=== PATIENT | female | born 1990 | race Caucasian/White ===

== ENCOUNTER 2018-04-11 12:50 | Emergency (ER) | payer MEDICAID, SELFPAY ==
--- NOTE | 2018-04-11 12:50 | DT_ITS ---
This patient was seen during an EMR downtime April 10, 2018 - April 17, 2018. This patient may have a combination of paper and electronic documentation or all paper documentation. All documentation is viewable within the e-chart portion of [employer] for each patient visit.
--- NOTE | 2018-04-11 14:35 | RAD_ITS ---
STUDY: X-RAY - SACRUM/COCCYX REASON FOR EXAM: Female, 28 years old. FALL, LOWER BACK, SAC/COCCYX PAIN. TECHNIQUE: 3 view(s) of the sacrum and coccyx were obtained. COMPARISON: None. FINDINGS: Normal bilateral sacroiliac joints. Normal visualized sacral ala and fused sacral bodies. Normal sacrococcygeal junction with a normal angulation. Normal coccygeal segments. The presacral soft tissue structures are unremarkable. RAD/Sacrum-Coccyx min 2 Views IMPRESSION: Normal x-rays of the sacrum and coccyx. Electronically Signed: Wilfredo Muñoz MD at 9:36 EDT Tel , Service support ,
--- NOTE | 2018-04-11 14:35 | RAD_ITS ---
STUDY: X-RAY - LUMBAR SPINE REASON FOR EXAM: Female, 28 years old. FALL, LOWER BACK AND SAC/COCCYX PAIN. TECHNIQUE: 3 view(s) of the lumbar spine were obtained. COMPARISON: None FINDINGS: Normal lumbar lordosis. There is no substantial scoliosis. There is a normal alignment of the vertebrae. Normal vertebral bodies and endplates. Normal disc space heights. The soft tissue structures are unremarkable. RAD/Lumbar Spine 2 or 3 Views IMPRESSION: Normal x-ray examination of the lumbar spine. Electronically Signed: Wilfredo Muñoz MD at 9:35 EDT Tel , Service support ,
== END 2018-04-11 15:54 | disposition home or self-care (01) ==
LOC: ED 04-13 13:07
PROVIDERS: Emergency Provider Emergency Medicine; Family Provider Nurse Practitioner Family; PCP Nurse Practitioner Family
DX: S30.0XXA Contusion of lower back and pelvis, initial encounter (principal); V86.99XA Unspecified occupant of other special all-terrain or other off-road motor vehicle injured in nontraffic accident, initial encounter; Y93.9 Activity, unspecified; Y92.9 Unspecified place or not applicable; F17.210 Nicotine dependence, cigarettes, uncomplicated
CPT/HCPCS: 72100; 72220; 99283

== ENCOUNTER 2018-08-10 16:18 | Emergency (ER) | payer MEDICAID, SELFPAY ==
[2018-08-10 16:20] VITALS: BP 138/96; PULSE 100; RESP 17; TEMP 36.5; O2SAT 99; BMI 25.6
--- NOTE | 2018-08-10 16:38 | ED.VISSUMM ---
- ER Visit Summary Date of Service: 08/10/18 Chief Complaint: [] Left upper dental pain for days History of Present Illness: The patient is a 28 F []hx of that problem repeatedly has had a recurrence of dental pain for the last few days no fever no cough no trauma she has been told understands that she needs to see dentist for further therapy and possible dental extraction. No fever no cough denies no other complaints Physical Examination: [] She is resting in the bed in no distress her vital signs are within normal range the face and HEENT exam are generally unremarkable the mouth there is diffuse dental decay involving the left upper teeth and right upper teeth some decay to the lower teeth as well there is no abscess no drainage no foul order floor the mouth and tongue are unremarkable the neck is very supple the lungs are clear the abdomen soft nontender her neurologic exam is unremarkable Test Results: [] Emergency Department Course and Treatment: [] has diffuse dental caries and decay I explained her she require management via dental services she may require extractions she indicates she has financial issues that make it hard for her to see dentistry she will be referred to a local clinic I also explained her she can be seen through the dental health services at [facility] [place] and [facility] if she can arrange access to those facilities but she would have to call for an appointment, given her allergy profile she will be started on clindamycin which has been on before her significant other indicated that nonsteroidals [id number] are not helping I explained that all we can provide our prescription nonsteroidals she will return for change in symptoms Treatment Plan: [] Disposition: [] Home stable Impression: [] Diffuse dental decay This note was generated with [employer] dictation software. It may contain incorrect words, spelling, and punctuation that were not noted in review of the chart prior to signing ED Disposition - Plan for ED Patient: Chief Complaint: Dental Referrals: Rosaura Rodriguez, MARIZA-C [Primary Care Provider] -
--- NOTE | 2018-08-10 16:40 | ED.DEP ---
ED Disposition - Plan for ED Patient: Chief Complaint: Dental Instructions: ED Cavity Dental Prescriptions: Naproxen [Naprosyn] 500 mg PO BID PRN #20 tab Clindamycin HCl [Cleocin] 300 mg PO Q6H #40 cap Referrals: Rosaura Rodriguez, MARIZA-C [Primary Care Provider] - Radha Cerna [NON-STAFF] -
== END 2018-08-10 17:03 | disposition home or self-care (01) ==
PROVIDERS: Emergency Provider Emergency Medicine; Family Provider Nurse Practitioner Family; PCP Nurse Practitioner Family
DX: K02.9 Dental caries, unspecified (principal)
CPT/HCPCS: 99281

== ENCOUNTER 2019-08-13 22:33 | Emergency (ER) | payer SELFPAY ==
[2019-08-13 22:34] VITALS: BP 152/99; PULSE 81; RESP 13; TEMP 36.6; O2SAT 99; BMI 23.8
--- NOTE | 2019-08-13 22:46 | CT_ITS ---
STUDY: CT ABDOMEN AND PELVIS WITHOUT CONTRAST REASON FOR EXAM: Female, 29 years old. Left flank pain. RADIATION DOSAGE (If Supplied By Facility): CTDIvol = ( 6.81 ) mGy, DLP = ( 338.37 ) mGycm TECHNIQUE: Transaxial images were obtained from the dome of the diaphragm to the symphysis pubis without oral contrast, and without intravenous contrast. Sagittal and coronal images were reconstructed. Individualized dose optimization techniques were used for this CT. COMPARISON: 03/31/2017. FINDINGS: Lung bases are clear. Heart size is normal. The liver is unremarkable. The gallbladder is surgically absent. The spleen and pancreas are unremarkable. The adrenal glands are normal. The kidneys are unremarkable. No stones or hydronephrosis. The aorta is normal in caliber. There is no free fluid, free air, or organized collection. No bowel obstruction or inflammatory change. Normal appendix. Urinary bladder is unremarkable. Normal abdominal wall. Normal osseous structures. CT/Abdomen/Pelvis without Cont IMPRESSION: Normal CT of the abdomen and pelvis. Electronically Signed: Kelsey Pascual MD at 23:53 EDT Tel , Service support ,
--- NOTE | 2019-08-13 22:47 | ED.VIS.GEN ---
History of Present Illness Chief Complaint: Flank Pain Informant: Patient Narrative: Stated she started having left-sided flank pain yesterday evening. It has persisted until today. She describes a sharp burning pain in the left flank radiating to the anterior abdomen. Denies any urinary symptoms. Positive history of pyelonephritis remotely. No fevers or chills. She is had some mild nausea. No history of kidney stones. Current severity is mild to moderate. Waxes and wanes. Denies any vaginal symptoms. Denies . Past Medical History - Allergies and Home Meds Allergies/Adverse Reactions: Allergies Penicillins Allergy (Verified 08/13/19 22:34) Hives sulfamethoxazole [From Bactrim] Adverse Reaction (Verified 08/13/19 22:34) Vomiting trimethoprim [From Bactrim] Adverse Reaction (Verified 08/13/19 22:34) Vomiting Primary Care Physician: Rosaura Rodriguez NP-C [Primary Care Provider] - Prior records reviewed: Yes Past Medical History: - - Pyelonephritis Surgical History: cholecystectomy Smoking Status: Current every day smoker Alcohol: None Drugs: None Review of Systems General: Denies: Chills, Fever, Sweats Eyes: Denies: Visual changes - bilaterally, Diplopia ENT: Denies: Rhinorrhea, Sore throat Cardiovascular: Denies: Chest pain, Palpitations Respiratory: Denies: Dyspnea, Cough, Dyspnea on exertion Gastrointestinal: Reports: Nausea. Denies: Abdominal pain, Vomiting, Diarrhea, Melena, Hematochezia Genitourinary: Denies: Dysuria, Hematuria, Frequency Musculoskeletal: Reports: Back pain. Denies: Extremity Pain Skin: Denies: Rash, Wounds Neurological: Denies: Headache, Weakness, Numbness Physical Exam Vital Signs/Narrative: Vital Signs Temp Pulse Resp BP Pulse Ox 08/13/19 22:34 97.8 F 81 13 152/99 H 99 General: Well nourished, Well developed, No Acute Distress Head: Normocephalic, Atraumatic Eyes: Perrl, EOMI ENT: Moist mucous membranes, No rhinorrhea Neck: Supple, Nontender Cardiovascular: Regular rate, Regular rhythm, No murmurs Respiratory: No distress, CTA bilaterally, Chest nontender Abdomen: Soft, Nontender, Nondistended, Normal bowel sounds Back: Nontender, Normal Inspection, CVA tenderness - Positive on the left Extremities: Nontender, No edema Skin: Normal color, No rash Neurological: Alert, Oriented x3, Cranial nerves II-XII grossly intact, Normal Strength, Normal Sensation Psychological: Normal affect, Normal Mood Diagnostic/Tx/Re-eval - Medical Decision Making Given IV fluids morphine Zofran and Toradol. Lab work CT abdomen pelvis obtained. Lab work shows a leukocytosis 11,000. Urinalysis shows white blood cell counts elevated in the urine as well as 4+ bacteria. Elect lites show no significant abnormalities. negative. CT abdomen pelvis is negative. At this time patient has a left-sided pyelonephritis. Given ciprofloxacin.. Feels better after treatment. Discharged with ciprofloxacin, friend, Percocet. We will follow-up as an outpatient. I do not feel she is septic or needs to be admitted. She will return if she worsens ED Disposition - Plan for ED Patient: Disposition: Home or Assisted Living Diagnosis: Pyelonephritis of left kidney Instructions: PYELONEPHRITIS, Female (Adult) Prescriptions: Ciprofloxacin [Cipro] 500 mg PO BID #14 tab Prescription Printed Oxycodone HCl/Acetaminophen [Percocet 5/325] 1 - 2 tab PO Q6H PRN PRN 3 Days #12 tab PRN Reason: Pain Prescription Printed Ondansetron [Zofran Odt] 4 mg PO Q8H PRN PRN #10 tab PRN Reason: Nausea Prescription Printed Referrals: Rosaura Rodriguez NP-C [Primary Care Provider] -
[2019-08-13] MEDS: Ondansetron 4 MG/2 ML Vial IV (22:53)
[2019-08-13] MEDS: Morphine 4 MG/ML Syringe IV (22:53)
[2019-08-13] MEDS: Ketorolac 30 MG/ML Syringe IV (22:54)
[2019-08-13 22:56] LABS: Mucous, Urine 0 SEEN /hpf (<or=2+); Red Blood Cells-Urine 0 SEEN /hpf (0-5); Squamous Epithelial Cells - UA 0 SEEN /hpf (5-10)
[2019-08-13 22:56] LABS: Absolute Lymphocyte Count 2.91 X10^3/uL (0.83-4.51); Absolute Neutrophil Count 6.7 X10^3/uL (2.0-7.7); Basophil# 0.08 X10^3/uL; Basophil% 0.7 % (0-1); Eosinophil# 0.86 X10^3/uL; Eosinophils% 7.6 % (0-5); Hematocrit 42.3 % (37-47); Hemoglobin 14.4 g/dL (12.0-15.0); Lymphocyte # 2.91 X10^3/ul (4.0); Lymphocyte % 25.8 % (19-41); Mean Corpuscular Hgb 33.6 pg (27.0-32.0); Mean Corpuscular Volume 98.6 fL (81-99); Mean Platelet Vol. 9.2 fl (6.2-12.0); Monocyte# 0.68 X10^3/uL; NRBC Flagged by Analyzer 0 % (0-5); Neutrophil # 6.73 X10^3/uL (2.7-7.7); Neutrophil % 59.6 % (47-70); Platelet Count 261 K/mm3 (150-450); RBC Distribution Width CV 13.2 % (11.6-14.6); RBC Distribution Width SD 47.6 fl (35.1-43.9); Red Blood Count 4.29 M/mm3 (4.2-5.4); White Blood Count 11.3 K/mm3 (4.4-11.0)
[2019-08-13 23:00] LABS: Color, Urine Yellow (Yellow); Glucose, Dipstick Normal (Normal); Ketone-Dipstick Negative (Negative); Leukocyte Esterase-Dipstick 100 /ul (Negative); Nitrite-Dipstick Positive (Negative); Occult Blood-Urine 50 /ul (Negative); Protein-Dipstick Negative (Negative); Urine Bilirubin Dipstick Negative (Negative); Urine Clarity Sl. Cloudy (Clear); Urine Urobilinogen Normal (Normal)
[2019-08-13 23:10] LABS: Bacteria 4+ /hpf (None Seen); White Blood Cells 5-10 SEEN /hpf (0-5)
[2019-08-13 23:17] LABS: Internal QC Validated? YES +Cl - CLEAR BKGD; Pregnancy, Serum, hCG Quali. NEGATIVE Negative
[2019-08-13] MEDS: 0.9% Normal Saline 1,000 ML 250 ML IV (23:26)
[2019-08-13 23:43] LABS: Anion Gap 7 (5-15); BUN 11 mg/dL (7-18); BUN/Creat Ratio 15.4 RATIO (10-20); Calcium,Total 8.2 mg/dL (8.5-10.1); Chloride 108 mmol/L (98-107); Creatinine, Serum 0.71 mg/dL (0.55-1.02); EST Glomerular Filtration Rate 101 mL/min (>60); Est Glom Filt Rate - Afr Amer 122 mL/min (>60); Estimated Creatinine Clearance 111.64 ml/min; Glucose 98 mg/dL (74-106); Potassium 3.7 mmol/L (3.5-5.1); Sodium Level 142 mmol/L (136-145)
[2019-08-14] MEDS: Ciprofloxacin 500 MG Tablet PO (00:19)
[2019-08-14 00:24] VITALS: BP 131/101; PULSE 74; RESP 14; O2SAT 100
== END 2019-08-14 00:25 | disposition home or self-care (01) ==
PROVIDERS: Emergency Provider Emergency Medicine; Family Provider Nurse Practitioner Family; PCP Nurse Practitioner Family
DX: N12 Tubulo-interstitial nephritis, not specified as acute or chronic (principal); Z87.448 Personal history of other diseases of urinary system; F17.200 Nicotine dependence, unspecified, uncomplicated
CPT/HCPCS: 74176; 80048; 81001; 84703; 85025; 87077; 87086; 87088; 87186; 96361; 96374; 96375; 99285; J7030; A4216; J2405

== ENCOUNTER 2021-11-04 17:28 | Emergency (ER) | payer MEDICAID, SELFPAY ==
[2021-11-04 17:29] VITALS: BP 160/111; PULSE 108; RESP 18; TEMP 36.3; O2SAT 97; BMI 26.6
--- NOTE | 2021-11-04 18:30 | CT_ITS ---
STUDY: CT ABDOMEN AND PELVIS WITHOUT CONTRAST REASON FOR EXAM: Female, 31 years old. Hematuria RADIATION DOSAGE (If Supplied By Facility): CTDIvol = ( 6.75 ) mGy, DLP = ( 337.25 ) mGycm TECHNIQUE: Transaxial images were obtained from the dome of the diaphragm to the symphysis pubis without oral contrast, and without intravenous contrast. Sagittal and coronal images were reconstructed. Individualized dose optimization techniques were used for this CT. COMPARISON: None. FINDINGS: The visualized lung bases are unremarkable. The visualized portions of the heart are within normal limits. Normal liver. Gallbladder is removed.. Normal spleen. Normal pancreas. Normal bilateral adrenal glands. Normal right kidney. Normal left kidney. Normal visualized stomach. Normal small intestine. Normal colon. The appendix is visualized and appears normal. Normal abdominal aorta. Normal inferior vena cava. Normal retroperitoneum. Normal urinary bladder. There are multiple tubal ligation clips in the pelvis with unclear relationship to the tubes/ovaries. One of the clips is anterior to the bladder, and other posterior in the perirectal space. Normal abdominal wall. Normal osseous structures. CT/Abdomen/Pelvis without Cont IMPRESSION: 1. No acute abnormality. 2. Normal urinary system, no stones. 3. Tubal ligation clips, see above for description and gynecology outpatient consultation advised. Electronically Signed: Manju Delgado MD at 20:48 EST Tel , Service support ,
[2021-11-04 18:45] LABS: Bacteria 0 SEEN /hpf (None Seen); Mucous, Urine 0 SEEN /hpf (<or=2+)
--- NOTE | 2021-11-04 18:50 | EDS_ITS ---
HPI History of Present Illness Chief Complaint: Complaint Informant: patient Onset/Context/Timing Onset: Yesterday Context: Gradual Onset Timing: Continuous Quality: Burning, stabbing Location: Lower abdomen and right low back and flank Worsened by: Movement Relieved by: Nothing Narrative Narrative: Patient presents with hematuria that began yesterday. Patient states it has been red blood in her urine. Patient states it is gradually gotten worse. Patient states she has pain over her lower abdomen and her right lower back. Patient states it is burning and stabbing. Patient states it has been constant. Patient states it is worse with certain movements. Patient denies any fevers or chills. Patient denies any nausea or vomiting. PFSH PFSH Medical History Smoker Home Medications hydrocodone-acetaminophen 1 tab PO Q6H PRN PRN 3 Days #10 tablet 11/04/21 [Rx Last Taken Unknown] losartan 100 mg PO DAILY 11/04/21 [History Last Taken Unknown] Allergy/AdvReac Type Severity Reaction Status Date / Time Penicillins Allergy Hives Verified 11/04/21 17:30 ketorolac [From Toradol] AdvReac Other Verified 11/04/21 17:31 sulfamethoxazole AdvReac Vomiting Verified 11/04/21 17:30 [From Bactrim] trimethoprim [From Bactrim] AdvReac Vomiting Verified 11/04/21 17:30 Surgical History (Updated 11/04/21 @ 17:48 by Felipe Kong) History of cholecystectomy Social History Smoking Status: Current every day smoker tobacco type: cigarettes ROS ROS ED Constitutional Constitutional ED: Denies chills or fever(s) Eyes Eyes: Denies blurry vision or change in vision ENT ENT ED: Denies rhinorrhea or sore throat Cardiovascular Cardiovascular: Denies chest pain or palpitations Respiratory/Chest Respiratory/Chest: Denies cough or dyspnea Gastrointestinal Gastrointestinal: Denies nausea or vomiting Genitourinary Genitourinary ED: Reports hematuria and urinary frequency; Denies dysuria Musculoskeletal Musculoskeletal: Reports back pain; Denies neck pain Integumentary Denies abscess or rash Neurologic Neurologic: Denies headache(s) or weakness Allergic/Immunologic Allergic/Immunologic ED: Denies mouth swelling or urticaria EXAM Physical Exam Const Vital Signs: 11/04/21 17:29 11/04/21 21:23 Temperature 97.4 F L Temperature Source Temporal Pulse Rate 108 H 89 Respiratory Rate 18 15 Blood Pressure 160/111 H 137/97 H Blood Pressure Mean 127 110 Pulse Ox 97 98 Oxygen Delivery Method Room Air Room Air Positive well nourished and well developed General Appearance ED: well developed HEENT Reports moist mucous membranes Neck supple and no JVD Resp normal respiratory effort and clear to auscultation bilaterally Cardio regular rate, regular rhythm and no murmurs GI normal to inspection, nondistended, normoactive bowel sounds Palpation: soft and tender LLQ, RLQ and suprapubic Back/Spine General Back: CVA tenderness right Extremity normal to inspection General Extremety ED: Negative for edema or tenderness General Extremity: Negative for edema Neuro oriented x3, CN's II-XII intact bilaterally and no sensory deficits noted Sensorium / Orientation: alert Motor Exam: strength 5/5 throughout Psych mental status grossly normal Skin no rashes or lesions noted MDM MDM MDM Narrative Medical decision making narrative: Patient was given IV fluids, morphine, and Zofran. CBC was within normal limits. Urinalysis shows leukocyte Estrace of 25. Occult blood was 250. There were greater than 100 red blood cells. There were 0-5 white blood cells. There were 10-25 epithelial cells. Urine hCG was negative. Comprehensive metabolic profile was within normal limits. CT scan of the abdomen pelvis was obtained. There is no acute process noted. This was interpreted by the radiologist and reviewed by myself. Patient was advised of her findings. Patient was given a repeat dose of morphine. Patient was given a prescription for [place]. Patient was instructed to follow-up with her primary care physician in 5 to 7 days. Patient was also instructed to follow-up with her [employer] in 5 to 7 days. Patient understood and was agreeable with the plan. All questions were answered. Lab Data Labs: Laboratory Results - last 24 hr 11/04/21 11/04/21 11/04/21 17:57 17:57 18:51 WBC 8.2 RBC 4.16 L Hgb 14.0 Hct 40.9 MCV 98.3 MCH 33.7 H MCHC 34.2 RDW Std Deviation 46.0 H RDW Coeff of Tere 12.7 Plt Count 212 MPV 8.9 Immature Gran % (Auto) 0.200 Neut % (Auto) 64.6 Lymph % (Auto) 25.1 [place] % (Auto) 4.2 Eos % (Auto) 5.3 H Baso % (Auto) 0.6 Absolute Neuts (auto) 5.3 Absolute Lymphs (auto) 2.05 Nucleated RBC % 0 Sodium Potassium Chloride Carbon Dioxide Anion Gap BUN Creatinine Estim Creat Clear Calc Est GFR (MDRD) Af Amer Est GFR (MDRD) Non-Af BUN/Creatinine Ratio Glucose Calcium Total Bilirubin AST ALT Alkaline Phosphatase Total Protein Albumin Globulin Albumin/Globulin Ratio Urine Color SEE COMMENT BELOW Urine Clarity Cloudy Urine pH 8.0 Ur Specific [place] 1.010 Urine Protein 30 H Urine Glucose (UA) Normal Urine Ketones Negative Urine Occult Blood 250 H Urine Nitrite Negative Urine Bilirubin Negative Urine Urobilinogen Normal Ur Leukocyte Esterase 25 H Urine RBC > 100 SEEN Urine WBC 0-5 SEEN Ur Squamous Epith Cells 10-25 SEEN Urine Bacteria 0 SEEN Urine Mucus 0 SEEN Urine Test Negative 11/04/21 18:51 WBC RBC Hgb Hct MCV MCH MCHC RDW Std Deviation RDW Coeff of Tere Plt Count MPV Immature Gran % (Auto) Neut % (Auto) Lymph % (Auto) [place] % (Auto) Eos % (Auto) Baso % (Auto) Absolute Neuts (auto) Absolute Lymphs (auto) Nucleated RBC % Sodium 137 Potassium 4.0 Chloride 110 H Carbon Dioxide 22.0 Anion Gap 5 BUN 6 L Creatinine 0.68 Estim Creat Clear Calc 114.43 Est GFR (MDRD) Af Amer 128 Est GFR (MDRD) Non-Af 105 BUN/Creatinine Ratio 8.8 L Glucose 89 Calcium 9.0 Total Bilirubin 0.50 AST 41 H ALT 42 Alkaline Phosphatase 81 Total Protein 7.5 Albumin 3.4 Globulin 4.1 Albumin/Globulin Ratio 0.8 L Urine Color Urine Clarity Urine pH Ur Specific [place] Urine Protein Urine Glucose (UA) Urine Ketones Urine Occult Blood Urine Nitrite Urine Bilirubin Urine Urobilinogen Ur Leukocyte Esterase Urine RBC Urine WBC Ur Squamous Epith Cells Urine Bacteria Urine Mucus Urine Test Radiography Diagnostic Testing: Clinical Impression(s) from Imaging Studies Abdomen/Pelvis CT 11/04/21 18:30 IMPRESSION: 1. No acute abnormality. 2. Normal urinary system, no stones. 3. Tubal ligation clips, see above for description and gynecology outpatient consultation advised. Electronically Signed: Manju Delgado MD at 20:48 EST Tel , Service support , Discharge Plan Triage Chief Complaint: Complaint ED Provider: Vijay Mcmullen Dx/Rx/DC Orders Clinical Impression: Pelvic pain, Hematuria Instructions: ED Hematuria, ED Pelvic Pain, Unknown Cause Prescriptions: New hydrocodone-acetaminophen [hydrocodone-acetaminophen] 1 TABLET tablet 1 tab PO Q6H PRN PRN (Reason: Pain) 3 Days Qty: 10 RF: 0 No Action losartan 100 mg tablet 100 mg PO DAILY RF: 0 Primary Care Provider: Rosaura Rodriguez NP Referrals: Jethro Norton MD [STAFF PHYSICIAN] - 3-5 Days Rosaura Rodriguez NP, [employer] [Primary Care Provider] - 5-7 Days Disposition Disposition: Home, Self Care
[2021-11-04 18:53] LABS: Glucose, Dipstick Normal (Normal); Ketone-Dipstick Negative (Negative); Leukocyte Esterase-Dipstick 25 /ul (Negative); Nitrite-Dipstick Negative (Negative); Occult Blood-Urine 250 /ul (Negative); Protein-Dipstick 30 mg/dl (Negative); Urine Bilirubin Dipstick Negative (Negative); Urine Clarity Cloudy (Clear); Urine Urobilinogen Normal (Normal)
[2021-11-04] MEDS: Ondansetron 4 MG/2 ML Vial IV (18:54)
[2021-11-04] MEDS: Morphine 4 MG/ML Syringe IV ×2 (18:54→22:42)
[2021-11-04] MEDS: 0.9% Normal Saline 1,000 ML 1000 ML IV (18:55)
[2021-11-04 18:59] LABS: Absolute Lymphocyte Count 2.05 X10^3/uL (0.83-4.51); Absolute Neutrophil Count 5.3 X10^3/uL (2.0-7.7); Basophil# 0.05 X10^3/uL; Basophil% 0.6 % (0-1); Eosinophil# 0.43 X10^3/uL; Eosinophils% 5.3 % (0-5); Hematocrit 40.9 % (37-47); Lymphocyte # 2.05 X10^3/ul (0.83-4.51); Lymphocyte % 25.1 % (19-41); Mean Corp Hgb Conc 34.2 g/dL (32-36); Mean Corpuscular Hgb 33.7 pg (27.0-32.0); Mean Corpuscular Volume 98.3 fL (81-99); Mean Platelet Vol. 8.9 fl (6.2-12.0); Monocyte# 0.34 X10^3/uL; Monocyte% 4.2 % (0-10); NRBC Flagged by Analyzer 0 % (0-5); Neutrophil # 5.28 X10^3/uL (2.7-7.7); Neutrophil % 64.6 % (47-70); Platelet Count 212 K/mm3 (150-450); RBC Distribution Width CV 12.7 % (11.6-14.6); Red Blood Count 4.16 M/mm3 (4.2-5.4); White Blood Count 8.2 K/mm3 (4.4-11.0)
[2021-11-04 19:01] LABS: Color, Urine SEE COMMENT BELOW (Yellow)
[2021-11-04 19:05] LABS: Red Blood Cells-Urine > 100 SEEN /hpf (0-5); Squamous Epithelial Cells - UA 10-25 SEEN /hpf (5-10); White Blood Cells 0-5 SEEN /hpf (0-5)
[2021-11-04 19:22] LABS: ALB/GLOB Ratio 0.8 RATIO (0.9-2.4); AST(SGOT) 41 U/L (15-37); Alanine Aminotransfer ALT/SGPT 42 U/L (13-56); Albumin, Serum 3.4 g/dL (3.2-5.0); Alkaline Phosphatase 81 U/L (45-117); Anion Gap 5 (5-15); BUN 6 mg/dL (7-18); BUN/Creat Ratio 8.8 RATIO (10-20); Chloride 110 mmol/L (98-107); Creatinine, Serum 0.68 mg/dL (0.55-1.02); EST Glomerular Filtration Rate 105 mL/min (>60); Est Glom Filt Rate - Afr Amer 128 mL/min (>60); Estimated Creatinine Clearance 114.43 ml/min; Globulin 4.1 g/dL (2.2-4.2); Glucose 89 mg/dL (74-106); Protein, Total 7.5 g/dL (6.4-8.2); Sodium Level 137 mmol/L (136-145)
[2021-11-04 19:28] LABS: Internal QC Validated? YES +Cl - CLEAR BKGD; Pregnancy, Urine Negative Negative
[2021-11-04 21:23] VITALS: BP 137/97; PULSE 89; RESP 15; O2SAT 98
[2021-11-04 22:51] VITALS: BP 120/71; PULSE 85; RESP 16; O2SAT 98
== END 2021-11-04 22:51 | disposition home or self-care (01) ==
PROVIDERS: Emergency Provider Emergency Medicine; PCP Nurse Practitioner Family
DX: R10.2 Pelvic and perineal pain (principal); R31.9 Hematuria, unspecified; F17.210 Nicotine dependence, cigarettes, uncomplicated
CPT/HCPCS: 74176; 80053; 81001; 81025; 85025; 96361; 96374; 96375; 96376; 99283; J7030; A4216; J2405

== ENCOUNTER 2021-11-08 20:47 | Emergency (ER) | payer MEDICAID, SELFPAY ==
[2021-11-08 20:48] VITALS: BP 139/93; PULSE 114; RESP 18; TEMP 36.2; O2SAT 99; BMI 26.6
[2021-11-08 22:17] LABS: Bacteria 0 SEEN /hpf (None Seen); Mucous, Urine 0 SEEN /hpf (<or=2+); White Blood Cells 0 SEEN /hpf (0-5)
[2021-11-08 22:40] LABS: Color, Urine Red (Yellow); Glucose, Dipstick Normal (Normal); Ketone-Dipstick 5 mg/dl (Negative); Leukocyte Esterase-Dipstick 25 /ul (Negative); Nitrite-Dipstick Negative (Negative); Occult Blood-Urine 250 /ul (Negative); Protein-Dipstick 500 mg/dl (Negative); Specific Gravity, Urine 1.015 (1.002-1.030); Urine Bilirubin Dipstick Negative (Negative); Urine Clarity Cloudy (Clear); Urine Urobilinogen Normal (Normal)
[2021-11-08 22:55] LABS: Red Blood Cells-Urine > 100 SEEN /hpf (0-5); Squamous Epithelial Cells - UA 10-25 SEEN /hpf (5-10)
[2021-11-08 22:56] LABS: Internal QC Validated? YES +Cl - CLEAR BKGD; Pregnancy, Urine Negative Negative
[2021-11-09] MEDS: 0.9% Normal Saline 1,000 ML 999 ML IV (00:40)
[2021-11-09] MEDS: HYDROmorphone 1 MG/ML Syringe IV (00:41)
[2021-11-09] MEDS: Ondansetron 4 MG/2 ML Vial IV (00:41)
[2021-11-09 00:47] VITALS: PULSE 89; RESP 16; O2SAT 98
[2021-11-09 00:54] LABS: Absolute Lymphocyte Count 1.68 X10^3/uL (0.83-4.51); Absolute Neutrophil Count 2.2 X10^3/uL (2.0-7.7); Basophil# 0.02 X10^3/uL; Basophil% 0.4 % (0-1); Eosinophil# 0.24 X10^3/uL; Eosinophils% 5.3 % (0-5); Hematocrit 37.3 % (37-47); Hemoglobin 12.5 g/dL (12.0-15.0); Lymphocyte # 1.68 X10^3/ul (0.83-4.51); Lymphocyte % 37.2 % (19-41); Mean Corp Hgb Conc 33.5 g/dL (32-36); Mean Corpuscular Hgb 32.6 pg (27.0-32.0); Mean Corpuscular Volume 97.1 fL (81-99); Mean Platelet Vol. 8.8 fl (6.2-12.0); Monocyte# 0.35 X10^3/uL; Monocyte% 7.7 % (0-10); NRBC Flagged by Analyzer 0 % (0-5); Neutrophil # 2.23 X10^3/uL (2.7-7.7); Neutrophil % 49.4 % (47-70); Platelet Count 230 K/mm3 (150-450); RBC Distribution Width CV 12.8 % (11.6-14.6); RBC Distribution Width SD 45.8 fl (35.1-43.9); Red Blood Count 3.84 M/mm3 (4.2-5.4); White Blood Count 4.5 K/mm3 (4.4-11.0)
[2021-11-09 01:07] LABS: Anion Gap 6 (5-15); BUN 8 mg/dL (7-18); Calcium,Total 8.6 mg/dL (8.5-10.1); Chloride 109 mmol/L (98-107); EST Glomerular Filtration Rate 88 mL/min (>60); Est Glom Filt Rate - Afr Amer 106 mL/min (>60); Estimated Creatinine Clearance 97.27 ml/min; Glucose 94 mg/dL (74-106); Potassium 3.5 mmol/L (3.5-5.1); Sodium Level 141 mmol/L (136-145)
--- NOTE | 2021-11-09 01:43 | EX.ED.DYSGE1 ---
HPI History of Present Illness Chief Complaint: Complaint Narrative Narrative: Patient is a 31-year-old female who was seen in the ER recently secondary to hematuria. She states that time she had blood work and a CT scan which revealed no obvious cause. She reports she was placed on pain medication but has noticed some increased pain and blood in secondary to this comes in for evaluation. The patient states the blood is occurring only with urination and denies any vaginal bleeding or rectal bleed. Patient denies any blood thinner use or history of bleeding disorder. PFSH PFSH Medical History Hypertension Smoker Home Medications losartan 100 mg PO DAILY 11/04/21 [History Last Taken Unknown] oxycodone-acetaminophen [Endocet] 1 tab PO Q6H PRN 3 Days #12 tab 11/09/21 [Rx Last Taken Unknown] Allergy/AdvReac Type Severity Reaction Status Date / Time Penicillins Allergy Hives Verified 11/08/21 20:50 ketorolac [From Toradol] AdvReac Other Verified 11/08/21 20:50 sulfamethoxazole AdvReac Vomiting Verified 11/08/21 20:50 [From Bactrim] trimethoprim [From Bactrim] AdvReac Vomiting Verified 11/08/21 20:50 Surgical History (Updated 11/04/21 @ 17:48 by Felipe Kong) History of cholecystectomy Social History Smoking Status: Current every day smoker tobacco type: cigarettes ROS ROS ED Constitutional Constitutional ED: Denies chills or fever(s) ENT ENT ED: Denies sore throat Cardiovascular Cardiovascular: Denies chest pain Respiratory/Chest Respiratory/Chest: Denies cough or dyspnea Gastrointestinal Gastrointestinal: Reports abdominal pain; Denies diarrhea, nausea or vomiting Genitourinary Genitourinary ED: Reports hematuria; Denies dysuria Musculoskeletal Musculoskeletal: Denies myalgias Integumentary Denies rash Neurologic Neurologic: Denies headache(s) Hematologic/Lymphatic Hematologic/Lymphatic: Denies easy bleeding or easy bruising EXAM Physical Exam Const Vital Signs: 11/08/21 20:48 11/09/21 00:47 11/09/21 01:54 Temperature 97.2 F L 98.1 F Temperature Source Temporal Pulse Rate 114 H 89 89 Respiratory Rate 18 16 16 Blood Pressure 139/93 H 136/82 H Blood Pressure Mean 108 Pulse Ox 99 98 98 Oxygen Delivery Method Room Air Room Air Positive well nourished and well developed General Appearance ED: well developed HEENT Reports moist mucous membranes Eyes PERRL and EOMs intact bilaterally General Eye ED: Negative for pale conjunctiva Neck supple Resp normal respiratory effort and clear to auscultation bilaterally Cardio regular rate and regular rhythm GI normal to inspection, nondistended, normoactive bowel sounds, non-tender, non-distended and no masses GI Narrative: No voluntary guarding or rigidity no pulsatile mass Auscultation: normoactive bowel sounds Palpation: soft Back/Spine Back/Spine Narrative: Positive right CVA pain Extremity normal to inspection Neuro oriented x3 and CN's II-XII intact bilaterally Sensorium / Orientation: alert Motor Exam: strength 5/5 throughout Psych mental status grossly normal Skin no rashes or lesions noted Skin Narrative: Capillary refill is less than 3 seconds MDM MDM MDM Narrative Medical decision making narrative: Patient presented to the ER afebrile and slightly hypertensive. She already had a CT scan which revealed no obvious stones I felt no need for repeat imaging at this time. Basic blood work was obtained which shows no need for transfusion and normal platelets as well as no signs of acute kidney injury. Urine did confirm hematuria but no signs of infection. With her flank pain and negative CT scan I feel she probably has a noncalcified stone as the cause of her symptoms. She will be given an order form to have an outpatient kidney ultrasound obtained to check for this. However at this time as she does not have signs of urosepsis or acute kidney injury or need for transfusion there is no need for admission and she can be discharged home Lab Data Attestation: I reviewed the patient's lab results. Labs: Laboratory Results - last 24 hr 11/08/21 11/09/21 11/09/21 22:05 00:40 00:40 WBC 4.5 RBC 3.84 L Hgb 12.5 Hct 37.3 MCV 97.1 MCH 32.6 H MCHC 33.5 RDW Std Deviation 45.8 H RDW Coeff of Tere 12.8 Plt Count 230 MPV 8.8 Immature Gran % (Auto) 0.000 Neut % (Auto) 49.4 Lymph % (Auto) 37.2 [place] % (Auto) 7.7 Eos % (Auto) 5.3 H Baso % (Auto) 0.4 Absolute Neuts (auto) 2.2 Absolute Lymphs (auto) 1.68 Nucleated RBC % 0 Sodium 141 Potassium 3.5 Chloride 109 H Carbon Dioxide 26.0 Anion Gap 6 BUN 8 Creatinine 0.80 Estim Creat Clear Calc 97.27 Est GFR (MDRD) Af Amer 106 Est GFR (MDRD) Non-Af 88 BUN/Creatinine Ratio 10.0 Glucose 94 Calcium 8.6 Urine Color Red Urine Clarity Cloudy Urine pH 8.0 Ur Specific [place] 1.015 Urine Protein 500 H Urine Glucose (UA) Normal Urine Ketones 5 H Urine Occult Blood 250 H Urine Nitrite Negative Urine Bilirubin Negative Urine Urobilinogen Normal Ur Leukocyte Esterase 25 H Urine RBC > 100 SEEN Urine WBC 0 SEEN Ur Squamous Epith Cells 10-25 SEEN Urine Bacteria 0 SEEN Urine Mucus 0 SEEN Urine Test Negative Discharge Plan Triage Chief Complaint: Complaint ED Provider: Bradley Yepez Dx/Rx/DC Orders Clinical Impression: Hematuria, Acute flank pain Instructions: ED Flank Pain, Uncertain Cause, ED Hematuria Prescriptions: New oxycodone-acetaminophen [Endocet] 5-325 mg tablet 1 tab PO Q6H PRN (Reason: pain) 3 Days Qty: 12 RF: 0 No Action losartan 100 mg tablet 100 mg PO DAILY RF: 0 Primary Care Provider: Rosaura Rodriguez NP Referrals: Rosaura Rodriguez NP, [employer] [Primary Care Provider] - Activity Restrictions/Additional Instructions: Please return to the hospital for your outpatient ultrasound to further assess the cause of your hematuria and flank pain and discuss with your family doctor possible referral to a urologist if symptoms persist Disposition Disposition: Home, Self Care Discharge Date/Time: 11/09/21 02:09
[2021-11-09 01:54] VITALS: BP 136/82; PULSE 89; RESP 16; TEMP 36.7; O2SAT 98
[2021-11-09] MEDS: oxyCODONE 5 MG Tablet 10 MG PO (01:58)
== END 2021-11-09 02:09 | disposition home or self-care (01) ==
PROVIDERS: Emergency Provider Emergency Medicine; PCP Nurse Practitioner Family; Visit Provider Emergency Medicine
DX: R10.9 Unspecified abdominal pain (principal); R31.9 Hematuria, unspecified; I10 Essential (primary) hypertension; Z79.899 Other long term (current) drug therapy; F17.210 Nicotine dependence, cigarettes, uncomplicated
CPT/HCPCS: 80048; 81001; 81025; 85025; 96361; 96374; 96375; 99283; J7030; A4216; J2405

== ENCOUNTER 2021-12-02 17:43 | Outpatient (CLI) | payer MEDICAID, SELFPAY ==
--- NOTE | 2021-12-02 13:15 | CYSPIN_PTH ---
PATIENT: AMERICA MELISSA LOC: [facility] U#:[id number] AGE/SX: 31/F ROOM: RE12/02/[address]: Dr. Dianne Matthews MD : 1990 BED: DIS: 12/02/2021 SPEC #: [id number] RECD: 12/03/21 07:00 STATUS: LAURA ASHFORD #: [id number] SANTIAGO: 12/02/21 13:[address]: Dianne Matthews DEPT: CYTOLOGY RECD BY: Stella Rebollar ENTERED: 12/03/21 07:03 SP TYPE: CYSPIN FL OTHR DR: Rosaura Rodriguez, NETWORKING SPECIALIST-C Tissues: Urine Procedures: Pap Stain (control) Special Stain Group II Cytospin Fluid HEADER OPERATION: Not noted PRE-OP DIAGNOSIS: Gross hematuria TISSUE SUBMITTED: Urine for cytology DIAGNOSIS CYTOLOGY Urine for cytology (cytospin): Negative for malignant cells. See comment. BROWN:millicent 12/03/2021 COMMENT The specimen predominantly consists of squamous epithelial cells. Numerous organisms consistent with bacteria and red blood cells are also noted. CYTOLOGY STUDY Slides are reviewed. CYTOLOGY GROSS Received is 10 ml of dark gold cloudy fluid labeled with the patient's name and and designated per the requisition as urine. Submitted for cytology preparation. / millicent 12/03/2021 TC:5 CPT: 03351
[2021-12-02 17:45] LABS: Cytology, Body Fluid / CSF SEE PATHOLOGY REPORT
== END 2021-12-02 23:59 | disposition short-term general hospital (02) ==
PROVIDERS: PCP Nurse Practitioner Family; Visit Provider Urology
DX: R31.0 Gross hematuria (principal)
CPT/HCPCS: 88108; 88313

== ENCOUNTER 2021-12-08 09:34 | Day surgery (SDC) | payer MEDICAID, SELFPAY ==
[2021-12-08] VITALS (9 sets, daily range): BP systolic 111–135; BP diastolic 80–99; PULSE 86–116; RESP 14–18; TEMP 36.6–37.1; O2SAT 93–100; BMI 24.5
[2021-12-08] MEDS: Lactated Ringers 1,000 ML 15 ML IV ×2 (10:26→13:39)
[2021-12-08] MEDS: Ciprofloxacin 400 MG/200 ML BAG 200 MG IV (10:27)
--- NOTE | 2021-12-08 10:38 | PCM.HP.STD ---
HPI - General HPI Narrative AMERICA MELISSA, is a 31 F who presents for evaluation of gross hematuria and right flank pain. She had a negative CT and continues to have issues. Informed consent was obtained. PFSH Medical History Back pain Depression Flank pain Gross hematuria Hypertension Injury of head and neck Migraine headache Shortness of breath on exertion Smoker Home Medications losartan 100 mg PO QHS 11/04/21 [History Last Taken Unknown] oxycodone-acetaminophen [Endocet] 1 tab PO Q6H PRN 3 Days #12 tab 11/09/21 [Rx Last Taken Unknown] clindamycin HCl 300 mg PO TID 12/07/21 [History Last Taken Unknown] hydrochlorothiazide 25 mg PO QHS 12/07/21 [History Last Taken Unknown] nitrofurantoin monohyd/m-cryst [Macrobid] 100 mg PO BID 12/07/21 [History Last Taken Unknown] sertraline 150 mg PO QHS 12/07/21 [History Last Taken Unknown] Allergy/AdvReac Type Severity Reaction Status Date / Time Penicillins Allergy Hives Verified 12/08/21 10:07 acetaminophen [From [place]] AdvReac HEADACHE Verified 12/07/21 08:18 hydrocodone [From [place]] AdvReac HEADACHE Verified 12/08/21 10:07 ketorolac [From Toradol] AdvReac Other Verified 12/08/21 10:07 sulfamethoxazole AdvReac Vomiting Verified 12/08/21 10:07 [From Bactrim] trimethoprim [From Bactrim] AdvReac Vomiting Verified 12/08/21 10:07 Surgical History History of History of cholecystectomy History of esophagogastroduodenoscopy (EGD) Hx of tubal ligation Social History Smoking Status: Current every day smoker tobacco type: cigarettes ROS Constitutional Constitutional: Denies anorexia, chills, fever(s), increased appetite, lethargy or weakness Eyes Eyes: Reports systems reviewed and no addt'l complaints, except as documented ENT HEENT: Reports systems reviewed and no addt'l complaints, except as documented Cardiovascular Cardiovascular: Denies chest pain, dyspnea, irregular heart rhythm, leg edema or lightheadedness Respiratory/Chest Respiratory/Chest: Denies cough or dyspnea Gastrointestinal Gastrointestinal: Reports loose stools; Denies nausea or vomiting Genitourinary Genitourinary: Reports flank pain and hematuria; Denies dysuria Musculoskeletal Musculoskeletal: Reports systems reviewed and no addt'l complaints, except as documented Integumentary Integumentary: Reports systems reviewed and no addt'l complaints, except as documented Neurologic Neurologic: Reports systems reviewed and no addt'l complaints, except as documented Psychiatric Psychiatric: Reports systems reviewed and no addt'l complaints, except as documented Endocrine Endocrinology: Reports systems reviewed and no addt'l complaints, except as documented Hematologic/Lymphatic Hematologic/Lymphatic: Reports systems reviewed and no addt'l complaints, except as documented Allergic/Immunologic Allergic/Immunologic: Reports systems reviewed and no addt'l complaints, except as documented Vital Signs Vital Signs Vital Signs: 12/08/21 10:11 Temperature 98.1 F Temperature Source Temporal Pulse Rate 116 H Respiratory Rate 18 Blood Pressure 122/80 H Blood Pressure Mean 94 Blood Pressure Source Monitor Blood Pressure Position Semi-Fowlers Blood Pressure Location Right Arm Pulse Ox 98 Oxygen Delivery Method Room Air Weight Weight: 71.214 kg Body Mass Index (BMI) 24.5 Physical Exam Const alert, oriented x3 and no apparent distress HEENT normocephalic, head/scalp atraumatic, hearing grossly normal bilaterally, external ears normal and external nose normal Eyes conjunctivae normal and no scleral icterus Neck supple General: trachea midline Lymph Lymphatic: no lymphedema noted Chest inspection of chest normal Chest: symmetrical chest wall rise Resp normal respiratory effort, normal air movement, no retractions and no use of accessory muscles Effort and Inspection: able to speak in complete sentences and symmetric chest movement Cardio regular rate and regular rhythm GI soft to palpation, non-tender and non-distended Bladder / Kidney Exam: CVA tenderness right Back/Spine General Back: CVA tenderness right Extremity normal to inspection Skin no rashes or lesions noted, no wounds, skin turgor normal, no jaundice, no petechiae and no mottling Neuro oriented x3, CN's II-XII intact bilaterally and moves all extremities Psych mental status grossly normal, thought process normal, cooperative and affect normal Assessment & Plan Assessment/Plan (1) Gross hematuria: (2) Flank pain: PLAN: proceed with cystoscopy, bilateral retrograde pyelograms, right ureteroscopy, possible right ureteral stent insertion, possible bladder biopsy with fulguration informed consent was obtained Procedure Criteria Type of Procedure Procedure Type: Elective Elective Risks - COVID COVID Risk Discussion: The surgeon/proceduralist and patient have discussed in detail the risk of exposure to and/or potential harm posed by the COVID-19 virus with having a surgery/procedure at this time versus the risk of delaying the surgery/procedure. It is not possible to know either the risk of delaying the surgery or procedure or chance of getting an infection with perfect accuracy, but a joint decision was made between the patient and the surgeon/proceduralist to proceed at this time with the scheduled surgery/procedure as indicated on the consent form.
--- NOTE | 2021-12-08 10:44 | DCINST_ITS ---
Discharge Instructions Diet Discharge Diet: No restrictions Activity Discharge Activity: Return to Normal Activity Dressing / Incision Call your doctor if you observe: Fever of 101 or Higher, Inability to urinate, Inability to have a bowel movement and Uncontrolled pain Follow Up Care Please Follow Up With: Dianne Matthews MD When: call office for appt Test Results: Test results from this visit will be discussed in further detail at your follow-up appointment, if applicable. Discharge Plan Admission Attending Provider: Dianne Matthews Primary Care Provider: Rosaura Rodriguez NP Discharge Orders/Prescriptions Prescriptions: New oxycodone-acetaminophen [oxycodone-acetaminophen] 1 TABLET tablet 2 tab PO Q8H PRN PRN (Reason: Pain) 2 Days Qty: 10 RF: 0 phenazopyridine [Pyridium] 200 MG tablet 200 mg PO TID PRN PRN (Reason: Bladder Spasms) 7 Days Qty: 30 RF: 0 cephalexin [cephalexin] 500 MG capsule 500 mg PO Q12 3 Days Qty: 6 RF: 0 No Action losartan 100 mg tablet 100 mg PO QHS RF: 0 oxycodone-acetaminophen [Endocet] 5-325 mg tablet 1 tab PO Q6H PRN (Reason: pain) 3 Days Qty: 12 RF: 0 clindamycin HCl 300 mg Capsule 300 mg PO TID RF: 0 hydrochlorothiazide 25 mg Tablet 25 mg PO QHS RF: 0 nitrofurantoin monohyd/m-cryst [Macrobid] 100 mg Capsule 100 mg PO BID RF: 0 sertraline 150 mg Capsule 150 mg PO QHS RF: 0 Referrals / Follow Up: Rosaura Rodriguez NP, MUSIC JOURNALIST-C [Primary Care Provider] - Disposition Disposition (needs filled in before D/C Order can be placed): Home, Self Care
--- NOTE | 2021-12-08 10:45 | OP.PCM_ITS ---
Problems Associated Problem List Diagnoses (1) Flank pain: (2) Gross hematuria: Report of Operation Date of Procedure: 12/08/21 Pre-Operative Diagnosis: gross hematuria, right flank pain Post-Operative Diagnosis: same Surgery/Procedure Performed:: cystoscopy, bilateral retrograde pyelograms, right ureteroscopy Surgeon: Dianne Matthews Type of Anesthesia: General Description of Procedure: Is a 31-year-old female with continuing gross hematuria And negative imaging. She reports gross hematuria with every void. She is currently on her menstrual period. She presents for further evaluation with cystoscopy and possible ureteroscopy, bilateral retrograde pyelograms. Informed consent was obtained. The patient was seen in the operating room and placed on the operating room table. Anesthesia monitored the head, neck, airway, IV access and vital signs throughout the case. Once anesthesia was appropriate ministered the patient was placed into dorsal lithotomy position was prepped and draped in usual sterile fashion. The cystoscope was inserted through the urethra under direct visualization into the urinary bladder. The urine was clear yellow. The bladder mucosa in its entirety was visualized and found to be normal with no evidence of mass, erythema, ulceration or foreign body. An 8 [place] cone-tip catheter was used to intubate the patient's right ureteral orifice and contrast was injected in retrograde fashion under fluoroscopic visualization. The entire length of the ureter and the calyces were sharp, no evidence of obstruction or foreign body. Same findings were from the left side as seen under fluoroscopic visualization. Due to the patient's continued right flank pain an 0.035 Glidewire was inserted through the right ureteral orifice into the renal pelvis. A flexible ureteroscope was used to directly visualize the entire length of the ureter as well as all the calyces. There were no abnormalities of the mucosa. There were no stones identified. There were no abnormalities seen.The patient was awakened and taken to the recovery room in good condition. There were no complications during this proced ure. Grafts/Implants Used: none Complications none Admit VTE Documentation VTE Present on Admission: Yes VTE Mechan Device Prophylaxis: SCD's VTE Pharm Prophylaxis ordered?: No Reason prophylaxis not ordered:: Treatment Not Indicated
== END 2021-12-08 23:59 | disposition home or self-care (01) ==
LOC: SDC 09:36 → AC 09:38
PROVIDERS: PCP Nurse Practitioner Family; Referring Provider Urology; Visit Provider Urology
PROC: 0TJ98ZZ Inspection of Ureter, Via Natural or Artificial Opening Endoscopic (ICD-10-PCS; CPT 52352; principal; 2021-12-08 11:10)
DX: R31.0 Gross hematuria (principal); R10.9 Unspecified abdominal pain; F17.210 Nicotine dependence, cigarettes, uncomplicated; I10 Essential (primary) hypertension; Z79.899 Other long term (current) drug therapy; F32.A Depression, unspecified
CPT/HCPCS: 52005; 00910; 76000; 87426; J7120; C1769; J0744

== ENCOUNTER 2021-12-11 19:46 | Emergency (ER) | payer MEDICAID, SELFPAY ==
[2021-12-11 19:47] VITALS: BP 126/110; PULSE 130; RESP 16; TEMP 36.2; O2SAT 98; BMI 25.8
--- NOTE | 2021-12-11 20:00 | EX.ED.DYSGE1 ---
HPI History of Present Illness Chief Complaint: Abd Pain Detail of Chief Complaint: Right flank pain and bilateral inguinal lower abdominal pain Informant: patient Onset/Context/Timing Onset: - (Per HPI) Context: Sudden Onset Timing: Continuous Quality: I am unable to describe Location: Right flank, right and left inguinal region Current Severity: Mild Maximum Severity: Moderate Worsened by: Nothing specific Relieved by: Nothing Associated Symptoms Associated Symptoms: Nausea, vomiting and diarrhea Narrative Narrative: Patient is a 31-year-old woman who underwent cystoscopy, retrograde pyelogram and right sided uroscopy. This was performed because of gross hematuria and right flank pain. Patient specimen revealed bacteria. This was performed on Tuesday. She has had documented temperature to a T-max of 104.0. She now presents with nausea, vomiting diarrhea. She is presently on cephalexin and will need to verify if she is still on clindamycin. She states she urinates a lot because she is on hydrochlorothiazide. She denies rhinorrhea, congestion, postnasal drainage or sore throat. She denies headache. She denies photophobia, neck pain or neck stiffness. She denies chest pain, cough or shortness of breath. She had a negative Covid test less than 1 week ago. She also informed me that she has cervical cancer. She is uncertain whether this is CIS or more advanced. She may have had a conization. He states that procedure was now performed at [facility]. She is also been seen at outside emergency department. She denies history ovarian cyst, endometriosis or STI. Prior similar symptoms: Yes Recent Illness/Hospitalization: Yes PFSH PFSH Medical History Back pain Depression Flank pain Gross hematuria Hypertension Injury of head and neck Migraine headache Shortness of breath on exertion Smoker Home Medications losartan 100 mg PO QHS 11/04/21 [History Last Taken Unknown] hydrochlorothiazide 25 mg PO QHS 12/07/21 [History Last Taken Unknown] nitrofurantoin monohyd/m-cryst [Macrobid] 100 mg PO BID 12/07/21 [History Last Taken Unknown] sertraline 150 mg PO QHS 12/07/21 [History Last Taken Unknown] cephalexin 500 mg PO Q12 3 Days #6 capsule 12/08/21 [Rx Last Taken Unknown] phenazopyridine [Pyridium] 200 mg PO TID PRN PRN 7 Days #30 tab 12/08/21 [Rx Last Taken Unknown] potassium chloride 20 meq PO BID 12/11/21 [History Last Taken Unknown] Allergy/AdvReac Type Severity Reaction Status Date / Time Penicillins Allergy Hives Verified 12/11/21 19:49 acetaminophen [From [place]] AdvReac HEADACHE Verified 12/11/21 19:49 hydrocodone [From [place]] AdvReac HEADACHE Verified 12/11/21 19:49 ketorolac [From Toradol] AdvReac Other Verified 12/11/21 19:49 sulfamethoxazole AdvReac Vomiting Verified 12/11/21 19:49 [From Bactrim] trimethoprim [From Bactrim] AdvReac Vomiting Verified 12/11/21 19:49 Surgical History History of History of cholecystectomy History of esophagogastroduodenoscopy (EGD) Hx of tubal ligation Social History (Updated 12/11/21 @ 20:[address] David Keyes MD) household members: other Smoking Status: Current every day smoker tobacco type: cigarettes substance use type: does not use ROS ROS ED Constitutional Constitutional ED: Reports fever(s) and sweats; Denies chills, subjective or weight loss Eyes Eyes: Denies blurry vision, change in vision or diplopia ENT ENT ED: Denies ear pain, rhinorrhea or sore throat Cardiovascular Cardiovascular: Denies chest pain, orthopnea, palpitations, paroxysmal nocturnal dyspnea or racing heartbeat Respiratory/Chest Respiratory/Chest: Denies cough, dyspnea, dyspnea on exertion, orthopnea or paroxysmal nocturnal dyspnea Gastrointestinal Gastrointestinal: Reports abdominal pain, diarrhea, nausea and vomiting; Denies constipation Genitourinary Genitourinary ED: Reports hematuria and urinary frequency; Denies dysuria Musculoskeletal Musculoskeletal: Reports back pain; Denies arthralgias, myalgias or neck pain Integumentary Denies rash Neurologic Neurologic: Denies headache(s) or weakness Endocrine Endocrinology: Denies polydipsia, polyphagia or polyuria Hematologic/Lymphatic Hematologic/Lymphatic: Denies anemia, easy bleeding or easy bruising EXAM Physical Exam Const Vital Signs: 12/11/21 19:47 Temperature 97.2 F L Temperature Source Temporal Pulse Rate 130 H Respiratory Rate 16 Blood Pressure 126/110 H Blood Pressure Mean 115 Pulse Ox 98 Oxygen Delivery Method Room Air Positive well nourished and well developed General Appearance ED: well developed and NAD; Negative for cyanotic, diaphoretic or pallor HEENT Reports TM's clear Negative for trauma or tenderness Tympanic Membrane ED: Yes TM's clear Eyes PERRL and EOMs intact bilaterally General Eye ED: Negative for pale conjunctiva or scleral icterus Neck no lymphadenopathy, supple and no JVD Resp normal respiratory effort and clear to auscultation bilaterally Effort and Inspection: Negative for pain with movement Cardio regular rhythm, S1 normal heart sound, S2 normal heart sound and no murmurs Rate: tachycardic GI non-distended and no masses; Negative for normal to inspection, nondistended, normoactive bowel sounds, non-tender or hepatosplenomegaly Auscultation: hypoactive bowel sounds; Negative for normoactive bowel sounds Palpation: soft and tender LLQ and RLQ Back/Spine General Back: CVA tenderness right Cervical Spine: Negative for cervical spine tenderness Thoracic Spine / Upper Back: Negative for thoracic spinal tenderness or paraspinal muscle tenderness Extremity normal to inspection General Extremety ED: Negative for edema or tenderness General Extremity: Negative for edema Neuro oriented x3, CN's II-XII intact bilaterally and no sensory deficits noted Neuro Narrative: Observed and normal Sensorium / Orientation: alert Motor Exam: strength 5/5 throughout Psych Mood & Affect: depressed Skin no rashes or lesions noted and no wounds General Skin Exam: Negative for jaundice or pallor MDM MDM MDM Narrative Medical decision making narrative: Will obtain urine to rule out urinary tract infection in light of pathology results documented. Will obtain CBC to assess white count and H&H. Basic metabolic panel to assess renal function and electrolytes and specifically potassium since she was reporting diarrhea. She was treated with Zofran IV fluids and Bentyl. Lab Data Attestation: I reviewed the patient's lab results. Lab results narrative: White count is elevated with no shift. Basic metabolic panel is unremarkable. Urinalysis is contaminated. There are no bacteria noted. Labs: Laboratory Results - last 24 hr 12/11/21 12/11/21 12/11/21 20:10 20:10 20:19 WBC 12.0 H RBC 4.23 Hgb 14.3 Hct 40.1 MCV 94.8 MCH 33.8 H MCHC 35.7 RDW Std Deviation 44.3 H RDW Coeff of Tere 12.7 Plt Count 330 MPV 8.8 Immature Gran % (Auto) 0.300 Neut % (Auto) 66.9 Lymph % (Auto) 25.3 [place] % (Auto) 5.6 Eos % (Auto) 1.6 Baso % (Auto) 0.3 Absolute Neuts (auto) 8.0 H Absolute Lymphs (auto) 3.03 Nucleated RBC % 0 Sodium 137 Potassium 3.0 L Chloride 100 Carbon Dioxide 27.0 Anion Gap 10 BUN 8 Creatinine 0.93 Estim Creat Clear Calc 83.67 Est GFR (MDRD) Af Amer 89 Est GFR (MDRD) Non-Af 73 BUN/Creatinine Ratio 8.6 L Glucose 102 Calcium 9.4 Urine Color SEE COMMENT BELOW Urine Clarity Clear Urine pH 6.5 Ur Specific [place] 1.010 Urine Protein 30 H Urine Glucose (UA) Normal Urine Ketones Negative Urine Occult Blood 150 H Urine Nitrite Positive H Urine Bilirubin 6 H Urine Urobilinogen 12 H Ur Leukocyte Esterase Negative Urine RBC 10-25 SEEN Urine WBC 0-5 SEEN Ur Squamous Epith Cells 10-25 SEEN Urine Bacteria 0 SEEN Urine Mucus 1+ Discharge Plan Triage Chief Complaint: Abd Pain Other Complaint: Flank Pain ED Provider: David Keyes Dx/Rx/DC Orders Clinical Impression: Right flank pain, Gross hematuria, Bilateral groin pain Instructions: ED Pain, Acute, Uncertain Cause Prescriptions: No Action losartan 100 mg tablet 100 mg PO QHS RF: 0 hydrochlorothiazide 25 mg Tablet 25 mg PO QHS RF: 0 nitrofurantoin monohyd/m-cryst [Macrobid] 100 mg Capsule 100 mg PO BID RF: 0 sertraline 150 mg Capsule 150 mg PO QHS RF: 0 phenazopyridine [Pyridium] 200 MG tablet 200 mg PO TID PRN PRN (Reason: Bladder Spasms) 7 Days Qty: 30 RF: 0 cephalexin [cephalexin] 500 MG capsule 500 mg PO Q12 3 Days Qty: 6 RF: 0 potassium chloride 20 mEq tablet,ER particles/crystals 20 meq PO BID RF: 0 Primary Care Provider: Rosaura Rodriguez NP Referrals: Rosaura Rodriguez NP, AIRCRAFT PNEUDRAULIC SYSTEMS MECHANIC-C [Primary Care Provider] - 3-5 Days Disposition Disposition: Home, Self Care
[2021-12-11] MEDS: 0.9% Normal Saline 1,000 ML 150 ML IV (20:16)
[2021-12-11] MEDS: Morphine 2 MG/ML Syringe IV (20:21)
[2021-12-11] MEDS: Ondansetron 4 MG/2 ML Vial IV (20:21)
[2021-12-11 20:28] LABS: Bacteria 0 SEEN /hpf (None Seen)
[2021-12-11 20:30] LABS: Glucose, Dipstick Normal (Normal); Ketone-Dipstick Negative (Negative); Leukocyte Esterase-Dipstick Negative /ul (Negative); Nitrite-Dipstick Positive (Negative); Occult Blood-Urine 150 /ul (Negative); Protein-Dipstick 30 mg/dl (Negative); Urine Clarity Clear (Clear); Urine Urobilinogen 12 mg/dl (Normal); Urine pH 6.5 (5.0 - 8.0)
[2021-12-11 20:31] LABS: Absolute Lymphocyte Count 3.03 X10^3/uL (0.83-4.51); Basophil# 0.04 X10^3/uL; Basophil% 0.3 % (0-1); Eosinophil# 0.19 X10^3/uL; Eosinophils% 1.6 % (0-5); Hematocrit 40.1 % (37-47); Hemoglobin 14.3 g/dL (12.0-15.0); Lymphocyte # 3.03 X10^3/ul (0.83-4.51); Lymphocyte % 25.3 % (19-41); Mean Corp Hgb Conc 35.7 g/dL (32-36); Mean Corpuscular Hgb 33.8 pg (27.0-32.0); Mean Corpuscular Volume 94.8 fL (81-99); Mean Platelet Vol. 8.8 fl (6.2-12.0); Monocyte# 0.67 X10^3/uL; Monocyte% 5.6 % (0-10); NRBC Flagged by Analyzer 0 % (0-5); Neutrophil # 8.01 X10^3/uL (2.7-7.7); Neutrophil % 66.9 % (47-70); Platelet Count 330 K/mm3 (150-450); RBC Distribution Width CV 12.7 % (11.6-14.6); RBC Distribution Width SD 44.3 fl (35.1-43.9); Red Blood Count 4.23 M/mm3 (4.2-5.4)
[2021-12-11 20:41] LABS: Color, Urine SEE COMMENT BELOW (Yellow); Urine Bilirubin Dipstick 6 mg/dL (Negative)
[2021-12-11 20:42] LABS: Red Blood Cells-Urine 10-25 SEEN /hpf (0-5); White Blood Cells 0-5 SEEN /hpf (0-5)
[2021-12-11 20:43] LABS: Mucous, Urine 1+ /hpf (<or=2+); Squamous Epithelial Cells - UA 10-25 SEEN /hpf (5-10)
[2021-12-11] MEDS: Dicyclomine 10 MG Capsule 20 MG PO (20:46)
[2021-12-11 20:51] LABS: Anion Gap 10 (5-15); BUN 8 mg/dL (7-18); BUN/Creat Ratio 8.6 RATIO (10-20); Calcium,Total 9.4 mg/dL (8.5-10.1); Chloride 100 mmol/L (98-107); Creatinine, Serum 0.93 mg/dL (0.55-1.02); EST Glomerular Filtration Rate 73 mL/min (>60); Est Glom Filt Rate - Afr Amer 89 mL/min (>60); Estimated Creatinine Clearance 83.67 ml/min; Glucose 102 mg/dL (74-106); Sodium Level 137 mmol/L (136-145)
--- NOTE | 2021-12-11 21:04 | ED.RN ---
made aware pt. still having nausea. v.o. for 5mg reglan
[2021-12-11] MEDS: Metoclopramide 10 MG/2 ML Vial 5 MG IV (21:07)
[2021-12-11 22:11] VITALS: BP 135/78; PULSE 78; RESP 16; O2SAT 98
== END 2021-12-11 22:19 | disposition home or self-care (01) ==
PROVIDERS: Emergency Provider Emergency Medicine; PCP Nurse Practitioner Family; Visit Provider Emergency Medicine
DX: R31.0 Gross hematuria (principal); R11.2 Nausea with vomiting, unspecified; R10.32 Left lower quadrant pain; R10.31 Right lower quadrant pain; R19.7 Diarrhea, unspecified; I10 Essential (primary) hypertension; F32.A Depression, unspecified; Z79.899 Other long term (current) drug therapy; F17.210 Nicotine dependence, cigarettes, uncomplicated
CPT/HCPCS: 80048; 81001; 85025; 96361; 96374; 96375; 99284; J7030; J2405

== ENCOUNTER 2021-12-31 16:31 | Emergency (ER) | payer MEDICAID, SELFPAY ==
[2021-12-31 16:32] VITALS: BP 143/96; PULSE 109; RESP 14; TEMP 36.2; O2SAT 100; BMI 25.5
--- NOTE | 2021-12-31 16:52 | US_ITS ---
INDICATION: right pelvic pain EXAMINATION:US Transvaginal Non-OB TECHNIQUE: Transvaginal (for optimal evaluation of the adnexa) pelvic ultrasound was performed. Grayscale, spectral waveform, and color flow Doppler evaluation of the adnexa. COMPARISON: None. FINDINGS: UTERUS: Anteverted. The uterus measures 7.9 x 5.4 x 4.1 cm. There is no uterine mass. The endometrial stripe measures 5 in AP diameter which is within normal limits. RIGHT OVARY: Measures 2.1 x 2.1 x 1.5 cm. Non-enlarged, normal echogenicity. There is normal arterial inflow and venous outflow present in the right ovary. LEFT OVARY: Measures 2.3 x 2.4 x 1.9 cm. Non-enlarged, normal echogenicity. There is normal arterial inflow and venous outflow present in the left ovary. FREE FLUID: None. US/Transvaginal Non- IMPRESSION: Normal pelvic ultrasound. Electronically Signed: Delroy Stearns MD at 18:45 EST ,
[2021-12-31] MEDS: Morphine 4 MG/ML Syringe IV ×2 (17:04→18:46)
[2021-12-31] MEDS: Ondansetron 4 MG/2 ML Vial IV ×2 (17:04→18:46)
[2021-12-31] MEDS: 0.9% Normal Saline 1,000 ML 999 ML IV (17:07)
[2021-12-31 17:16] LABS: Absolute Lymphocyte Count 1.88 X10^3/uL (0.83-4.51); Absolute Neutrophil Count 5.2 X10^3/uL (2.0-7.7); Basophil# 0.03 X10^3/uL; Basophil% 0.4 % (0-1); Eosinophil# 0.16 X10^3/uL; Eosinophils% 2.1 % (0-5); Hematocrit 34.4 % (37-47); Lymphocyte # 1.88 X10^3/ul (0.83-4.51); Lymphocyte % 24.4 % (19-41); Mean Corp Hgb Conc 34.9 g/dL (32-36); Mean Corpuscular Hgb 34.5 pg (27.0-32.0); Mean Corpuscular Volume 98.9 fL (81-99); Mean Platelet Vol. 8.9 fl (6.2-12.0); Monocyte# 0.37 X10^3/uL; Monocyte% 4.8 % (0-10); NRBC Flagged by Analyzer 0 % (0-5); Neutrophil # 5.23 X10^3/uL (2.7-7.7); Neutrophil % 67.9 % (47-70); Platelet Count 262 K/mm3 (150-450); RBC Distribution Width CV 14.2 % (11.6-14.6); RBC Distribution Width SD 51.7 fl (35.1-43.9); Red Blood Count 3.48 M/mm3 (4.2-5.4); White Blood Count 7.7 K/mm3 (4.4-11.0)
[2021-12-31 17:18] LABS: Mucous, Urine 0 SEEN /hpf (<or=2+)
--- NOTE | 2021-12-31 17:20 | EDS_ITS ---
HPI <ROBIN Gomez - Last Filed: 12/31/21 19:04> History of Present Illness Chief Complaint: Abd Pain Narrative Narrative: 31-year-old female with PMH of ovarian cysts, bilateral tubal ligation presents with right lower pelvic pain. She states she has had this pain intermittently for the last 6 weeks and her SUPERINTENDENT NONSELLING tried hormone replacement which did not help. Yesterday the pain became more severe and is worse with sitting up. She denies fever, chills, nausea, vomiting. She states she had some blood in her urine earlier this month but none presently and no dysuria. Normal bowel movements. She called her SUPERINTENDENT NONSELLING Dr. Liriano who advised her to come in to rule out ovarian cysts. PFSH <ROBIN Gomez - Last Filed: 12/31/21 19:04> PFSH Medical History Back pain Depression Flank pain Gross hematuria Hypertension Injury of head and neck Migraine headache Shortness of breath on exertion Smoker Home Medications losartan 100 mg PO QHS 11/04/21 [History Last Taken Unknown] hydrochlorothiazide 25 mg PO QHS 12/07/21 [History Last Taken Unknown] nitrofurantoin monohyd/m-cryst [Macrobid] 100 mg PO BID 12/07/21 [History Last Taken Unknown] sertraline 150 mg PO QHS 12/07/21 [History Last Taken Unknown] cephalexin 500 mg PO Q12 3 Days #6 capsule 12/08/21 [Rx Last Taken Unknown] phenazopyridine [Pyridium] 200 mg PO TID PRN PRN 7 Days #30 tab 12/08/21 [Rx Last Taken Unknown] potassium chloride 20 meq PO BID 12/11/21 [History Last Taken Unknown] cyclobenzaprine mg 12/31/21 [History Last Taken Unknown] phenazopyridine 12/31/21 [History Last Taken Unknown] potassium chloride 20 meq PO BID #240 ml 12/31/21 [Rx Last Taken Unknown] Allergy/AdvReac Type Severity Reaction Status Date / Time Penicillins Allergy Hives Verified 12/31/21 16:34 acetaminophen [From [place]] AdvReac HEADACHE Verified 12/31/21 16:34 hydrocodone [From [place]] AdvReac HEADACHE Verified 12/31/21 16:34 ketorolac [From Toradol] AdvReac Other Verified 12/31/21 16:34 sulfamethoxazole AdvReac Vomiting Verified 12/31/21 16:34 [From Bactrim] trimethoprim [From Bactrim] AdvReac Vomiting Verified 12/31/21 16:34 Surgical History History of History of cholecystectomy History of esophagogastroduodenoscopy (EGD) Hx of tubal ligation Social History (Updated 12/11/21 @ 20:[address] David Keyes MD) household members: other Smoking Status: Current every day smoker tobacco type: cigarettes substance use type: does not use ROS <ROBIN Gomez - Last Filed: 12/31/21 19:04> ROS ED ROS Narrative Constitutional: Negative for fever, chills, malaise. Eyes: Negative for visual change. ENT: Negative for sore throat, ear pain, rhinorrhea. CVS: Negative for palpitations, chest pain, syncope. Respiratory: Negative for shortness of breath, cough, orthopnea. GI: Positive for abdominal pain. Negative for nausea, vomiting, diarrhea, constipation, melena, hematochezia. : Negative for dysuria, hematuria or frequency. Neuro: Negative for headache, motor/sensory dysfunction. Skin: Negative for rash, abscess, or wound. Musc: Negative for joint pain, swelling, trauma. Heme: Negative for easy bruising, bleeding, lymphadenopathy. EXAM <ROBIN Gomez - Last Filed: 12/31/21 19:04> Physical Exam Narrative Exam Narrative: CONST: Patient sitting in no acute distress. EYES: Normal inspection. NECK: Normal inspection. RESP: No respiratory distress, CTAB. CVS: Regular rate and rhythm, no murmur, no gallop. ABD: Soft with tenderness over right lower pelvic region, no tenderness over Mcburney's point, no guarding or rebound, nondistended. Back: Normal inspection, no CVA tenderness. SKIN: Color normal, no rash, warm, dry, intact. EXTREMITIES: Normal appearance, no pedal edema. NEURO: Oriented x4. PSYCH: Normal affect. Const Vital Signs: 12/31/21 16:32 12/31/21 18:48 Temperature 97.1 F L Temperature Source Temporal Pulse Rate 109 H 85 Respiratory Rate 14 16 Blood Pressure 143/96 H 113/83 H Blood Pressure Mean 111 93 Pulse Ox 100 100 Oxygen Delivery Method Room Air Room Air <Dr. David Keyes MD - Last Filed: 12/31/21 19:15> Physical Exam Const Vital Signs: 12/31/21 16:32 12/31/21 18:48 Temperature 97.1 F L Temperature Source Temporal Pulse Rate 109 H 85 Respiratory Rate 14 16 Blood Pressure 143/96 H 113/83 H Blood Pressure Mean 111 93 Pulse Ox 100 100 Oxygen Delivery Method Room Air Room Air MDM <ROBIN Gomez - Last Filed: 12/31/21 19:04> [facility] Narrative Medical decision making narrative: Patient presents with acute on chronic right lower pelvic pain. This has been ongoing for 6 weeks but worsened yesterday. She appears well and nontoxic. Afebrile vital signs within normal limits. Her abdomen is soft with tenderness in the right lower pelvic region. No tenderness over the McBurney's point. No peritoneal signs. No CVA tenderness. Labs show normal white count. Potassium is 2.6, magnesium WNL. Urinalysis is contaminated. hCG negative. Transvaginal ultrasound shows no abnormalities. With normal white count and no tenderness over McBurney's point and the chronicity of her symptoms I have very low concern for appendicitis and do not feel CT is warranted at this time. She has no vaginal discharge or concern for STI. Patient was advised to take [id number] pain medication and follow-up with her OB as they have been evaluating her for this pelvic pain. She was discharged in stable condition. Diagnosis 1. Pelvic pain of unknown etiology Lab Data Labs: Laboratory Results - last 24 hr 12/31/21 12/31/21 12/31/21 16:45 16:45 16:45 WBC 7.7 RBC 3.48 L Hgb 12.0 Hct 34.4 L MCV 98.9 MCH 34.5 H MCHC 34.9 RDW Std Deviation 51.7 H RDW Coeff of Tere 14.2 Plt Count 262 MPV 8.9 Immature Gran % (Auto) 0.400 Neut % (Auto) 67.9 Lymph % (Auto) 24.4 [place] % (Auto) 4.8 Eos % (Auto) 2.1 Baso % (Auto) 0.4 Absolute Neuts (auto) 5.2 Absolute Lymphs (auto) 1.88 Nucleated RBC % 0 Sodium 135 L Potassium 2.6 L* Chloride 102 Carbon Dioxide 27.0 Anion Gap 6 BUN 11 Creatinine 0.89 Estim Creat Clear Calc 87.43 Est GFR (MDRD) Af Amer 93 Est GFR (MDRD) Non-Af 77 BUN/Creatinine Ratio 12.4 Glucose 125 H Calcium 9.1 Magnesium 2.0 Urine Color Urine Clarity Urine pH Ur Specific [place] Urine Protein Urine Glucose (UA) Urine Ketones Urine Occult Blood Urine Nitrite Urine Bilirubin Urine Urobilinogen Ur Leukocyte Esterase Urine RBC Urine WBC Ur Squamous Epith Cells Urine Bacteria Urine Mucus Urine Test 12/31/21 17:00 WBC RBC Hgb Hct MCV MCH MCHC RDW Std Deviation RDW Coeff of Tere Plt Count MPV Immature Gran % (Auto) Neut % (Auto) Lymph % (Auto) [place] % (Auto) Eos % (Auto) Baso % (Auto) Absolute Neuts (auto) Absolute Lymphs (auto) Nucleated RBC % Sodium Potassium Chloride Carbon Dioxide Anion Gap BUN Creatinine Estim Creat Clear Calc Est GFR (MDRD) Af Amer Est GFR (MDRD) Non-Af BUN/Creatinine Ratio Glucose Calcium Magnesium Urine Color Yellow Urine Clarity Clear Urine pH 8.0 Ur Specific [place] 1.015 Urine Protein 15 H Urine Glucose (UA) Normal Urine Ketones Negative Urine Occult Blood 50 H Urine Nitrite Negative Urine Bilirubin Negative Urine Urobilinogen Normal Ur Leukocyte Esterase 25 H Urine RBC 0-5 SEEN Urine WBC 0-5 SEEN Ur Squamous Epith Cells 10-25 SEEN Urine Bacteria 1+ Urine Mucus 0 SEEN Urine Test Negative Radiography Diagnostic Testing: Clinical Impression(s) from Imaging Studies Transvaginal US 12/31/21 16:52 IMPRESSION: Normal pelvic ultrasound. Electronically Signed: Delroy Stearns MD at 18:45 EST , <Dr. David Keyes MD - Last Filed: 12/31/21 19:15> [facility] Narrative Medical decision making narrative: Patient presents with right inguinal/adnexal pain. She has history ovarian cyst. She is status post tubal ligation. She denies any vaginal discharge. She denies any urinary symptoms. She denies any bulge or mass in the groin area. There is no history of hernia. She denies nausea, vomiting diarrhea. She denies anorexia. She denies is a Patient appears no distress. She has a flat affect. There is right inguinal pain. There is no evidence of femoral inguinal hernia. There is no peritoneal findings guarding etc. Bowel sounds are present normal. CBC and differential are normal. Potassium is low at 2.6. UA is contaminated. Ultrasound was obtained to rule out ovarian cyst/torsion. Ultrasounds unremarkable. Plan is to discharge to home with appropriate home-going instructions. Lab Data Attestation: I reviewed the patient's lab results. Labs: Laboratory Results - last 24 hr 12/31/21 12/31/21 12/31/21 16:45 16:45 16:45 WBC 7.7 RBC 3.48 L Hgb 12.0 Hct 34.4 L MCV 98.9 MCH 34.5 H MCHC 34.9 RDW Std Deviation 51.7 H RDW Coeff of [place] 14.2 Plt Count 262 MPV 8.9 Immature Gran % (Auto) 0.400 Neut % (Auto) 67.9 Lymph % (Auto) 24.4 [place] % (Auto) 4.8 Eos % (Auto) 2.1 Baso % (Auto) 0.4 Absolute Neuts (auto) 5.2 Absolute Lymphs (auto) 1.88 Nucleated RBC % 0 Sodium 135 L Potassium 2.6 L* Chloride 102 Carbon Dioxide 27.0 Anion Gap 6 BUN 11 Creatinine 0.89 Estim Creat Clear Calc 87.43 Est GFR (MDRD) Af Amer 93 Est GFR (MDRD) Non-Af 77 BUN/Creatinine Ratio 12.4 Glucose 125 H Calcium 9.1 Magnesium 2.0 Urine Color Urine Clarity Urine pH Ur Specific [place] Urine Protein Urine Glucose (UA) Urine Ketones Urine Occult Blood Urine Nitrite Urine Bilirubin Urine Urobilinogen Ur Leukocyte Esterase Urine RBC Urine WBC Ur Squamous Epith Cells Urine Bacteria Urine Mucus Urine Test 12/31/21 17:00 WBC RBC Hgb Hct MCV MCH MCHC RDW Std Deviation RDW Coeff of Tere Plt Count MPV Immature Gran % (Auto) Neut % (Auto) Lymph % (Auto) [place] % (Auto) Eos % (Auto) Baso % (Auto) Absolute Neuts (auto) Absolute Lymphs (auto) Nucleated RBC % Sodium Potassium Chloride Carbon Dioxide Anion Gap BUN Creatinine Estim Creat Clear Calc Est GFR (MDRD) Af Amer Est GFR (MDRD) Non-Af BUN/Creatinine Ratio Glucose Calcium Magnesium Urine Color Yellow Urine Clarity Clear Urine pH 8.0 Ur Specific [place] 1.015 Urine Protein 15 H Urine Glucose (UA) Normal Urine Ketones Negative Urine Occult Blood 50 H Urine Nitrite Negative Urine Bilirubin Negative Urine Urobilinogen Normal Ur Leukocyte Esterase 25 H Urine RBC 0-5 SEEN Urine WBC 0-5 SEEN Ur Squamous Epith Cells 10-25 SEEN Urine Bacteria 1+ Urine Mucus 0 SEEN Urine Test Negative Radiography Diagnostic Testing: Clinical Impression(s) from Imaging Studies Transvaginal US 12/31/21 16:52 IMPRESSION: Normal pelvic ultrasound. Electronically Signed: Delroy Stearns MD at 18:45 EST , Discharge Plan Triage Chief Complaint: Abd Pain ED Provider: Alexa Cody Dx/Rx/DC Orders Clinical Impression: Pelvic pain, Acute hypokalemia Instructions: Abdominal Pain Prescriptions: New potassium chloride 20 mEq/15 mL liquid 20 meq PO BID Qty: 240 RF: 0 No Action losartan 100 mg tablet 100 mg PO QHS RF: 0 hydrochlorothiazide 25 mg Tablet 25 mg PO QHS RF: 0 nitrofurantoin monohyd/m-cryst [Macrobid] 100 mg Capsule 100 mg PO BID RF: 0 sertraline 150 mg Capsule 150 mg PO QHS RF: 0 phenazopyridine [Pyridium] 200 MG tablet 200 mg PO TID PRN PRN (Reason: Bladder Spasms) 7 Days Qty: 30 RF: 0 cephalexin [cephalexin] 500 MG capsule 500 mg PO Q12 3 Days Qty: 6 RF: 0 potassium chloride 20 mEq tablet,ER particles/crystals 20 meq PO BID RF: 0 cyclobenzaprine 10 mg tablet RF: 0 phenazopyridine 200 mg tablet RF: 0 Primary Care Provider: Rosaura Rodriguez NP Referrals: Rosaura Rodriguez NP, SALES ENABLEMENT SPECIALIST-C [Primary Care Provider] - Activity Restrictions/Additional Instructions: Today your ultrasound looked normal with no cysts or ovarian torsion. Your labs showed low potassium but were otherwise normal. There is no urine infection. Please take [id number] pain medication as needed and follow-up with your OB. Eat high potassium foods such as bananas over the next few days. Return to the ER for new or worsening symptoms. Disposition Disposition: Home, Self Care
[2021-12-31 17:27] LABS: Color, Urine Yellow (Yellow); Glucose, Dipstick Normal (Normal); Ketone-Dipstick Negative (Negative); Leukocyte Esterase-Dipstick 25 /ul (Negative); Nitrite-Dipstick Negative (Negative); Occult Blood-Urine 50 /ul (Negative); Protein-Dipstick 15 mg/dl (Negative); Specific Gravity, Urine 1.015 (1.002-1.030); Urine Bilirubin Dipstick Negative (Negative); Urine Clarity Clear (Clear); Urine Urobilinogen Normal (Normal)
[2021-12-31 17:32] LABS: Anion Gap 6 (5-15); BUN 11 mg/dL (7-18); BUN/Creat Ratio 12.4 RATIO (10-20); Calcium,Total 9.1 mg/dL (8.5-10.1); Chloride 102 mmol/L (98-107); Creatinine, Serum 0.89 mg/dL (0.55-1.02); EST Glomerular Filtration Rate 77 mL/min (>60); Est Glom Filt Rate - Afr Amer 93 mL/min (>60); Estimated Creatinine Clearance 87.43 ml/min; Glucose 125 mg/dL (74-106); Potassium 2.6 mmol/L (3.5-5.1); Sodium Level 135 mmol/L (136-145)
[2021-12-31] MEDS: Potassium Chloride Oral Tablet 20 MEQ 40 MEQ PO (17:40)
[2021-12-31 17:52] LABS: Squamous Epithelial Cells - UA 10-25 SEEN /hpf (5-10)
[2021-12-31 17:53] LABS: Bacteria 1+ /hpf (None Seen); Internal QC Validated? YES +Cl - CLEAR BKGD; Pregnancy, Urine Negative Negative; Red Blood Cells-Urine 0-5 SEEN /hpf (0-5); White Blood Cells 0-5 SEEN /hpf (0-5)
[2021-12-31 18:48] VITALS: BP 113/83; PULSE 85; RESP 16; O2SAT 100
== END 2021-12-31 19:29 | disposition home or self-care (01) ==
PROVIDERS: Emergency Provider Physician Assistant; PCP Nurse Practitioner Family; Visit Provider Physician Assistant
DX: R10.2 Pelvic and perineal pain (principal); E87.6 Hypokalemia; G89.29 Other chronic pain; I10 Essential (primary) hypertension; F32.A Depression, unspecified; Z79.899 Other long term (current) drug therapy; F17.210 Nicotine dependence, cigarettes, uncomplicated
CPT/HCPCS: 76830; 80048; 81001; 81025; 83735; 85025; 96361; 96374; 96375; 96376; 99283; J7030; A4216; J2405

== ENCOUNTER 2022-01-25 14:13 | Emergency (ER) | payer MEDICAID, SELFPAY ==
[2022-01-25 14:14] VITALS: BP 114/83; PULSE 84; RESP 16; TEMP 37; O2SAT 99; BMI 25.0
--- NOTE | 2022-01-25 15:49 | ED.VIS.FEGU ---
HPI HPI - Female History of Present Illness Chief Complaint: Vag Bleeding Informant: patient Pain Pain: Positive for Pelvic Pain Onset: Month(s) Context: Gradual Onset Timing: Waxes and wanes Quality: Positive for Sharp Location: Suprapubic Current Severity: Moderate Maximum Severity: Severe Bleeding Issue: Positive for Vaginal bleeding Onset: Month(s) Context: Gradual Onset Timing: Waxes and wanes Current Severity: Mild Narrative Narrative: Patient presents to the ER for evaluation of pelvic pain and vaginal bleeding. Patient is had ongoing symptoms for the last 2 months. She was previously seen by Dr. Matthews and had a cystoscopy performed that showed no acute abnormalities. I did review records from ER visits to [facility] including recent ultrasound and CAT scans showed no acute findings. She was seen there yesterday and had a negative urinalysis. Patient states pain was worse today and she called both her primary care physician as well as her PRODUCTION TEAM ADVISOR who she is scheduled to see on the . They were not able to see her any sooner and requested she come to the emergency room for evaluation and pain control. Patient denies fever or chills. She describes a sharp stabbing pain just above her pubic bone. She did have a and tubal ligation 9 years ago but denies any pain or problems until 2 months ago. PFSH PFSH Medical History Back pain Depression Flank pain Gross hematuria Hypertension Injury of head and neck Migraine headache Shortness of breath on exertion Smoker Home Medications losartan 100 mg PO QHS 11/04/21 [History Last Taken Unknown] hydrochlorothiazide 25 mg PO QHS 12/07/21 [History Last Taken Unknown] nitrofurantoin monohyd/m-cryst [Macrobid] 100 mg PO BID 12/07/21 [History Last Taken Unknown] sertraline 150 mg PO QHS 12/07/21 [History Last Taken Unknown] cephalexin 500 mg PO Q12 3 Days #6 capsule 12/08/21 [Rx Last Taken Unknown] phenazopyridine [Pyridium] 200 mg PO TID PRN PRN 7 Days #30 tab 12/08/21 [Rx Last Taken Unknown] potassium chloride 20 meq PO BID 12/11/21 [History Last Taken Unknown] cyclobenzaprine mg 12/31/21 [History Last Taken Unknown] phenazopyridine 12/31/21 [History Last Taken Unknown] potassium chloride 20 meq PO BID #240 ml 12/31/21 [Rx Last Taken Unknown] ondansetron 4 mg PO Q8H PRN #10 tab 01/25/22 [Rx Last Taken Unknown] oxycodone-acetaminophen [Percocet] 1 tab PO Q6H PRN 3 Days #10 tab 01/25/22 [Rx Last Taken Unknown] Allergy/AdvReac Type Severity Reaction Status Date / Time Penicillins Allergy Hives Verified 01/25/22 14:17 hydrocodone [From [place]] AdvReac HEADACHE Verified 01/25/22 14:17 ketorolac [From Toradol] AdvReac Other Verified 01/25/22 14:17 sulfamethoxazole AdvReac Vomiting Verified 01/25/22 14:17 [From Bactrim] trimethoprim [From Bactrim] AdvReac Vomiting Verified 01/25/22 14:17 Surgical History History of History of cholecystectomy History of esophagogastroduodenoscopy (EGD) Hx of tubal ligation Social History household members: other Smoking Status: Current every day smoker tobacco type: cigarettes substance use type: does not use ROS ROS ED Constitutional Constitutional ED: Denies chills or fever(s) Eyes Eyes: Denies change in vision ENT ENT ED: Denies sore throat Cardiovascular Cardiovascular: Denies chest pain Respiratory/Chest Respiratory/Chest: Denies cough or dyspnea Gastrointestinal Gastrointestinal: Reports abdominal pain; Denies diarrhea, nausea or vomiting Genitourinary Genitourinary ED: Reports hematuria; Denies dysuria Musculoskeletal Musculoskeletal: Denies back pain Integumentary Denies rash Neurologic Neurologic: Denies headache(s) or weakness Allergic/Immunologic Allergic/Immunologic ED: Denies urticaria EXAM Physical Exam Const Vital Signs: 01/25/22 14:14 Temperature 98.6 F Temperature Source Temporal Pulse Rate 84 Respiratory Rate 16 Blood Pressure 114/83 H Blood Pressure Mean 93 Pulse Ox 99 Oxygen Delivery Method Room Air Positive well nourished and well developed General Appearance ED: well developed HEENT Reports moist mucous membranes Eyes PERRL and EOMs intact bilaterally Neck supple Chest Wall inspection of chest normal and palpation of chest normal Resp normal respiratory effort and clear to auscultation bilaterally Cardio regular rate and regular rhythm GI Palpation: tender suprapubic no CVA tenderness Neuro Sensorium / Orientation: alert Psych Mood & Affect: tearful Skin no rashes or lesions noted MDM MDM MDM Narrative Medical decision making narrative: Patient given Dilaudid and Zofran for pain and nausea. Lab work and urinalysis obtained. Lab Data Attestation: I reviewed the patient's lab results. Labs: Laboratory Results - last 24 hr 01/25/22 01/25/22 01/25/22 16:07 16:07 16:07 WBC 10.3 RBC 3.74 L Hgb 12.9 Hct 37.5 MCV 100.3 H MCH 34.5 H MCHC 34.4 RDW Std Deviation 53.2 H RDW Coeff of Tere 14.4 Plt Count 317 MPV 8.8 Immature Gran % (Auto) 0.300 Neut % (Auto) 68.2 Lymph % (Auto) 22.0 [place] % (Auto) 4.2 Eos % (Auto) 4.8 Baso % (Auto) 0.5 Absolute Neuts (auto) 7.0 Absolute Lymphs (auto) 2.27 Nucleated RBC % 0 Sodium 139 Potassium 3.3 L Chloride 109 H Carbon Dioxide 26.0 Anion Gap 4 L BUN 7 Creatinine 0.76 Estim Creat Clear Calc 102.39 Est GFR (MDRD) Af Amer 111 Est GFR (MDRD) Non-Af 92 BUN/Creatinine Ratio 9.2 L Glucose 92 Calcium 8.4 L Serum , Qual NEGATIVE Urine Color Urine Clarity Urine pH Ur Specific [place] Urine Protein Urine Glucose (UA) Urine Ketones Urine Occult Blood Urine Nitrite Urine Bilirubin Urine Urobilinogen Ur Leukocyte Esterase Urine RBC Urine WBC Ur Squamous Epith Cells Urine Bacteria Urine Mucus 01/25/22 16:07 WBC RBC Hgb Hct MCV MCH MCHC RDW Std Deviation RDW Coeff of Tere Plt Count MPV Immature Gran % (Auto) Neut % (Auto) Lymph % (Auto) [place] % (Auto) Eos % (Auto) Baso % (Auto) Absolute Neuts (auto) Absolute Lymphs (auto) Nucleated RBC % Sodium Potassium Chloride Carbon Dioxide Anion Gap BUN Creatinine Estim Creat Clear Calc Est GFR (MDRD) Af Amer Est GFR (MDRD) Non-Af BUN/Creatinine Ratio Glucose Calcium Serum , Qual Urine Color Yellow Urine Clarity Clear Urine pH 6.5 Ur Specific [place] 1.010 Urine Protein Negative Urine Glucose (UA) Normal Urine Ketones Negative Urine Occult Blood 50 H Urine Nitrite Negative Urine Bilirubin Negative Urine Urobilinogen Normal Ur Leukocyte Esterase Negative Urine RBC 0-5 SEEN Urine WBC 0 SEEN Ur Squamous Epith Cells 0-5 SEEN Urine Bacteria 0 SEEN Urine Mucus 0 SEEN Treatment and Re-Evaluation Narrative: Lab work and urinalysis unremarkable. Pelvic exam was performed with no acute abnormalities. I spoke with Dr. Marlene Vences, on-call for the patient's PRODUCTION TEAM ADVISOR. We reviewed her recent work-up including ultrasound and CT scan performed 2 weeks ago. She does not believe there is any need for further imaging at this time. Patient will be treated with Percocet at home for pain control. Return instructions provided. Discharge Plan Triage Chief Complaint: Vag Bleeding ED Provider: America Whyte Dx/Rx/DC Orders Clinical Impression: Pelvic pain Instructions: ED Pelvic Pain, Unknown Cause Prescriptions: New oxycodone-acetaminophen [Percocet] 5-325 mg tablet 1 tab PO Q6H PRN (Reason: pain) 3 Days Qty: 10 RF: 0 ondansetron 4 mg tablet,disintegrating 4 mg PO Q8H PRN (Reason: nausea and vomiting) Qty: 10 RF: 0 No Action losartan 100 mg tablet 100 mg PO QHS RF: 0 hydrochlorothiazide 25 mg Tablet 25 mg PO QHS RF: 0 nitrofurantoin monohyd/m-cryst [Macrobid] 100 mg Capsule 100 mg PO BID RF: 0 sertraline 150 mg Capsule 150 mg PO QHS RF: 0 phenazopyridine [Pyridium] 200 MG tablet 200 mg PO TID PRN PRN (Reason: Bladder Spasms) 7 Days Qty: 30 RF: 0 cephalexin [cephalexin] 500 MG capsule 500 mg PO Q12 3 Days Qty: 6 RF: 0 potassium chloride 20 mEq tablet,ER particles/crystals 20 meq PO BID RF: 0 cyclobenzaprine 10 mg tablet RF: 0 phenazopyridine 200 mg tablet RF: 0 potassium chloride 20 mEq/15 mL liquid 20 meq PO BID Qty: 240 RF: 0 Primary Care Provider: Rosaura Rodriguez NP Referrals: Cheko Vences MD [STAFF PHYSICIAN] - As soon as possible Rosaura Rodriguez NP, WORKERS COMPENSATION CLAIMS ASSISTANT-C [Primary Care Provider] - Disposition Disposition: Home, Self Care
[2022-01-25] MEDS: 0.9% Normal Saline 1,000 ML 150 ML IV (16:10)
[2022-01-25] MEDS: HYDROmorphone 1 MG/ML Syringe 0.5 MG IV (16:10)
[2022-01-25] MEDS: Ondansetron 4 MG/2 ML Vial IV (16:10)
[2022-01-25 16:17] LABS: Bacteria 0 SEEN /hpf (None Seen); Mucous, Urine 0 SEEN /hpf (<or=2+); White Blood Cells 0 SEEN /hpf (0-5)
[2022-01-25 16:19] LABS: Absolute Lymphocyte Count 2.27 X10^3/uL (0.83-4.51); Basophil# 0.05 X10^3/uL; Basophil% 0.5 % (0-1); Color, Urine Yellow (Yellow); Eosinophils% 4.8 % (0-5); Glucose, Dipstick Normal (Normal); Hematocrit 37.5 % (37-47); Hemoglobin 12.9 g/dL (12.0-15.0); Ketone-Dipstick Negative (Negative); Leukocyte Esterase-Dipstick Negative /ul (Negative); Lymphocyte # 2.27 X10^3/ul (0.83-4.51); Mean Corp Hgb Conc 34.4 g/dL (32-36); Mean Corpuscular Hgb 34.5 pg (27.0-32.0); Mean Corpuscular Volume 100.3 fL (81-99); Mean Platelet Vol. 8.8 fl (6.2-12.0); Monocyte# 0.43 X10^3/uL; Monocyte% 4.2 % (0-10); NRBC Flagged by Analyzer 0 % (0-5); Neutrophil # 7.03 X10^3/uL (2.7-7.7); Neutrophil % 68.2 % (47-70); Nitrite-Dipstick Negative (Negative); Occult Blood-Urine 50 /ul (Negative); Platelet Count 317 K/mm3 (150-450); Protein-Dipstick Negative (Negative); RBC Distribution Width CV 14.4 % (11.6-14.6); RBC Distribution Width SD 53.2 fl (35.1-43.9); Red Blood Count 3.74 M/mm3 (4.2-5.4); Urine Bilirubin Dipstick Negative (Negative); Urine Clarity Clear (Clear); Urine Urobilinogen Normal (Normal); Urine pH 6.5 (5.0 - 8.0); White Blood Count 10.3 K/mm3 (4.4-11.0)
[2022-01-25 16:31] LABS: Anion Gap 4 (5-15); BUN 7 mg/dL (7-18); BUN/Creat Ratio 9.2 RATIO (10-20); Calcium,Total 8.4 mg/dL (8.5-10.1); Chloride 109 mmol/L (98-107); Creatinine, Serum 0.76 mg/dL (0.55-1.02); EST Glomerular Filtration Rate 92 mL/min (>60); Est Glom Filt Rate - Afr Amer 111 mL/min (>60); Estimated Creatinine Clearance 102.39 ml/min; Glucose 92 mg/dL (74-106); Potassium 3.3 mmol/L (3.5-5.1); Sodium Level 139 mmol/L (136-145)
[2022-01-25 16:37] LABS: Red Blood Cells-Urine 0-5 SEEN /hpf (0-5); Squamous Epithelial Cells - UA 0-5 SEEN /hpf (5-10)
[2022-01-25 17:14] LABS: Internal QC Validated? YES +Cl - CLEAR BKGD; Pregnancy, Serum, hCG Quali. NEGATIVE Negative
[2022-01-25] MEDS: HYDROmorphone 0.5 MG/0.5 ML SYRINGE IV (17:25)
[2022-01-25 17:51] VITALS: RESP 16
== END 2022-01-25 18:02 | disposition home or self-care (01) ==
PROVIDERS: Emergency Provider Emergency Medicine; PCP Nurse Practitioner Family; Visit Provider Emergency Medicine
DX: R10.2 Pelvic and perineal pain (principal); N93.9 Abnormal uterine and vaginal bleeding, unspecified; R11.0 Nausea; F17.210 Nicotine dependence, cigarettes, uncomplicated; I10 Essential (primary) hypertension; F32.A Depression, unspecified; Z79.899 Other long term (current) drug therapy
CPT/HCPCS: 80048; 81001; 84703; 85025; 96361; 96374; 96375; 99283; J7030; A4216; J2405

== ENCOUNTER 2022-01-28 16:58 | Emergency (ER) | payer MEDICAID, SELFPAY ==
[2022-01-28 16:59] VITALS: BP 152/99; PULSE 88; RESP 16; TEMP 36.4; O2SAT 97; BMI 25.3
[2022-01-28 17:01] VITALS: BP 152/99; PULSE 88; RESP 16; TEMP 36.4; O2SAT 97
--- NOTE | 2022-01-28 18:08 | CT_ITS ---
STUDY: CT ABDOMEN AND PELVIS WITH CONTRAST ENHANCEMENT OF 1902 HOURS ON 01/28/2022. REASON FOR EXAM: 32-year-old female with abdominal pain. RADIATION DOSAGE (If Supplied By Facility): CTDIvol = ( 14.33 ) mGy, DLP = ( 804.69 ) mGycm TECHNIQUE: Transaxial images were obtained from the dome of the diaphragm to the symphysis pubis without oral contrast. IV 100mL Isovue-300 was administered. Sagittal and coronal images were reconstructed. Individualized dose optimization techniques were used for this CT. COMPARISON: 11/04/2021. FINDINGS: The visualized lung bases are unremarkable. The visualized portions of the heart are within normal limits. Mild hepatomegaly without defects. Previous cholecystectomy. No dilatation of intrahepatic biliary system or common duct. Generous but normal size spleen without defects.. Normal pancreas. Normal bilateral adrenal glands. Normal kidneys without obstructive uropathy. Normal bladder. Normal visualized stomach. Normal small intestine. No diverticulitis, colitis, intestinal obstruction. The appendix is visualized and appears normal. Appendicitis. Appendix best visualized in coronal images 47 through 54. Normal food filled stomach normal air filled duodenum. Normal inferior vena cava. Normal retroperitoneum. Anteverted and normal uterus. No ovarian cystic or solid mass lesions. Surgical clip in the region of the left fallopian tube. A clip is not seen in the region of the right fallopian tube. Normal abdominal wall. Normal osseous structures. CT/Abdomen/Pelvis W IV Cont ONLY IMPRESSION: 1. Mild hepatomegaly without defects. 2. Generous size, but normal spleen. 3. Normal kidneys without obstructive uropathy. Normal bladder. 4. No pancreatitis or pancreatic mass lesions. 5. No appendicitis, diverticulitis, colitis, or intestinal obstruction. 6. Normal anteverted uterus. No ovarian cystic or solid mass lesions. Surgical clip noted in the region of the left fallopian tube. 7. No evidence of other significant abnormalities. Electronically Signed: James Duke MD at 19:50 EDT ,
[2022-01-28 18:29] LABS: Absolute Lymphocyte Count 2.96 X10^3/uL (0.83-4.51); Absolute Neutrophil Count 6.1 X10^3/uL (2.0-7.7); Basophil# 0.04 X10^3/uL; Basophil% 0.4 % (0-1); Eosinophil# 0.44 X10^3/uL; Eosinophils% 4.4 % (0-5); Hematocrit 34.9 % (37-47); Hemoglobin 11.9 g/dL (12.0-15.0); Lymphocyte # 2.96 X10^3/ul (0.83-4.51); Lymphocyte % 29.6 % (19-41); Mean Corp Hgb Conc 34.1 g/dL (32-36); Mean Corpuscular Hgb 34.2 pg (27.0-32.0); Mean Corpuscular Volume 100.3 fL (81-99); Mean Platelet Vol. 8.7 fl (6.2-12.0); Monocyte# 0.48 X10^3/uL; Monocyte% 4.8 % (0-10); NRBC Flagged by Analyzer 0 % (0-5); Neutrophil # 6.06 X10^3/uL (2.7-7.7); Neutrophil % 60.5 % (47-70); Platelet Count 325 K/mm3 (150-450); RBC Distribution Width CV 14.4 % (11.6-14.6); RBC Distribution Width SD 52.8 fl (35.1-43.9); Red Blood Count 3.48 M/mm3 (4.2-5.4)
[2022-01-28 18:29] LABS: Bacteria 0 SEEN /hpf (None Seen); Mucous, Urine 0 SEEN /hpf (<or=2+); White Blood Cells 0 SEEN /hpf (0-5)
[2022-01-28] MEDS: 0.9% Normal Saline 1,000 ML 1000 ML IV (18:31)
[2022-01-28] MEDS: HYDROmorphone 0.5 MG/0.5 ML SYRINGE IV ×2 (18:32→19:29)
[2022-01-28 18:35] LABS: Color, Urine Yellow (Yellow); Glucose, Dipstick Normal (Normal); Ketone-Dipstick Negative (Negative); Leukocyte Esterase-Dipstick Negative /ul (Negative); Nitrite-Dipstick Negative (Negative); Occult Blood-Urine 50 /ul (Negative); Protein-Dipstick Negative (Negative); Urine Bilirubin Dipstick Negative (Negative); Urine Clarity Sl. Cloudy (Clear); Urine Urobilinogen Normal (Normal)
[2022-01-28 18:41] LABS: Anion Gap 3 (5-15); BUN 9 mg/dL (7-18); BUN/Creat Ratio 11.3 RATIO (10-20); Calcium,Total 8.8 mg/dL (8.5-10.1); Chloride 106 mmol/L (98-107); Creatinine, Serum 0.79 mg/dL (0.55-1.02); EST Glomerular Filtration Rate 88 mL/min (>60); Est Glom Filt Rate - Afr Amer 107 mL/min (>60); Estimated Creatinine Clearance 97.58 ml/min; Glucose 88 mg/dL (74-106); Potassium 3.2 mmol/L (3.5-5.1); Sodium Level 139 mmol/L (136-145)
[2022-01-28 18:44] LABS: Red Blood Cells-Urine 0-5 SEEN /hpf (0-5); Squamous Epithelial Cells - UA 0-5 SEEN /hpf (5-10)
[2022-01-28 18:45] LABS: Amorphous Sediment 1+ PHOS
--- NOTE | 2022-01-28 19:18 | ED.VIS.FEGU ---
HPI HPI - Female History of Present Illness Chief Complaint: Female C/O Narrative Narrative: Patient presents with bilateral lower abdomen/pelvic pain that she has had for months. She states that she is being worked up by her MANUFACTURING ACCOUNTANT, Dr. Vneces. She describes sharp stabbing pain in her bilateral inguinal areas. She is been treated for UTIs previously. She describes pressure and it feels as if her insides are coming out. She denies any fevers or chills. No dysuria or hematuria. She was seen in the emergency department on Tuesday, 4 days ago, where she states that she had urinalysis performed and a pelvic examination, and they sent her to follow-up with her MANUFACTURING ACCOUNTANT. Today she developed the increasing pressure in her groin, called her MANUFACTURING ACCOUNTANT, who told her not to hesitate to return to the emergency department. She denies any exacerbating or alleviating factors to her now pelvic pressure. PFSH PFSH Medical History Back pain Depression Flank pain Gross hematuria Hypertension Injury of head and neck Migraine headache Shortness of breath on exertion Smoker Home Medications losartan 100 mg PO QHS 11/04/21 [History Last Taken Unknown] hydrochlorothiazide 25 mg PO QHS 12/07/21 [History Last Taken Unknown] nitrofurantoin monohyd/m-cryst [Macrobid] 100 mg PO BID 12/07/21 [History Last Taken Unknown] sertraline 150 mg PO QHS 12/07/21 [History Last Taken Unknown] cephalexin 500 mg PO Q12 3 Days #6 capsule 12/08/21 [Rx Last Taken Unknown] phenazopyridine [Pyridium] 200 mg PO TID PRN PRN 7 Days #30 tab 12/08/21 [Rx Last Taken Unknown] potassium chloride 20 meq PO BID 12/11/21 [History Last Taken Unknown] cyclobenzaprine mg 12/31/21 [History Last Taken Unknown] phenazopyridine 12/31/21 [History Last Taken Unknown] potassium chloride 20 meq PO BID #240 ml 12/31/21 [Rx Last Taken Unknown] ondansetron 4 mg PO Q8H PRN #10 tab 01/25/22 [Rx Last Taken Unknown] oxycodone-acetaminophen [Percocet] 1 tab PO Q6H PRN 3 Days #10 tab 01/25/22 [Rx Last Taken Unknown] oxycodone-acetaminophen [Percocet] 1 tab PO Q6H PRN 3 Days #12 tab 01/28/22 [Rx Last Taken Unknown] Allergy/AdvReac Type Severity Reaction Status Date / Time Penicillins Allergy Hives Verified 01/28/22 17:02 hydrocodone [From [place]] AdvReac HEADACHE Verified 01/28/22 17:02 ketorolac [From Toradol] AdvReac Other Verified 01/28/22 17:02 sulfamethoxazole AdvReac Vomiting Verified 01/28/22 17:02 [From Bactrim] trimethoprim [From Bactrim] AdvReac Vomiting Verified 01/28/22 17:02 Surgical History History of History of cholecystectomy History of esophagogastroduodenoscopy (EGD) Hx of tubal ligation Social History household members: other Smoking Status: Current every day smoker tobacco type: cigarettes substance use type: does not use EXAM Physical Exam Const Vital Signs: 01/28/22 16:59 01/28/22 17:01 01/28/22 19:28 Temperature 97.6 F L 97.6 F L Temperature Source Temporal Temporal Pulse Rate 88 88 83 Respiratory Rate 16 16 14 Blood Pressure 152/99 H 152/99 H 130/86 H Blood Pressure Mean 116 116 100 Pulse Ox 97 97 98 Oxygen Delivery Method Room Air Room Air Room Air MDM MDM MDM Narrative Medical decision making narrative: I reviewed her prior records. She has had CT scans in the past along with ultrasounds. She states she was referred to the ETHANOL OPERATOR because of this pelvic. She has been sent in on Tuesday for pain control and was given a prescription for Percocet. She states she does not have an appointment with the ETHANOL OPERATOR until Tuesday. She required 2 doses of Dilaudid 0.5 mg intravenously. Her laboratory work is grossly unremarkable with a normal WBC count of 10.0, hemoglobin stable at 11.9. She has a normal platelet count of 325. Potassium slightly low at 3.2. This will be replaced orally. Serum is negative. Her CT of the abdomen pelvis shows no acute process. At this point in time, I am unsure as to the cause of her continued pelvic pain and bilateral inguinal pain. Her urinalysis is negative for infection. I do not feel antibiotics are indicated. I do not feel that she requires admission to the hospital. She was given an oxycodone tablet here in the emergency department prior to discharge. I will write her prescription for 12 tablets of Percocet for her ongoing pain for pain control until she can be seen by her ETHANOL OPERATOR on Tuesday. I feel she can be discharged safely home with follow-up. Disposition is discharged home in stable condition. Lab Data Attestation: I reviewed the patient's lab results. Labs: Laboratory Results - last 24 hr 01/28/22 01/28/22 01/28/22 18:15 18:15 18:15 WBC 10.0 RBC 3.48 L Hgb 11.9 L Hct 34.9 L MCV 100.3 H MCH 34.2 H MCHC 34.1 RDW Std Deviation 52.8 H RDW Coeff of Tere 14.4 Plt Count 325 MPV 8.7 Immature Gran % (Auto) 0.300 Neut % (Auto) 60.5 Lymph % (Auto) 29.6 [place] % (Auto) 4.8 Eos % (Auto) 4.4 Baso % (Auto) 0.4 Absolute Neuts (auto) 6.1 Absolute Lymphs (auto) 2.96 Nucleated RBC % 0 Sodium 139 Potassium 3.2 L Chloride 106 Carbon Dioxide 30.0 Anion Gap 3 L BUN 9 Creatinine 0.79 Estim Creat Clear Calc 97.58 Est GFR (MDRD) Af Amer 107 Est GFR (MDRD) Non-Af 88 BUN/Creatinine Ratio 11.3 Glucose 88 Calcium 8.8 Serum , Qual NEGATIVE Urine Color Urine Clarity Urine pH Ur Specific [place] Urine Protein Urine Glucose (UA) Urine Ketones Urine Occult Blood Urine Nitrite Urine Bilirubin Urine Urobilinogen Ur Leukocyte Esterase Urine RBC Urine WBC Ur Squamous Epith Cells Amorphous Sediment Urine Bacteria Urine Mucus 01/28/22 18:24 WBC RBC Hgb Hct MCV MCH MCHC RDW Std Deviation RDW Coeff of Tere Plt Count MPV Immature Gran % (Auto) Neut % (Auto) Lymph % (Auto) [place] % (Auto) Eos % (Auto) Baso % (Auto) Absolute Neuts (auto) Absolute Lymphs (auto) Nucleated RBC % Sodium Potassium Chloride Carbon Dioxide Anion Gap BUN Creatinine Estim Creat Clear Calc Est GFR (MDRD) Af Amer Est GFR (MDRD) Non-Af BUN/Creatinine Ratio Glucose Calcium Serum , Qual Urine Color Yellow Urine Clarity Sl. Cloudy Urine pH 8.0 Ur Specific [place] 1.010 Urine Protein Negative Urine Glucose (UA) Normal Urine Ketones Negative Urine Occult Blood 50 H Urine Nitrite Negative Urine Bilirubin Negative Urine Urobilinogen Normal Ur Leukocyte Esterase Negative Urine RBC 0-5 SEEN Urine WBC 0 SEEN Ur Squamous Epith Cells 0-5 SEEN Amorphous Sediment 1+ PHOS Urine Bacteria 0 SEEN Urine Mucus 0 SEEN Radiography Diagnostic Testing: Clinical Impression(s) from Imaging Studies Abdomen/Pelvis CT 01/28/22 18:08 IMPRESSION: 1. Mild hepatomegaly without defects. 2. Generous size, but normal spleen. 3. Normal kidneys without obstructive uropathy. Normal bladder. 4. No pancreatitis or pancreatic mass lesions. 5. No appendicitis, diverticulitis, colitis, or intestinal obstruction. 6. Normal anteverted uterus. No ovarian cystic or solid mass lesions. Surgical clip noted in the region of the left fallopian tube. 7. No evidence of other significant abnormalities. Electronically Signed: James Duke MD at 19:50 EDT , Discharge Plan Triage Chief Complaint: Female C/O ED Provider: Shabbir Ochoa Dx/Rx/DC Orders Clinical Impression: Pelvic pain, Inguinal pain of both sides, Pelvic pressure in female Instructions: ED Pain, Acute, Uncertain Cause, ED Pelvic Pain, Unknown Cause Prescriptions: New oxycodone-acetaminophen [Percocet] 5-325 mg tablet 1 tab PO Q6H PRN (Reason: pain) 3 Days Qty: 12 RF: 0 No Action losartan 100 mg tablet 100 mg PO QHS RF: 0 hydrochlorothiazide 25 mg Tablet 25 mg PO QHS RF: 0 nitrofurantoin monohyd/m-cryst [Macrobid] 100 mg Capsule 100 mg PO BID RF: 0 sertraline 150 mg Capsule 150 mg PO QHS RF: 0 phenazopyridine [Pyridium] 200 MG tablet 200 mg PO TID PRN PRN (Reason: Bladder Spasms) 7 Days Qty: 30 RF: 0 cephalexin [cephalexin] 500 MG capsule 500 mg PO Q12 3 Days Qty: 6 RF: 0 potassium chloride 20 mEq tablet,ER particles/crystals 20 meq PO BID RF: 0 cyclobenzaprine 10 mg tablet RF: 0 phenazopyridine 200 mg tablet RF: 0 potassium chloride 20 mEq/15 mL liquid 20 meq PO BID Qty: 240 RF: 0 oxycodone-acetaminophen [Percocet] 5-325 mg tablet 1 tab PO Q6H PRN (Reason: pain) 3 Days Qty: 10 RF: 0 ondansetron 4 mg tablet,disintegrating 4 mg PO Q8H PRN (Reason: nausea and vomiting) Qty: 10 RF: 0 Primary Care Provider: Rosaura Rodriguez NP Referrals: Cheko Vences MD [STAFF PHYSICIAN] - 02/01/22 (As scheduled) Rosaura Rodriguez NP, CUTTER OPERATOR TILE-C [Primary Care Provider] - Disposition Disposition: Home, Self Care
[2022-01-28 19:27] LABS: Internal QC Validated? YES +Cl - CLEAR BKGD; Pregnancy, Serum, hCG Quali. NEGATIVE Negative
[2022-01-28 19:28] VITALS: BP 130/86; PULSE 83; RESP 14; O2SAT 98
[2022-01-28] MEDS: oxyCODONE 5 MG Tablet PO (20:07)
[2022-01-28] MEDS: Potassium Chloride Oral Tablet 20 MEQ 40 MEQ PO (20:08)
[2022-01-28 20:13] VITALS: BP 128/85; PULSE 83; RESP 16; O2SAT 100
== END 2022-01-28 20:13 | disposition home or self-care (01) ==
PROVIDERS: Emergency Provider Emergency Medicine; PCP Nurse Practitioner Family; Visit Provider Emergency Medicine
DX: R10.2 Pelvic and perineal pain (principal); F17.210 Nicotine dependence, cigarettes, uncomplicated; I10 Essential (primary) hypertension; F32.A Depression, unspecified; Z79.899 Other long term (current) drug therapy; Z87.440 Personal history of urinary (tract) infections
CPT/HCPCS: 74177; 80048; 81001; 84703; 85025; 96361; 96374; 96376; 99284; J7030; A4216

== ENCOUNTER 2022-02-01 11:43 | Outpatient (CLI) | payer MEDICAID, SELFPAY ==
[2022-02-02 22:07] LABS: Chlamydia By Nucleic Acid AMP Negative (Negative)
[2022-02-03 14:52] LABS: Gonococcus By Nucleic Acid AMP Negative (Negative)
== END 2022-02-01 23:59 | disposition home or self-care (01) ==
LOC: LABSPEC 11:44
PROVIDERS: PCP Nurse Practitioner Family; Referring Provider Obstetrics & Gynecology; Visit Provider Obstetrics & Gynecology
DX: Z11.3 Encounter for screening for infections with a predominantly sexual mode of transmission (principal)
CPT/HCPCS: 87491; 87591

== ENCOUNTER 2022-06-26 12:14 | Emergency (ER) | payer MEDICAID, SELFPAY ==
[2022-06-26 12:14] VITALS: BP 188/120; PULSE 99; RESP 18; TEMP 36.6; O2SAT 99; BMI 25.9
--- NOTE | 2022-06-26 12:32 | EX.ED.DYSGE1 ---
HPI History of Present Illness Chief Complaint: Flank Pain Detail of Chief Complaint: Left leg pain Informant: patient Onset/Context/Timing Onset: Weeks Context: Gradual Onset Current Severity: Moderate Maximum Severity: Moderate Narrative Narrative: Patient presents secondary to left flank pain for the past 2 weeks. She states that she was diagnosed with a kidney infection at [facility] and placed on Cipro. She just finished that antibiotic couple days ago. She reports no improvement in the symptoms. I am not able to see a discharge summary from that visit. Patient does report dysuria with hematuria. No fever or chills. She has an appointment with her doctor on Tuesday but states the pain was more severe today and she could not wait. [facility] Medical History Back pain Depression Flank pain Gross hematuria Hypertension Injury of head and neck Migraine headache Shortness of breath on exertion Smoker Home Medications losartan 100 mg tablet 100 mg PO QHS 11/04/21 [History Last Taken Unknown] hydrochlorothiazide 25 mg tablet 25 mg PO QHS 12/07/21 [History Last Taken Unknown] nitrofurantoin monohydrate/macrocrystals 100 mg capsule (Macrobid) 100 mg PO BID 12/07/21 [History Last Taken Unknown] sertraline 150 mg capsule 150 mg PO QHS 12/07/21 [History Last Taken Unknown] cephalexin 500 mg capsule 500 mg PO Q12 post-operative 3 days #6 CAPSULES 12/08/21 [Rx Last Taken Unknown] phenazopyridine 200 mg tablet (Pyridium) 200 mg PO TID PRN PRN Bladder Spasms 7 days #30 tabs 12/08/21 [Rx Last Taken Unknown] potassium chloride 20 mEq tablet,extended release(part/cryst) 20 meq PO BID 12/11/21 [History Last Taken Unknown] cyclobenzaprine 10 mg tablet mg 12/31/21 [History Last Taken Unknown] phenazopyridine 200 mg tablet 12/31/21 [History Last Taken Unknown] potassium chloride 20 mEq/15 mL oral liquid 20 meq (15 mL) PO BID #240 mL 12/31/21 [Rx Last Taken Unknown] ondansetron 4 mg disintegrating tablet 4 mg PO Q8H PRN nausea and vomiting #10 tabs 01/25/22 [Rx Last Taken Unknown] oxycodone-acetaminophen 5 mg-325 mg tablet (Percocet) 1 tab PO Q6H PRN pain 3 days #10 tabs 03/21/22 [Rx Last Taken Unknown] oxycodone-acetaminophen 5 mg-325 mg tablet (Percocet) 1 tab PO Q6H PRN pain 3 days #12 tabs 01/28/22 [Rx Last Taken Unknown] cephalexin 500 mg capsule 500 mg PO Q8H #30 caps 06/26/22 [Rx Last Taken Unknown] oxycodone-acetaminophen 5 mg-325 mg tablet (Percocet) 1 tab PO Q6H PRN pain 3 days #10 tabs 06/26/22 [Rx Last Taken Unknown] Allergy/AdvReac Type Severity Reaction Status Date / Time Penicillins Allergy Hives Verified 06/26/22 12:14 hydrocodone [From [place]] AdvReac HEADACHE Verified 06/26/22 12:14 ketorolac [From Toradol] AdvReac Other Verified 06/26/22 12:14 sulfamethoxazole AdvReac Vomiting Verified 06/26/22 12:14 [From Bactrim] trimethoprim [From Bactrim] AdvReac Vomiting Verified 06/26/22 12:14 Surgical History History of History of cholecystectomy History of esophagogastroduodenoscopy (EGD) Hx of tubal ligation Social History household members: other Smoking Status: Current every day smoker tobacco type: cigarettes substance use type: does not use ROS ROS ED Constitutional Constitutional ED: Denies chills or fever(s) Eyes Eyes: Denies change in vision or discharge from eye(s) ENT ENT ED: Denies discharge from eye(s), rhinorrhea or sore throat Cardiovascular Cardiovascular: Denies chest pain or palpitations Respiratory/Chest Respiratory/Chest: Denies cough or dyspnea Gastrointestinal Gastrointestinal: Reports abdominal pain; Denies diarrhea, nausea or vomiting Genitourinary Genitourinary ED: Reports dysuria and hematuria Musculoskeletal Musculoskeletal: Reports back pain; Denies extremity pain Integumentary Denies Abrasions or rash Neurologic Neurologic: Denies headache(s) or weakness Allergic/Immunologic Allergic/Immunologic ED: Denies lip swelling or urticaria EXAM Physical Exam Const Vital Signs: 06/26/22 12:14 Temperature 98 F Temperature Source Temporal Pulse Rate 99 Respiratory Rate 18 Blood Pressure 188/120 H Blood Pressure Mean 142 Pulse Ox 99 Oxygen Delivery Method Room Air Positive well nourished and well developed General Appearance ED: well developed HEENT Reports normocephalic and head/scalp atraumatic Eyes PERRL and EOMs intact bilaterally Neck supple Chest Wall inspection of chest normal and palpation of chest normal Resp normal respiratory effort and clear to auscultation bilaterally Cardio regular rate and regular rhythm GI non-tender Auscultation: hypoactive bowel sounds Palpation: soft Back/Spine General Back: CVA tenderness left Extremity normal to inspection Neuro oriented x3 and no sensory deficits noted Sensorium / Orientation: alert Motor Exam: strength 5/5 throughout Psych mental status grossly normal Skin no rashes or lesions noted MDM MDM MDM Narrative Medical decision making narrative: Small dose of Dilaudid along with Zofran and IV fluids. Lab work and urinalysis obtained. I was able to review her recent records from [facility]. She had a CT scan with contrast on June 16. This revealed moderate volume stool in the rectosigmoid colon consistent with constipation. No acute renal abnormality was noted. Lab Data Attestation: I reviewed the patient's lab results. Labs: Laboratory Results - last 24 hr 06/26/22 06/26/22 06/26/22 12:15 12:15 12:15 WBC 9.3 RBC 3.73 L Hgb 12.6 Hct 37.2 MCV 99.7 H MCH 33.8 H MCHC 33.9 RDW Std Deviation 49.1 H RDW Coeff of Tere 13.5 Plt Count 254 MPV 9.0 Immature Gran % (Auto) 0.400 Neut % (Auto) 71.4 H Lymph % (Auto) 20.2 [place] % (Auto) 3.8 Eos % (Auto) 3.8 Baso % (Auto) 0.4 Absolute Neuts (auto) 6.7 Absolute Lymphs (auto) 1.88 Nucleated RBC % 0 Sodium 141 Potassium 3.5 Chloride 112 H Carbon Dioxide 24.0 Anion Gap 5 BUN 9 Creatinine 0.67 Estim Creat Clear Calc 115.05 Est GFR (MDRD) Af Amer 130 Est GFR (MDRD) Non-Af 107 BUN/Creatinine Ratio 13.5 Glucose 104 Calcium 8.8 Total Bilirubin 0.30 Direct Bilirubin 0.09 AST 17 ALT 24 Alkaline Phosphatase 64 Total Protein 7.2 Albumin 3.5 Globulin 3.7 Lipase 70 L Serum , Qual NEGATIVE Urine Color Urine Clarity Urine pH Ur Specific [place] Urine Protein Urine Glucose (UA) Urine Ketones Urine Occult Blood Urine Nitrite Urine Bilirubin Urine Urobilinogen Ur Leukocyte Esterase Urine RBC Urine WBC Ur Squamous Epith Cells Urine Bacteria Urine Mucus 06/26/22 12:36 WBC RBC Hgb Hct MCV MCH MCHC RDW Std Deviation RDW Coeff of Tere Plt Count MPV Immature Gran % (Auto) Neut % (Auto) Lymph % (Auto) [place] % (Auto) Eos % (Auto) Baso % (Auto) Absolute Neuts (auto) Absolute Lymphs (auto) Nucleated RBC % Sodium Potassium Chloride Carbon Dioxide Anion Gap BUN Creatinine Estim Creat Clear Calc Est GFR (MDRD) Af Amer Est GFR (MDRD) Non-Af BUN/Creatinine Ratio Glucose Calcium Total Bilirubin Direct Bilirubin AST ALT Alkaline Phosphatase Total Protein Albumin Globulin Lipase Serum , Qual Urine Color Yellow Urine Clarity Clear Urine pH 7.0 Ur Specific [place] 1.005 Urine Protein Negative Urine Glucose (UA) Normal Urine Ketones Negative Urine Occult Blood 25 H Urine Nitrite Positive H Urine Bilirubin 1 H Urine Urobilinogen 4 H Ur Leukocyte Esterase Negative Urine RBC 0-5 SEEN Urine WBC 0-5 SEEN Ur Squamous Epith Cells 5-10 SEEN Urine Bacteria 3+ Urine Mucus 0 SEEN Treatment and Re-Evaluation Narrative: Patient's lab work is unremarkable. Urinalysis reveals 3+ bacteria and positive nitrites. She has been on 2 rounds of Cipro in the last 2 months. She has an allergy to penicillin as well as Bactrim. I will treat her with a course of Keflex as I do feel she needs a different class of antibiotics as she has not improved with Cipro. Urine culture has been sent and final result should be available in 48 hours. She has an appointment to see her new urologist at the [facility] mid week. I will write her a short course of analgesics to get her through the weekend. Discharge Plan Triage Chief Complaint: Flank Pain ED Provider: America Whyte Dx/Rx/DC Orders Clinical Impression: Left flank pain, Pyelonephritis Instructions: ED Pyelonephritis, Female (Adult) Prescriptions: New cephalexin 500 mg capsule 500 mg PO Q8H Qty: 30 0RF oxycodone-acetaminophen [Percocet] 5-325 mg tablet 1 tab PO Q6H PRN (Reason: pain) 3 Days Qty: 10 0RF No Action losartan 100 mg tablet 100 mg PO QHS hydrochlorothiazide 25 mg Tablet 25 mg PO QHS nitrofurantoin monohyd/m-cryst [Macrobid] 100 mg Capsule 100 mg PO BID sertraline 150 mg Capsule 150 mg PO QHS phenazopyridine [Pyridium] 200 MG tablet 200 mg PO TID PRN PRN (Reason: Bladder Spasms) 7 Days Qty: 30 0RF cephalexin [cephalexin] 500 MG capsule 500 mg PO Q12 3 Days Qty: 6 0RF potassium chloride 20 mEq tablet,ER particles/crystals 20 meq PO BID Label Comments: TAKE 1 TABLET BY MOUTH EVERY 12 HOURS FOR 3 DAYS cyclobenzaprine 10 mg tablet Label Comments: TAKE 1 TABLET BY MOUTH THREE TIMES DAILY NEEDED FOR MUSCLE SPASM phenazopyridine 200 mg tablet Label Comments: TAKE 1 TABLET BY MOUTH THREE TIMES DAILY NEEDED FOR 10 DAYS potassium chloride 20 mEq/15 mL liquid 20 meq PO BID Qty: 240 0RF oxycodone-acetaminophen [Percocet] 5-325 mg tablet 1 tab PO Q6H PRN (Reason: pain) 3 Days Qty: 10 0RF ondansetron 4 mg tablet,disintegrating 4 mg PO Q8H PRN (Reason: nausea and vomiting) Qty: 10 0RF oxycodone-acetaminophen [Percocet] 5-325 mg tablet 1 tab PO Q6H PRN (Reason: pain) 3 Days Qty: 12 0RF Primary Care Provider: Rosaura Rodriguez NP Referrals: Rosaura Rodriguez NP, HYDRAULIC LIFT OPERATOR-C [Primary Care Provider] - Activity Restrictions/Additional Instructions: Follow-up with your urologist at [facility] this week as scheduled. Disposition Disposition: Home, Self Care
[2022-06-26 12:43] LABS: Mucous, Urine 0 SEEN /hpf (<or=2+)
[2022-06-26 12:45] LABS: Absolute Lymphocyte Count 1.88 X10^3/uL (0.83-4.51); Absolute Neutrophil Count 6.7 X10^3/uL (2.0-7.7); Basophil# 0.04 X10^3/uL; Basophil% 0.4 % (0-1); Eosinophil# 0.35 X10^3/uL; Eosinophils% 3.8 % (0-5); Hematocrit 37.2 % (37-47); Hemoglobin 12.6 g/dL (12.0-15.0); Lymphocyte # 1.88 X10^3/ul (0.83-4.51); Lymphocyte % 20.2 % (19-41); Mean Corp Hgb Conc 33.9 g/dL (32-36); Mean Corpuscular Hgb 33.8 pg (27.0-32.0); Mean Corpuscular Volume 99.7 fL (81-99); Monocyte# 0.35 X10^3/uL; Monocyte% 3.8 % (0-10); NRBC Flagged by Analyzer 0 % (0-5); Neutrophil # 6.65 X10^3/uL (2.7-7.7); Neutrophil % 71.4 % (47-70); Platelet Count 254 K/mm3 (150-450); RBC Distribution Width CV 13.5 % (11.6-14.6); RBC Distribution Width SD 49.1 fl (35.1-43.9); Red Blood Count 3.73 M/mm3 (4.2-5.4); White Blood Count 9.3 K/mm3 (4.4-11.0)
[2022-06-26] MEDS: Ondansetron 4 MG/2 ML Vial IV (12:46)
[2022-06-26] MEDS: HYDROmorphone 1 MG/ML Syringe 0.5 MG IV (12:46)
[2022-06-26] MEDS: 0.9% Normal Saline 1,000 ML 1000 ML IV (12:46)
[2022-06-26 12:51] LABS: Internal QC Validated? YES +Cl - CLEAR BKGD; Pregnancy, Serum, hCG Quali. NEGATIVE Negative
[2022-06-26 13:00] LABS: AST(SGOT) 17 U/L (15-37); Alanine Aminotransfer ALT/SGPT 24 U/L (13-56); Albumin, Serum 3.5 g/dL (3.2-5.0); Alkaline Phosphatase 64 U/L (45-117); Anion Gap 5 (5-15); BUN 9 mg/dL (7-18); BUN/Creat Ratio 13.5 RATIO (10-20); Bilirubin, Direct 0.09 mg/dL (0.00-0.30); Calcium,Total 8.8 mg/dL (8.5-10.1); Chloride 112 mmol/L (98-107); Creatinine, Serum 0.67 mg/dL (0.55-1.02); EST Glomerular Filtration Rate 107 mL/min (>60); Est Glom Filt Rate - Afr Amer 130 mL/min (>60); Estimated Creatinine Clearance 115.05 ml/min; Globulin 3.7 g/dL (2.2-4.2); Glucose 104 mg/dL (74-106); Lipase 70 U/L (73-393); Potassium 3.5 mmol/L (3.5-5.1); Protein, Total 7.2 g/dL (6.4-8.2); Sodium Level 141 mmol/L (136-145)
[2022-06-26 13:02] LABS: Color, Urine Yellow (Yellow); Glucose, Dipstick Normal (Normal); Ketone-Dipstick Negative (Negative); Leukocyte Esterase-Dipstick Negative /ul (Negative); Nitrite-Dipstick Positive (Negative); Occult Blood-Urine 25 /ul (Negative); Protein-Dipstick Negative (Negative); Specific Gravity, Urine 1.005 (1.002-1.030); Urine Clarity Clear (Clear); Urine Urobilinogen 4 mg/dl (Normal)
[2022-06-26 13:08] LABS: Urine Bilirubin Dipstick 1 mg/dL (Negative)
[2022-06-26 13:16] LABS: White Blood Cells 0-5 SEEN /hpf (0-5)
[2022-06-26 13:17] LABS: Bacteria 3+ /hpf (None Seen); Red Blood Cells-Urine 0-5 SEEN /hpf (0-5); Squamous Epithelial Cells - UA 5-10 SEEN /hpf (5-10)
[2022-06-26] MEDS: oxyCODONE 5 MG Tablet PO (13:56)
[2022-06-26] MEDS: Cephalexin 250 MG Capsule 500 MG PO (13:56)
[2022-06-26 14:04] VITALS: RESP 16
== END 2022-06-26 14:04 | disposition home or self-care (01) ==
PROVIDERS: Emergency Provider Emergency Medicine; PCP Nurse Practitioner Family; Visit Provider Emergency Medicine
DX: N12 Tubulo-interstitial nephritis, not specified as acute or chronic (principal); F32.A Depression, unspecified; I10 Essential (primary) hypertension; Z79.899 Other long term (current) drug therapy; F17.210 Nicotine dependence, cigarettes, uncomplicated
CPT/HCPCS: 80048; 80076; 81001; 83690; 84703; 85025; 87086; 87088; 96361; 96374; 96375; 99284; J7030; A4216; J2405

== ENCOUNTER 2022-07-18 18:46 | Emergency (ER) | payer MEDICAID, SELFPAY ==
[2022-07-18 18:46] VITALS: BP 133/96; PULSE 120; RESP 16; TEMP 36.8; O2SAT 99; BMI 25.8
[2022-07-18 19:19] VITALS: PULSE 108; RESP 16; O2SAT 97
[2022-07-18 19:27] LABS: Mucous, Urine 0 SEEN /hpf (<or=2+)
[2022-07-18 19:38] LABS: Color, Urine Yellow (Yellow); Glucose, Dipstick Normal (Normal); Ketone-Dipstick Negative (Negative); Leukocyte Esterase-Dipstick 500 /ul (Negative); Nitrite-Dipstick Positive (Negative); Occult Blood-Urine 150 /ul (Negative); Protein-Dipstick Negative (Negative); Specific Gravity, Urine 1.015 (1.002-1.030); Urine Bilirubin Dipstick Negative (Negative); Urine Clarity Sl. Cloudy (Clear); Urine Urobilinogen Normal (Normal)
[2022-07-18 19:49] LABS: Internal QC Validated? YES +Cl - CLEAR BKGD; Pregnancy, Urine Negative Negative
[2022-07-18 19:51] LABS: White Blood Cells 25-50 SEEN /hpf (0-5)
[2022-07-18 19:52] LABS: Bacteria 3+ /hpf (None Seen); Red Blood Cells-Urine 10-25 SEEN /hpf (0-5); Squamous Epithelial Cells - UA 5-10 SEEN /hpf (5-10)
--- NOTE | 2022-07-18 19:59 | EDS_ITS ---
HPI HPI - Female History of Present Illness Chief Complaint: Complaint Informant: patient Narrative Narrative: Recurrent hematuria dysuria for the past 2 days. Just finished Keflex over a week ago. Is been having recurrent UTI since September of last year. She has seen urologist Dr. Matthews and had cystoscopy as an outpatient. She states she is going to [facility] urologist here soon. She has Pyridium at home. Allergies to penicillin and Bactrim. She does not know the results of cystoscopy. Denies fevers. Pain in her back. No vomiting or diarrhea. Does have Phenergan at home. Prior similar symptoms: Yes PFSH PFSH Medical History Back pain Depression Flank pain Gross hematuria Hypertension Injury of head and neck Migraine headache Shortness of breath on exertion Smoker Home Medications losartan 100 mg tablet 100 mg PO QHS 11/04/21 [History Last Taken Unknown] hydrochlorothiazide 25 mg tablet 25 mg PO QHS 12/07/21 [History Last Taken Unknown] nitrofurantoin monohydrate/macrocrystals 100 mg capsule (Macrobid) 100 mg PO BID 12/07/21 [History Last Taken Unknown] sertraline 150 mg capsule 150 mg PO QHS 12/07/21 [History Last Taken Unknown] cephalexin 500 mg capsule 500 mg PO Q12 post-operative 3 days #6 CAPSULES 12/08/21 [Rx Last Taken Unknown] phenazopyridine 200 mg tablet (Pyridium) 200 mg PO TID PRN PRN Bladder Spasms 7 days #30 tabs 12/08/21 [Rx Last Taken Unknown] potassium chloride 20 mEq tablet,extended release(part/cryst) 20 meq PO BID 12/11/21 [History Last Taken Unknown] cyclobenzaprine 10 mg tablet mg 12/31/21 [History Last Taken Unknown] phenazopyridine 200 mg tablet 12/31/21 [History Last Taken Unknown] potassium chloride 20 mEq/15 mL oral liquid 20 meq (15 mL) PO BID #240 mL 12/31/21 [Rx Last Taken Unknown] ondansetron 4 mg disintegrating tablet 4 mg PO Q8H PRN nausea and vomiting #10 tabs 01/25/22 [Rx Last Taken Unknown] oxycodone-acetaminophen 5 mg-325 mg tablet (Percocet) 1 tab PO Q6H PRN pain 3 days #10 tabs 03/21/22 [Rx Last Taken Unknown] oxycodone-acetaminophen 5 mg-325 mg tablet (Percocet) 1 tab PO Q6H PRN pain 3 days #12 tabs 01/28/22 [Rx Last Taken Unknown] cephalexin 500 mg capsule 500 mg PO Q8H #30 caps 06/26/22 [Rx Last Taken Unknown] oxycodone-acetaminophen 5 mg-325 mg tablet (Percocet) 1 tab PO Q6H PRN pain 3 d ays #10 tabs 06/26/22 [Rx Last Taken Unknown] nitrofurantoin monohydrate/macrocrystals 100 mg capsule (Macrobid) 100 mg PO Q12H 10 days #20 caps 07/18/22 [Rx Last Taken Unknown] oxycodone-acetaminophen 5 mg-325 mg tablet (Percocet) 1 tab PO Q6H PRN pain 3 days #12 tabs 07/18/22 [Rx Last Taken Unknown] Allergy/AdvReac Type Severity Reaction Status Date / Time Penicillins Allergy Hives Verified 07/18/22 18:49 hydrocodone [From [place]] AdvReac HEADACHE Verified 07/18/22 18:49 ketorolac [From Toradol] AdvReac Other Verified 07/18/22 18:49 sulfamethoxazole AdvReac Vomiting Verified 07/18/22 18:49 [From Bactrim] tramadol AdvReac Vomiting Verified 07/18/22 18:50 trimethoprim [From Bactrim] AdvReac Vomiting Verified 07/18/22 18:49 Surgical History History of History of cholecystectomy History of esophagogastroduodenoscopy (EGD) Hx of tubal ligation Social History household members: other Smoking Status: Current every day smoker tobacco type: cigarettes substance use type: does not use ROS ROS ED Constitutional Constitutional ED: Denies chills, fever(s) or sweats Eyes Eyes: Denies change in vision ENT ENT ED: Denies dysphagia or sore throat Cardiovascular Cardiovascular: Denies chest pain, leg edema, palpitations or racing heartbeat Respiratory/Chest Respiratory/Chest: Denies cough, dyspnea or dyspnea on exertion Gastrointestinal Gastrointestinal: Denies abdominal pain, diarrhea, nausea or vomiting Genitourinary Genitourinary ED: Reports dysuria and hematuria; Denies urinary frequency Musculoskeletal Musculoskeletal: Reports back pain; Denies extremity pain or neck pain Integumentary Denies rash or wounds Neurologic Neurologic: Denies headache(s), paresthesias or weakness EXAM Physical Exam Const Vital Signs: 07/18/22 18:46 07/18/22 19:19 07/18/22 20:09 Temperature 98.2 F Temperature Source Temporal Pulse Rate 120 H 108 H 87 Respiratory Rate 16 16 14 Blood Pressure 133/96 H 119/92 H Blood Pressure Mean 108 101 Pulse Ox 99 97 98 Oxygen Delivery Method Room Air Room Air Room Air Positive well nourished and well developed General Appearance ED: well developed and NAD HEENT Reports moist mucous membranes normocephalic and atraumatic Eyes PERRL, EOMs intact bilaterally and conjunctivae normal General Eye ED: Yes normal appearance of both eyes Neck no lymphadenopathy and supple General: Negative for tenderness Chest Wall Chest: Negative for tenderness Resp normal respiratory effort and normal air movement Effort and Inspection: symmetric chest movement; Negative for respiratory distress Cardio regular rhythm and no murmurs Rate: tachycardic Peripheral Pulses: pulses 2+ throughout GI normal to inspection, nondistended, normoactive bowel sounds GI Narrative: Mild suprapubic tenderness. No guarding or rebound. No CVA tenderness. Palpation: Negative for guarding or rebound tenderness present Back/Spine no CVA tenderness and no thoracic nor lumbar tenderness Extremity normal to inspection General Extremety ED: Negative for edema or tenderness General Extremity: Negative for edema Neuro oriented x3 and no sensory deficits noted Sensorium / Orientation: awake and alert Skin no rashes or lesions noted and no wounds MDM MDM MDM Narrative Medical decision making narrative: Patient with recurrent urinary symptoms back pain. No fevers. hCG negative urine noted signs of infection. Concern for complicated UTI with recurrent centimeters back pain culture sent. Review of records had culture with lactobacillus noted contaminant last month. She has had E. coli before. Treated with Percocet for pain. Started on Macrobid for 10 days. She has planned follow-up with [facility] urology for evaluation of recurrent UTIs . She had normal cystoscopy this past December. Heart rate improved prior to discharge. Meds to beds with antibiotics and pain medicines. Return precautions. Lab Data Attestation: I reviewed the patient's lab results. Labs: Laboratory Results - last 24 hr 07/18/22 19:15 Urine Color Yellow Urine Clarity Sl. Cloudy Urine pH 8.0 Ur Specific [place] 1.015 Urine Protein Negative Urine Glucose (UA) Normal Urine Ketones Negative Urine Occult Blood 150 H Urine Nitrite Positive H Urine Bilirubin Negative Urine Urobilinogen Normal Ur Leukocyte Esterase 500 H Urine RBC 10-25 SEEN Urine WBC 25-50 SEEN Ur Squamous Epith Cells 5-10 SEEN Urine Bacteria 3+ Urine Mucus 0 SEEN Urine Test Negative Discharge Plan Triage Chief Complaint: Complaint ED Provider: Syed Nice Dx/Rx/DC Orders Clinical Impression: Complicated urinary tract infection, Flank pain, Hematuria Instructions: UTIs Women Prescriptions: New nitrofurantoin monohyd/m-cryst [Macrobid] 100 mg capsule 100 mg PO Q12H 10 Days Qty: 20 0RF Rx Instructions: must administer with a meal/food oxycodone-acetaminophen [Percocet] 5-325 mg tablet 1 tab PO Q6H PRN (Reason: pain) 3 Days Qty: 12 0RF No Action losartan 100 mg tablet 100 mg PO QHS hydrochlorothiazide 25 mg Tablet 25 mg PO QHS nitrofurantoin monohyd/m-cryst [Macrobid] 100 mg Capsule 100 mg PO BID sertraline 150 mg Capsule 150 mg PO QHS phenazopyridine [Pyridium] 200 MG tablet 200 mg PO TID PRN PRN (Reason: Bladder Spasms) 7 Days Qty: 30 0RF cephalexin [cephalexin] 500 MG capsule 500 mg PO Q12 3 Days Qty: 6 0RF potassium chloride 20 mEq tablet,ER particles/crystals 20 meq PO BID Label Comments: TAKE 1 TABLET BY MOUTH EVERY 12 HOURS FOR 3 DAYS cyclobenzaprine 10 mg tablet Label Comments: TAKE 1 TABLET BY MOUTH THREE TIMES DAILY NEEDED FOR MUSCLE SPASM phenazopyridine 200 mg tablet Label Comments: TAKE 1 TABLET BY MOUTH THREE TIMES DAILY NEEDED FOR 10 DAYS potassium chloride 20 mEq/15 mL liquid 20 meq PO BID Qty: 240 0RF oxycodone-acetaminophen [Percocet] 5-325 mg tablet 1 tab PO Q6H PRN (Reason: pain) 3 Days Qty: 10 0RF ondansetron 4 mg tablet,disintegrating 4 mg PO Q8H PRN (Reason: nausea and vomiting) Qty: 10 0RF oxycodone-acetaminophen [Percocet] 5-325 mg tablet 1 tab PO Q6H PRN (Reason: pain) 3 Days Qty: 12 0RF cephalexin 500 mg capsule 500 mg PO Q8H Qty: 30 0RF oxycodone-acetaminophen [Percocet] 5-325 mg tablet 1 tab PO Q6H PRN (Reason: pain) 3 Days Qty: 10 0RF Primary Care Provider: Rosaura Rodriguez NP Referrals: Rosaura Rodriguez NP, E[employer] OPPORTUNITY ASSISTANT-C [Primary Care Provider] - Activity Restrictions/Additional Instructions: UTI findings. Culture pending. Take medication as prescribed. Follow-up with urology as planned with [facility]. Disposition Disposition: Home, Self Care Discharge Date/Time: 07/18/22 20:58
[2022-07-18] MEDS: Nitrofurantoin Macrocrystals 100 MG Capsule PO (20:08)
[2022-07-18] MEDS: oxyCODONE 5 MG Tablet PO (20:08)
[2022-07-18 20:09] VITALS: BP 119/92; PULSE 87; RESP 14; O2SAT 98
== END 2022-07-18 20:58 | disposition home or self-care (01) ==
PROVIDERS: Emergency Provider Emergency Medicine; PCP Nurse Practitioner Family; Visit Provider Emergency Medicine
DX: N39.0 Urinary tract infection, site not specified (principal); R31.9 Hematuria, unspecified; F17.210 Nicotine dependence, cigarettes, uncomplicated; I10 Essential (primary) hypertension; Z79.899 Other long term (current) drug therapy; G43.909 Migraine, unspecified, not intractable, without status migrainosus; F32.A Depression, unspecified
CPT/HCPCS: 81001; 81025; 87077; 87086; 87088; 87186; 99283

== ENCOUNTER 2022-07-21 12:15 | Emergency (ER) | payer MEDICAID, SELFPAY ==
[2022-07-21 12:18] VITALS: BP 147/95; PULSE 101; RESP 18; TEMP 37.2; O2SAT 100; BMI 25.1
[2022-07-21 12:20] VITALS: BP 147/95; PULSE 101; RESP 18; TEMP 37.2; O2SAT 100
[2022-07-21 12:37] LABS: Mucous, Urine 0 SEEN /hpf (<or=2+)
[2022-07-21 12:44] LABS: Color, Urine Yellow (Yellow); Glucose, Dipstick Normal (Normal); Ketone-Dipstick Negative (Negative); Leukocyte Esterase-Dipstick 100 /ul (Negative); Nitrite-Dipstick Positive (Negative); Occult Blood-Urine 150 /ul (Negative); Protein-Dipstick Negative (Negative); Specific Gravity, Urine 1.005 (1.002-1.030); Urine Bilirubin Dipstick Negative (Negative); Urine Clarity Sl. Cloudy (Clear); Urine Urobilinogen Normal (Normal)
[2022-07-21 12:52] LABS: Bacteria 2+ /hpf (None Seen); Red Blood Cells-Urine 10-25 SEEN /hpf (0-5); Squamous Epithelial Cells - UA 5-10 SEEN /hpf (5-10); White Blood Cells 10-25 SEEN /hpf (0-5)
[2022-07-21 12:53] LABS: Internal QC Validated? YES +Cl - CLEAR BKGD; Pregnancy, Urine Negative Negative
[2022-07-21 14:07] VITALS: BP 124/66; PULSE 76; RESP 16; TEMP 36.7; O2SAT 99
--- NOTE | 2022-07-21 14:52 | ED.VIS.FEGU ---
HPI HPI - Female History of Present Illness Chief Complaint: Complaint Narrative Narrative: Patient presents with worsening UTI. She has been having frequent UTIs since the beginning of the year. She was originally treated with Cipro. She has then been treated multiple times with Keflex. She was treated a little over a month ago with Keflex. Her symptoms went away for a week or so. She came back in 3 days ago. She had start of urinary symptoms on Tuesday. Urine was done and she was started on Macrobid because she has had cultures that were sensitive to it before. She states she has been taking the Macrobid but she is peeing some urine that is darker and has a few clots. She has dysuria. She has some suprapubic pressure. But she is starting to get a little right flank pain. She has had a couple episodes of nausea but no vomiting. No fevers or chills. No trouble eating or drinking. Patient has a follow-up with urologist up at [facility] on 21 August. She has had cystoscopy here locally. No cause of her frequent UTIs is known. PFSH PFSH Medical History Back pain Depression Flank pain Gross hematuria Hypertension Injury of head and neck Migraine headache Shortness of breath on exertion Smoker Home Medications losartan 100 mg tablet 100 mg PO QHS 11/04/21 [History Last Taken Unknown] nitrofurantoin monohydrate/macrocrystals 100 mg capsule (Macrobid) 100 mg PO BID 12/07/21 [History Last Taken Unknown] sertraline 150 mg capsule 150 mg PO QHS 12/07/21 [History Last Taken Unknown] phenazopyridine 200 mg tablet (Pyridium) 200 mg PO TID PRN PRN Bladder Spasms 7 days #30 tabs 12/08/21 [Rx Last Taken Unknown] ondansetron 4 mg disintegrating tablet 4 mg PO Q8H PRN nausea and vomiting #10 tabs 01/25/22 [Rx Last Taken Unknown] nitrofurantoin monohydrate/macrocrystals 100 mg capsule (Macrobid) 100 mg PO Q12H 10 days #20 caps 07/18/22 [Rx Last Taken Unknown] ciprofloxacin HCl 500 mg tablet 500 mg PO BID #20 tabs 07/21/22 [Rx Last Taken Unknown] ondansetron 4 mg disintegrating tablet 4 mg PO Q8H PRN nausea and vomiting #10 tabs 07/21/22 [Rx Last Taken Unknown] oxycodone-acetaminophen 5 mg-325 mg tablet (Percocet) 1 tab PO Q6H PRN pain 3 days #10 tabs 07/21/22 [Rx Last Taken Unknown] Allergy/AdvReac Type Severity Reaction Status Date / Time Penicillins Allergy Hives Verified 07/18/22 18:49 hydrocodone [From [place]] AdvReac HEADACHE Verified 07/18/22 18:49 ketorolac [From Toradol] AdvReac Other Verified 07/18/22 18:49 sulfamethoxazole AdvReac Vomiting Verified 07/18/22 18:49 [From Bactrim] tramadol AdvReac Vomiting Verified 07/18/22 18:50 trimethoprim [From Bactrim] AdvReac Vomiting Verified 07/18/22 18:49 Surgical History History of History of cholecystectomy History of esophagogastroduodenoscopy (EGD) Hx of tubal ligation Social History household members: other Smoking Status: Current every day smoker tobacco type: cigarettes substance use type: does not use ROS ROS ED Constitutional Constitutional ED: Denies chills or fever(s) ENT ENT ED: Denies rhinorrhea or sore throat Cardiovascular Cardiovascular: Denies chest pain or palpitations Respiratory/Chest Respiratory/Chest: Denies cough or dyspnea Gastrointestinal Gastrointestinal: Reports nausea and other Details: Suprapubic pressure mostly with urination. But no real abdominal pain. ; Denies constipation, diarrhea, melena or vomiting Genitourinary Genitourinary ED: Reports dysuria, hematuria and urinary frequency Musculoskeletal Musculoskeletal: Denies arthralgias or myalgias Integumentary Denies rash Endocrine Endocrinology: Denies polydipsia Hematologic/Lymphatic Hematologic/Lymphatic: Denies easy bleeding or easy bruising Allergic/Immunologic Allergic/Immunologic ED: Denies urticaria EXAM Physical Exam Const Vital Signs: 07/21/22 12:18 07/21/22 12:20 07/21/22 14:07 Temperature 99 F 99 F 98.0 F Temperature Source Temporal Temporal Oral Pulse Rate 101 H 101 H 76 Respiratory Rate 18 18 16 Blood Pressure 147/95 H 147/95 H 124/66 H Blood Pressure Mean 112 112 85 Pulse Ox 100 100 99 Oxygen Delivery Method Room Air Room Air Room Air Positive well nourished and well developed General Appearance ED: well developed HEENT Reports moist mucous membranes; Denies dry mucous membranes Mouth ED: No dry mucous membranes Mouth: No dry mucous membranes Eyes General Eye ED: Negative for scleral icterus Chest Wall inspection of chest normal Resp normal respiratory effort and clear to auscultation bilaterally Auscultation: Negative for rales, rhonchi or wheezes Cardio regular rate and regular rhythm GI normal to inspection, nondistended, normoactive bowel sounds and soft to palpation GI Narrative: Very mild pressure in the suprapubic area. Back/Spine Back/Spine Narrative: Patient has some soreness even with soft touch along the right paraspinals. This is not isolated just to the right CVA. Extremity normal to inspection Neuro Sensorium / Orientation: alert Psych mental status grossly normal Skin no rashes or lesions noted Skin Narrative: No vesicles or rash MDM MDM MDM Narrative Medical decision making narrative: Patient's last antibiotic was picked due to prior cultures. But she is now showing Klebsiella that has intermediate response to Macrobid. Because of this and her allergies, I will use Cipro in this case. She also had good luck with this before. I will write for some meds for nausea in case that returns. I will write for some pain meds because she has had right flank pain and pyelonephritis is certainly painful. We discussed reasons to return that would include worsening pain, vomiting and inability keep down meds high fevers or other concerns. Her urine does still show signs of infection. test is still negative. Lab Data Attestation: I reviewed the patient's lab results. Labs: Laboratory Results - last 24 hr 07/21/22 12:29 Urine Color Yellow Urine Clarity Sl. Cloudy Urine pH 7.0 Ur Specific [place] 1.005 Urine Protein Negative Urine Glucose (UA) Normal Urine Ketones Negative Urine Occult Blood 150 H Urine Nitrite Positive H Urine Bilirubin Negative Urine Urobilinogen Normal Ur Leukocyte Esterase 100 H Urine RBC 10-25 SEEN Urine WBC 10-25 SEEN Ur Squamous Epith Cells 5-10 SEEN Urine Bacteria 2+ Urine Mucus 0 SEEN Urine Test Negative Discharge Plan Triage Chief Complaint: Complaint ED Provider: Francisco Noel Dx/Rx/DC Orders Clinical Impression: Pyelonephritis of right kidney, Hematuria Instructions: ED Pyelonephritis, Female (Adult) Prescriptions: New ciprofloxacin HCl [ciprofloxacin HCl] 500 mg tablet 500 mg PO BID Qty: 20 0RF oxycodone-acetaminophen [Percocet] 5-325 mg tablet 1 tab PO Q6H PRN (Reason: pain) 3 Days Qty: 10 0RF ondansetron 4 mg tablet,disintegrating 4 mg PO Q8H PRN (Reason: nausea and vomiting) Qty: 10 0RF No Action losartan 100 mg tablet 100 mg PO QHS nitrofurantoin monohyd/m-cryst [Macrobid] 100 mg Capsule 100 mg PO BID sertraline 150 mg Capsule 150 mg PO QHS phenazopyridine [Pyridium] 200 MG tablet 200 mg PO TID PRN PRN (Reason: Bladder Spasms) 7 Days Qty: 30 0RF ondansetron 4 mg tablet,disintegrating 4 mg PO Q8H PRN (Reason: nausea and vomiting) Qty: 10 0RF nitrofurantoin monohyd/m-cryst [Macrobid] 100 mg capsule 100 mg PO Q12H 10 Days Qty: 20 0RF Rx Instructions: must administer with a meal/food Primary Care Provider: Rosaura Rodriguez NP Referrals: Rosaura Rodriguez NP, [employer] FURNACE INSTALLER-C [Primary Care Provider] - 1-2 Days if not improving Disposition Disposition: Home, Self Care
--- NOTE | 2022-07-21 15:17 | ED.RN ---
THIS RN WENT TO DISCHARGE PT AND GIVE WRITTEN AND VERBAL DISCHARGE INSTRUCTIONS. PT NOT PRESENT IN ED ROOM. LEFT PRIOR TO RECEIVING D/C PAPERWORK AND INSTRUCTIONS. UNABLE TO OBTAIN D/C VS.
== END 2022-07-21 15:18 | disposition home or self-care (01) ==
PROVIDERS: Emergency Provider Emergency Medicine; PCP Nurse Practitioner Family; Visit Provider Emergency Medicine
DX: N12 Tubulo-interstitial nephritis, not specified as acute or chronic (principal); F32.A Depression, unspecified; I10 Essential (primary) hypertension; G43.909 Migraine, unspecified, not intractable, without status migrainosus; Z79.899 Other long term (current) drug therapy; Z87.440 Personal history of urinary (tract) infections; F17.210 Nicotine dependence, cigarettes, uncomplicated
CPT/HCPCS: 81001; 81025; 99282

== ENCOUNTER 2022-08-11 17:52 | Emergency (ER) | payer MEDICAID, SELFPAY ==
[2022-08-11 17:53] VITALS: BP 158/105; PULSE 88; RESP 16; TEMP 36.6; O2SAT 98; BMI 25.0
[2022-08-11 17:55] VITALS: BP 158/105; PULSE 88; RESP 16; TEMP 36.6; O2SAT 98
--- NOTE | 2022-08-11 18:33 | EDS_ITS ---
HPI HPI - Female History of Present Illness Chief Complaint: Complaint Informant: patient Narrative Narrative: 32-year-old female presenting to the emergency department with dysuria and hematuria. Symptoms have been recurrent for about 1 year. She states that she had a cystoscopy by Dr. Matthews earlier in the year. She saw gynecology. She has been referred to [facility]. She states that she was put on an antibiotic earlier this month. Other antibiotics include Cipro and Macrobid. She denies any fevers. She notes continued right flank pain. She denies any vomiting or diarrhea. PFSH PFSH Medical History Back pain Depression Flank pain Gross hematuria Hypertension Injury of head and neck Migraine headache Shortness of breath on exertion Smoker Home Medications losartan 100 mg tablet 100 mg PO QHS 11/04/21 [History Last Taken Unknown] nitrofurantoin monohydrate/macrocrystals 100 mg capsule (Macrobid) 100 mg PO BID 12/07/21 [History Last Taken Unknown] sertraline 150 mg capsule 150 mg PO QHS 12/07/21 [History Last Taken Unknown] phenazopyridine 200 mg tablet (Pyridium) 200 mg PO TID PRN PRN Bladder Spasms 7 days #30 tabs 12/08/21 [Rx Last Taken Unknown] ondansetron 4 mg disintegrating tablet 4 mg PO Q8H PRN nausea and vomiting #10 tabs 01/25/22 [Rx Last Taken Unknown] nitrofurantoin monohydrate/macrocrystals 100 mg capsule (Macrobid) 100 mg PO Q12H 10 days #20 caps 07/18/22 [Rx Last Taken Unknown] ciprofloxacin HCl 500 mg tablet 500 mg PO BID #20 tabs 07/21/22 [Rx Last Taken Unknown] ondansetron 4 mg disintegrating tablet 4 mg PO Q8H PRN nausea and vomiting #10 tabs 07/21/22 [Rx Last Taken Unknown] oxycodone-acetaminophen 5 mg-325 mg tablet (Percocet) 1 tab PO Q6H PRN pain 3 days #10 tabs 07/21/22 [Rx Last Taken Unknown] Allergy/AdvReac Type Severity Reaction Status Date / Time Penicillins Allergy Hives Verified 08/11/22 17:53 hydrocodone [From [place]] AdvReac HEADACHE Verified 08/11/22 17:53 ketorolac [From Toradol] AdvReac Other Verified 08/11/22 17:53 sulfamethoxazole AdvReac Vomiting Verified 08/11/22 17:53 [From Bactrim] tramadol AdvReac Vomiting Verified 08/11/22 17:53 trimethoprim [From Bactrim] AdvReac Vomiting Verified 08/11/22 17:53 Surgical History History of History of cholecystectomy History of esophagogastroduodenoscopy (EGD) Hx of tubal ligation Social History household members: other Smoking Status: Current every day smoker tobacco type: cigarettes substance use type: does not use ROS ROS ED Constitutional Constitutional ED: Denies chills or weight loss Eyes Eyes: Denies change in vision or diplopia ENT ENT ED: Denies ear pain, rhinorrhea or sore throat Cardiovascular Cardiovascular: Denies chest pain, orthopnea, palpitations or racing heartbeat Respiratory/Chest Respiratory/Chest: Denies cough, dyspnea or orthopnea Gastrointestinal Gastrointestinal: Reports nausea; Denies abdominal pain, diarrhea or vomiting Genitourinary Genitourinary ED: Reports dysuria, hematuria, urinary frequency and other Details: Right flank pain Musculoskeletal Musculoskeletal: Denies arthralgias or myalgias Integumentary Denies abscess or rash Neurologic Neurologic: Denies headache(s) or weakness Psychiatric Psychiatric: Denies anxiety, depression, suicidal ideation or suicidal thoughts Endocrine Endocrinology: Denies polydipsia, polyphagia or polyuria Allergic/Immunologic Allergic/Immunologic ED: Denies mouth swelling, tongue swelling or urticaria EXAM Physical Exam Const Vital Signs: 08/11/22 17:53 08/11/22 17:55 08/11/22 19:07 Temperature 97.9 F 97.9 F 98.4 F Temperature Source Temporal Temporal Temporal Pulse Rate 88 88 88 Respiratory Rate 16 16 17 Blood Pressure 158/105 H 158/105 H 128/100 H Blood Pressure Mean 122 122 109 Pulse Ox 98 98 99 Oxygen Delivery Method Room Air Room Air Positive well nourished and well developed General Appearance ED: well developed HEENT Reports normocephalic, head/scalp atraumatic and moist mucous membranes Eyes PERRL and EOMs intact bilaterally Neck no lymphadenopathy, supple and no JVD Resp normal respiratory effort and clear to auscultation bilaterally Cardio regular rate, regular rhythm and no murmurs GI normal to inspection, nondistended, normoactive bowel sounds and non-tender Palpation: soft Back/Spine normal ROM General Back: CVA tenderness right Cervical Spine: Negative for cervical spine tenderness Thoracic Spine / Upper Back: Negative for thoracic spinal tenderness Lumbar Spine / Lower Back: Negative for lumbar spinal tenderness Extremity normal to inspection General Extremety ED: Negative for edema General Extremity: Negative for edema Neuro oriented x3 and CN's II-XII intact bilaterally Sensorium / Orientation: alert Motor Exam: strength 5/5 throughout Psych mental status grossly normal Mood & Affect: Negative for depressed or tearful Skin no rashes or lesions noted and no wounds MDM MDM MDM Narrative Medical decision making narrative: Urinalysis demonstrates 5-10 squamous cells 2+ bacteria. Negative nitrates. 5- 10 red blood cells 0-5 white blood cells. This was sent for culture. Her last culture came back sensitive for Klebsiella. The patient is symptomatic but her urine does not show overt infection. Unguinal write for some Cipro she has appointment following up with [facility] urology in a week. Return if wor sening or concerns Lab Data Labs: Laboratory Results - last 24 hr 08/11/22 18:48 Urine Color [place] Urine Clarity Sl. Cloudy Urine pH 7.0 Ur Specific [place] 1.010 Urine Protein Negative Urine Glucose (UA) Normal Urine Ketones Negative Urine Occult Blood 150 H Urine Nitrite Negative Urine Bilirubin Negative Urine Urobilinogen Normal Ur Leukocyte Esterase 25 H Urine RBC 5-10 SEEN Urine WBC 0-5 SEEN Ur Squamous Epith Cells 5-10 SEEN Urine Bacteria 2+ Urine Mucus 0 SEEN Urine Test Negative Discharge Plan Triage Chief Complaint: Complaint ED Provider: Rodrigo Pride Dx/Rx/DC Orders Prescriptions: No Action losartan 100 mg tablet 100 mg PO QHS nitrofurantoin monohyd/m-cryst [Macrobid] 100 mg Capsule 100 mg PO BID sertraline 150 mg Capsule 150 mg PO QHS phenazopyridine [Pyridium] 200 MG tablet 200 mg PO TID PRN PRN (Reason: Bladder Spasms) 7 Days Qty: 30 0RF ondansetron 4 mg tablet,disintegrating 4 mg PO Q8H PRN (Reason: nausea and vomiting) Qty: 10 0RF nitrofurantoin monohyd/m-cryst [Macrobid] 100 mg capsule 100 mg PO Q12H 10 Days Qty: 20 0RF Rx Instructions: must administer with a meal/food ciprofloxacin HCl [ciprofloxacin HCl] 500 mg tablet 500 mg PO BID Qty: 20 0RF oxycodone-acetaminophen [Percocet] 5-325 mg tablet 1 tab PO Q6H PRN (Reason: pain) 3 Days Qty: 10 0RF ondansetron 4 mg tablet,disintegrating 4 mg PO Q8H PRN (Reason: nausea and vomiting) Qty: 10 0RF Primary Care Provider: Rosaura Rodriguez NP Referrals: Rosaura Rodriguez NP, LIBRARY CLERK-C [Primary Care Provider] -
[2022-08-11 19:06] LABS: Mucous, Urine 0 SEEN /hpf (<or=2+)
[2022-08-11 19:07] VITALS: BP 128/100; PULSE 88; RESP 17; TEMP 36.9; O2SAT 99
[2022-08-11 19:08] LABS: Color, Urine Straw (Yellow); Glucose, Dipstick Normal (Normal); Ketone-Dipstick Negative (Negative); Leukocyte Esterase-Dipstick 25 /ul (Negative); Nitrite-Dipstick Negative (Negative); Occult Blood-Urine 150 /ul (Negative); Protein-Dipstick Negative (Negative); Urine Bilirubin Dipstick Negative (Negative); Urine Clarity Sl. Cloudy (Clear); Urine Urobilinogen Normal (Normal)
[2022-08-11 19:15] LABS: Internal QC Validated? YES +Cl - CLEAR BKGD; Pregnancy, Urine Negative Negative
[2022-08-11 19:23] LABS: Bacteria 2+ /hpf (None Seen); Red Blood Cells-Urine 5-10 SEEN /hpf (0-5)
[2022-08-11 19:24] LABS: Squamous Epithelial Cells - UA 5-10 SEEN /hpf (5-10); White Blood Cells 0-5 SEEN /hpf (0-5)
--- NOTE | 2022-08-11 20:10 | NURSING ---
Patient waited in room for her rx but left before it came up. She was told she could leave as soon as the med came up and left on her own, without saying anything to anyone at the nurse station. Later, Bradley came up with rx and this nurse called pt to come and get her med. The patient's vm is full. Med taken back to pharmacy.
== END 2022-08-11 19:49 | disposition home or self-care (01) ==
PROVIDERS: Emergency Provider Emergency Medicine; PCP Nurse Practitioner Family; Visit Provider Emergency Medicine
DX: R31.9 Hematuria, unspecified (principal); F17.210 Nicotine dependence, cigarettes, uncomplicated; I10 Essential (primary) hypertension; Z79.899 Other long term (current) drug therapy; R30.0 Dysuria; F32.A Depression, unspecified
CPT/HCPCS: 81001; 81025; 87086; 87088; 99282

== ENCOUNTER 2022-11-18 13:45 | Emergency (ER) | payer MEDICAID, SELFPAY ==
[2022-11-18 13:46] VITALS: BP 136/107; PULSE 88; RESP 16; TEMP 36.7; O2SAT 97; BMI 22.4
--- NOTE | 2022-11-18 13:56 | CT_ITS ---
STUDY: CT ABDOMEN AND PELVIS WITHOUT CONTRAST REASON FOR EXAM: Female, 32 years old. Kidney Stone -- Left-sided flank pain, last menses October 31 RADIATION DOSAGE (If Supplied By Facility): CTDIvol = ( 6.21 ) mGy, DLP = ( 295.26 ) mGycm TECHNIQUE: Transaxial images were obtained from the dome of the diaphragm to the symphysis pubis without oral contrast, and without intravenous contrast. Sagittal and coronal images were reconstructed. Individualized dose optimization techniques were used for this CT. COMPARISON: Comparison is made with prior study of 01/28/2022. FINDINGS: The visualized lung bases are unremarkable. The visualized portions of the heart are within normal limits. Normal liver. There are surgical clips in the gallbladder fossa consistent with a prior cholecystectomy. Normal spleen. Normal pancreas. Normal bilateral adrenal glands. Normal right kidney. Normal left kidney. Normal visualized stomach. Normal small intestine. Normal colon. The appendix is visualized and appears normal. Normal abdominal aorta. Normal inferior vena cava. Normal retroperitoneum. Normal urinary bladder. Evidence of bilateral tubal ligation. There is a 2 cm follicle in the right ovary. Normal abdominal wall. Normal osseous structures. CT/Abdomen/Pelvis without Cont IMPRESSION: 2 cm follicle in the right ovary. No obstructive uropathy is seen at this time. Electronically Signed: Alexandre Deleon MD at 14:43 EST ,
--- NOTE | 2022-11-18 13:57 | EDS_ITS ---
HPI History of Present Illness Chief Complaint: Flank Pain Detail of Chief Complaint: Acute left flank pain with nausea and vomiting Informant: patient Onset/Context/Timing Onset: Days (Intermittent and abruptly worse today and continuous) Context: Sudden Onset Timing: Continuous (Continuous since this morning) Quality: Pain Location: Left flank radiating anteriorly Current Severity: Severe Maximum Severity: Severe Worsened by: Nothing Relieved by: Nothing Associated Symptoms Associated Symptoms: Nausea and vomiting without diarrhea Narrative Narrative: Patient is a 32-year-old woman who was last normal menstrual period was October 31, 2022. She presents with abrupt onset of left flank pain radiating anteriorly. She denies dysuria, frequency, urgency, but states she always has blood in her urine. She denies vaginal bleeding or discharge. She denies symptoms of . There is no history of ovarian cysts. Patient denies fever, chills night sweats. Patient denies headache, visual, ocular auditory symptoms. Patient denies cardiac or respiratory symptoms. She does endorse left-sided flank abdominal pain with nausea and vomiting. There is no family history of renal ureterolithiasis nor does patient. Prior similar symptoms: No Recent Illness/Hospitalization: No PFSH PFSH Medical History Back pain Depression Flank pain Gross hematuria Hypertension Injury of head and neck Migraine headache Shortness of breath on exertion Smoker Home Medications losartan 100 mg tablet 100 mg PO QHS 11/04/21 [History Last Taken Unknown] nitrofurantoin monohydrate/macrocrystals 100 mg capsule (Macrobid) 100 mg PO BID 12/07/21 [History Last Taken Unknown] sertraline 150 mg capsule 150 mg PO QHS 12/07/21 [History Last Taken Unknown] phenazopyridine 200 mg tablet (Pyridium) 200 mg PO TID PRN PRN Bladder Spasms 7 days #30 tabs 12/08/21 [Rx Last Taken Unknown] ondansetron 4 mg disintegrating tablet 4 mg PO Q8H PRN nausea and vomiting #10 tabs 01/25/22 [Rx Last Taken Unknown] nitrofurantoin monohydrate/macrocrystals 100 mg capsule (Macrobid) 100 mg PO Q12H 10 days #20 caps 07/18/22 [Rx Last Taken Unknown] ciprofloxacin HCl 500 mg tablet 500 mg PO BID #20 tabs 07/21/22 [Rx Last Taken Unknown] ondansetron 4 mg disintegrating tablet 4 mg PO Q8H PRN nausea and vomiting #10 tabs 07/21/22 [Rx Last Taken Unknown] oxycodone-acetaminophen 5 mg-325 mg tablet (Percocet) 1 tab PO Q6H PRN pain 3 days #10 tabs 07/21/22 [Rx Last Taken Unknown] ciprofloxacin HCl 500 mg tablet 500 mg PO BID #20 TABLETS 08/11/22 [Rx Last Taken Unknown] ciprofloxacin HCl 500 mg tablet 500 mg PO BID #14 TABLETS 11/18/22 [Rx Last Taken Unknown] ondansetron 4 mg disintegrating tablet 4 mg PO Q8H PRN PRN Nausea #10 tabs 11/18/22 [Rx Last Taken Unknown] oxycodone-acetaminophen 5 mg-325 mg tablet 1 tab PO Q6H PRN PRN Pain 3 days #12 TABLETS 11/18/22 [Rx Last Taken Unknown] Allergy/AdvReac Type Severity Reaction Status Date / Time Penicillins Allergy Hives Verified 11/18/22 13:56 hydrocodone [From [place]] AdvReac HEADACHE Verified 11/18/22 13:56 ketorolac [From Toradol] AdvReac Other Verified 11/18/22 13:56 sulfamethoxazole AdvReac Vomiting Verified 11/18/22 13:56 [From Bactrim] tramadol AdvReac Vomiting Verified 11/18/22 13:56 trimethoprim [From Bactrim] AdvReac Vomiting Verified 11/18/22 13:56 Surgical History History of History of cholecystectomy History of esophagogastroduodenoscopy (EGD) Hx of tubal ligation Social History household members: other Smoking Status: Current every day smoker tobacco type: cigarettes substance use type: does not use ROS ROS ED Constitutional Constitutional ED: Denies chills, fever(s), subjective, sweats or weight loss Eyes Eyes: Denies blurry vision, change in vision or diplopia ENT ENT ED: Denies ear pain, rhinorrhea or sore throat Cardiovascular Cardiovascular: Denies chest pain, palpitations or racing heartbeat Respiratory/Chest Respiratory/Chest: Denies cough, dyspnea or dyspnea on exertion Gastrointestinal Gastrointestinal: Reports abdominal pain, nausea and vomiting; Denies constipation, diarrhea or melena Genitourinary Genitourinary ED: Denies dysuria, hematuria or urinary frequency Musculoskeletal Musculoskeletal: Denies arthralgias, back pain, myalgias or neck pain Integumentary Denies Abrasions or rash Neurologic Neurologic: Denies headache(s), paresthesias or weakness Psychiatric Psychiatric: Denies anxiety, depression or suicidal ideation Endocrine Endocrinology: Denies cold intolerance or heat intolerance Hematologic/Lymphatic Hematologic/Lymphatic: Reports systems reviewed and no addt'l complaints, except as documented EXAM Physical Exam Const Vital Signs: 11/18/22 13:46 Temperature 98.1 F Temperature Source Temporal Pulse Rate 88 Respiratory Rate 16 Blood Pressure 136/107 H Blood Pressure Mean 116 Pulse Ox 97 Oxygen Delivery Method Room Air Positive well nourished and well developed Constitutional Narrative: Patient is tearful. She is lying on her right side. General Appearance ED: well developed; Negative for cyanotic, diaphoretic, NAD or pallor HEENT Reports moist mucous membranes HEENT Narrative: Head is atraumatic normocephalic. Ears normal. Nares patent. Mucosa moist. Posterior pharynx normal. Eyes PERRL and EOMs intact bilaterally General Eye ED: Negative for pale conjunctiva or scleral icterus Neck no lymphadenopathy, supple and no JVD Chest Wall inspection of chest normal and palpation of chest normal Resp normal respiratory effort and clear to auscultation bilaterally Cardio regular rate, regular rhythm, S1 normal heart sound, S2 normal heart sound and no murmurs GI normal to inspection, nondistended, normoactive bowel sounds, non-distended and no masses; Negative for hepatosplenomegaly GI Narrative: There is minimal tenderness left side to deep palpation. There is no guarding or peritoneal findings. Auscultation: hypoactive bowel sounds Back/Spine General Back: CVA tenderness left Cervical Spine: Negative for cervical spine tenderness Thoracic Spine / Upper Back: Negative for thoracic spinal tenderness Lumbar Spine / Lower Back: Negative for lumbar spinal tenderness Extremity normal to inspection General Extremety ED: Negative for edema or tenderness General Extremity: Negative for edema Neuro oriented x3, CN's II-XII intact bilaterally and no sensory deficits noted Psych mental status grossly normal Skin no rashes or lesions noted, no wounds and skin turgor normal General Skin Exam: elasticity normal; Negative for jaundice or pallor MDM MDM MDM Narrative Medical decision making narrative: With intermittent pain initially and now severe constant pain will need to evaluate for obstructing ureteral stone with infection. Doubt pyelonephritis. Need to assess for and if positive will need to consider ectopic . Doubt diverticulitis. CT of the abdomen pelvis contrast was ordered to evaluate for obstructing stone. Urine to assess for infection. CBC assess white count differential and rule out anemia since patient appears pale. Base Mayra panel to assess for renal function. CT reveals 2 cm follicular cyst on the right ovary. This would not explain patient's pain. Urine is still pending. Patient developed a headache 30 minutes after she received morphine. 650 mg of Tylenol was ordered. There was consideration for admission however since patient is no longer vomiting and able to tolerate p.o. fluids she will be discharged as an outpatient. If vomiting reoccurs she was instructed to return and will require admission. Lab Data Attestation: I reviewed the patient's lab results. Lab results narrative: CBC is unremarkable. Basic metabolic panel is under markable. Serum test was negative. Urine is consistent with infection. Since patient has left flank pain will treat for pyelonephritis. She received her first dose of ciprofloxacin in the emergency department. Urine culture was sent. Ciprofloxacin was chosen even though there are known complications based on her allergies to sulfa, penicillin.. Labs: Laboratory Results - last 24 hr 11/18/22 11/18/22 11/18/22 14:00 14:00 14:00 WBC 6.7 RBC 3.92 L Hgb 12.7 Hct 38.6 MCV 98.5 MCH 32.4 H MCHC 32.9 RDW Std Deviation 48.0 H RDW Coeff of Tere 13.4 Plt Count 289 MPV 8.7 Immature Gran % (Auto) 0.300 Neut % (Auto) 73.7 H Lymph % (Auto) 18.2 L [place] % (Auto) 4.2 Eos % (Auto) 3.0 Baso % (Auto) 0.6 Absolute Neuts (auto) 5.0 Absolute Lymphs (auto) 1.22 Nucleated RBC % 0 Sodium 140 Potassium 3.8 Chloride 109 H Carbon Dioxide 31.0 Anion Gap 0 L BUN 6 L Creatinine 0.72 Estim Creat Clear Calc 107.06 Est GFR (MDRD) Af Amer 118 Est GFR (MDRD) Non-Af 97 BUN/Creatinine Ratio 8.3 L Glucose 114 H Calcium 9.3 Serum , Qual NEGATIVE Urine Color Urine Clarity Urine pH Ur Specific [place] Urine Protein Urine Glucose (UA) Urine Ketones Urine Occult Blood Urine Nitrite Urine Bilirubin Urine Urobilinogen Ur Leukocyte Esterase Urine RBC Urine WBC Ur Squamous Epith Cells Urine Bacteria Urine Mucus 11/18/22 14:49 WBC RBC Hgb Hct MCV MCH MCHC RDW Std Deviation RDW Coeff of Tere Plt Count MPV Immature Gran % (Auto) Neut % (Auto) Lymph % (Auto) [place] % (Auto) Eos % (Auto) Baso % (Auto) Absolute Neuts (auto) Absolute Lymphs (auto) Nucleated RBC % Sodium Potassium Chloride Carbon Dioxide Anion Gap BUN Creatinine Estim Creat Clear Calc Est GFR (MDRD) Af Amer Est GFR (MDRD) Non-Af BUN/Creatinine Ratio Glucose Calcium Serum , Qual Urine Color Straw Urine Clarity Sl. Cloudy Urine pH 8.0 Ur Specific [place] 1.010 Urine Protein 30 H Urine Glucose (UA) Normal Urine Ketones Negative Urine Occult Blood 50 H Urine Nitrite Positive H Urine Bilirubin Negative Urine Urobilinogen Normal Ur Leukocyte Esterase 500 H Urine RBC 0-5 SEEN Urine WBC 5-10 SEEN Ur Squamous Epith Cells 0-5 SEEN Urine Bacteria 4+ Urine Mucus 0 SEEN Radiography Diagnostic Testing: Clinical Impression(s) from Imaging Studies Abdomen/Pelvis CT 11/18/22 13:56 IMPRESSION: 2 cm follicle in the right ovary. No obstructive uropathy is seen at this time. Electronically Signed: Alexandre Deleon MD at 14:43 EST , Discharge Plan Triage Chief Complaint: Flank Pain ED Provider: David Keyes Dx/Rx/DC Orders Clinical Impression: Acute pyelonephritis due to bacteria, Acute abdominal pain in left flank, Nausea & vomiting, Follicular cyst of right ovary Instructions: ED Pyelonephritis, Female (Adult) Prescriptions: New ciprofloxacin HCl [ciprofloxacin HCl] 500 mg tablet 500 mg PO BID Qty: 14 0RF oxycodone-acetaminophen [oxycodone-acetaminophen] 5-325 mg tablet 1 tab PO Q6H PRN PRN (Reason: Pain) 3 Days Qty: 12 0RF ondansetron [ondansetron] 4 mg tablet,disintegrating 4 mg PO Q8H PRN PRN (Reason: Nausea) Qty: 10 0RF No Action losartan 100 mg tablet 100 mg PO QHS nitrofurantoin monohyd/m-cryst [Macrobid] 100 mg Capsule 100 mg PO BID sertraline 150 mg Capsule 150 mg PO QHS phenazopyridine [Pyridium] 200 MG tablet 200 mg PO TID PRN PRN (Reason: Bladder Spasms) 7 Days Qty: 30 0RF ondansetron 4 mg tablet,disintegrating 4 mg PO Q8H PRN (Reason: nausea and vomiting) Qty: 10 0RF nitrofurantoin monohyd/m-cryst [Macrobid] 100 mg capsule 100 mg PO Q12H 10 Days Qty: 20 0RF Rx Instructions: must administer with a meal/food ciprofloxacin HCl [ciprofloxacin HCl] 500 mg tablet 500 mg PO BID Qty: 20 0RF oxycodone-acetaminophen [Percocet] 5-325 mg tablet 1 tab PO Q6H PRN (Reason: pain) 3 Days Qty: 10 0RF ondansetron 4 mg tablet,disintegrating 4 mg PO Q8H PRN (Reason: nausea and vomiting) Qty: 10 0RF ciprofloxacin HCl 500 mg tablet 500 mg PO BID Qty: 20 0RF Primary Care Provider: Rosaura Rodriguez NP Referrals: Rosaura Rodriguez NP, [employer] [Primary Care Provider] - 3-5 Days Disposition Disposition: Home, Self Care
[2022-11-18] MEDS: 0.9% Normal Saline 1,000 ML 250 ML IV (14:04)
[2022-11-18] MEDS: Ondansetron 4 MG/2 ML Vial IV (14:05)
[2022-11-18] MEDS: Morphine 4 MG/ML Syringe IV (14:08)
[2022-11-18 14:09] LABS: Absolute Lymphocyte Count 1.22 X10^3/uL (0.83-4.51); Basophil# 0.04 X10^3/uL; Basophil% 0.6 % (0-1); Hematocrit 38.6 % (37-47); Hemoglobin 12.7 g/dL (12.0-15.0); Lymphocyte # 1.22 X10^3/ul (0.83-4.51); Lymphocyte % 18.2 % (19-41); Mean Corp Hgb Conc 32.9 g/dL (32-36); Mean Corpuscular Hgb 32.4 pg (27.0-32.0); Mean Corpuscular Volume 98.5 fL (81-99); Mean Platelet Vol. 8.7 fl (6.2-12.0); Monocyte# 0.28 X10^3/uL; Monocyte% 4.2 % (0-10); NRBC Flagged by Analyzer 0 % (0-5); Neutrophil # 4.95 X10^3/uL (2.7-7.7); Neutrophil % 73.7 % (47-70); Platelet Count 289 K/mm3 (150-450); RBC Distribution Width CV 13.4 % (11.6-14.6); Red Blood Count 3.92 M/mm3 (4.2-5.4); White Blood Count 6.7 K/mm3 (4.4-11.0)
[2022-11-18 14:16] LABS: Internal QC Validated? YES +Cl - CLEAR BKGD; Pregnancy, Serum, hCG Quali. NEGATIVE Negative
[2022-11-18 14:19] LABS: Anion Gap 0 (5-15); BUN 6 mg/dL (7-18); BUN/Creat Ratio 8.3 RATIO (10-20); Calcium,Total 9.3 mg/dL (8.5-10.1); Chloride 109 mmol/L (98-107); Creatinine, Serum 0.72 mg/dL (0.55-1.02); EST Glomerular Filtration Rate 97 mL/min (>60); Est Glom Filt Rate - Afr Amer 118 mL/min (>60); Estimated Creatinine Clearance 107.06 ml/min; Glucose 114 mg/dL (74-106); Potassium 3.8 mmol/L (3.5-5.1); Sodium Level 140 mmol/L (136-145)
[2022-11-18 14:57] LABS: Mucous, Urine 0 SEEN /hpf (<or=2+)
[2022-11-18 15:03] LABS: Color, Urine Straw (Yellow); Glucose, Dipstick Normal (Normal); Ketone-Dipstick Negative (Negative); Leukocyte Esterase-Dipstick 500 /ul (Negative); Nitrite-Dipstick Positive (Negative); Occult Blood-Urine 50 /ul (Negative); Protein-Dipstick 30 mg/dl (Negative); Urine Bilirubin Dipstick Negative (Negative); Urine Clarity Sl. Cloudy (Clear); Urine Urobilinogen Normal (Normal)
[2022-11-18] MEDS: Acetaminophen 325 MG Tablet 650 MG PO (15:09)
[2022-11-18 15:12] LABS: Bacteria 4+ /hpf (None Seen); Red Blood Cells-Urine 0-5 SEEN /hpf (0-5); Squamous Epithelial Cells - UA 0-5 SEEN /hpf (5-10); White Blood Cells 5-10 SEEN /hpf (0-5)
[2022-11-18] MEDS: Ciprofloxacin 500 MG Tablet PO (15:51)
[2022-11-18 15:53] VITALS: BP 168/105; PULSE 78; RESP 18; TEMP 36.9; O2SAT 99
== END 2022-11-18 15:58 | disposition home or self-care (01) ==
PROVIDERS: Emergency Provider Emergency Medicine; PCP Nurse Practitioner Family; Visit Provider Emergency Medicine
DX: N10 Acute pyelonephritis (principal); I10 Essential (primary) hypertension; N83.01 Follicular cyst of right ovary; R11.2 Nausea with vomiting, unspecified; F17.210 Nicotine dependence, cigarettes, uncomplicated
CPT/HCPCS: 74176; 80048; 81001; 84703; 85025; 87077; 87086; 87088; 87186; 96374; 96375; 99284; J7030; A4216; J2405

== ENCOUNTER 2023-02-02 17:06 | Emergency (ER) | payer BC, MEDICAID, SELFPAY ==
[2023-02-02 17:07] VITALS: BP 159/115; PULSE 94; RESP 16; TEMP 36.3; O2SAT 100; BMI 21.9
--- NOTE | 2023-02-02 17:44 | EDS_ITS ---
HPI History of Present Illness Chief Complaint: Lower Extremity Injury Detail of Chief Complaint: Great toe pain status post nail removal by podiatry Informant: patient and spouse/S.O. Occured/Mechanism Comment: Nail removal yesterday. Patient and person with her in the room stated it is too far of a drive to go to [place] for follow-up. She had her toe removed yesterday because the toenail was thick. She was given pain medicine. I was informed by the charge nurse that she has taken all the medicines she was prescribed Onset/Context/Timing Onset: Yesterday Context: Sudden Onset Timing: Continuous Quality of Pain: Dull and Aching Location: Great toe Current Severity: Mild Maximum Severity: Severe Worsened by: Removal of dressing, movement, walking Relieved by: Negative Associated Symptoms Associated Symptoms: Negative for Parasthesia, Weakness or Loss of Funtion Narrative Narrative: Patient is a 33-year-old woman who had her toenail removed yesterday by billing specialist affiliated with the [facility] who's office is located in [facility]. She presents today because of pain. She was prescribed pain medicine. She has no other pain medicine. She reports she took 800 mg of ibuprofen and Tylenol with no improvement she denies fever, chills night sweats she denies paresthesia, anesthesia or motor weakness. She has not remove the dress since it was applied yesterday. Prior similar symptoms: No Recent Illness/Hospitalization: Yes PFSH PFSH Medical History Back pain Depression Flank pain Gross hematuria Hypertension Injury of head and neck Migraine headache Shortness of breath on exertion Smoker Home Medications losartan 100 mg tablet 100 mg PO QHS 11/04/21 [History Last Taken Unknown] nitrofurantoin monohydrate/macrocrystals 100 mg capsule (Macrobid) 100 mg PO BID 12/07/21 [History Last Taken Unknown] sertraline 150 mg capsule 150 mg PO QHS 12/07/21 [History Last Taken Unknown] phenazopyridine 200 mg tablet (Pyridium) 200 mg PO TID PRN PRN Bladder Spasms 7 days #30 tabs 12/08/21 [Rx Last Taken Unknown] ondansetron 4 mg disintegrating tablet 4 mg PO Q8H PRN nausea and vomiting #10 tabs 01/25/22 [Rx Last Taken Unknown] nitrofurantoin monohydrate/macrocrystals 100 mg capsule (Macrobid) 100 mg PO Q12H 10 days #20 caps 07/18/22 [Rx Last Taken Unknown] ciprofloxacin HCl 500 mg tablet 500 mg PO BID #20 tabs 07/21/22 [Rx Last Taken Unknown] ondansetron 4 mg disintegrating tablet 4 mg PO Q8H PRN nausea and vomiting #10 tabs 07/21/22 [Rx Last Taken Unknown] oxycodone-acetaminophen 5 mg-325 mg tablet (Percocet) 1 tab PO Q6H PRN pain 3 days #10 tabs 07/21/22 [Rx Last Taken Unknown] ciprofloxacin HCl 500 mg tablet 500 mg PO BID #20 TABLETS 08/11/22 [Rx Last Taken Unknown] ciprofloxacin HCl 500 mg tablet 500 mg PO BID #14 TABLETS 11/18/22 [Rx Last Taken Unknown] ondansetron 4 mg disintegrating tablet 4 mg PO Q8H PRN PRN Nausea #10 tabs 11/18/22 [Rx Last Taken Unknown] oxycodone-acetaminophen 5 mg-325 mg tablet 1 tab PO Q6H PRN PRN Pain 3 days #12 TABLETS 11/18/22 [Rx Last Taken Unknown] Allergy/AdvReac Type Severity Reaction Status Date / Time Penicillins Allergy Hives Verified 11/18/22 13:56 hydrocodone [From [place]] AdvReac HEADACHE Verified 11/18/22 13:56 ketorolac [From Toradol] AdvReac Hives Verified 02/02/23 17:35 sulfamethoxazole AdvReac Vomiting Verified 11/18/22 13:56 [From Bactrim] tramadol AdvReac Vomiting Verified 11/18/22 13:56 trimethoprim [From Bactrim] AdvReac Vomiting Verified 11/18/22 13:56 Surgical History History of History of cholecystectomy History of esophagogastroduodenoscopy (EGD) Hx of tubal ligation Social History household members: other Smoking Status: Current every day smoker tobacco type: cigarettes substance use type: does not use ROS ROS ED Constitutional Constitutional ED: Denies chills, fever(s) or subjective Integumentary Denies abscess or rash Neurologic Neurologic: Denies paresthesias or weakness Hematologic/Lymphatic Hematologic/Lymphatic: Denies easy bleeding or easy bruising EXAM Physical Exam Const Vital Signs: 02/02/23 17:07 Temperature 97.3 F L Temperature Source Temporal Pulse Rate 94 Respiratory Rate 16 Blood Pressure 159/115 H Blood Pressure Mean 129 Pulse Ox 100 Oxygen Delivery Method Room Air Positive well nourished and well developed General Appearance ED: well developed and NAD HEENT HEENT Narrative: Head is atraumatic and normocephalic. No abnormality with regards to ears, nose face. Eyes PERRL Eyes Narrative: Extract muscle intact. Sclera is anicteric. Resp normal respiratory effort Cardio regular rate and regular rhythm Extremity normal to inspection Extremity Narrative: After removing the dressing. The great toe appears normal postop day 1 from nail removal. There is no erythema, induration, lymphangitis, drainage, bruising. Patient is concerned because the pain radiates to her ankle. Patient was informed that is a symptom and from a medical standpoint is referred pain and everyone's perception of pain is different. DP and PT pulse are palpable. There is pain to palpation over the first metatarsal. There is no pain the patient over the second, third fourth or fifth metatarsal. There is no pain ovation over the lateral medial malleolus. Neuro oriented x3, CN's II-XII intact bilaterally, moves all extremities and no se nsory deficits noted Skin Skin Narrative: Nail removal with normal-appearing great toe and nailbed. Lesions: no lesions Rashes: no rashes MDM MDM MDM Narrative Medical decision making narrative: Patient with postop pain. Initially patient offered [place]. She states she has allergy. When asked what her allergy is she states nausea and migraine headache. Patient was informed nausea is a side effect and headache is not an allergic reaction. IV was placed to administer Toradol. Patient became upset because I was administering medication that she is allergic to. Entry into [employer] is adverse reaction. It is not an allergy. I was approached by the charge nurse that patient is upset. I informed the charge nurse that we will tell the patient that I have nothing to offer and that she should follow-up with a billing specialist regarding management of her pain. History & Record Review Discussion w/independent historian: Patient Additional record(s) reviewed:: Prior outpatient record (There is report indicates patient was prescribed for oxycodone. The prescriber wrote this should last her 4 days. Therefore unable to write for additional opiate analgesics.) and Prior ED visit Treatment and Re-Evaluation Narrative: Patient refused [place] because of the stated reason. She is now refusing Toradol for stated reason. Patient to be discharged. Discharge Plan Triage Chief Complaint: Lower Extremity Injury ED Provider: David Keyes Dx/Rx/DC Orders Clinical Impression: Post-op pain Instructions: ED Post Op Wound Check, Pain Prescriptions: No Action losartan 100 mg tablet 100 mg PO QHS nitrofurantoin monohyd/m-cryst [Macrobid] 100 mg Capsule 100 mg PO BID sertraline 150 mg Capsule 150 mg PO QHS phenazopyridine [Pyridium] 200 MG tablet 200 mg PO TID PRN PRN (Reason: Bladder Spasms) 7 Days Qty: 30 0RF ondansetron 4 mg tablet,disintegrating 4 mg PO Q8H PRN (Reason: nausea and vomiting) Qty: 10 0RF nitrofurantoin monohyd/m-cryst [Macrobid] 100 mg capsule 100 mg PO Q12H 10 Days Qty: 20 0RF Rx Instructions: must administer with a meal/food ciprofloxacin HCl [ciprofloxacin HCl] 500 mg tablet 500 mg PO BID Qty: 20 0RF oxycodone-acetaminophen [Percocet] 5-325 mg tablet 1 tab PO Q6H PRN (Reason: pain) 3 Days Qty: 10 0RF ondansetron 4 mg tablet,disintegrating 4 mg PO Q8H PRN (Reason: nausea and vomiting) Qty: 10 0RF ciprofloxacin HCl 500 mg tablet 500 mg PO BID Qty: 20 0RF ciprofloxacin HCl [ciprofloxacin HCl] 500 mg tablet 500 mg PO BID Qty: 14 0RF oxycodone-acetaminophen [oxycodone-acetaminophen] 5-325 mg tablet 1 tab PO Q6H PRN PRN (Reason: Pain) 3 Days Qty: 12 0RF ondansetron [ondansetron] 4 mg tablet,disintegrating 4 mg PO Q8H PRN PRN (Reason: Nausea) Qty: 10 0RF Primary Care Provider: Rosaura Rodriguez NP Referrals: Rosaura Rodriguez [employer], [employer] [Primary Care Provider] - As soon as possible Disposition Disposition: Home, Self Care
== END 2023-02-02 18:00 | disposition home or self-care (01) ==
PROVIDERS: Emergency Provider Emergency Medicine; PCP Nurse Practitioner Family; Visit Provider Emergency Medicine
DX: G89.18 Other acute postprocedural pain (principal); I10 Essential (primary) hypertension; F17.210 Nicotine dependence, cigarettes, uncomplicated; F32.A Depression, unspecified; Z79.899 Other long term (current) drug therapy; M79.676 Pain in unspecified toe(s)
CPT/HCPCS: 99282

== ENCOUNTER 2023-02-17 13:20 | Emergency (ER) | payer MEDICAID, SELFPAY ==
[2023-02-17 13:21] VITALS: BP 145/110; PULSE 116; RESP 16; TEMP 37.1; O2SAT 98
[2023-02-17 13:32] VITALS: BMI 23.2
--- NOTE | 2023-02-17 13:48 | EX.ED.GENINJ ---
HPI History of Present Illness Chief Complaint: Back Informant: patient Onset/Context/Timing Onset: Yesterday Mechanism/Context: Fall Location of pain/injuries: - (tailbone) Quality of Pain: Aching Current Severity: Moderate Maximum Severity: Moderate Worsened by: sitting, trying to have BM Relieved by: taking pressure off area Narrative Narrative: Patient states she has her significant other [place] She slipped in some brush, falling to her tailbone and sliding into some other brush and sustaining some abrasions that are not really bothering her right forearm, but she is here because her tailbone is still really hurting from the injury. She denies any blood with bowel movement or urination. No other injuries. Tetanus Immunization: Unknown PFSH PFSH Medical History Back pain Depression Flank pain Gross hematuria Hypertension Injury of head and neck Migraine headache Shortness of breath on exertion Smoker Home Medications losartan 100 mg tablet 100 mg PO QHS 11/04/21 [History Last Taken Unknown] nitrofurantoin monohydrate/macrocrystals 100 mg capsule (Macrobid) 100 mg PO BID 12/07/21 [History Last Taken Unknown] sertraline 150 mg capsule 150 mg PO QHS 12/07/21 [History Last Taken Unknown] phenazopyridine 200 mg tablet (Pyridium) 200 mg PO TID PRN PRN Bladder Spasms 7 days #30 tabs 12/08/21 [Rx Last Taken Unknown] ondansetron 4 mg disintegrating tablet 4 mg PO Q8H PRN nausea and vomiting #10 tabs 01/25/22 [Rx Last Taken Unknown] nitrofurantoin monohydrate/macrocrystals 100 mg capsule (Macrobid) 100 mg PO Q12H 10 days #20 caps 07/18/22 [Rx Last Taken Unknown] ciprofloxacin HCl 500 mg tablet 500 mg PO BID #20 tabs 07/21/22 [Rx Last Taken Unknown] ondansetron 4 mg disintegrating tablet 4 mg PO Q8H PRN nausea and vomiting #10 tabs 07/21/22 [Rx Last Taken Unknown] oxycodone-acetaminophen 5 mg-325 mg tablet (Percocet) 1 tab PO Q6H PRN pain 3 days #10 tabs 07/21/22 [Rx Last Taken Unknown] ciprofloxacin HCl 500 mg tablet 500 mg PO BID #20 TABLETS 08/11/22 [Rx Last Taken Unknown] ciprofloxacin HCl 500 mg tablet 500 mg PO BID #14 TABLETS 11/18/22 [Rx Last Taken Unknown] ondansetron 4 mg disintegrating tablet 4 mg PO Q8H PRN PRN Nausea #10 tabs 11/18/22 [Rx Last Taken Unknown] oxycodone-acetaminophen 5 mg-325 mg tablet 1 tab PO Q6H PRN PRN Pain 3 days #12 TABLETS 11/18/22 [Rx Last Taken Unknown] Allergy/AdvReac Type Severity Reaction Status Date / Time Penicillins Allergy Hives Verified 02/17/23 13:23 hydrocodone [From [place]] AdvReac HEADACHE Verified 02/17/23 13:23 ketorolac [From Toradol] AdvReac Hives Verified 02/17/23 13:23 sulfamethoxazole AdvReac Vomiting Verified 02/17/23 13:23 [From Bactrim] tramadol AdvReac Vomiting Verified 02/17/23 13:23 trimethoprim [From Bactrim] AdvReac Vomiting Verified 02/17/23 13:23 Surgical History History of History of cholecystectomy History of esophagogastroduodenoscopy (EGD) Hx of tubal ligation Social History household members: other Smoking Status: Current every day smoker tobacco type: cigarettes substance use type: does not use ROS ROS ED Musculoskeletal Musculoskeletal: Reports other Details: Pain at tailbone nowhere else in back ; Denies neck pain Integumentary Reports Abrasions; Denies rash Neurologic Neurologic: Denies headache(s), paresthesias or weakness EXAM Physical Exam Const Vital Signs: 02/17/23 13:21 Temperature 98.7 F Temperature Source Temporal Pulse Rate 116 H Respiratory Rate 16 Blood Pressure 145/110 H Blood Pressure Mean 121 Pulse Ox 98 Oxygen Delivery Method Room Air Positive well nourished and well developed General Appearance ED: well developed and NAD HEENT atraumatic Back/Spine normal to inspection Back/Spine Narrative: Tender with some swelling at the coccyx. No crepitance, no subluxation or deformity on not able to move it easily. No other areas of sacral tenderness including SI joints, no midline tenderness elsewhere in the midline spine. Extremity full ROM Extremity Narrative: Few minor abrasions right forearm General Extremety ED: Negative for tenderness Neuro oriented x3, CN's II-XII intact bilaterally, moves all extremities, no focal motor deficits, no sensory deficits noted and gait normal MDM MDM MDM Narrative Medical decision making narrative: X-rays of the sacrum and coccyx were obtained, 3 views of my interpretation are negative for any acute, radiology was in agreement. Patient reassured, she is allergic to NSAIDs so I am not given her anything here medication [place], advised that she sit on ice pack as needed. Radiography Diagnostic Testing: Clinical Impression(s) from Imaging Studies Sacrum and Coccyx X-Ray 02/17/23 13:58 IMPRESSION: Normal x-rays of the sacrum and coccyx. Electronically Signed: Jacobo Lucas MD at 14:13 EDT Reading Location ID and State: [facility] / [place] , Service support , Discharge Plan Triage Chief Complaint: Back ED Provider: Mick Mae Dx/Rx/DC Orders Clinical Impression: Contusion of coccyx, Fall from slipping Instructions: ED Coccyx or Sacrum Contusion Prescriptions: No Action losartan 100 mg tablet 100 mg PO QHS nitrofurantoin monohyd/m-cryst [Macrobid] 100 mg Capsule 100 mg PO BID sertraline 150 mg Capsule 150 mg PO QHS phenazopyridine [Pyridium] 200 MG tablet 200 mg PO TID PRN PRN (Reason: Bladder Spasms) 7 Days Qty: 30 0RF ondansetron 4 mg tablet,disintegrating 4 mg PO Q8H PRN (Reason: nausea and vomiting) Qty: 10 0RF nitrofurantoin monohyd/m-cryst [Macrobid] 100 mg capsule 100 mg PO Q12H 10 Days Qty: 20 0RF Rx Instructions: must administer with a meal/food ciprofloxacin HCl [ciprofloxacin HCl] 500 mg tablet 500 mg PO BID Qty: 20 0RF oxycodone-acetaminophen [Percocet] 5-325 mg tablet 1 tab PO Q6H PRN (Reason: pain) 3 Days Qty: 10 0RF ondansetron 4 mg tablet,disintegrating 4 mg PO Q8H PRN (Reason: nausea and vomiting) Qty: 10 0RF ciprofloxacin HCl 500 mg tablet 500 mg PO BID Qty: 20 0RF ciprofloxacin HCl [ciprofloxacin HCl] 500 mg tablet 500 mg PO BID Qty: 14 0RF oxycodone-acetaminophen [oxycodone-acetaminophen] 5-325 mg tablet 1 tab PO Q6H PRN PRN (Reason: Pain) 3 Days Qty: 12 0RF ondansetron [ondansetron] 4 mg tablet,disintegrating 4 mg PO Q8H PRN PRN (Reason: Nausea) Qty: 10 0RF Primary Care Provider: Rosaura Rodriguez NP Referrals: Rosaura Rodriguez NP, CODE INSPECTOR-C [Primary Care Provider] - As Needed Disposition Disposition: Home, Self Care
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
== END 2023-02-17 15:31 | disposition home or self-care (01) ==
PROVIDERS: Emergency Provider Emergency Medicine; PCP Nurse Practitioner Family; Visit Provider Emergency Medicine
DX: S30.0XXA Contusion of lower back and pelvis, initial encounter (principal); I10 Essential (primary) hypertension; F17.210 Nicotine dependence, cigarettes, uncomplicated; W01.10XA Fall on same level from slipping, tripping and stumbling with subsequent striking against unspecified object, initial encounter; Y93.89 Activity, other specified; Z79.899 Other long term (current) drug therapy; F32.A Depression, unspecified; Z90.49 Acquired absence of other specified parts of digestive tract
CPT/HCPCS: 72220; 99282

== ENCOUNTER 2023-05-12 17:00 | Emergency (ER) | payer MEDICAID, SELFPAY ==
[2023-05-12 17:01] VITALS: BP 168/99; PULSE 94; RESP 17; TEMP 36.6; O2SAT 99; BMI 23.3
--- NOTE | 2023-05-12 17:04 | RAD_ITS ---
INDICATION: TRAUMA EXAMINATION/TECHNIQUE: X-RAY - RIGHT XR Wrist Min 3 Views 3 VIEWS COMPARISON: FINDINGS: BONES: No fracture demonstrated. JOINTS: No dislocation. SOFT TISSUES: Mild soft tissue swelling dorsally. RAD/Wrist min 3 Views IMPRESSION: Soft tissue swelling. No evidence of fracture. Electronically Signed: Lauren Gutierrez MD at 17:30 EDT ,
--- NOTE | 2023-05-12 17:14 | RAD_ITS ---
INDICATION: TRAUMA EXAMINATION/TECHNIQUE: X-RAY - RIGHT XR Hand Min 3 Views 3 VIEWS COMPARISON: FINDINGS: BONES: No fracture demonstrated. JOINTS: No dislocation. SOFT TISSUES: Unremarkable. RAD/Hand Min 3 Views IMPRESSION: No evidence of fracture. Electronically Signed: Lauren Gutierrez MD at 17:31 EDT ,
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
== END 2023-05-12 18:45 | disposition home or self-care (01) ==
PROVIDERS: Emergency Provider Emergency Medicine; PCP Nurse Practitioner Family; Visit Provider Emergency Medicine
DX: S63.91XA Sprain of unspecified part of right wrist and hand, initial encounter (principal); I10 Essential (primary) hypertension; F17.210 Nicotine dependence, cigarettes, uncomplicated; F32.A Depression, unspecified; Z79.899 Other long term (current) drug therapy; W22.09XA Striking against other stationary object, initial encounter
CPT/HCPCS: 73110; 73130; 99283

== ENCOUNTER 2023-05-16 12:19 | Emergency (ER) | payer MEDICAID, SELFPAY ==
[2023-05-16 12:20] VITALS: BP 164/113; PULSE 105; RESP 14; TEMP 36.3; O2SAT 96; BMI 23.3
--- NOTE | 2023-05-16 12:55 | RAD_ITS ---
STUDY: X-RAY - RIGHT HAND, ATTENTION FIFTH FINGER REASON FOR EXAM: Female, 33 years old. Laceration to the fifth digit. TECHNIQUE: 3 view(s) of the finger were obtained. COMPARISON: None. FINDINGS: Normal metacarpal head. Normal metacarpophalangeal joint. Normal proximal phalanx. Normal middle phalanx. Normal distal phalanx. Normal proximal interphalangeal joint. Normal distal interphalangeal joint. Soft tissue swelling. RAD/Finger(s) Min 2 Views IMPRESSION: Soft tissue swelling. Electronically Signed: Alexandre Deleon MD at 13:56 EDT ,
[2023-05-16] MEDS: Lidocaine/Epi/Tetracaine 50 ML 1 APPLIC TOPICAL (13:10)
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
[2023-05-16] MEDS: Lidocaine 1% /Epi 1:100 (20ml) 20 ML Vial INFILT (14:15)
[2023-05-16] MEDS: Diphth,Pertuss(Acell),Tet Vac 0.5 ML Vial IM (14:17)
== END 2023-05-16 14:31 | disposition home or self-care (01) ==
PROVIDERS: Emergency Provider Emergency Medicine; PCP Nurse Practitioner Family; Visit Provider Emergency Medicine
DX: S61.216A Laceration without foreign body of right little finger without damage to nail, initial encounter (principal); S61.236A Puncture wound without foreign body of right little finger without damage to nail, initial encounter; I10 Essential (primary) hypertension; F17.210 Nicotine dependence, cigarettes, uncomplicated; F32.A Depression, unspecified; Z79.899 Other long term (current) drug therapy; Z90.49 Acquired absence of other specified parts of digestive tract; Z98.51 Tubal ligation status; Z23 Encounter for immunization; W25.XXXA Contact with sharp glass, initial encounter; Y92.89 Other specified places as the place of occurrence of the external cause
CPT/HCPCS: 12001; 73140; 90471; 90715; 96372; 99284

== ENCOUNTER 2023-06-09 13:12 | Observation (INO) | payer MEDICAID, SELFPAY ==
[2023-06-09 13:13] VITALS: BP 150/93; PULSE 68; RESP 14; TEMP 36.3; O2SAT 97; BMI 23.5
--- NOTE | 2023-06-09 13:23 | EKG12_ITS ---
Test Reason : CP Blood Pressure : / mmHG Vent. Rate : 068 BPM Atrial Rate : 068 BPM P-R Int : 148 ms QRS Dur : 070 ms QT Int : 452 ms P-R-T Axes : 065 055 006 degrees QTc Int : 480 ms Sinus rhythm with marked sinus arrhythmia Prolonged QT Abnormal ECG Confirmed by CHENCHO BLACK, CHAR ([id number]), development editor SEGUN GARDINER ([id number]) on 06/10/2023 10:05:57 AM Referred By: BONNIE Confirmed By:CHAR PAIZ MD
--- NOTE | 2023-06-09 13:41 | CT_ITS ---
STUDY: CT ABDOMEN AND PELVIS WITHOUT CONTRAST REASON FOR EXAM: Female, 33 years old. Kidney Stone. Possible kidney infection. RADIATION DOSAGE (If Supplied By Facility): CTDIvol = ( 6.87 ) mGy, DLP = ( 352.09 ) mGycm TECHNIQUE: Transaxial images were obtained from the dome of the diaphragm to the symphysis pubis without oral contrast, and without intravenous contrast. Sagittal and coronal images were reconstructed. Individualized dose optimization techniques were used for this CT. COMPARISON: Comparison is made with prior study November 18, 2022. FINDINGS: The visualized lung bases are unremarkable. The visualized portions of the heart are within normal limits. Normal liver. There are surgical clips in the gallbladder fossa consistent with a prior cholecystectomy. Normal spleen. Normal pancreas. Normal bilateral adrenal glands. Normal right kidney. Normal left kidney. There is a small hiatal hernia. Normal small intestine. There are scattered colonic diverticula consistent with diverticulosis. The appendix is visualized and appears normal. Normal abdominal aorta. Normal inferior vena cava. Normal retroperitoneum. Normal urinary bladder. Prior bilateral tubal ligation. Normal abdominal wall. Normal osseous structures. CT/Abdomen/Pelvis without Cont IMPRESSION: Scattered sigmoid diverticula. Electronically Signed: Alexandre Deleon MD at 14:20 EDT ,
[2023-06-09] MEDS: Ondansetron 4 MG/2 ML Vial IV (13:42)
[2023-06-09] MEDS: Morphine 4 MG/ML Syringe IV (13:42)
--- NOTE | 2023-06-09 13:42 | EDS_ITS ---
HPI <Dr. David Keyes MD - Last Filed: 06/09/23 16:39> History of Present Illness Chief Complaint: Chest Pain Detail of Chief Complaint: She has flank pain and diagnosed with kidney infection at outside facility Informant: patient and friend Onset/Context/Timing Onset: Hours Context: Sudden Onset Timing: Continuous and Waxes and wanes Quality: Colicky Location: Flank Current Severity: Severe Maximum Severity: Severe Worsened by: Nothing Relieved by: Nothing Associated Symptoms Associated Symptoms: Nausea and vomiting Narrative Narrative: Patient is a 33-year-old female status post bilateral tubal ligation who was seen at outside facility diagnosed with pyelonephritis. Laboratory studies that were performed at the outside facility included CBC, comprehensive metabolic panel and UA. UA is not consistent with infection but renal/ureteral stone. Furthermore, the urinalysis was contaminated with many epithelial cells. Patient does report gross hematuria. Patient denies fever or chills. Patient states she has chest pains and she has been vomiting and shortness of breath. As I entered the room she was actively vomiting. Prior similar symptoms: Yes Recent Illness/Hospitalization: Yes PFSH <Dr. David Keyes MD - Last Filed: 06/09/23 16:39> PFSH Medical History Back pain Depression Flank pain Gross hematuria Hypertension Injury of head and neck Migraine headache Shortness of breath on exertion Smoker Home Medications losartan 100 mg tablet 100 mg PO QHS 11/04/21 [History Last Taken Unknown] nitrofurantoin monohydrate/macrocrystals 100 mg capsule (Macrobid) 100 mg PO BID 12/07/21 [History Last Taken Unknown] sertraline 150 mg capsule 150 mg PO QHS 12/07/21 [History Last Taken Unknown] phenazopyridine 200 mg tablet (Pyridium) 200 mg PO TID PRN PRN Bladder Spasms 7 days #30 tabs 12/08/21 [Rx Last Taken Unknown] ondansetron 4 mg disintegrating tablet 4 mg PO Q8H PRN nausea and vomiting #10 tabs 01/25/22 [Rx Last Taken Unknown] nitrofurantoin monohydrate/macrocrystals 100 mg capsule (Macrobid) 100 mg PO Q12H 10 days #20 caps 07/18/22 [Rx Last Taken Unknown] ciprofloxacin HCl 500 mg tablet 500 mg PO BID #20 tabs 07/21/22 [Rx Last Taken Unknown] ondansetron 4 mg disintegrating tablet 4 mg PO Q8H PRN nausea and vomiting #10 tabs 07/21/22 [Rx Last Taken Unknown] oxycodone-acetaminophen 5 mg-325 mg tablet (Percocet) 1 tab PO Q6H PRN pain 3 days #10 tabs 07/21/22 [Rx Last Taken Unknown] ciprofloxacin HCl 500 mg tablet 500 mg PO BID #20 TABLETS 08/11/22 [Rx Last Taken Unknown] ciprofloxacin HCl 500 mg tablet 500 mg PO BID #14 TABLETS 11/18/22 [Rx Last Taken Unknown] ondansetron 4 mg disintegrating tablet 4 mg PO Q8H PRN PRN Nausea #10 tabs 11/18/22 [Rx Last Taken Unknown] oxycodone-acetaminophen 5 mg-325 mg tablet 1 tab PO Q6H PRN PRN Pain 3 days #12 TABLETS 11/18/22 [Rx Last Taken Unknown] cephalexin 500 mg capsule 500 mg PO TID 5 days #15 CAPSULES 05/16/23 [Rx Last Taken Unknown] Allergy/AdvReac Type Severity Reaction Status Date / Time Penicillins Allergy Hives Verified 06/09/23 13:15 hydrocodone [From [place]] AdvReac HEADACHE Verified 06/09/23 13:15 ketorolac [From Toradol] AdvReac Hives Verified 06/09/23 13:15 sulfamethoxazole AdvReac Vomiting Verified 06/09/23 13:15 [From Bactrim] tramadol AdvReac Vomiting Verified 06/09/23 13:15 trimethoprim [From Bactrim] AdvReac Vomiting Verified 06/09/23 13:15 Surgical History History of History of cholecystectomy History of esophagogastroduodenoscopy (EGD) Hx of tubal ligation Social History household members: other Smoking Status: Current every day smoker tobacco type: cigarettes substance use type: does not use ROS <Dr. David Keyes MD - Last Filed: 06/09/23 16:39> ROS ED Constitutional Constitutional ED: Denies chills, fever(s), subjective, sweats or weight loss Eyes Eyes: Denies blurry vision, change in vision or diplopia ENT ENT ED: Denies ear pain, rhinorrhea or sore throat Cardiovascular Cardiovascular: Reports chest pain; Denies orthopnea, palpitations, paroxysmal nocturnal dyspnea or racing heartbeat Respiratory/Chest Respiratory/Chest: Reports dyspnea; Denies cough, dyspnea on exertion, orthopnea or paroxysmal nocturnal dyspnea Gastrointestinal Gastrointestinal: Reports abdominal pain, nausea and vomiting; Denies constipation, diarrhea or melena Genitourinary Genitourinary ED: Reports hematuria and urinary frequency; Denies dysuria Musculoskeletal Musculoskeletal: Reports other Details: Left flank pain ; Denies arthralgias, back pain, myalgias or neck pain Integumentary Denies Abrasions or rash Neurologic Neurologic: Denies headache(s), paresthesias or weakness EXAM <Dr. David Keyes MD - Last Filed: 06/09/23 16:39> Physical Exam Const Vital Signs: 06/09/23 13:13 06/09/23 13:17 06/09/23 15:32 Temperature 97.4 F L Temperature Source Temporal Pulse Rate 68 65 Respiratory Rate 14 14 Respiratory Pattern Normal Blood Pressure 150/93 H 161/98 H Blood Pressure Mean 112 119 Pulse Ox 97 96 Oxygen Delivery Method 06/09/23 18:01 Temperature Temperature Source Pulse Rate 78 Respiratory Rate 16 Respiratory Pattern Blood Pressure 144/99 H Blood Pressure Mean 114 Pulse Ox 98 Oxygen Delivery Method Room Air Positive well nourished and well developed Constitutional Narrative: Patient is actively vomiting. She is diaphoretic. She appears uncomfortable. General Appearance ED: well developed; Negative for cyanotic, diaphoretic or NAD HEENT Reports moist mucous membranes HEENT Narrative: Head is atraumatic normocephalic. Ears normal. Eyes PERRL and EOMs intact bilaterally General Eye ED: Negative for pale conjunctiva or scleral icterus Neck no lymphadenopathy, supple and no JVD Chest Wall inspection of chest normal and palpation of chest normal Resp normal respiratory effort and clear to auscultation bilaterally Cardio regular rate, regular rhythm, S1 normal heart sound, S2 normal heart sound and no murmurs GI normal to inspection, nondistended, normoactive bowel sounds, non-tender, non- distended and no masses; Negative for hepatosplenomegaly Back/Spine no CVA tenderness Cervical Spine: Negative for cervical spine tenderness Thoracic Spine / Upper Back: Negative for thoracic spinal tenderness Lumbar Spine / Lower Back: Negative for lumbar spinal tenderness Extremity normal to inspection Neuro oriented x3, CN's II-XII intact bilaterally and no sensory deficits noted Sensorium / Orientation: alert Psych Mood & Affect: anxious Skin no rashes or lesions noted, no wounds and skin turgor normal General Skin Exam: Negative for jaundice <Dr. America Whyte MD - Last Filed: 06/09/23 18:39> Physical Exam Const Vital Signs: 06/09/23 13:13 06/09/23 13:17 06/09/23 15:32 Temperature 97.4 F L Temperature Source Temporal Pulse Rate 68 65 Respiratory Rate 14 14 Respiratory Pattern Normal Blood Pressure 150/93 H 161/98 H Blood Pressure Mean 112 119 Pulse Ox 97 96 Oxygen Delivery Method 06/09/23 18:01 Temperature Temperature Source Pulse Rate 78 Respiratory Rate 16 Respiratory Pattern Blood Pressure 144/99 H Blood Pressure Mean 114 Pulse Ox 98 Oxygen Delivery Method Room Air MDM <Dr. David Keyes MD - Last Filed: 06/09/23 16:39> MDM MDM Narrative Medical decision making narrative: Patient's history, physical and laboratory studies from outside facility would indicate patient has an obstructing ureteral stone. Will obtain CT of the abdomen pelvis without contrast. Previous history not obtained since she is status post bilateral tubal ligation. Patient was medicated with Zofran for nausea vomiting and morphine for her pain. Lab Data Labs: Laboratory Results - last 24 hr 06/09/23 17:05 Urine Opiates Screen NEGATIVE Urine Methadone Screen NEGATIVE Ur Barbiturates Screen NEGATIVE Ur Phencyclidine Scrn NEGATIVE Ur Amphetamines Screen NEGATIVE MDMA (Ecstasy) Screen NEGATIVE U Benzodiazepines Scrn NEGATIVE Urine Cocaine Screen NEGATIVE U Cannabinoids Screen NEGATIVE Ur Drug Screen Comment Radiography Diagnostic Testing: Clinical Impression(s) from Imaging Studies Abdomen/Pelvis CT 06/09/23 13:41 IMPRESSION: Scattered sigmoid diverticula. Electronically Signed: Alexandre Deleon MD at 14:20 EDT , Treatment and Re-Evaluation :: Patient was raised left after reviewing CAT scan and reviewing radiology report. Patient has no significant pathology to explain her symptoms. Patient was asked regarding marijuana use she denies. Patient denies drug use. Patient is still actively vomiting. Will treat with cyclic vomiting order set. Tox screen was ordered as well. Contacted lab at 1632. They state it would be an additional 30 minutes ~talk screen is done. In light of this we will transfer patient's care and disposition to Dr. America Youssef. If patient's talk screen shows cannabis suspect this is cannabis vomiting syndrome otherwise patient may have cyclic vomiting. Nurse informed me that boyfriend states she has been using cocaine. <Dr. America Whyte MD - Last Filed: 06/09/23 18:39> [facility] Lab Data Labs: Laboratory Results - last 24 hr 06/09/23 17:05 Urine Opiates Screen NEGATIVE Urine Methadone Screen NEGATIVE Ur Barbiturates Screen NEGATIVE Ur Phencyclidine Scrn NEGATIVE Ur Amphetamines Screen NEGATIVE MDMA (Ecstasy) Screen NEGATIVE U Benzodiazepines Scrn NEGATIVE Urine Cocaine Screen NEGATIVE U Cannabinoids Screen NEGATIVE Ur Drug Screen Comment Radiography Diagnostic Testing: Clinical Impression(s) from Imaging Studies Abdomen/Pelvis CT 06/09/23 13:41 IMPRESSION: Scattered sigmoid diverticula. Electronically Signed: Alexandre Deleon MD at 14:20 EDT , Treatment and Re-Evaluation :: Patient was raised left after reviewing CAT scan and reviewing radiology report. Patient has no significant pathology to explain her symptoms. Patient was asked regarding marijuana use she denies. Patient denies drug use. Patient is still actively vomiting. Will treat with cyclic vomiting order set. Tox screen was ordered as well. Contacted lab at 1632. They state it would be an additional 30 minutes ~talk screen is done. In light of this we will transfer patient's care and disposition to Dr. America Youssef. If patient's talk screen shows cannabis suspect this is cannabis vomiting syndrome otherwise patient may have cyclic vomiting. Nurse informed me that boyfriend states she has been using cocaine. Patient signed out to me pending tox screen and reevaluation after antiemetics. Tox screen is negative. On repeat evaluation patient appears to be resting comfortably. Family states that she still is having intermittent vomiting. Patient has already received Zofran along with Ativan/Pepcid and Benadryl/Thorazine as part of the cyclic vomiting order set. At this time I will order CBC and BMP and speak with hospitalist regarding admission for further treatment. Discharge Plan Triage Chief Complaint: Chest Pain ED Provider: David Keyes Dx/Rx/DC Orders Clinical Impression: Gross hematuria, Intractable nausea and vomiting, Left flank pain Prescriptions: No Action losartan 100 mg tablet 100 mg PO QHS nitrofurantoin monohyd/m-cryst [Macrobid] 100 mg Capsule 100 mg PO BID sertraline 150 mg Capsule 150 mg PO QHS phenazopyridine [Pyridium] 200 MG tablet 200 mg PO TID PRN PRN (Reason: Bladder Spasms) 7 Days Qty: 30 0RF ondansetron 4 mg tablet,disintegrating 4 mg PO Q8H PRN (Reason: nausea and vomiting) Qty: 10 0RF nitrofurantoin monohyd/m-cryst [Macrobid] 100 mg capsule 100 mg PO Q12H 10 Days Qty: 20 0RF Rx Instructions: must administer with a meal/food ciprofloxacin HCl [ciprofloxacin HCl] 500 mg tablet 500 mg PO BID Qty: 20 0RF oxycodone-acetaminophen [Percocet] 5-325 mg tablet 1 tab PO Q6H PRN (Reason: pain) 3 Days Qty: 10 0RF ondansetron 4 mg tablet,disintegrating 4 mg PO Q8H PRN (Reason: nausea and vomiting) Qty: 10 0RF ciprofloxacin HCl 500 mg tablet
[2023-06-09] MEDS: 0.9% Normal Saline 1,000 ML 250 ML IV (13:53)
[2023-06-09 15:00] VITALS: BP 122/78; PULSE 70; RESP 16; O2SAT 98
[2023-06-09] MEDS: Famotidine 200 MG/20 ML MDV 20 MG in 0.9% Normal Saline (Pres. free 8 ML 300 MG IV (15:30)
[2023-06-09] MEDS: LORazepam 2 MG/ML Syringe 0.5 MG IV (15:30)
[2023-06-09 15:32] VITALS: BP 161/98; PULSE 65; RESP 14; O2SAT 96
[2023-06-09 18:01] VITALS: BP 144/99; PULSE 78; RESP 16; O2SAT 98
[2023-06-09 18:31] LABS: Amphetamine Urine VISTA NEGATIVE (<1000 ng/mL); Barbiturate Urine VISTA NEGATIVE (< 200 ng/mL); Benzodiazepine Urine VISTA NEGATIVE (< 200 ng/mL); Cocaine Urine VISTA NEGATIVE (< 300 ng/mL); Ecstacy Urine VISTA NEGATIVE (< 500 ng/mL); Methadone Urine VISTA NEGATIVE (< 300 ng/mL); PCP Urine VISTA NEGATIVE (< 25 ng/mL); THC Urine VISTA NEGATIVE (< 50 ng/mL); Vista UDS pH Range 7
[2023-06-09 19:05] LABS: Absolute Lymphocyte Count 0.85 X10^3/uL (0.83-4.51); Absolute Neutrophil Count 5.4 X10^3/uL (2.0-7.7); Basophil# 0.02 X10^3/uL; Basophil% 0.3 % (0-1); Hematocrit 36.7 % (37-47); Hemoglobin 12.7 g/dL (12.0-15.0); Lymphocyte # 0.85 X10^3/ul (0.83-4.51); Lymphocyte % 13.1 % (19-41); Mean Corp Hgb Conc 34.6 g/dL (32-36); Mean Corpuscular Hgb 32.6 pg (27.0-32.0); Mean Corpuscular Volume 94.3 fL (81-99); Mean Platelet Vol. 8.7 fl (6.2-12.0); Monocyte# 0.15 X10^3/uL; Monocyte% 2.3 % (0-10); NRBC Flagged by Analyzer 0 % (0-5); Neutrophil # 5.43 X10^3/uL (2.7-7.7); Platelet Count 254 K/mm3 (150-450); RBC Distribution Width CV 13.4 % (11.6-14.6); RBC Distribution Width SD 46.5 fl (35.1-43.9); Red Blood Count 3.89 M/mm3 (4.2-5.4); White Blood Count 6.5 K/mm3 (4.4-11.0)
[2023-06-09 19:20] LABS: Anion Gap 6 (5-15); BUN 7 mg/dL (7-18); BUN/Creat Ratio 10.5 RATIO (10-20); Chloride 107 mmol/L (98-107); Creatinine, Serum 0.67 mg/dL (0.55-1.02); EST Glomerular Filtration Rate 107 mL/min (>60); Est Glom Filt Rate - Afr Amer 129 mL/min (>60); Estimated Creatinine Clearance 113.97 ml/min; Glucose 123 mg/dL (74-106); Potassium 3.1 mmol/L (3.5-5.1); Sodium Level 138 mmol/L (136-145)
[2023-06-09] MEDS: proMETHazine 25 MG/ML Syringe 12.5 MG IM (20:28)
[2023-06-09 20:30] VITALS: BP 165/87; BP 167/87; PULSE 81; RESP 16; TEMP 36.6; O2SAT 97
--- NOTE | 2023-06-09 20:58 | HP.PCM.HOS_ITS ---
HPI - General General Date of Admission: 06/09/23 HPI Narrative AMERICA MELISSA, is a 33 F who presents to the hospital with intractable nausea and vomiting. She states that this started about 2 days ago and today she went to an outside hospital where she was told she had pyelonephritis though the ED physician reviewed the records and noted that there is no bacteria in the urine to support that diagnosis. She was sent home from the outside hospital with a prescription for Cipro however she had continued nausea and vomiting and was unable to hold any of the medication down. She tried to go to work today which is in [place] but was unable to manage so she presented to this ER. Here she has a normal white count and is afebrile renal function is stable and she is slightly hypokalemic. CT scan of her abdomen and pelvis does not show kidney stone and or any abnormality including hydronephrosis. PFSH Medical History Back pain Depression Flank pain Gross hematuria Hypertension Injury of head and neck Migraine headache Shortness of breath on exertion Smoker Home Medications losartan 100 mg tablet 100 mg PO QHS 11/04/21 [History Last Taken Unknown] nitrofurantoin monohydrate/macrocrystals 100 mg capsule (Macrobid) 100 mg PO BID 12/07/21 [History Last Taken Unknown] sertraline 150 mg capsule 150 mg PO QHS 12/07/21 [History Last Taken Unknown] phenazopyridine 200 mg tablet (Pyridium) 200 mg PO TID PRN PRN Bladder Spasms 7 days #30 tabs 12/08/21 [Rx Last Taken Unknown] ondansetron 4 mg disintegrating tablet 4 mg PO Q8H PRN nausea and vomiting #10 tabs 01/25/22 [Rx Last Taken Unknown] nitrofurantoin monohydrate/macrocrystals 100 mg capsule (Macrobid) 100 mg PO Q12H 10 days #20 caps 07/18/22 [Rx Last Taken Unknown] ciprofloxacin HCl 500 mg tablet 500 mg PO BID #20 tabs 07/21/22 [Rx Last Taken Unknown] ondansetron 4 mg disintegrating tablet 4 mg PO Q8H PRN nausea and vomiting #10 tabs 07/21/22 [Rx Last Taken Unknown] oxycodone-acetaminophen 5 mg-325 mg tablet (Percocet) 1 tab PO Q6H PRN pain 3 days #10 tabs 07/21/22 [Rx Last Taken Unknown] ciprofloxacin HCl 500 mg tablet 500 mg PO BID #20 TABLETS 08/11/22 [Rx Last Taken Unknown] ciprofloxacin HCl 500 mg tablet 500 mg PO BID #14 TABLETS 11/18/22 [Rx Last Taken Unknown] ondansetron 4 mg disintegrating tablet 4 mg PO Q8H PRN PRN Nausea #10 tabs 11/18/22 [Rx Last Taken Unknown] oxycodone-acetaminophen 5 mg-325 mg tablet 1 tab PO Q6H PRN PRN Pain 3 days #12 TABLETS 11/18/22 [Rx Last Taken Unknown] cephalexin 500 mg capsule 500 mg PO TID 5 days #15 CAPSULES 05/16/23 [Rx Last Taken Unknown] albuterol sulfate 90 mcg/actuation aerosol inhaler inhalation 06/09/23 [History Last Taken Unknown] atorvastatin 10 mg tablet 10 mg PO .hs 06/09/23 [History Last Taken 06/08/23] cetirizine 10 mg tablet 10 mg PO .hs 06/09/23 [History Last Taken Unknown] clonidine HCl 0.1 mg tablet 0.1 mg PO Q12H 06/09/23 [History Last Taken Unknown] hydrochlorothiazide 25 mg tablet 25 mg PO Q12H 06/09/23 [History Last Taken Unknown] Allergy/AdvReac Type Severity Reaction Status Date / Time Penicillins Allergy Hives Verified 06/09/23 13:15 hydrocodone [From [place]] AdvReac HEADACHE Verified 06/09/23 13:15 ketorolac [From Toradol] AdvReac Hives Verified 06/09/23 13:15 sulfamethoxazole AdvReac Vomiting Verified 06/09/23 13:15 [From Bactrim] tramadol AdvReac Vomiting Verified 06/09/23 13:15 trimethoprim [From Bactrim] AdvReac Vomiting Verified 06/09/23 13:15 Family History (Updated 06/09/23 @ 21:[address] Emmanuel Olea MD) Other Cancer Diabetes Surgical History History of History of cholecystectomy History of esophagogastroduodenoscopy (EGD) Hx of tubal ligation Social History household members: other Smoking Status: Current every day smoker tobacco type: cigarettes substance use type: does not use ROS Constitutional Constitutional: Denies chills, fatigue, fever(s) or malaise Eyes Eyes: Denies blurry vision ENT HEENT: Denies headache(s) or nasal discharge Cardiovascular Cardiovascular: Denies chest pain, dyspnea on exertion or syncope Respiratory/Chest Respiratory/Chest: Denies cough, shortness of breath at rest or shortness of breath with exertion Gastrointestinal Gastrointestinal: Reports nausea and vomiting; Denies constipation or diarrhea Genitourinary Genitourinary: Denies dysuria Neurologic Neurologic: Denies focal weakness, numbness or tremor(s) Psychiatric Psychiatric: Denies anxiety or depression Vital Signs Vital Signs Vital Signs: 06/09/23 13:13 06/09/23 13:17 06/09/23 15:32 Temperature 97.4 F L Temperature Source Temporal Pulse Rate 68 65 Respiratory Rate 14 14 Respiratory Pattern Normal Blood Pressure 150/93 H 161/98 H Blood Pressure Mean 112 119 Pulse Ox 97 96 Oxygen Delivery Method 06/09/23 18:01 06/09/23 15:00 06/09/23 20:30 Temperature Temperature Source Pulse Rate 78 70 81 Respiratory Rate 16 16 16 Respiratory Pattern Blood Pressure 144/99 H 122/78 H 165/87 H Blood Pressure Mean 114 92 113 Pulse Ox 98 98 97 Oxygen Delivery Method Room Air Room Air 06/09/23 20:30 Temperature 97.9 F Temperature Source Oral Pulse Rate 81 Respiratory Rate 16 Respiratory Pattern Blood Pressure 167/87 H Blood Pressure Mean 113 Pulse Ox 97 Oxygen Delivery Method Room Air Weight Weight: 150 lb Body Mass Index (BMI) 23.5 Physical Exam Narrative General: Alert, Oriented x3, Cooperative, No apparent distress HEENT: Atraumatic, PERRLA, EOMI, Normocephalic Oral: Moist Mucosa Neck: Supple, No JVD Lungs: Clear to auscultation, Normal air movement, No rhonchi, No wheeze, No rales Cardiovascular: Regular rate, Regular Rhythm, Normal S1, Normal S2, No murmurs Abdomen: Soft, Non Tender, Non-Distended, No Hepato-splenomegaly, mild flank tenderness on the left Extremities: No edema, Capillary Refill Less than 3 Seconds Skin: No rashes, No breakdown Musculoskeletal: No Tenderness to Palpation of Joints or Extremities Neurological: Cranial nerves II-XII grossly intact, Motor Exam 5/5 strength throughout, Sensory exam intact to light touch and pain Psych/Mental Status: Flat affect Results Lab / Micro Data 06/09/23 19:00 06/09/23 19:00 Labs: Laboratory Results - last 24 hr 06/09/23 17:05: Urine Opiates Screen NEGATIVE, Urine Methadone Screen NEGATIVE, Ur Barbiturates Screen NEGATIVE, Ur Phencyclidine Scrn NEGATIVE, Ur Amphetamines Screen NEGATIVE, MDMA (Ecstasy) Screen NEGATIVE, U Benzodiazepines Scrn NEGATIVE, Urine Cocaine Screen NEGATIVE, U Cannabinoids Screen NEGATIVE, Ur Drug Screen Comment 06/09/23 19:00: WBC 6.5, RBC 3.89 L, Hgb 12.7, Hct 36.7 L, MCV 94.3, MCH 32.6 H, MCHC 34.6, RDW Std Deviation 46.5 H, RDW Coeff of Tere 13.4, Plt Count 254, MPV 8.7, Immature Gran % (Auto) 0.300, Neut % (Auto) 84.0 H, Lymph % (Auto) 13.1 L, [place] % (Auto) 2.3, Eos % (Auto) 0.0, Baso % (Auto) 0.3, Absolute Neuts (auto) 5.4, Absolute Lymphs (auto) 0.85, Nucleated RBC % 0, Sodium 138, Potassium 3.1 L , Chloride 107, Carbon Dioxide 25.0, Anion Gap 6, BUN 7, Creatinine 0.67, Estim Creat Clear Calc 113.97, Est GFR (MDRD) Af Amer 129, Est GFR (MDRD) Non-Af 107, BUN/Creatinine Ratio 10.5, Glucose 123 H, Calcium 8.0 L Radiology Impression Abdomen/Pelvis CT 06/09/23 13:41 IMPRESSION: Scattered sigmoid diverticula. Electronically Signed: Alexandre Deleon MD at 14:20 EDT , Assessment & Plan Assessment/Plan (1) Left flank pain: (2) Intractable nausea and vomiting: PLAN: Plan 1. Intractable nausea and vomiting with left flank pain and gross hematuria ? CT scan does not indicate kidney stone or any other intra-abdominal process ? We will continue with nausea medication ? Continue with IV fluids ? We will obtain a UA and empirically placed on Cipro IV twice daily ? She did have hematuria back in December 2021 at this time she had right flank pain and she had a cystoscopy which demonstrated a normal bladder mucosa, and a retrograde pyelogram was also normal ? She has had history of frequent UTIs with Klebsiella and E. coli all of which have been pansensitive 2. HTN/HLD ? Blood pressures are currently stable ? We will restart her home medications DVT: Ambulation Charges/Coding Visit Charges Inpatient E&M: 99877 Init Hosp L2
[2023-06-09 21:03] VITALS: BMI 23.6
[2023-06-09 21:14] VITALS: BP 161/96; PULSE 58; RESP 16; TEMP 36.9; O2SAT 99
[2023-06-09] MEDS: 0.9% Normal Saline 1,000 ML 100 ML IV (21:34)
[2023-06-09] MEDS: 0.9% Saline Lock 10 ML Syringe IV (21:34)
[2023-06-09] MEDS: Potassium Chloride 10mEq/100mL 10 MEQ/100 ML IV.SOLN. 100 MEQ IV BOLUS ×2 (21:43→23:02)
[2023-06-09 22:12] LABS: Mucous, Urine 0 SEEN /hpf (<or=2+)
[2023-06-09 22:14] LABS: Color, Urine Red (Yellow); Glucose, Dipstick Normal (Normal); Ketone-Dipstick 5 mg/dl (Negative); Leukocyte Esterase-Dipstick 25 /ul (Negative); Nitrite-Dipstick Negative (Negative); Occult Blood-Urine 250 /ul (Negative); Protein-Dipstick 100 mg/dl (Negative); Specific Gravity, Urine 1.015 (1.002-1.030); Urine Bilirubin Dipstick Negative (Negative); Urine Clarity Clear (Clear); Urine Urobilinogen Normal (Normal)
[2023-06-09 22:22] LABS: Red Blood Cells-Urine 50-100 SEEN /hpf (0-5); White Blood Cells 50-100 SEEN /hpf (0-5)
[2023-06-09 22:23] LABS: Bacteria 1+ /hpf (None Seen); Squamous Epithelial Cells - UA 10-25 SEEN /hpf (5-10)
[2023-06-09] MEDS: cloNIDine HCl 0.1 MG Tablet PO (22:31)
[2023-06-09] MEDS: hydroCHLOROthiazide 25 MG Tablet PO (22:31)
[2023-06-09] MEDS: Atorvastatin Calcium 10 MG Tablet PO (22:32)
[2023-06-09] MEDS: Sertraline 50 MG Tablet 150 MG PO (22:32)
[2023-06-09] MEDS: Losartan Potassium 100 MG Tablet PO (22:33)
[2023-06-09] MEDS: Calcium Carbonate 500 MG Tablet PO (23:42)
[2023-06-10] VITALS (7 sets, daily range): BP systolic 134–159; BP diastolic 84–97; PULSE 62–87; RESP 16–20; TEMP 36.6–37.5; O2SAT 95–100
[2023-06-10] MEDS: Potassium Chloride 10mEq/100mL 10 MEQ/100 ML IV.SOLN. 100 MEQ IV BOLUS ×6 (00:07→14:51)
[2023-06-10] MEDS: Ondansetron 4 MG/2 ML Vial IV ×2 (02:09→20:54)
[2023-06-10] MEDS: 0.9% Saline Lock 10 ML Syringe IV ×2 (02:11→22:10)
[2023-06-10] MEDS: Ciprofloxacin 400 MG/200 ML BAG 200 MG IV ×3 (02:17→21:41)
[2023-06-10] MEDS: Morphine 2 MG/ML Syringe IV (04:27)
[2023-06-10 06:23] LABS: Absolute Lymphocyte Count 1.66 X10^3/uL (0.83-4.51); Absolute Neutrophil Count 8.8 X10^3/uL (2.0-7.7); Basophil# 0.03 X10^3/uL; Basophil% 0.3 % (0-1); Eosinophil# 0.02 X10^3/uL; Eosinophils% 0.2 % (0-5); Hematocrit 36.5 % (37-47); Hemoglobin 12.1 g/dL (12.0-15.0); Lymphocyte # 1.66 X10^3/ul (0.83-4.51); Lymphocyte % 14.7 % (19-41); Mean Corp Hgb Conc 33.2 g/dL (32-36); Mean Corpuscular Volume 96.6 fL (81-99); Mean Platelet Vol. 8.8 fl (6.2-12.0); Monocyte# 0.69 X10^3/uL; Monocyte% 6.1 % (0-10); NRBC Flagged by Analyzer 0 % (0-5); Neutrophil # 8.84 X10^3/uL (2.7-7.7); Neutrophil % 78.3 % (47-70); Platelet Count 289 K/mm3 (150-450); RBC Distribution Width CV 13.3 % (11.6-14.6); RBC Distribution Width SD 47.6 fl (35.1-43.9); Red Blood Count 3.78 M/mm3 (4.2-5.4); White Blood Count 11.3 K/mm3 (4.4-11.0)
[2023-06-10 07:15] LABS: Anion Gap 7 (5-15); BUN 6 mg/dL (7-18); BUN/Creat Ratio 9.6 RATIO (10-20); Calcium,Total 8.3 mg/dL (8.5-10.1); Chloride 102 mmol/L (98-107); Creatinine, Serum 0.62 mg/dL (0.55-1.02); EST Glomerular Filtration Rate 115 mL/min (>60); Est Glom Filt Rate - Afr Amer 139 mL/min (>60); Estimated Creatinine Clearance 123.16 ml/min; Glucose 131 mg/dL (74-106); Potassium 2.7 mmol/L (3.5-5.1); Sodium Level 134 mmol/L (136-145)
--- NOTE | 2023-06-10 08:12 | PCM.PN.HOSP ---
Reason for Visit Reason for Visit: Diagnoses Unspecified abdominal pain (06/09/23) Nausea with vomiting, unspecified (06/09/23) Subjective Subjective Feels slightly better, still has a little bit of pain and some nausea but better than on arrival the still not eating well Objective Data Objective Data Vital Signs: Vital Signs Temp Pulse Resp BP Pulse Ox O2 Del Method 99.4 F H 84 16 159/84 H 98 Room Air 06/10/23 04:44 06/10/23 04:44 06/10/23 04:44 06/10/23 04:44 06/10/23 04:44 06/10/23 04:44 Oxygen Delivery Method Room Air Weight: 68.3 kg Body Mass Index (BMI) 23.6 Intake & Output: Intake and Output for Last 24 Hours 06/08/23 06/09/23 06/10/23 23:59 23:59 23:59 Intake Total 1211.5 / 1211.5 500 / 500 Balance 1211.5 / 1211.5 500 / 500 Lab / Micro Data 06/10/23 06:13 06/10/23 14:05 Labs: Laboratory Results - last 24 hr 06/09/23 17:05: Urine Color Red, Urine Clarity Clear, Urine pH 9.0, Ur Specific [place] 1.015, Urine Protein 100 H, Urine Glucose (UA) Normal, Urine Ketones 5 H, Urine Occult Blood 250 H, Urine Nitrite Negative, Urine Bilirubin Negative, Urine Urobilinogen Normal, Ur Leukocyte Esterase 25 H, Urine RBC 50-100 SEEN, Urine WBC 50-100 SEEN, Ur Squamous Epith Cells 10-25 SEEN, Urine Bacteria 1+, Urine Mucus 0 SEEN, Urine Opiates Screen NEGATIVE, Urine Methadone Screen NEGATIVE, Ur Barbiturates Screen NEGATIVE, Ur Phencyclidine Scrn NEGATIVE, Ur Amphetamines Screen NEGATIVE, MDMA (Ecstasy) Screen NEGATIVE, U Benzodiazepines Scrn NEGATIVE, Urine Cocaine Screen NEGATIVE, U Cannabinoids Screen NEGATIVE, Ur Drug Screen Comment 06/09/23 19:00: WBC 6.5, RBC 3.89 L, Hgb 12.7, Hct 36.7 L, MCV 94.3, MCH 32.6 H, MCHC 34.6, RDW Std Deviation 46.5 H, RDW Coeff of Tere 13.4, Plt Count 254, MPV 8.7, Immature Gran % (Auto) 0.300, Neut % (Auto) 84.0 H, Lymph % (Auto) 13.1 L, [place] % (Auto) 2.3, Eos % (Auto) 0.0, Baso % (Auto) 0.3, Absolute Neuts (auto) 5.4, Absolute Lymphs (auto) 0.85, Nucleated RBC % 0, Sodium 138, Potassium 3.1 L, Chloride 107, Carbon Dioxide 25.0, Anion Gap 6, BUN 7, Creatinine 0.67, Estim Creat Clear Calc 113.97, Est GFR (MDRD) Af Amer 129, Est GFR (MDRD) Non-Af 107, BUN/Creatinine Ratio 10.5, Glucose 123 H, Calcium 8.0 L 06/10/23 06:13: WBC 11.3 H, RBC 3.78 L, Hgb 12.1, Hct 36.5 L, MCV 96.6, MCH 32.0, MCHC 33.2, RDW Std Deviation 47.6 H, RDW Coeff of Tere 13.3, Plt Count 289, MPV 8.8, Immature Gran % (Auto) 0.400, Neut % (Auto) 78.3 H, Lymph % (Auto) 14.7 L, [place] % (Auto) 6.1, Eos % (Auto) 0.2, Baso % (Auto) 0.3, Absolute Neuts (auto) 8.8 H, Absolute Lymphs (auto) 1.66, Nucleated RBC % 0, Sodium 134 L, Potassium 2.7 L*, Chloride 102, Carbon Dioxide 25.0, Anion Gap 7, BUN 6 L, Creatinine 0.62, Estim Creat Clear Calc 123.16, Est GFR (MDRD) Af Amer 139, Est GFR (MDRD) Non-Af 115, BUN/Creatinine Ratio 9.6 L, Glucose 131 H, Calcium 8.3 L Radiography Diagnostic Testing: Radiology Impression Abdomen/Pelvis CT 06/09/23 13:41 IMPRESSION: Scattered sigmoid diverticula. Electronically Signed: Alexandre Deleon MD at 14:20 EDT , Physical Exam Narrative General: Resting in bed, wakes up and answers questions HEENT: Atraumatic, normocephalic Eyes: Anicteric, normal conjunctiva, extraocular movements grossly intact Neck: Supple Respiratory: Clear to auscultation bilaterally, normal respiratory effort Cardiovascular: Regular rate and rhythm GI: Soft, no significant tenderness, no rebound, guarding, rigidity Extremities: No edema Musculoskeletal: Moving all extremities Neuro: No overt focal neurological deficits Skin: No rashes appreciated Psych: Reluctant to engage Assessment & Plan Assessment/Plan (1) Left flank pain: (2) Intractable nausea and vomiting: PLAN: Plan #Intractable nausea and vomiting with left flank pain and gross hematuria ? CT scan does not indicate kidney stone or any other intra-abdominal process ? We will continue with nausea medication ? Continue with IV fluids ? We will obtain a UA and empirically placed on Cipro IV twice daily ? She did have hematuria back in December 2021 at this time she had right flank pain and she had a cystoscopy which demonstrated a normal bladder mucosa, and a retrograde pyelogram was also normal ? She has had history of frequent UTIs with Klebsiella and E. coli all of which have been pansensitive -06/10: WBC 11.3 w/ increased ANC, on Cipro, will add urine culture, suspect hematuria secondary to UTI, pain control. Patient seems to have a stool burden that is misshaping her bladder, will add MiraLAX as suspect this could be contributing to symptoms and nausea/vomiting. Lipase minimally elevated and liver panel unremarkable #HTN/HLD ? Blood pressures are currently stable ? We will restart her home medications -06/10: On home losartan, still remains slightly hypertensive but this is possibly secondary to pain and nausea, continue supportive care, can adjust medications further if needed #Hypokalemia -Likely secondary to GI losses, continue replacement -Recheck bmp this afternoon DVT: low risk, Ambulation Time spent in the patient's overall evaluation,decision-making process, review of diagnostic data, adjustment of management, discussion with other providers, nursing nursing and ancillary staff involved in patient's care documentation, 45 minutes Charges/Coding Visit Charges Inpatient E&M: 91613 Subs Hosp L2
[2023-06-10] MEDS: 0.9% Normal Saline 1,000 ML 100 ML IV ×2 (08:18→18:07)
[2023-06-10] MEDS: proCHLORPERazine 10 MG/2 ML Vial 5 MG IV ×2 (08:37→22:10)
[2023-06-10] MEDS: Potassium Chloride Oral Tablet 20 MEQ 60 MEQ PO (08:37)
[2023-06-10] MEDS: Ibuprofen 600 MG Tablet PO ×2 (09:13→21:21)
[2023-06-10] MEDS: Polyethylene Glycol 3350 17 GM PACKET 34 GM PO (09:13)
[2023-06-10 09:55] LABS: AST(SGOT) 18 U/L (15-37); Alanine Aminotransfer ALT/SGPT 25 U/L (13-56); Albumin, Serum 3.3 g/dL (3.2-5.0); Alkaline Phosphatase 79 U/L (45-117); Bilirubin, Direct 0.15 mg/dL (0.00-0.30); Globulin 3.8 g/dL (2.2-4.2); Lipase 94 U/L (13-75); Magnesium 2.2 mg/dL (1.6-2.6); Protein, Total 7.1 g/dL (6.4-8.2)
[2023-06-10] MEDS: hydroCHLOROthiazide 25 MG Tablet PO ×2 (10:16→21:20)
[2023-06-10] MEDS: cloNIDine HCl 0.1 MG Tablet PO ×2 (10:17→21:20)
[2023-06-10] MEDS: Pantoprazole Sodium 40 MG Tablet PO (10:20)
[2023-06-10 10:43] LABS: Bacteria 0 SEEN /hpf (None Seen); Mucous, Urine 0 SEEN /hpf (<or=2+)
[2023-06-10 10:46] LABS: Glucose, Dipstick Normal (Normal); Ketone-Dipstick Negative (Negative); Leukocyte Esterase-Dipstick 25 /ul (Negative); Nitrite-Dipstick Negative (Negative); Occult Blood-Urine 250 /ul (Negative); Protein-Dipstick 100 mg/dl (Negative); Specific Gravity, Urine 1.005 (1.002-1.030); Urine Bilirubin Dipstick Negative (Negative); Urine Clarity Sl. Cloudy (Clear); Urine Urobilinogen Normal (Normal)
[2023-06-10 10:49] LABS: Color, Urine SEE COMMENT BELOW (Yellow)
[2023-06-10 10:52] LABS: Red Blood Cells-Urine > 100 SEEN /hpf (0-5); Squamous Epithelial Cells - UA 0-5 SEEN /hpf (5-10); White Blood Cells 0-5 SEEN /hpf (0-5)
[2023-06-10] MEDS: Acetaminophen 500 MG Tablet 1000 MG PO ×2 (11:53→21:21)
[2023-06-10 14:33] LABS: Anion Gap 5 (5-15); BUN 7 mg/dL (7-18); BUN/Creat Ratio 8.4 RATIO (10-20); Calcium,Total 8.5 mg/dL (8.5-10.1); Chloride 107 mmol/L (98-107); Creatinine, Serum 0.83 mg/dL (0.55-1.02); EST Glomerular Filtration Rate 83 mL/min (>60); Est Glom Filt Rate - Afr Amer 100 mL/min (>60); Glucose 106 mg/dL (74-106); Potassium 3.7 mmol/L (3.5-5.1); Sodium Level 139 mmol/L (136-145)
[2023-06-10] MEDS: Sertraline 50 MG Tablet 150 MG PO (21:20)
[2023-06-10] MEDS: Losartan Potassium 100 MG Tablet PO (21:22)
[2023-06-10] MEDS: Atorvastatin Calcium 10 MG Tablet PO (21:23)
[2023-06-11 01:54] VITALS: BP 107/69; PULSE 50; RESP 16; TEMP 36.4; O2SAT 97
[2023-06-11] MEDS: 0.9% Normal Saline 1,000 ML 100 ML IV (04:30)
[2023-06-11 06:08] VITALS: BP 117/76; PULSE 54; RESP 16; TEMP 36.3; O2SAT 98
[2023-06-11 06:13] LABS: Absolute Lymphocyte Count 2.12 X10^3/uL (0.83-4.51); Absolute Neutrophil Count 3.3 X10^3/uL (2.0-7.7); Basophil# 0.05 X10^3/uL; Basophil% 0.8 % (0-1); Eosinophil# 0.09 X10^3/uL; Eosinophils% 1.5 % (0-5); Hematocrit 34.2 % (37-47); Hemoglobin 11.3 g/dL (12.0-15.0); Lymphocyte # 2.12 X10^3/ul (0.83-4.51); Lymphocyte % 35.1 % (19-41); Mean Corpuscular Hgb 32.4 pg (27.0-32.0); Mean Platelet Vol. 8.9 fl (6.2-12.0); Monocyte# 0.52 X10^3/uL; Monocyte% 8.6 % (0-10); NRBC Flagged by Analyzer 0 % (0-5); Neutrophil # 3.25 X10^3/uL (2.7-7.7); Neutrophil % 53.8 % (47-70); Platelet Count 227 K/mm3 (150-450); RBC Distribution Width CV 13.7 % (11.6-14.6); RBC Distribution Width SD 49.3 fl (35.1-43.9); Red Blood Count 3.49 M/mm3 (4.2-5.4)
[2023-06-11 06:42] LABS: Anion Gap 3 (5-15); BUN 9 mg/dL (7-18); Calcium,Total 8.3 mg/dL (8.5-10.1); Chloride 109 mmol/L (98-107); Creatinine, Serum 0.69 mg/dL (0.55-1.02); EST Glomerular Filtration Rate 102 mL/min (>60); Est Glom Filt Rate - Afr Amer 124 mL/min (>60); Estimated Creatinine Clearance 110.66 ml/min; Glucose 104 mg/dL (74-106); Potassium 3.6 mmol/L (3.5-5.1); Sodium Level 137 mmol/L (136-145)
[2023-06-11 10:01] VITALS: BP 117/73; PULSE 58; RESP 16; TEMP 36.9; O2SAT 100
[2023-06-11] MEDS: cloNIDine HCl 0.1 MG Tablet PO ×2 (10:04→21:17)
[2023-06-11] MEDS: Pantoprazole Sodium 40 MG Tablet PO (10:04)
[2023-06-11] MEDS: hydroCHLOROthiazide 25 MG Tablet PO ×2 (10:05→21:17)
--- NOTE | 2023-06-11 10:18 | PN_ITS ---
Subjective Subjective Patient seen and examined. She felt well and had no active complaints. Review of systems is otherwise negative. She has remained hemodynamically stable. Objective Data Objective Data Vital Signs: Vital Signs Temp Pulse Resp BP Pulse Ox O2 Del Method 98.4 F 58 L 16 117/73 100 Room Air 06/11/23 10:01 06/11/23 10:01 06/11/23 10:01 06/11/23 10:01 06/11/23 10:01 06/11/23 10:01 Oxygen Delivery Method Room Air Weight: 150 lb 9.211 oz Body Mass Index (BMI) 23.6 Intake & Output: Intake and Output for Last 24 Hours 06/09/23 06/10/23 06/11/23 23:59 23:59 23:59 Intake Total 1211.5 / 1211.5 3321.67 / 3321.67 1200 / 1200 Balance 1211.5 / 1211.5 3321.67 / 3321.67 1200 / 1200 Lab / Micro Data 06/11/23 05:57 06/11/23 05:57 Labs: Laboratory Results - last 24 hr 06/10/23 10:13: Urine Color SEE COMMENT BELOW, Urine Clarity Sl. Cloudy, Urine pH 7.0, Ur Specific [place] 1.005, Urine Protein 100 H, Urine Glucose (UA) Normal, Urine Ketones Negative, Urine Occult Blood 250 H, Urine Nitrite Negative, Urine Bilirubin Negative, Urine Urobilinogen Normal, Ur Leukocyte Esterase 25 H, Urine RBC > 100 SEEN, Urine WBC 0-5 SEEN, Ur Squamous Epith Cells 0-5 SEEN, Urine Bacteria 0 SEEN, Urine Mucus 0 SEEN 06/10/23 14:05: Sodium 139, Potassium 3.7, Chloride 107, Carbon Dioxide 27.0, Anion Gap 5, BUN 7, Creatinine 0.83, Estim Creat Clear Calc 92.00, Est GFR (MDRD) Af Amer 100, Est GFR (MDRD) Non-Af 83, BUN/Creatinine Ratio 8.4 L, Glucose 106, Calcium 8.5 06/11/23 05:57: WBC 6.0, RBC 3.49 L, Hgb 11.3 L, Hct 34.2 L, MCV 98.0, MCH 32.4 H, MCHC 33.0, RDW Std Deviation 49.3 H, RDW Coeff of Tere 13.7, Plt Count 227, MPV 8.9, Immature Gran % (Auto) 0.200, Neut % (Auto) 53.8, Lymph % (Auto) 35.1, [place] % (Auto) 8.6, Eos % (Auto) 1.5, Baso % (Auto) 0.8, Absolute Neuts (auto) 3.3, Absolute Lymphs (auto) 2.12, Nucleated RBC % 0, Sodium 137, Potassium 3.6, Chloride 109 H, Carbon Dioxide 25.0, Anion Gap 3 L, BUN 9, Creatinine 0.69, Estim Creat Clear Calc 110.66, Est GFR (MDRD) Af Amer 124, Est GFR (MDRD) Non-Af 102, BUN/Creatinine Ratio 13.0, Glucose 104, Calcium 8.3 L Physical Exam Const alert, oriented x3 and no apparent distress General Appearance: cooperative and well developed HEENT normocephalic, head/scalp atraumatic, moist oral mucous membranes and oropharynx normal Eyes PERRL and EOMs intact bilaterally Neck no lymphadenopathy, supple and no JVD Lymph Lymphatic: no lymphadenopathy noted and no lymphedema noted Resp normal respiratory effort, normal air movement and clear to auscultation bilaterally Cardio regular rate, regular rhythm, S1 normal heart sound, S2 normal heart sound and no murmurs Palpation: normal PMI GI normal to inspection, nondistended, normoactive bowel sounds, soft to palpation, non-tender and non-distended Extremity normal capillary refill, no clubbing, cyanosis or edema and no calf tenderness General Extremity: no tenderness to palpation of joints or extremities Skin General Skin Exam: no breakdown and turgor normal Neuro CN's II-XII intact bilaterally, no focal motor deficits, no sensory deficits noted and deep tendon reflexes 2+ bilaterally Speech: speech normal Motor Exam: strength 5/5 throughout and general weakness Psych thought process normal Appearance: appropriate Assessment & Plan Assessment/Plan (1) Left flank pain: (2) Intractable nausea and vomiting: (3) Gross hematuria: PLAN: Plan #Intractable nausea and vomiting. * flank pain and hematuria have largely resolved. * urine culture pending * on IV ciprofloxacin * did have hematuria back in December 2021 and had a cystoscopy which showed normal bladder mucosa, and retrograde pyelogram was also normal. * she has had repeated UTIs due to Klebsiella and E coli. * await urine cultures * #Hypertension: on losartan, HCTZ and clonidine. #Hyperlipidemia: on statin #Hypokalemia: resolved. #Depression: on sertraline DVT prophylaxis; SCDs Charges/Coding Visit Charges Inpatient E&M: 63646 Subs Hosp L2
[2023-06-11] MEDS: Ondansetron 4 MG/2 ML Vial IV (10:50)
[2023-06-11] MEDS: Ibuprofen 600 MG Tablet PO ×2 (10:50→18:50)
[2023-06-11] MEDS: 0.9% Saline Lock 10 ML Syringe IV ×2 (11:09→15:11)
[2023-06-11] MEDS: Ciprofloxacin 400 MG/200 ML BAG 200 MG IV ×2 (11:09→21:19)
[2023-06-11] MEDS: Acetaminophen 500 MG Tablet 1000 MG PO ×2 (14:49→21:17)
[2023-06-11] MEDS: proCHLORPERazine 10 MG/2 ML Vial 5 MG IV (15:07)
[2023-06-11 15:12] VITALS: BP 130/90; PULSE 50; RESP 17; TEMP 36.9; O2SAT 100
[2023-06-11 15:31] VITALS: PULSE 50
--- NOTE | 2023-06-11 19:01 | NURSING ---
Pt called this RN in her room at approimately 1850 saying that she was having Lt flank pain and peeing blood clots. This RN looked in urine measuring hat and urine was clr yellow and there was a dime sized drk red clot in with the urine. Pt denies being on her menses right now. I've passed blood clots before when I'm in the hospital for this. This RN checked emar, pt not on any blood thinners. This Nurse texted Dr. Hughes via [employer] and it has not been viewed. This RN told Shona STEWART and Alfa Hancock RN who is taking over care for Christi for the night.
[2023-06-11 20:33] VITALS: BP 141/86; PULSE 58; RESP 16; TEMP 37.1; O2SAT 100
[2023-06-11] MEDS: oxyCODONE 5 MG Tablet PO (20:44)
[2023-06-11] MEDS: Atorvastatin Calcium 10 MG Tablet PO (21:17)
[2023-06-11] MEDS: Losartan Potassium 100 MG Tablet PO (21:17)
[2023-06-11] MEDS: Sertraline 50 MG Tablet 150 MG PO (21:17)
[2023-06-12 01:35] VITALS: BP 107/71; PULSE 49; RESP 16; TEMP 36.6; O2SAT 100
[2023-06-12] MEDS: oxyCODONE 5 MG Tablet PO ×2 (04:27→10:38)
[2023-06-12] MEDS: Acetaminophen 500 MG Tablet 1000 MG PO (05:42)
[2023-06-12 05:43] VITALS: BP 126/75; PULSE 57; RESP 16; TEMP 36.4; O2SAT 100
[2023-06-12 05:56] LABS: Absolute Lymphocyte Count 1.95 X10^3/uL (0.83-4.51); Absolute Neutrophil Count 3.3 X10^3/uL (2.0-7.7); Basophil# 0.05 X10^3/uL; Basophil% 0.9 % (0-1); Eosinophil# 0.21 X10^3/uL; Eosinophils% 3.6 % (0-5); Hematocrit 37.4 % (37-47); Hemoglobin 12.1 g/dL (12.0-15.0); Lymphocyte # 1.95 X10^3/ul (0.83-4.51); Lymphocyte % 33.5 % (19-41); Mean Corp Hgb Conc 32.4 g/dL (32-36); Mean Corpuscular Hgb 32.1 pg (27.0-32.0); Mean Corpuscular Volume 99.2 fL (81-99); Mean Platelet Vol. 9.4 fl (6.2-12.0); Monocyte# 0.35 X10^3/uL; NRBC Flagged by Analyzer 0 % (0-5); Neutrophil # 3.25 X10^3/uL (2.7-7.7); Neutrophil % 55.8 % (47-70); Platelet Count 236 K/mm3 (150-450); RBC Distribution Width CV 13.2 % (11.6-14.6); RBC Distribution Width SD 48.3 fl (35.1-43.9); Red Blood Count 3.77 M/mm3 (4.2-5.4); White Blood Count 5.8 K/mm3 (4.4-11.0)
[2023-06-12 06:45] LABS: Anion Gap 8 (5-15); BUN 9 mg/dL (7-18); BUN/Creat Ratio 12.2 RATIO (10-20); Calcium,Total 8.6 mg/dL (8.5-10.1); Chloride 106 mmol/L (98-107); Creatinine, Serum 0.74 mg/dL (0.55-1.02); EST Glomerular Filtration Rate 95 mL/min (>60); Est Glom Filt Rate - Afr Amer 115 mL/min (>60); Estimated Creatinine Clearance 103.19 ml/min; Glucose 97 mg/dL (74-106); Potassium 3.3 mmol/L (3.5-5.1); Sodium Level 138 mmol/L (136-145)
[2023-06-12] MEDS: Ciprofloxacin 400 MG/200 ML BAG 200 MG IV (08:51)
[2023-06-12] MEDS: Potassium Chloride Oral Tablet 20 MEQ 40 MEQ PO (08:51)
[2023-06-12] MEDS: cloNIDine HCl 0.1 MG Tablet PO (08:53)
[2023-06-12] MEDS: hydroCHLOROthiazide 25 MG Tablet PO (08:53)
[2023-06-12] MEDS: Pantoprazole Sodium 40 MG Tablet PO (08:53)
[2023-06-12 08:56] VITALS: BP 121/85; PULSE 69; RESP 16; TEMP 37.1; O2SAT 100
--- NOTE | 2023-06-12 13:07 | PCM.DC ---
Discharge Instructions Diet Discharge Diet: Low fat / Low cholesterol Activity Discharge Activity: Return to Normal Activity Weight Bearing Status: Weight bearing as tolerated Dressing / Incision Call your doctor if you observe: Fever of 101 or Higher, Shortness of breath, Dizziness, Swelling in the ankles and Chest pain Follow Up Care Test Results: Test results from this visit will be discussed in further detail at your follow-up appointment, if applicable. Discharge Plan Admission Admit Date/Time: 06/09/23 20:40 Primary Reason for Your Visit: UTI, hematuria Attending Provider: Blaire Hughes Primary Care Provider: Rosaura Rodriguez NP Consulting Providers: Emmanuel Olea; Jane Parry Instructions Patient Instructions: What is Hematuria? Discharge Orders/Prescriptions Prescriptions: Continued losartan 100 mg tablet 100 mg PO QHS sertraline 150 mg Capsule 150 mg PO QHS phenazopyridine [Pyridium] 200 MG tablet 200 mg PO TID PRN PRN (Reason: Bladder Spasms) 7 Days Qty: 30 0RF ondansetron 4 mg tablet,disintegrating 4 mg PO Q8H PRN (Reason: nausea and vomiting) Qty: 10 0RF ciprofloxacin HCl 500 mg tablet 500 mg PO BID Qty: 20 0RF Hold Instructions: not taking oxycodone-acetaminophen [Percocet] 5-325 mg tablet 1 tab PO Q6H PRN (Reason: pain) 3 Days Qty: 10 0RF ondansetron 4 mg tablet,disintegrating 4 mg PO Q8H PRN (Reason: nausea and vomiting) Qty: 10 0RF Hold Instructions: Duplicate Order oxycodone-acetaminophen 5-325 mg tablet 1 tab PO Q6H PRN PRN (Reason: Pain) 3 Days Qty: 12 0RF Hold Instructions: Duplicate Order ondansetron 4 mg tablet,disintegrating 4 mg PO Q8H PRN PRN (Reason: Nausea) Qty: 10 0RF Hold Instructions: Duplicate Order atorvastatin 10 mg tablet 10 mg PO .hs cetirizine 10 mg tablet 10 mg PO .hs albuterol sulfate 90 mcg/actuation HFA aerosol inhaler 2 puff INHALATION Q6H PRN (Reason: shortness of breath or wheezing) clonidine HCl 0.1 mg tablet 0.1 mg PO Q12H Patient Comments: TAKE 1 TABLET BY MOUTH TWICE DAILY hydrochlorothiazide 25 mg tablet 25 mg PO Q12H Discontinued nitrofurantoin monohyd/m-cryst [Macrobid] 100 mg capsule 100 mg PO Q12H 10 Days Qty: 20 0RF Hold Instructions: Order Completed Rx Instructions: must administer with a meal/food ciprofloxacin HCl 500 mg tablet 500 mg PO BID Qty: 20 0RF ciprofloxacin HCl [ciprofloxacin HCl] 500 mg tablet 500 mg PO BID Qty: 14 0RF Hold Instructions: Duplicate Order cephalexin [cephalexin] 500 mg capsule 500 mg PO TID 5 Days Qty: 15 0RF Referrals / Follow Up: Rosaura Rodriguez [employer], [facility] [employer] [Primary Care Provider] - Within 2 Weeks Dianne Matthews MD [Med Staff - Active Staff] - In 1 Day (Please call Dr Matthews's office tomorrow morning for an appointment for evaluation for hematuria) Disposition Disposition (needs filled in before D/C Order can be placed): Home, Self Care
--- NOTE | 2023-06-12 13:08 | DS.PCM_ITS ---
Providers Date of Admission: 06/09/23 Date of Discharge: 06/12/23 Primary Care Physician: PETE Daly Reason For Visit: NAUSEA & VOMITING Diagnosis Discharge Diagnosis (1) Left flank pain: Status: Acute Code(s): R10.9 - Unspecified abdominal pain (2) Intractable nausea and vomiting: Status: Acute Code(s): R11.2 - Nausea with vomiting, unspecified (3) Gross hematuria: Status: Acute Code(s): R31.0 - Gross hematuria Plan #Intractable nausea and vomiting. * flank pain and hematuria have largely resolved. * urine culture pending * on IV ciprofloxacin * did have hematuria back in December 2021 and had a cystoscopy which showed normal bladder mucosa, and retrograde pyelogram was also normal. * she has had repeated UTIs due to Klebsiella and E coli. * await urine cultures * #Hypertension: on losartan, HCTZ and clonidine. #Hyperlipidemia: on statin #Hypokalemia: resolved. #Depression: on sertraline DVT prophylaxis; SCDs Medications at Discharge Home Medications losartan 100 mg tablet 100 mg PO QHS 11/04/21 sertraline 150 mg capsule 150 mg PO QHS 12/07/21 phenazopyridine 200 mg tablet (Pyridium) 200 mg PO TID PRN PRN Bladder Spasms 7 days #30 tabs 12/08/21 ondansetron 4 mg disintegrating tablet 4 mg PO Q8H PRN nausea and vomiting #10 tabs 01/25/22 ondansetron 4 mg disintegrating tablet 4 mg PO Q8H PRN nausea and vomiting #10 tabs 07/21/22 oxycodone-acetaminophen 5 mg-325 mg tablet (Percocet) 1 tab PO Q6H PRN pain 3 days #10 tabs 07/21/22 ondansetron 4 mg disintegrating tablet 4 mg PO Q8H PRN PRN Nausea #10 tabs 11/18/22 oxycodone-acetaminophen 5 mg-325 mg tablet 1 tab PO Q6H PRN PRN Pain 3 days #12 TABLETS 11/18/22 albuterol sulfate 90 mcg/actuation aerosol inhaler 2 puff inhalation Q6H PRN shortness of breath or wheezing 06/09/23 atorvastatin 10 mg tablet 10 mg PO .hs 06/09/23 cetirizine 10 mg tablet 10 mg PO .hs 06/09/23 clonidine HCl 0.1 mg tablet 0.1 mg PO Q12H 06/09/23 hydrochlorothiazide 25 mg tablet 25 mg PO Q12H 06/09/23 ciprofloxacin HCl 500 mg tablet (Cipro) 500 mg PO BID #8 tabs 06/12/23 Hospital Course Operations None Summary of Care Provided Minutes Spent on Discharge: 50 Hospital Course: Patient is a 33-year-old female with past medical history as outlined was admi tted with complaint of intractable nausea and vomiting for about 2 days prior to admission. She went to the hospital and was told she had pyelonephritis according to her. She was sent home with a prescription for p.o. ciprofloxacin but she continued to have nausea and vomiting and could not keep any of the medication down so she came into the ED. WBC was normal on admission and urinalysis showed no evidence of infection. CT of the abdomen and pelvis showed no kidney stone and genitourinary abnormality. She was admitted and managed for hematuria and probable UTI. She was started on IV ciprofloxacin. Urine cultures however came back negative. Hematuria continues with intermittent spotting though hemoglobin remained stable. This was discussed with urology as patient had had a cystoscopy with bilateral retrograde pyelograms and right ureteroscopy in December 2021 for similar complaints and the exam was normal. Since her hemoglobin was stable, urology recommended follow-up on outpatient basis she is to follow-up with Dr. Matthews in her office on Tuesday06/13/2023. She was discharged on PO ciprofloxacin 500mg bid x 5 days. Patient seen and examined prior to discharge. She felt much better. Her symptoms had improved. She had an uneventful night and that had minimal hematuria. Previous times otherwise negative. Labs and vitals reviewed. Medication reviewed and reconciled. Physical Exam Const alert, oriented x3 and no apparent distress General Appearance: cooperative, comfortable, well kempt and well developed HEENT normocephalic, head/scalp atraumatic, hearing grossly normal bilaterally, moist oral mucous membranes and oropharynx normal Mouth: oral and palatal mucosa normal Eyes PERRL and EOMs intact bilaterally Neck no lymphadenopathy, supple and no JVD Lymph Lymphatic: no lymphadenopathy noted and no lymphedema noted Resp normal respiratory effort, normal air movement and clear to auscultation vipin aterally Cardio regular rate, regular rhythm, S1 normal heart sound, S2 normal heart sound and no murmurs Palpation: normal PMI GI normal to inspection, nondistended, normoactive bowel sounds, soft to palpation, non-tender and non-distended Extremity normal to inspection, full ROM, normal capillary refill, no clubbing, cyanosis or edema and no calf tenderness General Extremity: no tenderness to palpation of joints or extremities Skin no rashes or lesions noted, no wounds and skin turgor normal General Skin Exam: no breakdown and turgor normal Neuro oriented x3, CN's II-XII intact bilaterally, moves all extremities, no focal motor deficits, no sensory deficits noted and deep tendon reflexes 2+ b ilaterally Sensorium / Orientation: awake and alert Speech: speech normal Motor Exam: strength 5/5 throughout and general weakness Psych thought process normal Appearance: appropriate Weight / BMI Weight Weight: 150 lb 9.211 oz Body Mass Index (BMI) 23.6 ABG / Lab / Microbiology Data 06/12/23 05:31 06/12/23 05:31 Laboratory: Laboratory Results - last 24 hr 06/12/23 05:31: WBC 5.8, RBC 3.77 L, Hgb 12.1, Hct 37.4, MCV 99.2 H, MCH 32.1 H, MCHC 32.4, RDW Std Deviation 48.3 H, RDW Coeff of Tere 13.2, Plt Count 236, MPV 9.4, Immature Gran % (Auto) 0.200, Neut % (Auto) 55.8, Lymph % (Auto) 33.5, [place] % (Auto) 6.0, Eos % (Auto) 3.6, Baso % (Auto) 0.9, Absolute Neuts (auto) 3.3, Absolute Lymphs (auto) 1.95, Nucleated RBC % 0, Sodium 138, Potassium 3.3 L, Chloride 106, Carbon Dioxide 24.0, Anion Gap 8, BUN 9, Creatinine 0.74, Estim Creat Clear Calc 103.19, Est GFR (MDRD) Af Amer 115, Est GFR (MDRD) Non-Af 95, BUN/Creatinine Ratio 12.2, Glucose 97, Calcium 8.6 Microbiology: Microbiology 06/10/23 10:13 Urine, Clean Catch Urine Culture - Final Culture exhibits no growth. D/C Instructions Discharge Diet: Low fat / Low cholesterol Weight Bearing Status: Weight bearing as tolerated Call your doctor if you observe: Fever of 101 or Higher, Shortness of breath, Dizziness, Swelling in the ankles and Chest pain Meaningful Use Info Meaningful Use Diagnoses (Choose all that apply): None applicable Discharge Plan Admission Admit Date/Time: 06/09/23 20:40 Primary Reason for Your Visit: UTI, hematuria Attending Provider: Blaire Hughes Primary Care Provider: Rosaura Rodriguez NP Consulting Providers: Emmanuel Olea; Jane Parry Instructions Patient Instructions: What is Hematuria? Discharge Orders/Prescriptions Prescriptions: New ciprofloxacin HCl [Cipro] 500 mg tablet 500 mg PO BID Qty: 8 0RF Continued losartan 100 mg tablet 100 mg PO QHS sertraline 150 mg Capsule 150 mg PO QHS phenazopyridine [Pyridium] 200 MG tablet 200 mg PO TID PRN PRN (Reason: Bladder Spasms) 7 Days Qty: 30 0RF ondansetron 4 mg tablet,disintegrating 4 mg PO Q8H PRN (Reason: nausea and vomiting) Qty: 10 0RF oxycodone-acetaminophen [Percocet] 5-325 mg tablet 1 tab PO Q6H PRN (Reason: pain) 3 Days Qty: 10 0RF ondansetron 4 mg tablet,disintegrating 4 mg PO Q8H PRN (Reason: nausea and vomiting) Qty: 10 0RF Hold Instructions: Duplicate Order oxycodone-acetaminophen 5-325 mg tablet 1 tab PO Q6H PRN PRN (Reason: Pain) 3 Days Qty: 12 0RF Hold Instructions: Duplicate Order ondansetron 4 mg tablet,disintegrating 4 mg PO Q8H PRN PRN (Reason: Nausea) Qty: 10 0RF Hold Instructions: Duplicate Order atorvastatin 10 mg tablet 10 mg PO .hs cetirizine 10 mg tablet 10 mg PO .hs albuterol sulfate 90 mcg/actuation HFA aerosol inhaler 2 puff INHALATION Q6H PRN (Reason: shortness of breath or wheezing) clonidine HCl 0.1 mg tablet 0.1 mg PO Q12H Patient Comments: TAKE 1 TABLET BY MOUTH TWICE DAILY hydrochlorothiazide 25 mg tablet 25 mg PO Q12H Discontinued nitrofurantoin monohyd/m-cryst [Macrobid] 100 mg capsule 100 mg PO Q12H 10 Days Qty: 20 0RF Hold Instructions: Order Completed Rx Instructions: must administer with a meal/food ciprofloxacin HCl 500 mg tablet 500 mg PO BID Qty: 20 0RF Hold Instructions: not taking ciprofloxacin HCl 500 mg tablet 500 mg PO BID Qty: 20 0RF ciprofloxacin HCl [ciprofloxacin HCl] 500 mg tablet 500 mg PO BID Qty: 14 0RF Hold Instructions: Duplicate Order cephalexin [cephalexin] 500 mg capsule 500 mg PO TID 5 Days Qty: 15 0RF Referrals / Follow Up: Dianne Matthews MD [Med Staff - Active Staff] - In 1 Day (Please call Dr Matthews's office tomorrow morning for an appointment for evaluation for hematuria) Rosaura Rodriguez NP, [employer] [Primary Care Provider] - Within 2 Weeks Disposition Disposition (needs filled in before D/C Order can be placed): Home, Self Care Charges/Coding Visit Charges Inpatient E&M: 71127 Disch Hosp >30min
== END 2023-06-12 14:38 | disposition home or self-care (01) ==
LOC: ED 18:39 → MS3 21:11
PROVIDERS: Emergency Medicine; Internal Medicine; Admitting Provider Family Medicine; Emergency Provider Emergency Medicine; PCP Nurse Practitioner Family; Visit Provider Student in an Organized Health Care Education/Training Program
DX: R11.2 Nausea with vomiting, unspecified (principal); F17.210 Nicotine dependence, cigarettes, uncomplicated; I10 Essential (primary) hypertension; E87.6 Hypokalemia; R31.0 Gross hematuria; R10.9 Unspecified abdominal pain; E78.5 Hyperlipidemia, unspecified; F32.A Depression, unspecified; R06.02 Shortness of breath; Z79.899 Other long term (current) drug therapy
CPT/HCPCS: 36415; 74176; 80048; 80076; 80307; 81001; 83690; 83735; 85025; 87086; 93005; 96361; 96365; 96366; 96367; 96368; 96372; 96375; 96376; 99221; 99284; 99406; J7030; J7050; A4216; G0378; J0744; J2405; J3490

== ENCOUNTER → 2023-06-21 | Outpatient (CLI) | payer MEDICAID, SELFPAY ==
[2023-06-21 17:34] LABS: Hemoglobin 11.4 g/dL (12.0-15.0); Mean Corp Hgb Conc 31.7 g/dL (32-36); Mean Corpuscular Hgb 32.2 pg (27.0-32.0); Mean Corpuscular Volume 101.7 fL (81-99); Mean Platelet Vol. 9.1 fl (6.2-12.0); Platelet Count 246 K/mm3 (150-450); RBC Distribution Width CV 13.3 % (11.6-14.6); RBC Distribution Width SD 50.3 fl (35.1-43.9); Red Blood Count 3.54 M/mm3 (4.2-5.4); White Blood Count 7.3 K/mm3 (4.4-11.0)
[2023-06-21 18:22] LABS: Anion Gap 2 (5-15); BUN 4 mg/dL (7-18); BUN/Creat Ratio 5.4 RATIO (10-20); Calcium,Total 8.5 mg/dL (8.5-10.1); Chloride 109 mmol/L (98-107); Creatinine, Serum 0.74 mg/dL (0.55-1.02); EST Glomerular Filtration Rate 94 mL/min (>60); Est Glom Filt Rate - Afr Amer 114 mL/min (>60); Glucose 98 mg/dL (74-106); Potassium 3.8 mmol/L (3.5-5.1); Sodium Level 141 mmol/L (136-145)
== END | disposition home or self-care (01) ==
LOC: PAT 08-04 16:27
PROVIDERS: PCP Nurse Practitioner Family; Referring Provider Urology; Visit Provider Urology
DX: R31.9 Hematuria, unspecified (principal)
CPT/HCPCS: 36415; 80048; 85027

== ENCOUNTER 2023-06-30 08:58 | Observation (INO) | payer MEDICAID, SELFPAY ==
[2023-06-30 08:58] VITALS: BP 198/111; PULSE 65; RESP 18; TEMP 36.6; O2SAT 99; BMI 24.0
--- NOTE | 2023-06-30 10:01 | EDS_ITS ---
HPI History of Present Illness Chief Complaint: Flank Pain Informant: patient and spouse/S.O. Narrative Narrative: Patient is a 33-year-old female with recent admission for intractable nausea, vomiting and flank pain thought to be secondary to pyelonephritis however urine culture was negative, follows now with Dr. Matthews, presenting with worsening left-sided flank pain, nausea and vomiting. She states her symptoms started yesterday around 2 AM. She has had significant nausea, vomiting and left flank pain. She notes that she has oxycodone, Phenergan and Zofran at home but she cannot keep any of it down. She states that she has been dealing with kidney infection for about 3 weeks. She notes that she did get better she finished a course of ciprofloxacin and then in the office for urology she had a straight cath. She was then put on a course of Keflex which she finished 2 to 3 days ago. She denies any fevers but her significant other is notes that she is felt warm. She is post to have a biopsy on the sixth and she has an MRI ordered by Dr. Matthews however she is currently dealing with insurance. She is not currently having any hematuria which she has had in the past. Chart review shows that her urine culture on 06/10/2023 was negative however she does have a history of Klebsiella positive urine cultures. CT on 06/09/2023 showed scattered sigmoid diverticula with normal kidneys and no comment on any kidney stones. PFSH PFSH Medical History Back pain Depression Flank pain Gross hematuria Gross hematuria Hypertension Injury of head and neck Migraine headache Shortness of breath on exertion Smoker Home Medications losartan 100 mg tablet 100 mg PO QHS 11/04/21 [History Last Taken 06/08/23] sertraline 150 mg capsule 150 mg PO QHS 12/07/21 [History Last Taken 06/08/23] phenazopyridine 200 mg tablet (Pyridium) 200 mg PO TID PRN PRN Bladder Spasms 7 days #30 tabs 12/08/21 [Rx Last Taken 06/09/23] ondansetron 4 mg disintegrating tablet 4 mg PO Q8H PRN nausea and vomiting #10 tabs 01/25/22 [Rx Last Taken 06/08/23] ondansetron 4 mg disintegrating tablet 4 mg PO Q8H PRN nausea and vomiting #10 tabs 09/14/22 [Rx Last Taken Unknown] oxycodone-acetaminophen 5 mg-325 mg tablet (Percocet) 1 tab PO Q6H PRN pain 3 days #10 tabs 07/21/22 [Rx Last Taken 06/09/23] ondansetron 4 mg disintegrating tablet 4 mg PO Q8H PRN PRN Nausea #10 tabs 11/18/22 [Rx Last Taken Unknown] oxycodone-acetaminophen 5 mg-325 mg tablet 1 tab PO Q6H PRN PRN Pain 3 days #12 TABLETS 11/18/22 [Rx Last Taken Unknown] albuterol sulfate 90 mcg/actuation aerosol inhaler 2 puff inhalation Q6H PRN shortness of breath or wheezing 06/09/23 [History Last Taken Unknown] atorvastatin 10 mg tablet 10 mg PO .hs 06/09/23 [History Last Taken 06/08/23] cetirizine 10 mg tablet 10 mg PO .hs 06/09/23 [History Last Taken 06/09/23] clonidine HCl 0.1 mg tablet 0.1 mg PO Q12H 06/09/23 [History Last Taken Unknown] hydrochlorothiazide 25 mg tablet 25 mg PO Q12H 06/09/23 [History Last Taken 06/09/23] ciprofloxacin HCl 500 mg tablet (Cipro) 500 mg PO BID #8 tabs 06/12/23 [Rx Last Taken Unknown] Allergy/AdvReac Type Severity Reaction Status Date / Time Penicillins Allergy Hives Verified 06/30/23 09:01 hydrocodone [From [place]] AdvReac HEADACHE Verified 06/30/23 09:01 ketorolac [From Toradol] AdvReac Hives Verified 06/30/23 09:01 sulfamethoxazole AdvReac Vomiting Verified 06/30/23 09:01 [From Bactrim] tramadol AdvReac Vomiting Verified 06/30/23 09:01 trimethoprim [From Bactrim] AdvReac Vomiting Verified 06/30/23 09:01 Family History Other Cancer Diabetes Surgical History History of History of cholecystectomy History of esophagogastroduodenoscopy (EGD) Hx of tubal ligation Social History household members: other Smoking Status: Current every day smoker tobacco type: cigarettes substance use type: does not use ROS ROS ED Constitutional Constitutional ED: Reports chills; Denies fever(s) ENT ENT ED: Denies sore throat Cardiovascular Cardiovascular: Denies chest pain Respiratory/Chest Respiratory/Chest: Denies cough Gastrointestinal Gastrointestinal: Reports abdominal pain, nausea and vomiting; Denies constipation, diarrhea or melena Genitourinary Genitourinary ED: Reports dysuria; Denies hematuria Musculoskeletal Musculoskeletal: Reports other Details: Left flank pain Integumentary Denies rash Neurologic Neurologic: Denies paresthesias or weakness Psychiatric Psychiatric: Denies anxiety EXAM Physical Exam Const Vital Signs: 06/30/23 08:58 06/30/23 11:04 06/30/23 15:37 Temperature 98 F 98.6 F Temperature Source Temporal Temporal Pulse Rate 65 59 L Respiratory Rate 18 14 16 Blood Pressure 198/111 H 169/105 H Blood Pressure Mean 140 126 Pulse Ox 99 94 Oxygen Delivery Method Room Air Room Air Positive well nourished and well developed Constitutional Narrative: Patient is mildly ill-appearing, uncomfortable appearing General Appearance ED: well developed HEENT Reports moist mucous membranes Neck supple Chest Wall inspection of chest normal and palpation of chest normal Resp normal respiratory effort and clear to auscultation bilaterally Cardio regular rate and regular rhythm GI GI Narrative: Mild tenderness palpation of the left abdomen diffusely. Positive left CVA tenderness. No peritoneal signs. Hypoactive bowel sounds present. Back/Spine General Back: CVA tenderness left Extremity normal to inspection General Extremety ED: Negative for edema General Extremity: Negative for edema Neuro oriented x3 Sensorium / Orientation: alert Psych mental status grossly normal Mood & Affect: anxious Skin no rashes or lesions noted and no wounds MDM MDM MDM Narrative Medical decision making narrative: Patient evaluated for recurrent episode of flank pain as well as nausea and vomiting. Is initially treated with IV morphine, Zofran and fluids. Differential includes pyelonephritis, dehydration, renal colic and less likely diverticulitis/colitis. Patient had a CT beginning this month with no signs of kidney stones I have a lower suspicion for renal colic as a cause of her pain. She does not have any associated bowel symptoms lower suspicion for colitis/diverticulitis. Patient continues to have nausea and vomiting. Lab work largely unremarkable however urinalysis is still pending. Does continue to complain of severe flank pain and nausea so will be administered 1 mg IV Haldol and 4 mg IV morphine. On repeat evaluation patient is continue to have pain. She is not given 0.5 IV Dilaudid and IV Reglan. This is seem to provide more symptom control. Decision is made to obtain a CT of her abdomen pelvis with IV contrast. CT shows under distention of the colon versus colitis of the transverse, descending and sigmoid colon. This is more on her side of pain. I did discuss the case with Dr. Malachi, GI on-call, who is amenable to bringing her in. On further discussion patient states she has a family history of Crohn's disease. Patient is started empirically on Cipro and Flagyl as she has a penicillin allergy and to cover for infectious colitis. She does not have any clotting risk factors a low suspicion for ischemic colitis. Urine culture sent but I have a low suspicion for renal pathology as the cause of her symptoms based on urinalysis. Lab Data Attestation: I reviewed the patient's lab results. Labs: Laboratory Results - last 24 hr 06/30/23 06/30/23 09:40 10:35 WBC 8.9 RBC 4.06 L Hgb 13.0 Hct 39.7 MCV 97.8 MCH 32.0 MCHC 32.7 RDW Std Deviation 49.4 H RDW Coeff of Tere 13.7 Plt Count 304 MPV 8.8 Immature Gran % (Auto) 0.400 Neut % (Auto) 84.0 H Lymph % (Auto) 12.7 L [place] % (Auto) 2.6 Eos % (Auto) 0.1 Baso % (Auto) 0.2 Absolute Neuts (auto) 7.5 Absolute Lymphs (auto) 1.13 Nucleated RBC % 0 Sodium 138 Potassium 3.8 Chloride 108 H Carbon Dioxide 23.0 Anion Gap 7 BUN 12 Creatinine 0.81 Estim Creat Clear Calc 94.27 Est GFR (MDRD) Af Amer 103 Est GFR (MDRD) Non-Af 85 BUN/Creatinine Ratio 14.7 Glucose 118 H Lactic Acid 1.5 Calcium 9.1 Total Bilirubin 0.50 AST 20 ALT 23 Alkaline Phosphatase 84 Total Protein 7.6 Albumin 3.8 Globulin 3.8 Albumin/Globulin Ratio 1.0 Lipase 25 Serum , Qual NEGATIVE Urine Color Yellow Urine Clarity Cloudy Urine pH 6.5 Ur Specific [place] 1.020 Urine Protein 30 H Urine Glucose (UA) Normal Urine Ketones 15 H Urine Occult Blood 250 H Urine Nitrite Negative Urine Bilirubin Negative Urine Urobilinogen Normal Ur Leukocyte Esterase 100 H Urine RBC 10-25 SEEN Urine WBC 5-10 SEEN Ur Squamous Epith Cells 5-10 SEEN Urine Bacteria 1+ Urine Mucus 2+ Radiography Diagnostic Testing: Clinical Impression(s) from Imaging Studies Abdomen/Pelvis CT 06/30/23 12:20 IMPRESSION: Circumferential wall thickening of the transverse, descending and sigmoid colon, this may be partially secondary to their incompletely distended state however cannot exclude colitis. Electronically Signed: Rissa Merida MD at 13:17 EDT , Discharge Plan Dx/Rx/DC Orders Clinical Impression: Intractable abdominal pain, Colitis, Flank pain, Intractable vomiting with nausea Disposition Disposition: Acute Care [facility] Discharge Date/Time: 06/30/23 17:14
[2023-06-30] MEDS: 0.9% Normal Saline 1,000 ML 1000 ML IV (10:05)
[2023-06-30] MEDS: Morphine 4 MG/ML Syringe 6 MG IV (10:05)
[2023-06-30] MEDS: Ondansetron 4 MG/2 ML Vial IV ×2 (10:05→18:42)
[2023-06-30 10:07] LABS: Internal QC Validated? YES +Cl - CLEAR BKGD; Pregnancy, Serum, hCG Quali. NEGATIVE Negative
[2023-06-30 10:10] LABS: Absolute Lymphocyte Count 1.13 X10^3/uL (0.83-4.51); Absolute Neutrophil Count 7.5 X10^3/uL (2.0-7.7); Basophil# 0.02 X10^3/uL; Basophil% 0.2 % (0-1); Eosinophil# 0.01 X10^3/uL; Eosinophils% 0.1 % (0-5); Hematocrit 39.7 % (37-47); Lymphocyte # 1.13 X10^3/ul (0.83-4.51); Lymphocyte % 12.7 % (19-41); Mean Corp Hgb Conc 32.7 g/dL (32-36); Mean Corpuscular Volume 97.8 fL (81-99); Mean Platelet Vol. 8.8 fl (6.2-12.0); Monocyte# 0.23 X10^3/uL; Monocyte% 2.6 % (0-10); NRBC Flagged by Analyzer 0 % (0-5); Platelet Count 304 K/mm3 (150-450); RBC Distribution Width CV 13.7 % (11.6-14.6); RBC Distribution Width SD 49.4 fl (35.1-43.9); Red Blood Count 4.06 M/mm3 (4.2-5.4); White Blood Count 8.9 K/mm3 (4.4-11.0)
[2023-06-30 10:14] LABS: AST(SGOT) 20 U/L (15-37); Alanine Aminotransfer ALT/SGPT 23 U/L (13-56); Albumin, Serum 3.8 g/dL (3.2-5.0); Alkaline Phosphatase 84 U/L (45-117); Anion Gap 7 (5-15); BUN 12 mg/dL (7-18); BUN/Creat Ratio 14.7 RATIO (10-20); Calcium,Total 9.1 mg/dL (8.5-10.1); Chloride 108 mmol/L (98-107); Creatinine, Serum 0.81 mg/dL (0.55-1.02); EST Glomerular Filtration Rate 85 mL/min (>60); Est Glom Filt Rate - Afr Amer 103 mL/min (>60); Estimated Creatinine Clearance 94.27 ml/min; Globulin 3.8 g/dL (2.2-4.2); Glucose 118 mg/dL (74-106); Lipase 25 U/L (13-75); Potassium 3.8 mmol/L (3.5-5.1); Protein, Total 7.6 g/dL (6.4-8.2); Sodium Level 138 mmol/L (136-145)
[2023-06-30 10:26] LABS: Lactic Acid 1.5 mmol/L (0.4-1.9)
[2023-06-30] MEDS: Morphine 4 MG/ML Syringe IV (10:51)
[2023-06-30] MEDS: Haloperidol Lactate 5 MG/ML Vial 1 MG IV (10:51)
[2023-06-30 11:01] LABS: Color, Urine Yellow (Yellow); Glucose, Dipstick Normal (Normal); Ketone-Dipstick 15 mg/dl (Negative); Leukocyte Esterase-Dipstick 100 /ul (Negative); Nitrite-Dipstick Negative (Negative); Occult Blood-Urine 250 /ul (Negative); Protein-Dipstick 30 mg/dl (Negative); Urine Bilirubin Dipstick Negative (Negative); Urine Clarity Cloudy (Clear); Urine Urobilinogen Normal (Normal); Urine pH 6.5 (5.0 - 8.0)
[2023-06-30 11:04] VITALS: RESP 14
[2023-06-30 11:20] LABS: Bacteria 1+ /hpf (None Seen); Mucous, Urine 2+ /hpf (<or=2+); Red Blood Cells-Urine 10-25 SEEN /hpf (0-5); Squamous Epithelial Cells - UA 5-10 SEEN /hpf (5-10); White Blood Cells 5-10 SEEN /hpf (0-5)
--- NOTE | 2023-06-30 12:20 | CT_ITS ---
STUDY: CT ABDOMEN AND PELVIS WITH CONTRAST - URINARY TRACT REASON FOR EXAM: Female, 33 years old. Left flank pain, vomiting RADIATION DOSAGE (If Supplied By Facility): CTDIvol = ( 17.15 ) mGy, DLP = ( 439.24 ) mGycm TECHNIQUE: IV 100mL Isovue-300 was administered. Transaxial images were obtained from the dome of the diaphragm to the symphysis pubis subsequent to intravenous contrast administration. Multiplanar coronal and sagittal images were reformatted. Individualized Dose Optimization Techniques Were Used For This CT. COMPARISON: Prior study dated: June 09, 2023 FINDINGS: The visualized lung bases are unremarkable. The visualized portions of the heart are within normal limits. Normal liver. There are surgical clips within the gallbladder fossa consistent with prior cholecystectomy. Normal spleen. Normal pancreas. Normal bilateral adrenal glands. Normal visualized stomach. Normal small intestine. The colon is incompletely distended. There is circumferential wall thickening of the mid and distal transverse, descending and sigmoid colon. The appendix is visualized and appears normal. Normal abdominal aorta. No retroperitoneal adenopathy. Normal right kidney. There is a too small to characterize low-attenuation focus within the left kidney suggestive of a cyst. Normal urinary bladder. There are surgical clips within the pelvis. Normal abdominal wall. Normal osseous structures. CT/Abdomen/Pelvis W IV Cont ONLY IMPRESSION: Circumferential wall thickening of the transverse, descending and sigmoid colon, this may be partially secondary to their incompletely distended state however cannot exclude colitis. Electronically Signed: Rissa Merida MD at 13:17 EDT ,
[2023-06-30] MEDS: Metoclopramide 10 MG/2 ML Vial 5 MG IV (12:29)
[2023-06-30] MEDS: HYDROmorphone 0.5 MG/0.5 ML SYRINGE IV ×4 (12:29→23:07)
[2023-06-30] MEDS: 0.9% Normal Saline 1,000 ML 999 ML IV (13:03)
--- NOTE | 2023-06-30 15:11 | ED.RN ---
Pt. requesting more pain medication, Dr. Castaneda notified
--- NOTE | 2023-06-30 15:25 | PCM.HP.STD ---
HPI - General General Date of Admission: 06/30/23 Date of Service: 06/30/23 Chief Complaint: Left flank pain HPI Narrative AMERICA MELISSA is a 33 F with history of recurrent UTI, recurrent abdominal/flank pain, hypertension, hyperlipidemia and depression who presented to [facility] ED on 06/30/2023 with intractable left flank pain. Patient seen at bedside. She was lying in bed and appeared fairly uncomfortable. Did answer my questions but was speaking fairly quietly. Appears to be in acute pain and discomfort. Patient was notably admitted from 06/09 to 06/12 for similar concerns. She was noted to have severe flank pain and hematuria at that time. Was treated with IV ciprofloxacin then transition to Keflex and course was completed for presumed pyelonephritis. She notes that the nausea and vomiting and worsening flank pain have developed over the last couple days. She has hardly been able to keep anything down at home. She denies any pain with urination. She has been having loose bowel movements when she is able to eat, but she has not been eating much. She denies any chest pain or shortness of breath. Denies any significant fevers or chills. No other acute concerns. Labs in the ED were notable for white blood cell count 8.9, otherwise normal CBC, normal electrolytes and kidney function, normal liver function. CT abdomen pelvis with IV contrast showed circumferential wall thickening of the transverse, descending and sigmoid colon concerning for a possible colitis. PFSH Medical History Back pain Depression Flank pain Gross hematuria Gross hematuria Hypertension Injury of head and neck Migraine headache Shortness of breath on exertion Smoker Home Medications losartan 100 mg tablet 100 mg PO QHS 11/04/21 [History Last Taken 06/08/23] sertraline 150 mg capsule 150 mg PO QHS 12/07/21 [History Last Taken 06/08/23] phenazopyridine 200 mg tablet (Pyridium) 200 mg PO TID PRN PRN Bladder Spasms 7 days #30 tabs 12/08/21 [Rx Last Taken 06/09/23] ondansetron 4 mg disintegrating tablet 4 mg PO Q8H PRN nausea and vomiting #10 tabs 01/25/22 [Rx Last Taken 06/08/23] ondansetron 4 mg disintegrating tablet 4 mg PO Q8H PRN nausea and vomiting #10 tabs 07/21/22 [Rx Last Taken Unknown] oxycodone-acetaminophen 5 mg-325 mg tablet (Percocet) 1 tab PO Q6H PRN pain 3 days #10 tabs 07/21/22 [Rx Last Taken 06/09/23] ondansetron 4 mg disintegrating tablet 4 mg PO Q8H PRN PRN Nausea #10 tabs 11/18/22 [Rx Last Taken Unknown] oxycodone-acetaminophen 5 mg-325 mg tablet 1 tab PO Q6H PRN PRN Pain 3 days #12 TABLETS 11/18/22 [Rx Last Taken Unknown] albuterol sulfate 90 mcg/actuation aerosol inhaler 2 puff inhalation Q6H PRN shortness of breath or wheezing 06/09/23 [History Last Taken Unknown] atorvastatin 10 mg tablet 10 mg PO .hs 06/09/23 [History Last Taken 06/08/23] cetirizine 10 mg tablet 10 mg PO .hs 06/09/23 [History Last Taken 06/09/23] clonidine HCl 0.1 mg tablet 0.1 mg PO Q12H 06/09/23 [History Last Taken Unknown] hydrochlorothiazide 25 mg tablet 25 mg PO Q12H 06/09/23 [History Last Taken 06/09/23] ciprofloxacin HCl 500 mg tablet (Cipro) 500 mg PO BID #8 tabs 06/12/23 [Rx Last Taken Unknown] Allergy/AdvReac Type Severity Reaction Status Date / Time Penicillins Allergy Hives Verified 06/30/23 09:01 hydrocodone [From [place]] AdvReac HEADACHE Verified 06/30/23 09:01 ketorolac [From Toradol] AdvReac Hives Verified 06/30/23 09:01 sulfamethoxazole AdvReac Vomiting Verified 06/30/23 09:01 [From Bactrim] tramadol AdvReac Vomiting Verified 06/30/23 09:01 trimethoprim [From Bactrim] AdvReac Vomiting Verified 06/30/23 09:01 Family History Other Cancer Diabetes Surgical History History of History of cholecystectomy History of esophagogastroduodenoscopy (EGD) Hx of tubal ligation Social History household members: other Smoking Status: Current every day smoker tobacco type: cigarettes substance use type: does not use ROS Constitutional Constitutional: Reports fatigue and malaise; Denies chills or fever(s) Cardiovascular Cardiovascular: Denies chest pain, dyspnea on exertion or lightheadedness Respiratory/Chest Respiratory/Chest: Denies cough Gastrointestinal Gastrointestinal: Reports abdominal pain, diarrhea, nausea and vomiting; Denies constipation or melena Genitourinary Genitourinary: Denies dysuria Vital Signs Vital Signs Vital Signs: 06/30/23 08:58 06/30/23 11:04 Temperature 98 F Temperature Source Temporal Pulse Rate 65 Respiratory Rate 18 14 Blood Pressure 198/111 H Blood Pressure Mean 140 Pulse Ox 99 Oxygen Delivery Method Room Air Weight Weight: 69.536 kg Body Mass Index (BMI) 24.0 Physical Exam Const alert and oriented x3 Constitutional Narrative: Uncomfortable appearing female, laying in bed somewhat curled up, conversing normally. General Appearance: cooperative HEENT normocephalic, head/scalp atraumatic, hearing grossly normal bilaterally, nasal mucous membranes and turbinates normal and moist oral mucous membranes Eyes PERRL, EOMs intact bilaterally and conjunctivae normal Neck full ROM, no lymphadenopathy and supple Lymph Lymphatic: no lymphadenopathy noted Chest inspection of chest normal Resp normal respiratory effort, normal air movement, no use of accessory muscles and clear to auscultation bilaterally Cardio regular rate, regular rhythm, no murmurs and peripheral pulses 2+ throughout GI GI Narrative: Abdomen soft to palpation nontender. Mildly tender left flank on palpation. Back/Spine normal ROM Extremity normal to inspection, full ROM and no pedal edema Skin no rashes or lesions noted Psych mental status grossly normal Results Lab / Micro Data 06/30/23 09:40 06/30/23 09:40 Labs: Laboratory Results - last 24 hr 06/30/23 09:40: WBC 8.9, RBC 4.06 L, Hgb 13.0, Hct 39.7, MCV 97.8, MCH 32.0, MCHC 32.7, RDW Std Deviation 49.4 H, RDW Coeff of Tere 13.7, Plt Count 304, MPV 8.8, Immature Gran % (Auto) 0.400, Neut % (Auto) 84.0 H, Lymph % (Auto) 12.7 L, [place] % (Auto) 2.6, Eos % (Auto) 0.1, Baso % (Auto) 0.2, Absolute Neuts (auto) 7.5, Absolute Lymphs (auto) 1.13, Nucleated RBC % 0, Sodium 138, Potassium 3.8, Chloride 108 H, Carbon Dioxide 23.0, Anion Gap 7, BUN 12, Creatinine 0.81, Estim Creat Clear Calc 94.27, Est GFR (MDRD) Af Amer 103, Est GFR (MDRD) Non-Af 85, BUN/Creatinine Ratio 14.7, Glucose 118 H, Lactic Acid 1.5, Calcium 9.1, Total Bilirubin 0.50, AST 20, ALT 23, Alkaline Phosphatase 84, Total Protein 7.6, Albumin 3.8, Globulin 3.8, Albumin/Globulin Ratio 1.0, Lipase 25, Serum , Qual NEGATIVE 06/30/23 10:35: Urine Color Yellow, Urine Clarity Cloudy, Urine pH 6.5, Ur Specific [place] 1.020, Urine Protein 30 H, Urine Glucose (UA) Normal, Urine Ketones 15 H, Urine Occult Blood 250 H, Urine Nitrite Negative, Urine Bilirubin Negative, Urine Urobilinogen Normal, Ur Leukocyte Esterase 100 H, Urine RBC 10-25 SEEN, Urine WBC 5-10 SEEN, Ur Squamous Epith Cells 5-10 SEEN, Urine Bacteria 1+, Urine Mucus 2+ Radiology Impression Abdomen/Pelvis CT 06/30/23 12:20 IMPRESSION: Circumferential wall thickening of the transverse, descending and sigmoid colon, this may be partially secondary to their incompletely distended state however cannot exclude colitis. Electronically Signed: Rissa Merida MD at 13:17 EDT , Assessment & Plan Assessment/Plan (1) Flank pain: PLAN: Plan Patient is a 33 F with history of recurrent UTI, recurrent abdominal/flank pain, hypertension, hyperlipidemia and depression who presented to [facility] ED on 06/30/2023 with intractable left flank pain. 1. Left-sided flank pain Unclear etiology at this point. Could be secondary to fairly extensive colitis noted on CT abdomen pelvis as noted above. Could be secondary to urinary tract/renal pathology but seems less likely given no acute findings on CT. -Work-up for colitis as noted below. Given 1 dose of ciprofloxacin and metronidazole in the ED. We will hold off on further antibiotics for now, follow-up blood cultures, urine culture and stool PCR. Start maintenance IV fluids with LR 75 ml/hr. pain control with oxycodone 5 to 10 mg every 4 as needed, IV Dilaudid 0.5 to 1 mg every 3 as needed. Zofran and Reglan as needed ordered for nausea. 2. Colitis New diagnosis, noted on CT scan as noted above. Unclear etiology at this time. Patient reports diarrhea for the past several days and did recently complete an extended course of antibiotics for suspected pyelonephritis, so do have concern for possible C. difficile colitis versus other infectious colitis. Cannot rule out inflammatory bowel disease. ? GI consulted, appreciate recs. N.p.o. at midnight, planning for upper and lower endoscopy likely tomorrow. ESR and CRP normal. Protein electrophoresis, ARNEL, ANCA, IBD pending. We will start Bentyl 20 mg 3 times daily. 3. Hypertension Per patient, history of essential hypertension diagnosed in her 20s. Has strong family history of hypertension. Is unsure if she had a secondary work-up for hypertension. Home medications of hydrochlorothiazide 25 mg every 12 hours, losartan 100 mg daily, clonidine 0.1 mg every 12 hours. ?Seems to be strange home regimen for patient. Given her normal kidney function and good urine output on admission, okay to continue home hydrochlorothiazide and losartan. We will hold home clonidine for now, can restart if needed. Renin/aldosterone ordered. 4. Hyperlipidemia ?Continue home statin. 5. Depression ? Continue home sertraline. DVT prophylaxis: Ambulate CODE STATUS: Full code, verified Expected disposition: Home, 2 to 3 days Total clinical time spent by myself addressing the patient's medical issues, reviewing all the data, and collaborating with patient's care team: 55 minutes. Charges/Coding Visit Charges Inpatient E&M: 77775 Init Hosp L2
[2023-06-30] MEDS: Ciprofloxacin 400 MG/200 ML BAG 200 MG IV (15:32)
[2023-06-30 15:37] VITALS: BP 169/105; PULSE 59; RESP 16; TEMP 37; O2SAT 94
[2023-06-30 17:06] VITALS: BP 125/79; PULSE 57; RESP 16; TEMP 37.1; O2SAT 99; BMI 24.0
[2023-06-30] MEDS: Lactated Ringers 1,000 ML 75 ML IV (17:33)
--- NOTE | 2023-06-30 17:39 | EX.PCM.CON.G ---
HPI Consult Data Date of Consult: 06/30/23 HPI Narrative Reason for Consultation: Abdominal pain and abnormal CT scan HPI Narrative: AMERICA MELISSA, is a 33 F who presents with worsening abdominal pain. She had a recent admission for intractable nausea, vomiting and flank pain thought to be secondary to pyelonephritis however urine culture was negative, follows now with Dr. Matthews, presenting with worsening left-sided flank pain, nausea and vomiting. She states her symptoms started yesterday around 2 AM. She has had significant nausea, vomiting and left flank pain. She notes that she has oxycodone, Phenergan and Zofran at home but she cannot keep any of it down. She states that she has been dealing with kidney infection for about 3 weeks. She notes that she did get better she finished a course of ciprofloxacin and then in the office for urology she had a straight cath. She was then put on a course of Keflex which she finished 2 to 3 days ago. She denies any fevers but her significant other is notes that she is felt warm. She is post to have a biopsy on the sixth and she has an MRI ordered by Dr. Matthews however she is currently dealing with insurance. She is not currently having any hematuria which she has had in the past. Chart review shows that her urine culture on 06/10/2023 was negative however she does have a history of Klebsiella positive urine cultures. CT on 06/09/2023 showed scattered sigmoid diverticula with normal kidneys and no comment on any kidney stones. CT scan on 06/30/2023 displayed Circumferential wall thickening of the transverse, descending and sigmoid colon, this may be partially secondary to their incompletely distended state however cannot exclude colitis. FOR[facility] Medical History Back pain Depression Flank pain Gross hematuria Gross hematuria Hypertension Injury of head and neck Migraine headache Shortness of breath on exertion Smoker Home Medications losartan 100 mg tablet 100 mg PO QHS 11/04/21 [History Last Taken 06/08/23] sertraline 150 mg capsule 150 mg PO QHS 12/07/21 [History Last Taken 06/08/23] phenazopyridine 200 mg tablet (Pyridium) 200 mg PO TID PRN PRN Bladder Spasms 7 days #30 tabs 12/08/21 [Rx Last Taken 06/09/23] ondansetron 4 mg disintegrating tablet 4 mg PO Q8H PRN nausea and vomiting #10 tabs 01/25/22 [Rx Last Taken 06/08/23] ondansetron 4 mg disintegrating tablet 4 mg PO Q8H PRN nausea and vomiting #10 tabs 07/21/22 [Rx Last Taken Unknown] oxycodone-acetaminophen 5 mg-325 mg tablet (Percocet) 1 tab PO Q6H PRN pain 3 days #10 tabs 07/21/22 [Rx Last Taken 06/09/23] ondansetron 4 mg disintegrating tablet 4 mg PO Q8H PRN PRN Nausea #10 tabs 11/18/22 [Rx Last Taken Unknown] oxycodone-acetaminophen 5 mg-325 mg tablet 1 tab PO Q6H PRN PRN Pain 3 days #12 TABLETS 11/18/22 [Rx Last Taken Unknown] albuterol sulfate 90 mcg/actuation aerosol inhaler 2 puff inhalation Q6H PRN shortness of breath or wheezing 06/09/23 [History Last Taken Unknown] atorvastatin 10 mg tablet 10 mg PO .hs 06/09/23 [History Last Taken 06/08/23] cetirizine 10 mg tablet 10 mg PO .hs 06/09/23 [History Last Taken 06/09/23] clonidine HCl 0.1 mg tablet 0.1 mg PO Q12H 06/09/23 [History Last Taken Unknown] hydrochlorothiazide 25 mg tablet 25 mg PO Q12H 06/09/23 [History Last Taken 06/09/23] ciprofloxacin HCl 500 mg tablet (Cipro) 500 mg PO BID #8 tabs 06/12/23 [Rx Last Taken Unknown] Allergy/AdvReac Type Severity Reaction Status Date / Time Penicillins Allergy Hives Verified 06/30/23 09:01 hydrocodone [From [place]] AdvReac HEADACHE Verified 06/30/23 09:01 ketorolac [From Toradol] AdvReac Hives Verified 06/30/23 09:01 sulfamethoxazole AdvReac Vomiting Verified 06/30/23 09:01 [From Bactrim] tramadol AdvReac Vomiting Verified 06/30/23 09:01 trimethoprim [From Bactrim] AdvReac Vomiting Verified 06/30/23 09:01 Family History Other Cancer Diabetes Surgical History History of History of cholecystectomy History of esophagogastroduodenoscopy (EGD) Hx of tubal ligation Social History household members: other Smoking Status: Current every day smoker tobacco type: cigarettes substance use type: does not use ROS Constitutional Constitutional: Denies chills, fatigue, fever(s) or malaise Eyes Eyes: Denies blurry vision ENT HEENT: Denies headache(s) or nasal discharge Cardiovascular Cardiovascular: Denies chest pain, dyspnea on exertion or syncope Respiratory/Chest Respiratory/Chest: Denies cough, shortness of breath at rest or shortness of breath with exertion Gastrointestinal Gastrointestinal: Reports nausea and vomiting; Denies constipation or diarrhea Genitourinary Genitourinary: Denies dysuria Neurologic Neurologic: Denies focal weakness, numbness or tremor(s) Psychiatric Psychiatric: Denies anxiety or depression Physical Exam Const alert, oriented x3 and no apparent distress General Appearance: cooperative, comfortable, well kempt and well developed HEENT normocephalic, head/scalp atraumatic, hearing grossly normal bilaterally, moist oral mucous membranes and oropharynx normal Mouth: oral and palatal mucosa normal Eyes PERRL and EOMs intact bilaterally Neck no lymphadenopathy, supple and no JVD Lymph Lymphatic: no lymphadenopathy noted and no lymphedema noted Resp normal respiratory effort, normal air movement and clear to auscultation bilaterally Cardio regular rate, regular rhythm, S1 normal heart sound, S2 normal heart sound and no murmurs Palpation: normal PMI GI normal to inspection, nondistended, normoactive bowel sounds, soft to palpation, non-tender and non-distended Extremity normal to inspection, full ROM, normal capillary refill, no clubbing, cyanosis or edema and no calf tenderness General Extremity: no tenderness to palpation of joints or extremities Skin no rashes or lesions noted, no wounds and skin turgor normal General Skin Exam: no breakdown and turgor normal Neuro oriented x3, CN's II-XII intact bilaterally, moves all extremities, no focal motor deficits, no sensory deficits noted and deep tendon reflexes 2+ bilaterally Sensorium / Orientation: awake and alert Speech: speech normal Motor Exam: strength 5/5 throughout and general weakness Psych thought process normal Appearance: appropriate Lab / Micro Data 06/30/23 09:40 06/30/23 09:40 Labs: Laboratory Results - last 24 hr 06/30/23 09:40: WBC 8.9, RBC 4.06 L, Hgb 13.0, Hct 39.7, MCV 97.8, MCH 32.0, MCHC 32.7, RDW Std Deviation 49.4 H, RDW Coeff of Tere 13.7, Plt Count 304, MPV 8.8, Immature Gran % (Auto) 0.400, Neut % (Auto) 84.0 H, Lymph % (Auto) 12.7 L, Bee % (Auto) 2.6, Eos % (Auto) 0.1, Baso % (Auto) 0.2, Absolute Neuts (auto) 7.5, Absolute Lymphs (auto) 1.13, Nucleated RBC % 0, Sodium 138, Potassium 3.8, Chloride 108 H, Carbon Dioxide 23.0, Anion Gap 7, BUN 12, Creatinine 0.81, Estim Creat Clear Calc 94.27, Est GFR (MDRD) Af Amer 103, Est GFR (MDRD) Non-Af 85, BUN/Creatinine Ratio 14.7, Glucose 118 H, Lactic Acid 1.5, Calcium 9.1, Total Bilirubin 0.50, AST 20, ALT 23, Alkaline Phosphatase 84, Total Protein 7.6, Albumin 3.8, Globulin 3.8, Albumin/Globulin Ratio 1.0, Lipase 25, Serum , Qual NEGATIVE 06/30/23 10:35: Urine Color Yellow, Urine Clarity Cloudy, Urine pH 6.5, Ur Specific [place] 1.020, Urine Protein 30 H, Urine Glucose (UA) Normal, Urine Ketones 15 H, Urine Occult Blood 250 H, Urine Nitrite Negative, Urine Bilirubin Negative, Urine Urobilinogen Normal, Ur Leukocyte Esterase 100 H, Urine RBC 10-25 SEEN, Urine WBC 5-10 SEEN, Ur Squamous Epith Cells 5-10 SEEN, Urine Bacteria 1+, Urine Mucus 2+ Radiology Impression Abdomen/Pelvis CT 06/30/23 12:20 IMPRESSION: Circumferential wall thickening of the transverse, descending and sigmoid colon, this may be partially secondary to their incompletely distended state however cannot exclude colitis. Electronically Signed: Rissa Merida MD at 13:17 EDT , Assessment & Plan Assessment/Plan (1) Intractable vomiting with nausea: (2) Colitis: (3) Intractable abdominal pain: PLAN: Plan 33-year-old recurrent abdominal pain. Differential this is still fluid a bowel syndrome with diarrhea, gastroparesis, autoimmune enteritis, inflammatory bowel disease. She should undergo an upper and lower endoscopy to evaluate upper or lower GI tract. I would not put on steroids at this time. She can go on Bentyl scheduled 20 mg p.o. or IV 3 times a day. Recommended check ESR CRP, protein electrophoresis, ARNEL, ANCA, IBD SGI. When she undergoes upper lower endoscopy were February 06 evaluate her more thoroughly. I will be very liberal with opioid medications because they can induce narcotic bowel syndrome. Charges/Coding Visit Charges Inpatient E&M: 01868 Init Hosp L3
[2023-06-30 18:10] LABS: Erythrocyte Sedimentation Rate 7 mm/hr (0-30)
[2023-06-30] MEDS: oxyCODONE 5 MG Tablet PO (18:12)
[2023-06-30] MEDS: Acetaminophen 325 MG Tablet 650 MG PO (18:12)
[2023-06-30 18:32] LABS: CRP < 2.90 mg/L (0.0-3.0)
--- NOTE | 2023-06-30 18:43 | NURSING ---
. pt states that tylenol and oxy didn't stay down, i threw it up. inquired as to where so nurse can document, pt states she vomited into the toilet i accidentally flushed it. prn med given for nausea. hat remains in toilet for stool specimen
[2023-06-30] MEDS: Bisacodyl 5 MG Tablet 20 MG PO (19:41)
[2023-06-30 19:50] VITALS: BP 148/88
[2023-06-30] MEDS: 0.9% Saline Lock 10 ML Syringe IV ×3 (20:03→23:08)
[2023-06-30] MEDS: proCHLORPERazine 10 MG/2 ML Vial 5 MG IV (21:15)
[2023-06-30] MEDS: Polyethylene Glycol 3350 BOWEL PREP 1 BOTTLE PO (21:15)
[2023-06-30] MEDS: hydroCHLOROthiazide 25 MG Tablet PO (21:16)
[2023-06-30] MEDS: Sertraline 100 MG Tablet 150 MG PO (21:16)
[2023-06-30] MEDS: Atorvastatin Calcium 10 MG Tablet PO (21:16)
[2023-06-30] MEDS: Losartan Potassium 100 MG Tablet PO (21:16)
[2023-06-30 23:00] VITALS: BP 152/92; PULSE 73; RESP 18; TEMP 37.7; O2SAT 99
[2023-07-01] VITALS (12 sets, daily range): BP systolic 121–176; BP diastolic 75–106; PULSE 52–68; RESP 16–18; TEMP 35.7–36.8; O2SAT 97–100; BMI 24.0
[2023-07-01] MEDS: 0.9% Saline Lock 10 ML Syringe IV ×6 (02:30→22:09)
[2023-07-01] MEDS: Ondansetron 4 MG/2 ML Vial IV ×2 (02:30→11:26)
[2023-07-01] MEDS: HYDROmorphone 0.5 MG/0.5 ML SYRINGE IV ×6 (02:38→22:08)
[2023-07-01] MEDS: proCHLORPERazine 10 MG/2 ML Vial 5 MG IV ×3 (04:27→22:09)
[2023-07-01] MEDS: Lactated Ringers 1,000 ML 75 ML IV ×2 (04:29→19:57)
[2023-07-01 07:37] LABS: Hematocrit 35.3 % (37-47); Hemoglobin 11.8 g/dL (12.0-15.0); Mean Corp Hgb Conc 33.4 g/dL (32-36); Mean Corpuscular Hgb 32.2 pg (27.0-32.0); Mean Corpuscular Volume 96.2 fL (81-99); Platelet Count 269 K/mm3 (150-450); RBC Distribution Width CV 13.2 % (11.6-14.6); RBC Distribution Width SD 47.3 fl (35.1-43.9); Red Blood Count 3.67 M/mm3 (4.2-5.4); White Blood Count 6.4 K/mm3 (4.4-11.0)
[2023-07-01 08:02] LABS: Anion Gap 8 (5-15); BUN 8 mg/dL (7-18); BUN/Creat Ratio 15.6 RATIO (10-20); Calcium,Total 8.5 mg/dL (8.5-10.1); Chloride 102 mmol/L (98-107); Creatinine, Serum 0.51 mg/dL (0.55-1.02); EST Glomerular Filtration Rate 145 mL/min (>60); Est Glom Filt Rate - Afr Amer 175 mL/min (>60); Estimated Creatinine Clearance 149.72 ml/min; Glucose 105 mg/dL (74-106); Potassium 2.8 mmol/L (3.5-5.1); Sodium Level 136 mmol/L (136-145)
--- NOTE | 2023-07-01 08:17 | PCM.PN.HOSP ---
Reason for Visit Reason for Visit: Diagnoses Noninfective gastroenteritis and colitis, unspecified (06/30/23) Unspecified abdominal pain (06/30/23) Nausea with vomiting, unspecified (06/30/23) Subjective Subjective Patient is a 33-year-old lady with history of recurrent UTIs admitted with left flank pain as well as intractable nausea and. Patient was found to have abnormal urinalysis in addition to evidence of colitis on CT admitted to regular nursing floor for further management Objective Data Objective Data Vital Signs: Vital Signs Temp Pulse Resp BP Pulse Ox O2 Del Method 96.3 F L 59 L 18 176/106 H 100 Room Air 07/01/23 08:09 07/01/23 08:09 07/01/23 08:09 07/01/23 08:09 07/01/23 08:09 07/01/23 08:09 Oxygen Delivery Method Room Air Weight: 69.536 kg Body Mass Index (BMI) 24.0 Intake & Output: Intake and Output for Last 24 Hours 06/29/23 06/30/23 07/01/23 23:59 23:59 23:59 Intake Total 2350 / 2350 820 / 820 Balance 2350 / 2350 820 / 820 Lab / Micro Data 07/01/23 06:15 07/01/23 06:15 Labs: Laboratory Results - last 24 hr 06/30/23 09:40: WBC 8.9, RBC 4.06 L, Hgb 13.0, Hct 39.7, MCV 97.8, MCH 32.0, MCHC 32.7, RDW Std Deviation 49.4 H, RDW Coeff of Tere 13.7, Plt Count 304, MPV 8.8, Immature Gran % (Auto) 0.400, Neut % (Auto) 84.0 H, Lymph % (Auto) 12.7 L, [place] % (Auto) 2.6, Eos % (Auto) 0.1, Baso % (Auto) 0.2, Absolute Neuts (auto) 7.5, Absolute Lymphs (auto) 1.13, Nucleated RBC % 0, ESR 7, Sodium 138, Potassium 3.8, Chloride 108 H, Carbon Dioxide 23.0, Anion Gap 7, BUN 12, Creatinine 0.81, Estim Creat Clear Calc 94.27, Est GFR (MDRD) Af Amer 103, Est GFR (MDRD) Non-Af 85, BUN/Creatinine Ratio 14.7, Glucose 118 H, Lactic Acid 1.5, Calcium 9.1, Total Bilirubin 0.50, AST 20, ALT 23, Alkaline Phosphatase 84, C-React Prot Ext Range < 2.90, Total Protein 7.6, Albumin 3.8, Globulin 3.8, Albumin/Globulin Ratio 1.0, Lipase 25, Serum , Qual NEGATIVE 06/30/23 10:35: Urine Color Yellow, Urine Clarity Cloudy, Urine pH 6.5, Ur Specific [place] 1.020, Urine Protein 30 H, Urine Glucose (UA) Normal, Urine Ketones 15 H, Urine Occult Blood 250 H, Urine Nitrite Negative, Urine Bilirubin Negative, Urine Urobilinogen Normal, Ur Leukocyte Esterase 100 H, Urine RBC 10-25 SEEN, Urine WBC 5-10 SEEN, Ur Squamous Epith Cells 5-10 SEEN, Urine Bacteria 1+, Urine Mucus 2+ 07/01/23 06:15: WBC 6.4, RBC 3.67 L, Hgb 11.8 L, Hct 35.3 L, MCV 96.2, MCH 32.2 H, MCHC 33.4, RDW Std Deviation 47.3 H, RDW Coeff of Tere 13.2, Plt Count 269, MPV 9.0, Sodium 136, Potassium 2.8 L, Chloride 102, Carbon Dioxide 26.0, Anion Gap 8, BUN 8, Creatinine 0.51 L, Estim Creat Clear Calc 149.72, Est GFR (MDRD) Af Amer 175, Est GFR (MDRD) Non-Af 145, BUN/Creatinine Ratio 15.6, Glucose 105, Calcium 8.5 Radiography Diagnostic Testing: Radiology Impression Abdomen/Pelvis CT 06/30/23 12:20 IMPRESSION: Circumferential wall thickening of the transverse, descending and sigmoid colon, this may be partially secondary to their incompletely distended state however cannot exclude colitis. Electronically Signed: Rissa Merida MD at 13:17 EDT , Physical Exam Narrative GENERAL: cooperative HEENT: Atraumatic; normocephalic EYES; Anicteric, Normal Conjunctiva NECK; supple, normal thyroid, RESPIRATORY: Diminished to auscultation CARDIOVASCULAR: Regular S1 S2, GI: soft, normoactive bowel sounds, : No Renal angle tenderness; EXTREMITIES: No edema, no clubbing, MUSCULOSKELETAL: no muscle wasting NEURO: Awake; no lateralizing signs. SKIN: No Rash PSYCH; Flat affect Assessment & Plan Assessment/Plan (1) Flank pain: PLAN: Plan Patient is a 33-year-old lady with history of recurrent UTIs admitted with left flank pain. Patient was found to have abnormal urinalysis in addition to evidence of colitis on CT admitted to regular nursing floor for further management 1. Acute colitis ? CT of the abdomen and pelvis obtained on admission did show circumferential wall thickening of the transverse, descending and sigmoid colon, this may be partially secondary to their incompletely distended state however cannot exclude colitis. Patient started on ciprofloxacin as well as Flagyl in addition to symptom management with Dilaudid and Zofran as needed. Patient was also seen in consultation by Dr. Ly with GI plan is for patient to undergo endoscopic evaluation 2. Acute cystitis ? Patient is on Cipro culture sent 3. Dyslipidemia -Patient is on statin therapy, continued at home dose 4. Hypertension - Blood pressure controlled, home medications losartan and HCTZ continued with dose adjustment as needed 5. Depression ? Patient is on sertraline did continue 6. DVT prophylaxis ? Low risk did encourage early ambulation 7. Severe hypokalemia ? Corrected per protocol repeat labs ordered for a.m. Time spent in the patient's overall evaluation,decision-making process, review of diagnostic data, adjustment of management, discussion with other providers, nursing nursing and ancillary staff involved in patient's care documentation,50 Minutes Charges/Coding Visit Charges Inpatient E&M: 91072 Subs Hosp L3
[2023-07-01] MEDS: hydroCHLOROthiazide 25 MG Tablet PO (09:06)
[2023-07-01] MEDS: Dicyclomine 10 MG Capsule 20 MG PO (09:06)
[2023-07-01] MEDS: Potassium Chloride 10mEq/100mL 10 MEQ/100 ML IV.SOLN. 100 MEQ IV BOLUS (11:32)
--- NOTE | 2023-07-01 11:45 | CASEMGMT ---
MARIO ALBERTO CARMONA DC Planning Assessment: Face to Face with patient for initial transition planning/care coordination assessment.?AMRIO ALBERTO CARMONA introduced self and role at [facility], pt alert, answering questions appropriately, voices understanding, and is agreeable to participating in assessment.? Care providers, pharmacy,?and demographics verified. ? Admitting dx: Colitis PCP: MARIZA Rodriguez Specialists: Byron (urology) Preferred Pharmacy: [facility] [place] Insurance: [employer] Prescription Benefit:?Yes LNOK: son (19yo), sister Melissa Living Arrangements: Pt lives in a two story home with her five children ranging in age from 19 to 11yo. Pt denies any difficulty with steps and states she is independent with all ADLs. Transportation: pt drives and denies any transportation issues. DME/HHC/SNF: none ? Plan: Return home with the support of her family. Pt denies any discharge needs at this time. Jose Solorio RN CM
[2023-07-01] MEDS: Potassium Chloride 10mEq/100mL 10 MEQ/100 ML IV.SOLN. 75 MEQ IV BOLUS ×3 (13:36→17:00)
--- NOTE | 2023-07-01 17:25 | EGD_PTH ---
PATIENT: AMERICA MELISSA LOC: MS3 U#:[id number] AGE/SX: 33/F ROOM: [facility]313 RE06/30/[address]: Dr. Kendrick Trivedi MD : 1990 BED: 1 DIS: 07/02/2023 SPEC #: [id number] RECD: 07/04/23 08:13 STATUS: LAURA ASHFORD #: [id number] SANTIAGO: 07/01/23 17:[address]: Ronal Ly DEPT: SURGICAL PATHOLOGY RECD BY: Stella Rebollar ENTERED: 07/04/23 11:11 SP TYPE: EGD BIOPSY OTHR DR: Dr. Acosta Higgins, DO MD Rosaura Williamson, FEEDER/FOLDER-C Tissues: A - Duodenum, NOS B - Gastric mucous membrane C - COLON BIOPSY Procedures: Surgery Specimen Level IV Comments: @ Ordering doctor for SUIV edited from to @ by YASMINE at 07/04/23 1431 @ Submitting doctor edited from to @ by RGOOD at 07/04/23 1431 HEADER OPERATION: Colonoscopy with biopsy, EGD with biopsies PRE-OP DIAGNOSIS: GI bleed TISSUE SUBMITTED: A - Duodenum biopsy, B - Gastric antrum biopsy for H. pylori, C - Random colon biopsy MICROSCOPIC DIAGNOSIS A. Duodenum, biopsy: Fragments of duodenal mucosa, no pathologic diagnosis. Fragments of gastric mucosa with mild chronic gastritis. B. Gastric antrum, biopsy: Mild gastritis. See microscopic description and comment. C. Colon, random biopsy: Fragments of colonic mucosa, no pathologic diagnosis. SJ:millicent 07/05/2023 COMMENT B. The results of immunohistochemistry for Helicobacter pylori will be reported separately ([id number]). MICROSCOPIC DESCRIPTION Slides are reviewed. B. The specimen shows fragments of gastric mucosa with chronic inflammatory cell infiltrates in the lamina propria consisting of lymphocytes and plasma cells, consistent with mild chronic gastritis. GROSS DESCRIPTION A - Received in fixative is one container labeled with the patient's name and designated biopsy duodenum. The specimen consists of multiple irregular fragments of light dodson soft tissue that in aggregate measure 1.5 x 0.4 x 0.1 cm. The specimen is totally submitted in one cassette. B - Received in fixative is one container labeled with the patient's name and designated gastric antrum biopsy. The specimen consists of multiple irregular fragments of light dodson soft tissue that in aggregate measure 0.8 x 0.5 x 0.1 cm. The specimen is totally submitted in one cassette. C - Received in fixative is one container labeled with the patient's name and designated random colon. The specimen consists of multiple irregular fragments of light dodson soft tissue that in aggregate measure 1.0 x 0.3 x 0.1 cm. The specimen is totally submitted in one cassette. / SJ:rg 07/04/2023 TC:3 CPT: 63884 x3
--- NOTE | 2023-07-01 17:25 | IMM_PTH ---
PATIENT: AMERICA MELISSA LOC: 3 U#:[id number] AGE/SX: 33/F ROOM: [facility] [place] RE06/30/[address]: Dr. Kendrick Trivedi MD : 1990 BED: 1 DIS: 07/02/2023 SPEC #: [id number] RECD: 07/04/23 14:29 STATUS: LAURA REMasood #: [id number] SANTIAGO: 07/01/23 17:[address]: Ronal Ly DEPT: IMMUNOHISTOCHEMISTRY RECD BY: Magnolia Ambriz ENTERED: 07/04/23 14:30 SP TYPE: IMMUNO OTHR DR: DO Dr. Kendrick Hoyt MD Debra Lewis, PRODUCTION WEIGHER-C Tissues: B - Stomach, NOS Procedures: H Pylori (initial) PHYSICIAN & INSTITUTION [place] [id number] SPECIMEN INFORMATION: Tissue Source: B - Gastric antrum Clinical Info: GI bleed Specimen Number: [id number] CPT code: 40310 METHODOLOGY: Deparaffinized sections of prefer/formalin-fixed tissue or PAP/DQ stained slides are incubated with monoclonal/polyclonal antibodies/oligonucleotide probes. Localization is made via biotin free immunoperoxidase method. Appropriate controls are performed and reacted as expected. Results on target cell population are indicated in the following table: RESULTS: ANTIBODY / CLONE RESULT Block B H Pylori (polyclonal) negative These tests were developed and their performance characteristics determined by [facility]. They may not have been cleared or approved by the U.S. Food and Drug Administration. The FDA has determined that such clearance or approval is not necessary. The above immunohistochemical/dualISH markers are ordered and reviewed by the Pathologist. INTERPRETATION: B. Gastric antrum, biopsy: Negative for Helicobacter pylori organisms. SJ:millicent 07/05/2023
--- NOTE | 2023-07-01 18:34 | OP.CCLET_ITS ---
07/01/2023 Rosaura Rodriguez Re : Upper GI endoscopy procedure for Christi Wood Dear Michael This procedure was performed on Saturday, July 01, 2023. My impressions and recommendations are as follows: Impressions : - Normal esophagus. - Chronic gastritis. Biopsied. - No gross lesions in the second portion of the duodenum. Biopsied. Recommendations : - Return patient to the floor - Resume previous diet. - Continue present medications. - Await pathology results. My findings are described in the full procedure note, which is enclosed. If I can be of further assistance, please feel free to contact me at . Sincerely, Ronal Ly, 07/01/2023 6:33:28 PM This report has been signed electronically.
--- NOTE | 2023-07-01 18:34 | OP.EGD_ITS ---
Patient Name: Christi Wood Procedure Date: 07/01/2023 6:03 PM Date of : 1990 Age: 33 Procedure: Upper GI endoscopy Indications: Epigastric abdominal pain, Functional Dyspepsia Providers: Ronal Ly DO Medicines: Monitored Anesthesia Care Patient Profile: This is a 33 year old female. Refer to note in patient chart for documentation of history and physical. Patient has symptoms of acute abdominal cramping. Complications: No immediate complications. Procedure: Pre-Anesthesia Assessment: - Prior to the procedure, a History and Physical was performed, and patient medications and allergies were reviewed. The risks and benefits of the procedure and the sedation options and risks were discussed with the patient. All questions were answered and informed consent was obtained. Patient identification and proposed procedure were verified by the physician in the pre-procedure area. Mental Status Examination: alert and oriented. Airway Examination: normal oropharyngeal airway and neck mobility. Respiratory Examination: clear to auscultation. CV Examination: normal. Prophylactic Antibiotics: The patient does not require prophylactic antibiotics. Prior Anticoagulants: The patient has taken no anticoagulant or antiplatelet agents. After reviewing the risks and benefits, the patient was deemed in satisfactory condition to undergo the procedure. The anesthesia plan was to use monitored anesthesia care (MAC). Immediately prior to administration of medications, the patient was re-assessed for adequacy to receive sedatives. The heart rate, respiratory rate, oxygen saturations, blood pressure, adequacy of pulmonary ventilation, and response to care were monitored throughout the procedure. The physical status of the patient was re-assessed after the procedure. After obtaining informed consent, the endoscope was passed under direct vision. Throughout the procedure, the patient's blood pressure, pulse, and oxygen saturations were monitored continuously. The Colonoscope was introduced through the mouth, and advanced to the second part of duodenum. The upper GI endoscopy was accomplished without difficulty. The patient tolerated the procedure well. Scope In: 6:07:30 PM Scope Out: 6:13:35 PM Total Procedure Duration Time 0 hours 6 minutes 5 seconds Findings: The examined esophagus was normal. Diffuse mild inflammation characterized by erosions and erythema was found in the gastric body. Biopsies were taken with a cold forceps for histology. Verification of patient identification for the specimen was done. Estimated blood loss was minimal. Biopsies were taken with a cold forceps for Helicobacter pylori testing. Verification of patient identification for the specimen was done. Estimated blood loss was minimal. No gross lesions were noted in the second portion of the duodenum. Biopsies were taken with a cold forceps for histology. Verification of patient identification for the specimen was done. Estimated blood loss was minimal. Impression: - Normal esophagus. - Chronic gastritis. Biopsied. - No gross lesions in the second portion of the duodenum. Biopsied. Recommendation: - Return patient to the floor - Resume previous diet. - Continue present medications. - Await pathology results. Procedure Code(s): --- Professional --- 38598, Esophagogastroduodenoscopy, flexible, transoral; with biopsy, single or multiple CPT copyright 2021 [employer]. All rights reserved. The codes documented in this report are preliminary and upon furniture builder review may be revised to meet current compliance requirements. Ronal Ly DO 07/01/2023 6:33:28 PM This report has been signed electronically. Number of Addenda: 0 Note Initiated On: 07/01/2023 6:03 PM
--- NOTE | 2023-07-01 18:35 | OP.COLON_ITS ---
Patient Name: Christi Wood Procedure Date: 07/01/2023 6:13 PM Date of : 1990 Age: 33 Procedure: Colonoscopy Indications: Hematochezia Providers: Ronal Ly DO Medicines: Monitored Anesthesia Care Patient Profile: This is a 33 year old female. Refer to note in patient chart for documentation of history and physical. Patient has symptoms of acute abdominal cramping. Last Colonoscopy: none. The patient's first colonoscopy is today. Complications: No immediate complications. Procedure: Pre-Anesthesia Assessment: - Prior to the procedure, a History and Physical was performed, and patient medications and allergies were reviewed. The risks and benefits of the procedure and the sedation options and risks were discussed with the patient. All questions were answered and informed consent was obtained. Patient identification and proposed procedure were verified by the physician in the pre-procedure area. Mental Status Examination: alert and oriented. Airway Examination: normal oropharyngeal airway and neck mobility. Respiratory Examination: clear to auscultation. CV Examination: normal. Prophylactic Antibiotics: The patient does not require prophylactic antibiotics. Prior Anticoagulants: The patient has taken no anticoagulant or antiplatelet agents. After reviewing the risks and benefits, the patient was deemed in satisfactory condition to undergo the procedure. The anesthesia plan was to use monitored anesthesia care (MAC). Immediately prior to administration of medications, the patient was re-assessed for adequacy to receive sedatives. The heart rate, respiratory rate, oxygen saturations, blood pressure, adequacy of pulmonary ventilation, and response to care were monitored throughout the procedure. The physical status of the patient was re-assessed after the procedure. After I obtained informed consent, the scope was passed under direct vision. Throughout the procedure, the patient's blood pressure, pulse, and oxygen saturations were monitored continuously. The Colonoscope was introduced through the anus and advanced to the cecum, identified by appendiceal orifice and ileocecal valve. The colonoscopy was performed without difficulty. The patient tolerated the procedure well. The quality of the bowel preparation was inadequate. The ileocecal valve, appendiceal orifice, and rectum were photographed. Scope In: 6:18:44 PM Scope Withdrawal Time 0 hours 4 minutes 11 seconds Scope Out: 6:27:37 PM Total Procedure Duration Time 0 hours 8 minutes 53 seconds Findings: Hemorrhoids were found on perianal exam. A large amount of stool was found in the entire colon, precluding visualization. An area of mildly congested mucosa was found in the sigmoid colon, in the descending colon, at the hepatic flexure and in the ascending colon. Biopsies were taken with a cold forceps for histology. Verification of patient identification for the specimen was done. Estimated blood loss was minimal. Impression: - Preparation of the colon was inadequate. - Hemorrhoids found on perianal exam. - Stool in the entire examined colon. - Congested mucosa in the sigmoid colon, in the descending colon, at the hepatic flexure and in the ascending colon. Biopsied. Recommendation: - [facility]. - Resume previous diet. - Repeat colonoscopy is recommended because the bowel preparation was suboptimal. The colonoscopy date will be determined after pathology results from today's exam become available for review. - Continue present medications. Procedure Code(s): --- Professional --- 99883, Colonoscopy, flexible; with biopsy, single or multiple CPT copyright 2021 [employer]. All rights reserved. The codes documented in this report are preliminary and upon inpatient coder review may be revised to meet current compliance requirements. Ronal Ly DO 07/01/2023 6:35:25 PM This report has been signed electronically. Number of Addenda: 0 Note Initiated On: 07/01/2023 6:13 PM
--- NOTE | 2023-07-01 18:36 | OP.CCLET_ITS ---
07/01/2023 Rosaura Rodriguez Re : Colonoscopy procedure for Christi Wood Dear Michael This procedure was performed on Saturday, July 01, 2023. My impressions and recommendations are as follows: Impressions : - Preparation of the colon was inadequate. - Hemorrhoids found on perianal exam. - Stool in the entire examined colon. - Congested mucosa in the sigmoid colon, in the descending colon, at the hepatic flexure and in the ascending colon. Biopsied. Recommendations : - [facility]. - Resume previous diet. - Repeat colonoscopy is recommended because the bowel preparation was suboptimal. The colonoscopy date will be determined after pathology results from today's exam become available for review. - Continue present medications. My findings are described in the full procedure note, which is enclosed. If I can be of further assistance, please feel free to contact me at . Sincerely, Ronal Ly, 07/01/2023 6:35:25 PM This report has been signed electronically.
--- NOTE | 2023-07-01 19:12 | SUR.PHASEI ---
sent report to [facility], called to see if pt is okay to come up. nurses in report, told they would call us back when they are ready.
[2023-07-01] MEDS: Scopolamine 1mg/72hr Patch 1 PATCH TD (19:57)
[2023-07-01] MEDS: metroNIDAZOLE 500 MG/100 ML BAG 100 MG IV (21:41)
[2023-07-01] MEDS: Ciprofloxacin 400 MG/200 ML BAG 200 MG IV (23:07)
[2023-07-02 02:51] VITALS: BP 147/63; PULSE 56; RESP 16; TEMP 36.7; O2SAT 98
[2023-07-02] MEDS: HYDROmorphone 0.5 MG/0.5 ML SYRINGE IV ×2 (02:51→08:19)
[2023-07-02] MEDS: Ondansetron 4 MG/2 ML Vial IV (02:51)
[2023-07-02] MEDS: metroNIDAZOLE 500 MG/100 ML BAG 100 MG IV (05:19)
[2023-07-02] MEDS: Phenazopyridine 95 MG Tablet 190 MG PO (05:22)
[2023-07-02] MEDS: Dicyclomine 10 MG Capsule 20 MG PO (05:24)
[2023-07-02 06:46] LABS: Absolute Lymphocyte Count 1.76 X10^3/uL (0.83-4.51); Absolute Neutrophil Count 3.3 X10^3/uL (2.0-7.7); Basophil# 0.03 X10^3/uL; Basophil% 0.5 % (0-1); Eosinophil# 0.09 X10^3/uL; Eosinophils% 1.6 % (0-5); Hematocrit 34.8 % (37-47); Hemoglobin 11.6 g/dL (12.0-15.0); Lymphocyte # 1.76 X10^3/ul (0.83-4.51); Lymphocyte % 31.4 % (19-41); Mean Corp Hgb Conc 33.3 g/dL (32-36); Mean Corpuscular Hgb 32.1 pg (27.0-32.0); Mean Corpuscular Volume 96.4 fL (81-99); Mean Platelet Vol. 8.8 fl (6.2-12.0); Monocyte# 0.42 X10^3/uL; Monocyte% 7.5 % (0-10); NRBC Flagged by Analyzer 0 % (0-5); Neutrophil # 3.28 X10^3/uL (2.7-7.7); Neutrophil % 58.6 % (47-70); Platelet Count 218 K/mm3 (150-450); RBC Distribution Width CV 12.9 % (11.6-14.6); RBC Distribution Width SD 45.8 fl (35.1-43.9); Red Blood Count 3.61 M/mm3 (4.2-5.4); White Blood Count 5.6 K/mm3 (4.4-11.0)
[2023-07-02 07:11] LABS: Anion Gap 8 (5-15); BUN 8 mg/dL (7-18); BUN/Creat Ratio 13.6 RATIO (10-20); Calcium,Total 8.3 mg/dL (8.5-10.1); Chloride 103 mmol/L (98-107); Creatinine, Serum 0.59 mg/dL (0.55-1.02); EST Glomerular Filtration Rate 124 mL/min (>60); Est Glom Filt Rate - Afr Amer 150 mL/min (>60); Estimated Creatinine Clearance 129.42 ml/min; Glucose 97 mg/dL (74-106); Phosphorus 3.4 mg/dL (2.5-4.9); Potassium 3.2 mmol/L (3.5-5.1); Sodium Level 139 mmol/L (136-145)
--- NOTE | 2023-07-02 08:09 | PCM.PN.HOSP ---
Reason for Visit Reason for Visit: Diagnoses Noninfective gastroenteritis and colitis, unspecified (06/30/23) Unspecified abdominal pain (06/30/23) Nausea with vomiting, unspecified (06/30/23) Objective Data Objective Data Vital Signs: Vital Signs Temp Pulse Resp BP Pulse Ox O2 Del Method 98.1 F 56 L 16 147/63 H 98 Room Air 07/02/23 02:51 07/02/23 02:51 07/02/23 02:51 07/02/23 02:51 07/02/23 02:51 07/02/23 02:51 Oxygen Delivery Method Room Air Weight: 69.536 kg Body Mass Index (BMI) 24.0 Intake & Output: Intake and Output for Last 24 Hours 06/30/23 07/01/23 07/02/23 23:59 23:59 23:59 Intake Total 2350 / 2350 2820.25 / 2820.25 1013.75 / 1013.75 Balance 2350 / 2350 2820.25 / 2820.25 1013.75 / 1013.75 Lab / Micro Data 07/02/23 06:35 07/02/23 06:35 Labs: Laboratory Results - last 24 hr 07/02/23 06:35: WBC 5.6, RBC 3.61 L, Hgb 11.6 L, Hct 34.8 L, MCV 96.4, MCH 32.1 H, MCHC 33.3, RDW Std Deviation 45.8 H, RDW Coeff of Tere 12.9, Plt Count 218, MPV 8.8, Immature Gran % (Auto) 0.400, Neut % (Auto) 58.6, Lymph % (Auto) 31.4, [place] % (Auto) 7.5, Eos % (Auto) 1.6, Baso % (Auto) 0.5, Absolute Neuts (auto) 3.3, Absolute Lymphs (auto) 1.76, Nucleated RBC % 0, Sodium 139, Potassium 3.2 L, Chloride 103, Carbon Dioxide 28.0, Anion Gap 8, BUN 8, Creatinine 0.59, Estim Creat Clear Calc 129.42, Est GFR (MDRD) Af Amer 150, Est GFR (MDRD) Non-Af 124, BUN/Creatinine Ratio 13.6, Glucose 97, Calcium 8.3 L, Phosphorus 3.4, Magnesium 2.0 Micro: Microbiology 07/01/23 02:18 Stool C. difficile GDH Antigen & Toxins - Final 07/01/23 02:18 Stool C. difficile DNA Amplification - Final 07/01/23 02:18 Stool Enteric Bacteriology - Final Physical Exam Narrative GENERAL: cooperative HEENT: Atraumatic; normocephalic EYES; Anicteric, Normal Conjunctiva NECK; supple, normal thyroid, RESPIRATORY: Diminished to auscultation CARDIOVASCULAR: Regular S1 S2, GI: soft, normoactive bowel sounds, : No Renal angle tenderness; EXTREMITIES: No edema, no clubbing, MUSCULOSKELETAL: no muscle wasting NEURO: Awake; no lateralizing signs. SKIN: No Rash PSYCH; Flat affect Assessment & Plan Assessment/Plan (1) Flank pain: PLAN: Plan Patient is a 33-year-old lady with history of recurrent UTIs admitted with left flank pain. Patient was found to have abnormal urinalysis in addition to evidence of colitis on CT admitted to regular nursing floor for further management 1. Acute colitis ? CT of the abdomen and pelvis obtained on admission did show circumferential wall thickening of the transverse, descending and sigmoid colon, this may be partially secondary to their incompletely distended state however cannot exclude colitis. Patient started on ciprofloxacin as well as Flagyl in addition to symptom management with Dilaudid and Zofran as needed. Patient was also seen in consultation by Dr. Ly with GI plan is for patient to undergo endoscopic evaluation EGD; Normal esophagus. - Chronic gastritis. Biopsied. - No gross lesions in the second portion of the duodenum. Biopsied. Recommendations : - Return patient to the floor - Resume previous diet. - Continue present medications. - Await pathology results. Colonoscopy; - Preparation of the colon was inadequate. - Hemorrhoids found on perianal exam. - Stool in the entire examined colon. - Congested mucosa in the sigmoid colon, in the descending colon, at the hepatic flexure and in the ascending colon. Biopsied. Recommendations : - [facility]. - Resume previous diet. - Repeat colonoscopy is recommended because the bowel preparation was suboptimal. The colonoscopy date will be determined after pathology results from today's exam become available for review. - Continue present medications. 2. Acute cystitis ? Patient is on Cipro culture sent 3. Dyslipidemia -Patient is on statin therapy, continued at home dose 4. Hypertension - Blood pressure controlled, home medications losartan and HCTZ continued with dose adjustment as needed 5. Depression ? Patient is on sertraline did continue 6. DVT prophylaxis ? Low risk did encourage early ambulation 7. Severe hypokalemia ? Corrected per protocol repeat labs ordered for a.m. Time spent in the patient's overall evaluation,decision-making process, review of diagnostic data, adjustment of management, discussion with other providers, nursing nursing and ancillary staff involved in patient's care documentation, 35 Minutes Charges/Coding Visit Charges Inpatient E&M: 31243 Subs Hosp L2
[2023-07-02 08:13] VITALS: O2SAT 94
[2023-07-02] MEDS: Ciprofloxacin 400 MG/200 ML BAG 200 MG IV (08:19)
[2023-07-02] MEDS: proCHLORPERazine 10 MG/2 ML Vial 5 MG IV (08:19)
[2023-07-02 08:45] VITALS: BP 145/60; PULSE 60; RESP 16; TEMP 36.8; O2SAT 99
--- NOTE | 2023-07-02 10:03 | DS.PCM_ITS ---
Providers Date of Admission: 06/30/23 Date of Discharge: 07/02/23 Primary Care Physician: PETE Daly Reason For Visit: LEFT FLANK PAIN Diagnosis Discharge Diagnosis (1) Flank pain: Status: Acute Code(s): R10.9 - Unspecified abdominal pain Plan Patient is a 33-year-old lady with history of recurrent UTIs admitted with left flank pain. Patient was found to have abnormal urinalysis in addition to evidence of colitis on CT admitted to regular nursing floor for further management 1. Acute colitis ? CT of the abdomen and pelvis obtained on admission did show circumferential wall thickening of the transverse, descending and sigmoid colon, this may be partially secondary to their incompletely distended state however cannot exclude colitis. Patient started on ciprofloxacin as well as Flagyl in addition to symptom management with Dilaudid and Zofran as needed. Patient was also seen in consultation by Dr. Ly with GI plan is for patient to undergo endoscopic evaluation EGD; Normal esophagus. - Chronic gastritis. Biopsied. - No gross lesions in the second portion of the duodenum. Biopsied. Recommendations : - Return patient to the floor - Resume previous diet. - Continue present medications. - Await pathology results. Colonoscopy; - Preparation of the colon was inadequate. - Hemorrhoids found on perianal exam. - Stool in the entire examined colon. - Congested mucosa in the sigmoid colon, in the descending colon, at the hepatic flexure and in the ascending colon. Biopsied. Recommendations : - [facility]. - Resume previous diet. - Repeat colonoscopy is recommended because the bowel preparation was suboptimal. The colonoscopy date will be determined after pathology results from today's exam become available for review. - Continue present medications. 2. Acute cystitis ? Patient is on Cipro culture sent 3. Dyslipidemia -Patient is on statin therapy, continued at home dose 4. Hypertension - Blood pressure controlled, home medications losartan and HCTZ continued with dose adjustment as needed 5. Depression ? Patient is on sertraline did continue 6. DVT prophylaxis ? Low risk did encourage early ambulation 7. Severe hypokalemia ? Corrected per protocol repeat labs ordered for a.m. Time spent in the patient's overall evaluation,decision-making process, review of diagnostic data, adjustment of management, discussion with other providers, nursing nursing and ancillary staff involved in patient's care documentation, 35 Minutes Medications at Discharge Home Medications losartan 100 mg tablet 100 mg PO QHS 11/04/21 sertraline 150 mg capsule 150 mg PO QHS 12/07/21 phenazopyridine 200 mg tablet (Pyridium) 200 mg PO TID PRN PRN Bladder Spasms 7 days #30 tabs 12/08/21 ondansetron 4 mg disintegrating tablet 4 mg PO Q8H PRN nausea and vomiting #10 tabs 01/25/22 ondansetron 4 mg disintegrating tablet 4 mg PO Q8H PRN nausea and vomiting #10 tabs 07/21/22 oxycodone-acetaminophen 5 mg-325 mg tablet (Percocet) 1 tab PO Q6H PRN pain 3 days #10 tabs 07/21/22 ondansetron 4 mg disintegrating tablet 4 mg PO Q8H PRN PRN Nausea #10 tabs 11/18/22 oxycodone-acetaminophen 5 mg-325 mg tablet 1 tab PO Q6H PRN PRN Pain 3 days #12 TABLETS 11/18/22 albuterol sulfate 90 mcg/actuation aerosol inhaler 2 puff inhalation Q6H PRN shortness of breath or wheezing 06/09/23 atorvastatin 10 mg tablet 10 mg PO .hs 06/09/23 cetirizine 10 mg tablet 10 mg PO .hs 06/09/23 clonidine HCl 0.1 mg tablet 0.1 mg PO Q12H 06/09/23 hydrochlorothiazide 25 mg tablet 25 mg PO Q12H 06/09/23 ciprofloxacin HCl 500 mg tablet (Cipro) 500 mg PO BID #8 tabs 06/12/23 metronidazole 500 mg tablet 500 mg PO TID #20 tabs 07/02/23 pantoprazole 40 mg tablet,delayed release (Protonix) 40 mg PO DAILY #90 tabs 07/02/23 Hospital Course Procedures Colonoscopy and EGD Summary of Care Provided Minutes Spent on Discharge: 35 Physical Exam Narrative GENERAL: cooperative HEENT: Atraumatic; normocephalic EYES; Anicteric, Normal Conjunctiva NECK; supple, normal thyroid, RESPIRATORY: Diminished to auscultation CARDIOVASCULAR: Regular S1 S2, GI: soft, normoactive bowel sounds, : No Renal angle tenderness; EXTREMITIES: No edema, no clubbing, MUSCULOSKELETAL: no muscle wasting NEURO: Awake; no lateralizing signs. SKIN: No Rash PSYCH; Flat affect Weight / BMI Weight Weight: 69.536 kg Body Mass Index (BMI) 24.0 ABG / Lab / Microbiology Data 07/02/23 06:35 07/02/23 06:35 Laboratory: Laboratory Results - last 24 hr 07/02/23 06:35: WBC 5.6, RBC 3.61 L, Hgb 11.6 L, Hct 34.8 L, MCV 96.4, MCH 32.1 H, MCHC 33.3, RDW Std Deviation 45.8 H, RDW Coeff of Tere 12.9, Plt Count 218, MPV 8.8, Immature Gran % (Auto) 0.400, Neut % (Auto) 58.6, Lymph % (Auto) 31.4, [place] % (Auto) 7.5, Eos % (Auto) 1.6, Baso % (Auto) 0.5, Absolute Neuts (auto) 3.3, Absolute Lymphs (auto) 1.76, Nucleated RBC % 0, Sodium 139, Potassium 3.2 L , Chloride 103, Carbon Dioxide 28.0, Anion Gap 8, BUN 8, Creatinine 0.59, Estim Creat Clear Calc 129.42, Est GFR (MDRD) Af Amer 150, Est GFR (MDRD) Non-Af 124, BUN/Creatinine Ratio 13.6, Glucose 97, Calcium 8.3 L, Phosphorus 3.4, Magnesium 2.0 Microbiology: Microbiology 07/01/23 02:18 Stool C. difficile GDH Antigen & Toxins - Final 07/01/23 02:18 Stool C. difficile DNA Amplification - Final 07/01/23 02:18 Stool Enteric Bacteriology - Final D/C Instructions Discharge Diet: No restrictions Discharge Activity: Return to Normal Activity Call your doctor if you observe: Fever of 101 or Higher, Shortness of breath, Fainting spells and Chest pain Meaningful Use Info Meaningful Use Diagnoses (Choose all that apply): None applicable Discharge Plan Admission Admit Date/Time: 06/30/23 16:26 Attending Provider: Kendrick Trivedi Primary Care Provider: Rosaura Rodriguez NP Consulting Providers: Acosta Higgins Discharge Orders/Prescriptions Prescriptions: New metronidazole 500 mg tablet 500 mg PO TID Qty: 20 0RF pantoprazole [Protonix] 40 mg tablet,delayed release (DR/EC) 40 mg PO DAILY Qty: 90 0RF Continued losartan 100 mg tablet 100 mg PO QHS sertraline 150 mg Capsule 150 mg PO QHS phenazopyridine [Pyridium] 200 MG tablet 200 mg PO TID PRN PRN (Reason: Bladder Spasms) 7 Days Qty: 30 0RF ondansetron 4 mg tablet,disintegrating 4 mg PO Q8H PRN (Reason: nausea and vomiting) Qty: 10 0RF oxycodone-acetaminophen [Percocet] 5-325 mg tablet 1 tab PO Q6H PRN (Reason: pain) 3 Days Qty: 10 0RF ondansetron 4 mg tablet,disintegrating 4 mg PO Q8H PRN (Reason: nausea and vomiting) Qty: 10 0RF Hold Instructions: Duplicate Order oxycodone-acetaminophen 5-325 mg tablet 1 tab PO Q6H PRN PRN (Reason: Pain) 3 Days Qty: 12 0RF Hold Instructions: Duplicate Order ondansetron 4 mg tablet,disintegrating 4 mg PO Q8H PRN PRN (Reason: Nausea) Qty: 10 0RF Hold Instructions: Duplicate Order atorvastatin 10 mg tablet 10 mg PO .hs cetirizine 10 mg tablet 10 mg PO .hs albuterol sulfate 90 mcg/actuation HFA aerosol inhaler 2 puff INHALATION Q6H PRN (Reason: shortness of breath or wheezing) clonidine HCl 0.1 mg tablet 0.1 mg PO Q12H Patient Comments: TAKE 1 TABLET BY MOUTH TWICE DAILY hydrochlorothiazide 25 mg tablet 25 mg PO Q12H ciprofloxacin HCl [Cipro] 500 mg tablet 500 mg PO BID Qty: 8 0RF Referrals / Follow Up: Rosaura Rodriguez NP, [employer] [Primary Care Provider] - Within 1 Week Disposition Disposition (needs filled in before D/C Order can be placed): Home, Self Care Charges/Coding Visit Charges Inpatient E&M: 66956 Disch Hosp >30min
--- NOTE | 2023-07-02 10:12 | EX.PCM.PN.GI ---
Subjective Subjective Patient underwent an EGD and colonoscopy yesterday for abnormal CT scan and abdominal pain Objective Data Objective Data Vital Signs: Vital Signs Temp Pulse Resp BP Pulse Ox O2 Del Method 98.1 F 56 L 16 147/63 H 94 Room Air 07/02/23 02:51 07/02/23 02:51 07/02/23 02:51 07/02/23 02:51 07/02/23 08:13 07/02/23 08:13 Oxygen Delivery Method Room Air Weight: 153 lb 4.8 oz Body Mass Index (BMI) 24.0 Intake & Output: Intake and Output for Last 24 Hours 06/30/23 07/01/23 07/02/23 23:59 23:59 23:59 Intake Total 2350 / 2350 2820.25 / 2820.25 1213.75 / 1213.75 Balance 2350 / 2350 2820.25 / 2820.25 1213.75 / 1213.75 Lab / Micro Data 07/02/23 06:35 07/02/23 06:35 Labs: Laboratory Results - last 24 hr 07/02/23 06:35: WBC 5.6, RBC 3.61 L, Hgb 11.6 L, Hct 34.8 L, MCV 96.4, MCH 32.1 H, MCHC 33.3, RDW Std Deviation 45.8 H, RDW Coeff of Tere 12.9, Plt Count 218, MPV 8.8, Immature Gran % (Auto) 0.400, Neut % (Auto) 58.6, Lymph % (Auto) 31.4, [place] % (Auto) 7.5, Eos % (Auto) 1.6, Baso % (Auto) 0.5, Absolute Neuts (auto) 3.3, Absolute Lymphs (auto) 1.76, Nucleated RBC % 0, Sodium 139, Potassium 3.2 L, Chloride 103, Carbon Dioxide 28.0, Anion Gap 8, BUN 8, Creatinine 0.59, Estim Creat Clear Calc 129.42, Est GFR (MDRD) Af Amer 150, Est GFR (MDRD) Non-Af 124, BUN/Creatinine Ratio 13.6, Glucose 97, Calcium 8.3 L, Phosphorus 3.4, Magnesium 2.0 Micro: Microbiology 07/01/23 02:18 Stool C. difficile GDH Antigen & Toxins - Final 07/01/23 02:18 Stool C. difficile DNA Amplification - Final 07/01/23 02:18 Stool Enteric Bacteriology - Final Physical Exam Narrative GENERAL: cooperative HEENT: Atraumatic; normocephalic EYES; Anicteric, Normal Conjunctiva NECK; supple, normal thyroid, RESPIRATORY: Diminished to auscultation CARDIOVASCULAR: Regular S1 S2, GI: soft, normoactive bowel sounds, : No Renal angle tenderness; EXTREMITIES: No edema, no clubbing, MUSCULOSKELETAL: no muscle wasting NEURO: Awake; no lateralizing signs. SKIN: No Rash PSYCH; Flat affect Assessment & Plan Assessment/Plan (1) Left flank pain: (2) Intractable nausea and vomiting: (3) Gross hematuria: PLAN: Plan #Intractable nausea and vomiting. flank pain and hematuria have largely resolved. urine culture pending on IV ciprofloxacin did have hematuria back in December 2021 and had a cystoscopy which showed normal bladder mucosa, and retrograde pyelogram was also normal. she has had repeated UTIs due to Klebsiella and E coli. await urine cultures Status post EGD and colonoscopy with some mild gastritis and some congestion in the colon. She could not tolerate her prep. Random biopsies were taken for H. 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 #Hypertension: on losartan, HCTZ and clonidine. #Hyperlipidemia: on statin #Hypokalemia: resolved. #Depression: on sertraline DVT prophylaxis; SCDs Charges/Coding Visit Charges Inpatient E&M: 29726 [facility] Hosp L3
[2023-07-04 13:07] LABS: Anti-Centromere B Ab <0.2 AI (0.0-0.9); Anti-Chromatin <0.2 AI (0.0-0.9); Anti-Jo <0.2 AI (0.0-0.9); Anti-Scleroderma-70 AB <0.2 AI (0.0-0.9); Anti-dsDNA Ab 2 IU/mL (0-9); RNP Ab <0.2 AI (0.0-0.9); SJOGREN'S Anti-SS-A test < 0.2 AI (0.0-0.9); SJOGREN'S Anti-SS-B test < 0.2 AI (0.0-0.9); Smith Ab <0.2 AI (0.0-0.9)
[2023-07-04 16:09] LABS: Cytoplasmic Ab (C-ANCA) <1:20 titer (Neg:<1:20); Deamidated Gliadin IgA 7 units (0-19); Deamidated Gliadin IgG 2 units (0-19); Endomysial Antibody IgA Negative (Negative); Immunoglobulin A 117 mg/dL (87-352); Perinuclear Ab (P-ANCA) <1:20 titer (Neg:<1:20); t-Transglutaminase IgA <2 U/mL (0-3)
[2023-07-06 22:07] LABS: ALDOSTERONE/RENIN RATIO 4.8 (0.0-30.0); Aldosterone, Serum 1.8 ng/dL (0.0-30.0); Renin, Plasma 0.372 ng/mL/hr (0.167-5.380)
== END 2023-07-02 11:39 | disposition home or self-care (01) | DRG 246 ==
LOC: ED 09:40 → MS3 07-01 07:15
PROVIDERS: Internal Medicine Gastroenterology; Admitting Provider Hospitalist; Emergency Provider Emergency Medicine; PCP Nurse Practitioner Family; Visit Provider Internal Medicine
PROC: 0DJD8ZZ Inspection of Lower Intestinal Tract, Via Natural or Artificial Opening Endoscopic (ICD-10-PCS; CPT 45378; principal; 2023-07-01 17:20)
DX: K55.9 Vascular disorder of intestine, unspecified (principal); A09 Infectious gastroenteritis and colitis, unspecified; I10 Essential (primary) hypertension; F32.A Depression, unspecified; K30 Functional dyspepsia; K57.30 Diverticulosis of large intestine without perforation or abscess without bleeding; E87.6 Hypokalemia; F17.210 Nicotine dependence, cigarettes, uncomplicated; E78.5 Hyperlipidemia, unspecified; K29.50 Unspecified chronic gastritis without bleeding; N30.01 Acute cystitis with hematuria; K90.0 Celiac disease; Z79.899 Other long term (current) drug therapy
CPT/HCPCS: 45380; 43239; 36415; 74177; 80048; 80053; 81001; 82088; 82784; 83516; 83605; 83690; 83735; 84100; 84244; 84703; 85025; 85027; 85652; 86140; 86225; 86235; 86255; 86256; 87493; 87506; 88305; 88342; 96361; 96365; 96366; 96367; 96375; 96376; 99221; 99284; J7030; J7050; J7120; Q9967; A4216; G0378; J0744; J2405

== ENCOUNTER 2023-07-03 12:19 | Emergency (ER) | payer MEDICAID, SELFPAY ==
[2023-07-03 12:19] VITALS: BP 120/92; PULSE 89; RESP 18; TEMP 36.3; O2SAT 98; BMI 22.6
--- NOTE | 2023-07-03 12:40 | CT_ITS ---
INDICATION: Bilateral flank pain and gross hematuria. History of frequent UTIs. EXAMINATION: CT ABDOMEN AND PELVIS WITHOUT CONTRAST - TECHNIQUE: Helically acquired images were obtained of the abdomen and pelvis without oral or IV contrast. A radiation dose optimization technique was used for this scan. IV Contrast dosage and agent: None. Oral contrast: None. RADIATION DOSAGE (If Supplied By Facility): CTDIvol = ( 6.42 ) mGy, DLP = ( 318.94 ) mGycm COMPARISON: Prior CT scan of the abdomen and pelvis of 06/30/2023. FINDINGS: LOWER CHEST: Lung bases are clear. No cardiomegaly or pericardial effusion. LIVER: Homogeneous. No focal mass. GALLBLADDER AND BILIARY TREE: Status post cholecystectomy. No intra- or extrahepatic biliary ductal dilation. PANCREAS: No focal cystic or solid mass. SPLEEN: Normal size without focal cystic or solid mass. ADRENAL GLANDS: No nodules. KIDNEYS AND URETERS: Normal renal size and position. No hydronephrosis. PERITONEUM: No ascites or free air. No other fluid collection. BOWEL: No evidence of acute appendicitis. No stomach or bowel distension. No focal inflammatory change. The colon is not well distended. LYMPH NODES: No enlarged mesenteric or retroperitoneal lymph nodes. VESSELS: Aorta is non-dilated. URINARY BLADDER: Well-distended and difficult to evaluate. REPRODUCTIVE ORGANS: Surgical clips could be due to previous tubal ligation. 2.5 cm right adnexal cyst. ABDOMINAL WALL: No discrete abdominal or pelvic wall hernia. BONES: No lytic or blastic abnormality. CT/Abdomen/Pelvis without Cont IMPRESSION: 1. No evidence of urinary tract stones or hydronephrosis. 2. No focal acute inflammatory process. Electronically Signed: Osei Long MD at 13:39 EDT ,
--- NOTE | 2023-07-03 12:43 | EDS_ITS ---
HPI HPI - Female History of Present Illness Chief Complaint: Flank Pain Narrative Narrative: 33-year-old female past medical history of frequent UTIs, sees Dr. Matthews, was recently admitted 4 days ago for intractable nausea and vomiting, and reported abnormal CT scan consistent with colitis. She states that she was discharged yesterday, and began having gross hematuria which she had prior to her admission. She states it still looked like urine then, but now is dark red and very bloody in nature. She does not take any blood thinners. She is complaining of bilateral flank pain as well. She states that her nausea and vomiting has improved and that she had endoscopy performed and was told she may have lupus. She presents mainly because of the bilateral flank pain and gross hematuria that has worsened. She states that she called the hospitalist, Dr. Kendrick Trivedi, last evening, then again today and was told to report back to the emergency department for her flank pain and hematuria. She denies any exacerbating or alleviating factors. PFSH PFSH Medical History Back pain Depression Flank pain Gross hematuria Gross hematuria Hypertension Injury of head and neck Lupus Migraine headache Shortness of breath on exertion Smoker Home Medications losartan 100 mg tablet 100 mg PO QHS 11/04/21 [History Last Taken 06/08/23] sertraline 150 mg capsule 150 mg PO QHS 12/07/21 [History Last Taken 06/08/23] phenazopyridine 200 mg tablet (Pyridium) 200 mg PO TID PRN PRN Bladder Spasms 7 days #30 tabs 12/08/21 [Rx Last Taken 06/09/23] ondansetron 4 mg disintegrating tablet 4 mg PO Q8H PRN nausea and vomiting #10 tabs 01/25/22 [Rx Last Taken 06/08/23] oxycodone-acetaminophen 5 mg-325 mg tablet (Percocet) 1 tab PO Q6H PRN pain 3 da ys #10 tabs 07/21/22 [Rx Last Taken 06/09/23] oxycodone-acetaminophen 5 mg-325 mg tablet 1 tab PO Q6H PRN PRN Pain 3 days #12 TABLETS 11/18/22 [Rx Last Taken Unknown] albuterol sulfate 90 mcg/actuation aerosol inhaler 2 puff inhalation Q6H PRN shortness of breath or wheezing 06/09/23 [History Last Taken Unknown] atorvastatin 10 mg tablet 10 mg PO .hs 06/09/23 [History Last Taken 06/08/23] cetirizine 10 mg tablet 10 mg PO .hs 06/09/23 [History Last Taken 06/09/23] clonidine HCl 0.1 mg tablet 0.1 mg PO Q12H 06/09/23 [History Last Taken Unknown] hydrochlorothiazide 25 mg tablet 25 mg PO Q12H 06/09/23 [History Last Taken 06/09/23] metronidazole 500 mg tablet 500 mg PO TID #20 tabs 07/02/23 [Rx Last Taken Unknown] pantoprazole 40 mg tablet,delayed release (Protonix) 40 mg PO DAILY #90 tabs 07/02/23 [Rx Last Taken Unknown] Allergy/AdvReac Type Severity Reaction Status Date / Time Penicillins Allergy Hives Verified 07/03/23 12:19 hydrocodone [From [place]] AdvReac HEADACHE Verified 07/03/23 12:19 ketorolac [From Toradol] AdvReac Hives Verified 07/03/23 12:19 sulfamethoxazole AdvReac Vomiting Verified 06/30/23 09:01 [From Bactrim] tramadol AdvReac Vomiting Verified 07/03/23 12:19 trimethoprim [From Bactrim] AdvReac Vomiting Verified 07/03/23 12:19 Family History Other Cancer Diabetes Surgical History History of History of cholecystectomy History of esophagogastroduodenoscopy (EGD) Hx of tubal ligation Social History household members: other Smoking Status: Current every day smoker tobacco type: cigarettes substance use type: does not use ROS ROS ED ROS Narrative Constitutional: No fever, no chills. HEENT: No sore throat. No neck pain. No loss of vision. No rhinorrhea. Cardiovascular: No chest pain. No palpitations. No pedal edema. Respiratory: No cough, no shortness of breath. Abdominal: No abdominal pain. No nausea. No vomiting. Genitourinary: No dysuria. Worsening hematuria. Bilateral flank pain. Musculoskeletal: No myalgias. No arthralgias. Neurologic: No headaches. No dizziness. No lightheadedness. Skin: No rash. No change in color. Psychiatric: No depression. No anxiety. EXAM Physical Exam Narrative Exam Narrative: Afebrile. Vital signs noted. HEENT: Normocephalic. Atraumatic. PERRL, EOMI. Neck soft and supple. No point tenderness or step off. Cardiovascular: Regular rate and rhythm. No murmurs, rubs, or gallops appreciated. Respiratory: No tachypnea. Lungs clear to auscultation bilaterally. Gastrointestinal: Abdomen soft, nontender, with normoactive bowel sounds. No rebound or guarding. Tenderness to caution bilateral CVA areas. Neurological: Awake. Alert. Nonfocal, nonlateralizing. Skin: No rash. Normal color. No pallor. Musculoskeletal: No pedal edema. Full range of motion extremities. Const Vital Signs: 07/03/23 12:19 07/03/23 13:50 Temperature 97.4 F L Temperature Source Temporal Pulse Rate 89 63 Respiratory Rate 18 14 Blood Pressure 120/92 H 120/77 Blood Pressure Mean 101 91 Pulse Ox 98 99 Oxygen Delivery Method Room Air Room Air MDM MDM MDM Narrative Medical decision making narrative: I reviewed the patient's prior records. She had acute cystitis and was treated with Cipro and Flagyl for reported abdominal CT that was shown to have thickened colon. Given her worsening hematuria, I will repeat a CT, and send the urinalysis. I will check a CBC and CMP to look at her kidney function as reportedly she was seen in the outpatient facility and transferred here for admission. I reviewed her laboratory work from today and she has a normal white count of 8.1, hemoglobin normal at 12.3, platelet count normal at 267. BMP shows sodium normal at 141, potassium slightly low at 3.2 where it was when she was discharged yesterday. Urinalysis shows greater than 100 RBCs, but negative ketones and 0-5 WBCs. She states that she is currently taking Cipro and Flagyl. CT of the abdomen and pelvis was obtained and there is no evidence of ureteral stone or any cause of her hematuria/gross hematuria. Appendix appears normal and there is no thickening of the bowel wall. She was given Dilaudid 0.5 mg intravenously and ondansetron 4 mg intravenously. I discussed patient with Dr. Trivedi with hospitalist medicine. It was felt that she would not benefit from admission to the hospital for her gross hematuria as she is already on antibiotics and tolerating them, and there is no evidence of colitis. I feel she can be discharged safely home to follow-up with her urologist. She states that she is supposed to have a cystoscopy on July 13, approximately 9 days from now. She is to call her urologist tomorrow. I do not feel narcotic pain medications are indicated for her not verifiable pain. Disposition is discharged home in stable condition. History & Record Review Discussion w/independent historian: Patient Additional record(s) reviewed:: Prior ED visit and Prior labs Lab Data Attestation: I reviewed the patient's lab results. Labs: Laboratory Results - last 24 hr 07/03/23 07/03/23 12:50 12:55 WBC 8.1 RBC 3.83 L Hgb 12.3 Hct 36.5 L MCV 95.3 MCH 32.1 H MCHC 33.7 RDW Std Deviation 44.6 H RDW Coeff of Tere 13.0 Plt Count 267 MPV 9.0 Immature Gran % (Auto) 0.200 Neut % (Auto) 70.9 H Lymph % (Auto) 21.5 [place] % (Auto) 5.2 Eos % (Auto) 1.7 Baso % (Auto) 0.5 Absolute Neuts (auto) 5.7 Absolute Lymphs (auto) 1.73 Nucleated RBC % 0 Sodium 141 Potassium 3.2 L Chloride 107 Carbon Dioxide 28.0 Anion Gap 6 BUN 10 Creatinine 0.68 Estim Creat Clear Calc 112.29 Est GFR (MDRD) Af Amer 127 Est GFR (MDRD) Non-Af 105 BUN/Creatinine Ratio 14.8 Glucose 101 Calcium 8.5 Urine Color Red Urine Clarity Cloudy Urine pH 7.0 Ur Specific [place] 1.010 Urine Protein 500 H Urine Glucose (UA) Normal Urine Ketones 15 H Urine Occult Blood 250 H Urine Nitrite Negative Urine Bilirubin Negative Urine Urobilinogen Normal Ur Leukocyte Esterase Negative Urine RBC > 100 SEEN Urine WBC 0-5 SEEN Ur Squamous Epith Cells 0-5 SEEN Urine Bacteria 1+ Urine Mucus 0 SEEN Radiography Diagnostic Testing: Clinical Impression(s) from Imaging Studies Abdomen/Pelvis CT 07/03/23 12:40 IMPRESSION: 1. No evidence of urinary tract stones or hydronephrosis. 2. No focal acute inflammatory process. Electronically Signed: Osei Long MD at 13:39 EDT , Management Discussion w/another healthcare provider: Hospitalist (Dr. Trivedi) Discharge Plan Triage Chief Complaint: Flank Pain ED Provider: Shabbir Ochoa Dx/Rx/DC Orders Clinical Impression: Flank pain, Gross hematuria Instructions: ED Flank Pain, Uncertain Cause, ED Hematuria Prescriptions: No Action losartan 100 mg tablet 100 mg PO QHS sertraline 150 mg Capsule 150 mg PO QHS phenazopyridine [Pyridium] 200 MG tablet 200 mg PO TID PRN PRN (Reason: Bladder Spasms) 7 Days Qty: 30 0RF ondansetron 4 mg tablet,disintegrating 4 mg PO Q8H PRN (Reason: nausea and vomiting) Qty: 10 0RF oxycodone-acetaminophen [Percocet] 5-325 mg tablet 1 tab PO Q6H PRN (Reason: pain) 3 Days Qty: 10 0RF oxycodone-acetaminophen 5-325 mg tablet 1 tab PO Q6H PRN PRN (Reason: Pain) 3 Days Qty: 12 0RF Hold Instructions: Duplicate Order atorvastatin 10 mg tablet 10 mg PO .hs cetirizine 10 mg tablet 10 mg PO .hs albuterol sulfate 90 mcg/actuation HFA aerosol inhaler 2 puff INHALATION Q6H PRN (Reason: shortness of breath or wheezing) clonidine HCl 0.1 mg tablet 0.1 mg PO Q12H Patient Comments: TAKE 1 TABLET BY MOUTH TWICE DAILY hydrochlorothiazide 25 mg tablet 25 mg PO Q12H metronidazole 500 mg tablet 500 mg PO TID Qty: 20 0RF pantoprazole [Protonix] 40 mg tablet,delayed release (DR/EC) 40 mg PO DAILY Qty: 90 0RF Primary Care Provider: Rosaura Rodriguez NP Referrals: Dianne Matthews MD [Med Staff - Active Staff] - 1 Day Rosaura Rodriguez NP, CO[employer] MACHINE OPERATOR [employer] [Primary Care Provider] - Disposition Disposition: Home, Self Care
[2023-07-03] MEDS: 0.9% Normal Saline 1,000 ML 1000 ML IV (13:00)
[2023-07-03 13:01] LABS: Mucous, Urine 0 SEEN /hpf (<or=2+)
[2023-07-03 13:04] LABS: Color, Urine Red (Yellow); Glucose, Dipstick Normal (Normal); Ketone-Dipstick 15 mg/dl (Negative); Leukocyte Esterase-Dipstick Negative /ul (Negative); Nitrite-Dipstick Negative (Negative); Occult Blood-Urine 250 /ul (Negative); Protein-Dipstick 500 mg/dl (Negative); Urine Bilirubin Dipstick Negative (Negative); Urine Clarity Cloudy (Clear); Urine Urobilinogen Normal (Normal)
[2023-07-03 13:05] LABS: Absolute Lymphocyte Count 1.73 X10^3/uL (0.83-4.51); Absolute Neutrophil Count 5.7 X10^3/uL (2.0-7.7); Basophil# 0.04 X10^3/uL; Basophil% 0.5 % (0-1); Eosinophil# 0.14 X10^3/uL; Eosinophils% 1.7 % (0-5); Hematocrit 36.5 % (37-47); Hemoglobin 12.3 g/dL (12.0-15.0); Lymphocyte # 1.73 X10^3/ul (0.83-4.51); Lymphocyte % 21.5 % (19-41); Mean Corp Hgb Conc 33.7 g/dL (32-36); Mean Corpuscular Hgb 32.1 pg (27.0-32.0); Mean Corpuscular Volume 95.3 fL (81-99); Monocyte# 0.42 X10^3/uL; Monocyte% 5.2 % (0-10); NRBC Flagged by Analyzer 0 % (0-5); Neutrophil # 5.71 X10^3/uL (2.7-7.7); Neutrophil % 70.9 % (47-70); Platelet Count 267 K/mm3 (150-450); RBC Distribution Width SD 44.6 fl (35.1-43.9); Red Blood Count 3.83 M/mm3 (4.2-5.4); White Blood Count 8.1 K/mm3 (4.4-11.0)
[2023-07-03 13:15] LABS: Bacteria 1+ /hpf (None Seen); Red Blood Cells-Urine > 100 SEEN /hpf (0-5); Squamous Epithelial Cells - UA 0-5 SEEN /hpf (5-10); White Blood Cells 0-5 SEEN /hpf (0-5)
[2023-07-03 13:17] LABS: Anion Gap 6 (5-15); BUN 10 mg/dL (7-18); BUN/Creat Ratio 14.8 RATIO (10-20); Calcium,Total 8.5 mg/dL (8.5-10.1); Chloride 107 mmol/L (98-107); Creatinine, Serum 0.68 mg/dL (0.55-1.02); EST Glomerular Filtration Rate 105 mL/min (>60); Est Glom Filt Rate - Afr Amer 127 mL/min (>60); Estimated Creatinine Clearance 112.29 ml/min; Glucose 101 mg/dL (74-106); Potassium 3.2 mmol/L (3.5-5.1); Sodium Level 141 mmol/L (136-145)
[2023-07-03] MEDS: Ondansetron 4 MG/2 ML Vial IV (13:37)
[2023-07-03] MEDS: HYDROmorphone 0.5 MG/0.5 ML SYRINGE IV (13:37)
[2023-07-03 13:50] VITALS: BP 120/77; PULSE 63; RESP 14; O2SAT 99
== END 2023-07-03 14:33 | disposition home or self-care (01) ==
PROVIDERS: Emergency Provider Emergency Medicine; PCP Nurse Practitioner Family; Visit Provider Emergency Medicine
DX: R31.0 Gross hematuria (principal); I10 Essential (primary) hypertension; F17.210 Nicotine dependence, cigarettes, uncomplicated; Z79.899 Other long term (current) drug therapy; F32.A Depression, unspecified; Z90.49 Acquired absence of other specified parts of digestive tract; R10.9 Unspecified abdominal pain
CPT/HCPCS: 74176; 80048; 81001; 85025; 96361; 96374; 96375; 99283; J7030; A4216; J2405

== ENCOUNTER 2023-07-12 20:11 | Emergency (ER) | payer MEDICAID, SELFPAY ==
[2023-07-12 20:12] VITALS: BP 131/96; PULSE 84; RESP 16; TEMP 36.4; O2SAT 98; BMI 23.5
== END 2023-07-12 21:25 | disposition left against medical advice (07) ==
LOC: ED 21:29
PROVIDERS: PCP Nurse Practitioner Family
DX: N39.43 Post-void dribbling (principal)

== ENCOUNTER → 2023-07-27 | Outpatient (CLI) | payer MEDICAID, SELFPAY ==
--- NOTE | 2023-07-27 12:44 | MRI_ITS ---
INDICATION: HEMATURIA, AVM KIDNEY EXAMINATION: MRA - MRA Abdomen WO/W Contrast TECHNIQUE: Routine abdominal MR angiographic protocol was performed. 3D reconstructions were reviewed. IV Contrast Dosage and Agent: clariscan 14ml IV COMPARISON: CT abdomen 06/30/2023. FINDINGS: AORTA: No occlusion or significant stenosis. CELIAC ARTERY: No occlusion or significant stenosis. SUPERIOR MESENTERIC ARTERY: No occlusion or significant stenosis. RENAL ARTERIES: No occlusion or significant stenosis. INFERIOR MESENTERIC ARTERY: No occlusion or significant stenosis. ILIAC ARTERIES: No occlusion or significant stenosis. Liver, spleen, pancreas, and adrenal glands are unremarkable. 0.8 cm left renal cyst. Kidneys are otherwise unremarkable. No hydronephrosis. MRI/MRA Abdomen W/ or W/O Contrast IMPRESSION: Small left renal cyst. Follow-up is not indicated per ACR guidelines. Otherwise negative MRA abdomen. Electronically Signed: Kelsey Pascual MD at 23:56 EDT Reading Location ID and State: [id number] / Tel , Service support ,
== END | disposition home or self-care (01) ==
LOC: MRI 12:34
PROVIDERS: PCP Nurse Practitioner Family; Referring Provider Urology; Visit Provider Urology
DX: N02.9 Recurrent and persistent hematuria with unspecified morphologic changes (principal)
CPT/HCPCS: 74185; A9575; A4216; C8902

== ENCOUNTER 2023-09-12 09:24 | Emergency (ER) | payer MEDICAID, SELFPAY ==
[2023-09-12 09:25] VITALS: BP 142/108; PULSE 85; RESP 16; TEMP 36.2; O2SAT 100; BMI 23.6
[2023-09-12 10:14] LABS: Mucous, Urine 0 SEEN /hpf (<or=2+)
[2023-09-12 10:18] LABS: Color, Urine Yellow (Yellow); Glucose, Dipstick Normal (Normal); Ketone-Dipstick Negative (Negative); Leukocyte Esterase-Dipstick 500 /ul (Negative); Nitrite-Dipstick Negative (Negative); Occult Blood-Urine 250 /ul (Negative); Protein-Dipstick 30 mg/dl (Negative); Urine Bilirubin Dipstick Negative (Negative); Urine Clarity Sl. Cloudy (Clear); Urine Urobilinogen 4 mg/dl (Normal)
--- NOTE | 2023-09-12 10:19 | ED.VIS.GI ---
HPI HPI - GI History of Present Illness Chief Complaint: Flank Pain Narrative Narrative: 33-year-old female presenting with dysuria which started on Tuesday. She states she started to have nausea after this. She is been vomiting over the weekend. She states she has abdominal pain in the suprapubic region but she thinks it is from vomiting. She also complains of bilateral back pain. She states she has history of UTIs in the past. Patient has not had a fever at home. She does report has not been able to hold on any food or fluids. [facility] Medical History Anemia Back pain Depression Flank pain Gastric reflux Gross hematuria Gross hematuria History of echocardiogram History of edema History of stress test Hypertension Injury of head and neck Lupus Migraine headache Shortness of breath on exertion Smoker Wears partial dentures Home Medications losartan 100 mg tablet 100 mg PO QHS 11/04/21 [History Last Taken 06/08/23] sertraline 150 mg capsule 150 mg PO QHS 12/07/21 [History Last Taken 06/08/23] phenazopyridine 200 mg tablet (Pyridium) 200 mg PO TID PRN PRN Bladder Spasms 7 days #30 tabs 12/08/21 [Rx Last Taken 06/09/23] ondansetron 4 mg disintegrating tablet 4 mg PO Q8H PRN nausea and vomiting #10 tabs 01/25/22 [Rx Last Taken 06/08/23] oxycodone-acetaminophen 5 mg-325 mg tablet (Percocet) 1 tab PO Q6H PRN pain 3 days #10 tabs 07/21/22 [Rx Last Taken 06/09/23] albuterol sulfate 90 mcg/actuation aerosol inhaler 2 puff inhalation Q6H PRN shortness of breath or wheezing 06/09/23 [History Last Taken Unknown] atorvastatin 10 mg tablet 10 mg PO .hs 06/09/23 [History Last Taken 06/08/23] cetirizine 10 mg tablet 10 mg PO .hs 06/09/23 [History Last Taken 06/09/23] clonidine HCl 0.1 mg tablet 0.1 mg PO Q12H 06/09/23 [History Last Taken Unknown] hydrochlorothiazide 25 mg tablet 25 mg PO DAILY 06/09/23 [History Last Taken 06/09/23] pantoprazole 40 mg tablet,delayed release (Protonix) 40 mg PO DAILY #90 tabs 07/02/23 [Rx Last Taken Unknown] levofloxacin 500 mg tablet 500 mg PO DAILY 07/05/23 [History Last Taken Unknown] ciprofloxacin HCl 500 mg tablet 500 mg PO BID #14 TABLETS 09/12/23 [Rx Last Taken Unknown] ondansetron 4 mg disintegrating tablet 4 mg PO Q8H PRN PRN Nausea #14 tabs 09/12/23 [Rx Last Taken Unknown] potassium chloride 40 mEq/15 mL oral liquid 40 meq (15 mL) PO DAILY 2 days #30 mL 09/12/23 [Rx Last Taken Unknown] sucralfate 100 mg/mL oral suspension (Carafate) 10 ml PO BID PRN epigastric pain #400 mL 09/12/23 [Rx Last Taken Unknown] Allergy/AdvReac Type Severity Reaction Status Date / Time Penicillins Allergy Hives Verified 09/12/23 09:26 hydrocodone [From [place]] AdvReac HEADACHE Verified 09/12/23 09:26 ketorolac [From Toradol] AdvReac Hives Verified 09/12/23 09:26 sulfamethoxazole AdvReac Vomiting Verified 09/12/23 09:26 [From Bactrim] tramadol AdvReac Vomiting Verified 09/12/23 09:26 trimethoprim [From Bactrim] AdvReac Vomiting Verified 09/12/23 09:26 Family History Other Cancer Diabetes Surgical History History of History of cholecystectomy History of decompression of ulnar nerve History of esophagogastroduodenoscopy (EGD) Hx of cystoscopy Hx of tubal ligation Social History household members: other Smoking Status: Current every day smoker tobacco type: cigarettes substance use type: does not use ROS ROS ED Constitutional Constitutional ED: Denies chills, fever(s) or sweats Eyes Eyes: Denies blurry vision or change in vision ENT ENT ED: Denies ear pain or sore throat Cardiovascular Cardiovascular: Denies chest pain, palpitations or racing heartbeat Respiratory/Chest Respiratory/Chest: Denies cough, dyspnea or sputum Gastrointestinal Gastrointestinal: Reports abdominal pain, nausea and vomiting; Denies constipation or diarrhea Genitourinary Genitourinary ED: Denies dysuria, hematuria or urinary frequency Musculoskeletal Musculoskeletal: Denies arthralgias, myalgias or neck pain Integumentary Denies abscess, Abrasions or rash Neurologic Neurologic: Denies headache(s), paresthesias or weakness Psychiatric Psychiatric: Denies anxiety, depression, suicidal ideation or suicidal thoughts Endocrine Endocrinology: Denies polydipsia or polyuria EXAM Physical Exam Const Vital Signs: 09/12/23 09:25 09/12/23 11:34 09/12/23 13:24 Temperature 97.1 F L Temperature Source Temporal Pulse Rate 85 65 64 Respiratory Rate 16 16 18 Blood Pressure 142/108 H 156/94 H 157/97 H Blood Pressure Mean 119 114 117 Pulse Ox 100 100 Oxygen Delivery Method Room Air Room Air Positive well nourished HEENT normocephalic and atraumatic Eyes PERRL Resp normal respiratory effort Cardio regular rate and regular rhythm GI Palpation: tender suprapubic Back/Spine General Back: CVA tenderness bilateral Neuro CN's II-XII intact bilaterally and moves all extremities Sensorium / Orientation: alert Motor Exam: strength 5/5 throughout Psych mental status grossly normal Skin no wounds MDM MDM MDM Narrative Medical decision making narrative: Patient presenting with right flank pain. Differential includes colitis, diverticulitis, gastritis, pancreatitis, constipation, UTI, pyelonephritis, renal calculi, ureteral calculi, bowel obstruction, malignancy, dehydration, electrolyte abnormalities, , ectopic , ovarian cyst, ovarian torsion. CBC will be obtained to assess white blood cell count, hemoglobin, platelets. CMP to assess liver function, renal function, electrolytes. Lipase to assess for pancreatitis. Urinalysis to assess for UTI. hCG to assess for . Patient medicated with morphine, Zofran, IV fluids. CBC shows normal white blood cell count 9.1. Hemoglobin stable at 12. Platelet count 326. LFTs, renal function, electrolytes all within normal limits with exception of a potassium of 2.8 which is likely due to vomiting.. Lipase normal. Urinalysis shows 250 occult blood, 500 leukocyte esterase, 5-10 WBCs, 10-25 squamous epithelial cells with 1+ bacteria. This is contaminated so clear if this is a urinary tract infection. Patient is symptomatic with dysuria. Urine culture will be sent. Patient will be discharged home with 2-day supply of potassium, Zofran, Cipro for UTI. I discussed with the patient whether she felt comfortable going home and she did. Return precautions discussed. Impression: 1. Pyelonephritis 2. Hypokalemia 3. Nausea/vomiting Lab Data Attestation: I reviewed the patient's lab results. Labs: Laboratory Results - last 24 hr 09/12/23 09/12/23 10:11 10:33 WBC 9.1 RBC 3.58 L Hgb 12.0 Hct 34.1 L MCV 95.3 MCH 33.5 H MCHC 35.2 RDW Std Deviation 49.7 H RDW Coeff of Tere 14.3 Plt Count 326 MPV 8.3 Immature Gran % (Auto) 0.300 Neut % (Auto) 71.6 H Lymph % (Auto) 21.2 [place] % (Auto) 6.5 Eos % (Auto) 0.1 Baso % (Auto) 0.3 Absolute Neuts (auto) 6.5 Absolute Lymphs (auto) 1.94 Nucleated RBC % 0 Sodium 138 Potassium 2.8 L Chloride 104 Carbon Dioxide 28.0 Anion Gap 6 BUN 20 H Creatinine 0.68 Estim Creat Clear Calc 112.29 Est GFR (MDRD) Af Amer 127 Est GFR (MDRD) Non-Af 105 BUN/Creatinine Ratio 29.6 H Glucose 100 Calcium 8.8 Total Bilirubin 0.70 AST 15 ALT 77 H Alkaline Phosphatase 102 Total Protein 7.3 Albumin 3.7 Globulin 3.6 Albumin/Globulin Ratio 1.0 Lipase 38 Urine Color Yellow Urine Clarity Sl. Cloudy Urine pH 7.0 Ur Specific [place] 1.010 Urine Protein 30 H Urine Glucose (UA) Normal Urine Ketones Negative Urine Occult Blood 250 H Urine Nitrite Negative Urine Bilirubin Negative Urine Urobilinogen 4 H Ur Leukocyte Esterase 500 H Urine RBC 5-10 SEEN Urine WBC 5-10 SEEN Ur Squamous Epith Cells 10-25 SEEN Urine Bacteria 1+ Urine Mucus 0 SEEN Urine Test Negative Radiography Diagnostic Testing: Clinical Impression(s) from Imaging Studies Abdomen/Pelvis CT 09/12/23 11:39 IMPRESSION: Status post cholecystectomy. Scattered sigmoid diverticulosis. Electronically Signed: Alexandre Deleon MD at 12:38 EST , Discharge Plan Triage Chief Complaint: Flank Pain ED Provider: Cullen Faust Dx/Rx/DC Orders Instructions: ED Hypokalemia, ED Pyelonephritis, Female (Adult) Prescriptions: New ondansetron 4 mg tablet,disintegrating 4 mg PO Q8H PRN PRN (Reason: Nausea) Qty: 14 0RF sucralfate [Carafate] 100 mg/mL suspension 10 ml PO BID PRN (Reason: epigastric pain) Qty: 400 0RF ciprofloxacin HCl 500 mg tablet 500 mg PO BID Qty: 14 0RF potassium chloride 40 mEq/15 mL liquid 40 meq PO DAILY 2 Days Qty: 30 0RF No Action losartan 100 mg tablet 100 mg PO QHS sertraline 150 mg Capsule 150 mg PO QHS phenazopyridine [Pyridium] 200 MG tablet 200 mg PO TID PRN PRN (Reason: Bladder Spasms) 7 Days Qty: 30 0RF ondansetron 4 mg tablet,disintegrating 4 mg PO Q8H PRN (Reason: nausea and vomiting) Qty: 10 0RF oxycodone-acetaminophen [Percocet] 5-325 mg tablet 1 tab PO Q6H PRN (Reason: pain) 3 Days Qty: 10 0RF atorvastatin 10 mg tablet 10 mg PO .hs cetirizine 10 mg tablet 10 mg PO .hs albuterol sulfate 90 mcg/actuation HFA aerosol inhaler 2 puff INHALATION Q6H PRN (Reason: shortness of breath or wheezing) clonidine HCl 0.1 mg tablet 0.1 mg PO Q12H Patient Comments: TAKE 1 TABLET BY MOUTH TWICE DAILY hydrochlorothiazide 25 mg tablet 25 mg PO DAILY levofloxacin 500 mg tablet 500 mg PO DAILY pantoprazole [Protonix] 40 mg tablet,delayed release (DR/EC) 40 mg PO DAILY Qty: 90 0RF Primary Care Provider: Rosaura Rodriguez NP Referrals: Rosaura Rodriguez NP, [employer] SILVERMAN-C [Primary Care Provider] - Disposition Disposition: Home, Self Care Discharge Date/Time: 09/12/23 13:25
[2023-09-12] MEDS: Ondansetron 4 MG/2 ML Vial IV (10:30)
[2023-09-12] MEDS: Morphine 4 MG/ML Syringe IV ×2 (10:30→13:19)
[2023-09-12] MEDS: 0.9% Normal Saline (1000mL) 1,000 ML 1000 ML IV (10:31)
[2023-09-12 10:41] LABS: Bacteria 1+ /hpf (None Seen); Red Blood Cells-Urine 5-10 SEEN /hpf (0-5); Squamous Epithelial Cells - UA 10-25 SEEN /hpf (5-10); White Blood Cells 5-10 SEEN /hpf (0-5)
[2023-09-12 10:42] LABS: Internal QC Validated? YES +Cl - CLEAR BKGD; Pregnancy, Urine Negative Negative; Record Kit Lot#,Urine Preg 667200
[2023-09-12 10:50] LABS: Absolute Lymphocyte Count 1.94 X10^3/uL (0.83-4.51); Absolute Neutrophil Count 6.5 X10^3/uL (2.0-7.7); Basophil# 0.03 X10^3/uL; Basophil% 0.3 % (0-1); Eosinophil# 0.01 X10^3/uL; Eosinophils% 0.1 % (0-5); Hematocrit 34.1 % (37-47); Lymphocyte # 1.94 X10^3/ul (0.83-4.51); Lymphocyte % 21.2 % (19-41); Mean Corp Hgb Conc 35.2 g/dL (32-36); Mean Corpuscular Hgb 33.5 pg (27.0-32.0); Mean Corpuscular Volume 95.3 fL (81-99); Mean Platelet Vol. 8.3 fl (6.2-12.0); Monocyte# 0.59 X10^3/uL; Monocyte% 6.5 % (0-10); NRBC Flagged by Analyzer 0 % (0-5); Neutrophil # 6.53 X10^3/uL (2.7-7.7); Neutrophil % 71.6 % (47-70); Platelet Count 326 K/mm3 (150-450); RBC Distribution Width CV 14.3 % (11.6-14.6); RBC Distribution Width SD 49.7 fl (35.1-43.9); Red Blood Count 3.58 M/mm3 (4.2-5.4); White Blood Count 9.1 K/mm3 (4.4-11.0)
[2023-09-12 11:09] LABS: AST(SGOT) 15 U/L (15-37); Alanine Aminotransfer ALT/SGPT 77 U/L (13-56); Albumin, Serum 3.7 g/dL (3.2-5.0); Alkaline Phosphatase 102 U/L (45-117); Anion Gap 6 (5-15); BUN 20 mg/dL (7-18); BUN/Creat Ratio 29.6 RATIO (10-20); Calcium,Total 8.8 mg/dL (8.5-10.1); Chloride 104 mmol/L (98-107); Creatinine, Serum 0.68 mg/dL (0.55-1.02); EST Glomerular Filtration Rate 105 mL/min (>60); Est Glom Filt Rate - Afr Amer 127 mL/min (>60); Estimated Creatinine Clearance 112.29 ml/min; Globulin 3.6 g/dL (2.2-4.2); Glucose 100 mg/dL (74-106); Lipase 38 U/L (13-75); Potassium 2.8 mmol/L (3.5-5.1); Protein, Total 7.3 g/dL (6.4-8.2); Sodium Level 138 mmol/L (136-145)
[2023-09-12 11:34] VITALS: BP 156/94; PULSE 65; RESP 16; O2SAT 100
--- NOTE | 2023-09-12 11:39 | CT_ITS ---
STUDY: CT ABDOMEN AND PELVIS WITH CONTRAST REASON FOR EXAM: Female, 33 years old. Bilateral flank pain with vomiting and dysuria. RADIATION DOSAGE (If Supplied By Facility): CTDIvol = ( 15.92 ) mGy, DLP = ( 641.31 ) mGycm TECHNIQUE: Transaxial images were obtained from the dome of the diaphragm to the symphysis pubis without oral contrast. IV 100mL Isovue-370 was administered. Sagittal and coronal images were reconstructed. Individualized dose optimization techniques were used for this CT. COMPARISON: Comparison is made with prior study July 03, 2023. FINDINGS: The visualized lung bases are unremarkable. The visualized portions of the heart are within normal limits. Normal liver. There are surgical clips in the gallbladder fossa consistent with a prior cholecystectomy. Normal spleen. Normal pancreas. Normal bilateral adrenal glands. Normal right kidney. Normal left kidney. Normal visualized stomach. Normal small intestine. There are scattered colonic diverticula consistent with diverticulosis. The appendix is visualized and appears normal. Normal abdominal aorta. Normal inferior vena cava. Normal retroperitoneum. Normal urinary bladder. Normal abdominal wall. Normal osseous structures. CT/Abdomen/Pelvis W IV Cont ONLY IMPRESSION: Status post cholecystectomy. Scattered sigmoid diverticulosis. Electronically Signed: Alexandre Deleon MD at 12:38 EST ,
[2023-09-12 13:24] VITALS: BP 157/97; PULSE 64; RESP 18
== END 2023-09-12 13:25 | disposition home or self-care (01) ==
PROVIDERS: Emergency Provider Student in an Organized Health Care Education/Training Program; PCP Nurse Practitioner Family; Visit Provider Student in an Organized Health Care Education/Training Program
DX: N12 Tubulo-interstitial nephritis, not specified as acute or chronic (principal); R11.2 Nausea with vomiting, unspecified; F17.210 Nicotine dependence, cigarettes, uncomplicated; I10 Essential (primary) hypertension; E87.6 Hypokalemia; F32.A Depression, unspecified; K21.9 Gastro-esophageal reflux disease without esophagitis; Z90.49 Acquired absence of other specified parts of digestive tract
CPT/HCPCS: 74177; 80053; 81001; 81025; 83690; 85025; 96361; 96374; 96375; 96376; 99282; J7040; Q9967; A4216; J2405

== ENCOUNTER 2023-09-13 16:54 | Emergency (ER) | payer MEDICAID, SELFPAY ==
[2023-09-13 16:55] VITALS: BP 150/109; PULSE 83; RESP 16; TEMP 35.8; O2SAT 100
[2023-09-13 17:27] LABS: Absolute Lymphocyte Count 1.92 X10^3/uL (0.83-4.51); Absolute Neutrophil Count 7.5 X10^3/uL (2.0-7.7); Basophil# 0.06 X10^3/uL; Basophil% 0.6 % (0-1); Eosinophil# 0.03 X10^3/uL; Eosinophils% 0.3 % (0-5); Hematocrit 33.8 % (37-47); Hemoglobin 11.6 g/dL (12.0-15.0); Lymphocyte # 1.92 X10^3/ul (0.83-4.51); Mean Corp Hgb Conc 34.3 g/dL (32-36); Mean Corpuscular Hgb 32.2 pg (27.0-32.0); Mean Corpuscular Volume 93.9 fL (81-99); Mean Platelet Vol. 8.3 fl (6.2-12.0); Monocyte# 0.54 X10^3/uL; Monocyte% 5.3 % (0-10); NRBC Flagged by Analyzer 0 % (0-5); Neutrophil # 7.54 X10^3/uL (2.7-7.7); Neutrophil % 74.6 % (47-70); Platelet Count 343 K/mm3 (150-450); RBC Distribution Width CV 13.8 % (11.6-14.6); RBC Distribution Width SD 47.9 fl (35.1-43.9); White Blood Count 10.1 K/mm3 (4.4-11.0)
[2023-09-13] MEDS: 0.9% Normal Saline (1000mL) 1,000 ML 1000 ML IV (17:37)
[2023-09-13] MEDS: Morphine 4 MG/ML Syringe IV ×3 (17:38→21:47)
[2023-09-13] MEDS: Metoclopramide 10 MG/2 ML Vial IV (17:39)
[2023-09-13] MEDS: Famotidine 20 MG Tablet 40 MG PO (17:39)
[2023-09-13 17:41] VITALS: BMI 24.0
--- NOTE | 2023-09-13 17:46 | ED.VIS.GI ---
HPI HPI - GI History of Present Illness Chief Complaint: Nausea/Vomiting Narrative Narrative: 33-year-old female presenting with nausea, vomiting, lower back pain. She was seen yesterday by myself she had dysuria and similar symptoms. She states she went home and has not been able to hold down any food or fluids. She complains that her back pain is more isolated to the left side now. She has not had a fever that she knows of. She was prescribed antiemetics yesterday. PFSH [facility] Medical History Anemia Back pain Depression Flank pain Gastric reflux Gross hematuria Gross hematuria History of echocardiogram History of edema History of stress test Hypertension Injury of head and neck Lupus Migraine headache Shortness of breath on exertion Smoker Wears partial dentures Home Medications losartan 100 mg tablet 100 mg PO QHS 11/04/21 [History Last Taken 06/08/23] sertraline 150 mg capsule 150 mg PO QHS 12/07/21 [History Last Taken 06/08/23] phenazopyridine 200 mg tablet (Pyridium) 200 mg PO TID PRN PRN Bladder Spasms 7 days #30 tabs 12/08/21 [Rx Last Taken 06/09/23] ondansetron 4 mg disintegrating tablet 4 mg PO Q8H PRN nausea and vomiting #10 tabs 01/25/22 [Rx Last Taken 06/08/23] oxycodone-acetaminophen 5 mg-325 mg tablet (Percocet) 1 tab PO Q6H PRN pain 3 days #10 tabs 07/21/22 [Rx Last Taken 06/09/23] albuterol sulfate 90 mcg/actuation aerosol inhaler 2 puff inhalation Q6H PRN shortness of breath or wheezing 06/09/23 [History Last Taken Unknown] atorvastatin 10 mg tablet 10 mg PO .hs 06/09/23 [History Last Taken 06/08/23] cetirizine 10 mg tablet 10 mg PO .hs 06/09/23 [History Last Taken 06/09/23] clonidine HCl 0.1 mg tablet 0.1 mg PO Q12H 06/09/23 [History Last Taken Unknown] hydrochlorothiazide 25 mg tablet 25 mg PO DAILY 06/09/23 [History Last Taken 06/09/23] pantoprazole 40 mg tablet,delayed release (Protonix) 40 mg PO DAILY #90 tabs 07/02/23 [Rx Last Taken Unknown] levofloxacin 500 mg tablet 500 mg PO DAILY 07/05/23 [History Last Taken Unknown] ciprofloxacin HCl 500 mg tablet 500 mg PO BID #14 TABLETS 09/12/23 [Rx Last Taken Unknown] ondansetron 4 mg disintegrating tablet 4 mg PO Q8H PRN PRN Nausea #14 tabs 09/12/23 [Rx Last Taken Unknown] potassium chloride 40 mEq/15 mL oral liquid 40 meq (15 mL) PO DAILY 2 days #30 mL 09/12/23 [Rx Last Taken Unknown] sucralfate 100 mg/mL oral suspension (Carafate) 10 ml PO BID PRN epigastric pain #400 mL 09/12/23 [Rx Last Taken Unknown] metoclopramide HCl 10 mg tablet (Reglan) 10 mg PO Q6H PRN nausea and vomiting #20 tabs 09/13/23 [Rx Last Taken Unknown] potassium chloride 40 mEq/15 mL oral liquid 40 meq (15 mL) PO DAILY 2 days #30 mL 09/13/23 [Rx Last Taken Unknown] promethazine 25 mg tablet 25 mg PO TID PRN nausea and vomiting #14 tabs 09/13/23 [Rx Last Taken Unknown] Allergy/AdvReac Type Severity Reaction Status Date / Time Penicillins Allergy Hives Verified 09/13/23 16:54 hydrocodone [From [place]] AdvReac HEADACHE Verified 09/13/23 16:54 ketorolac [From Toradol] AdvReac Hives Verified 09/13/23 16:54 sulfamethoxazole AdvReac Vomiting Verified 09/13/23 16:54 [From Bactrim] tramadol AdvReac Vomiting Verified 09/13/23 16:54 trimethoprim [From Bactrim] AdvReac Vomiting Verified 09/13/23 16:54 Family History Other Cancer Diabetes Surgical History History of History of cholecystectomy History of decompression of ulnar nerve History of esophagogastroduodenoscopy (EGD) Hx of cystoscopy Hx of tubal ligation Social History household members: other Smoking Status: Current every day smoker tobacco type: cigarettes substance use type: does not use EXAM Physical Exam Const Vital Signs: 09/13/23 16:55 09/13/23 19:00 09/13/23 19:55 Temperature 96.4 F L 97.6 F L Temperature Source Temporal Temporal Pulse Rate 83 67 65 Respiratory Rate 16 16 18 Blood Pressure 150/109 H 153/97 H 151/84 H Blood Pressure Mean 122 115 106 Pulse Ox 100 100 100 Oxygen Delivery Method Room Air Room Air Room Air 09/13/23 21:48 09/13/23 21:48 Temperature Temperature Source Pulse Rate 71 71 Respiratory Rate 14 14 Blood Pressure 164/90 H 164/90 H Blood Pressure Mean 114 114 Pulse Ox 99 99 Oxygen Delivery Method Room Air MDM MDM MDM Narrative Medical decision making narrative: Patient presenting with a second day of nausea, vomiting, lower back pain. Physical exam is unremarkable. Blood work still appears normal and her CBC and CMP have essentially not changed except for her potassium is low. Urinalysis is again contaminated not necessarily consistent with UTI and I did send a urine culture. Patient was given IV fluids, morphine, Reglan as the Zofran did not seem to be working. On reevaluation at 745 the patient states she had nausea is improved but her pain in her back is starting come back. She was given morphine and Phenergan. We did discuss we did not find any admission criteria and she states she does not want to be admission so we are trying to get her medically feeling better. Patient tolerated liquid potassium replacement. I gave her 40 mill equivalents. Reevaluation after given Phenergan and morphine she is doing much better. She states that the Reglan helped the most. She will be discharged home with Reglan and Phenergan which she can alternate. I do not believe she needs narcotic pain meds. Review of her [facility] reports is that she has several providers have prescribed her narcotic pain medication over the last few months. Patient is discharged in stable condition. Impression: 1. nausea/vomiting 2. Abdominal pain Lab Data Labs: Laboratory Results - last 24 hr 09/13/23 09/13/23 17:22 18:25 WBC 10.1 RBC 3.60 L Hgb 11.6 L Hct 33.8 L MCV 93.9 MCH 32.2 H MCHC 34.3 RDW Std Deviation 47.9 H RDW Coeff of Tere 13.8 Plt Count 343 MPV 8.3 Immature Gran % (Auto) 0.200 Neut % (Auto) 74.6 H Lymph % (Auto) 19.0 Simpson % (Auto) 5.3 Eos % (Auto) 0.3 Baso % (Auto) 0.6 Absolute Neuts (auto) 7.5 Absolute Lymphs (auto) 1.92 Nucleated RBC % 0 Sodium 139 Potassium 2.5 L* Chloride 104 Carbon Dioxide 29.0 Anion Gap 6 BUN 13 Creatinine 0.76 Estim Creat Clear Calc 100.47 Est GFR (MDRD) Af Amer 112 Est GFR (MDRD) Non-Af 92 BUN/Creatinine Ratio 17.2 Glucose 94 Calcium 9.0 Magnesium 2.1 Total Bilirubin 0.60 AST 13 L ALT 63 H Alkaline Phosphatase 101 Total Protein 7.4 Albumin 3.9 Globulin 3.5 Albumin/Globulin Ratio 1.1 Urine Color Yellow Urine Clarity Clear Urine pH 7.0 Ur Specific [place] 1.010 Urine Protein 30 H Urine Glucose (UA) Normal Urine Ketones Negative Urine Occult Blood 150 H Urine Nitrite Negative Urine Bilirubin Negative Urine Urobilinogen Normal Ur Leukocyte Esterase 500 H Urine RBC 5-10 SEEN Urine WBC 10-25 SEEN Ur Squamous Epith Cells 5-10 SEEN Urine Bacteria 1+ Urine Mucus 0 SEEN Discharge Plan Triage Chief Complaint: Nausea/Vomiting ED Provider: Cullen Faust Dx/Rx/DC Orders Instructions: ED Hypokalemia, ED Vomiting (Adult) Prescriptions: New promethazine 25 mg tablet 25 mg PO TID PRN (Reason: nausea and vomiting) Qty: 14 0RF metoclopramide HCl [Reglan] 10 mg tablet 10 mg PO Q6H PRN (Reason: nausea and vomiting) Qty: 20 0RF potassium chloride 40 mEq/15 mL liquid 40 meq PO DAILY 2 Days Qty: 30 0RF No Action losartan 100 mg tablet 100 mg PO QHS sertraline 150 mg Capsule 150 mg PO QHS phenazopyridine [Pyridium] 200 MG tablet 200 mg PO TID PRN PRN (Reason: Bladder Spasms) 7 Days Qty: 30 0RF ondansetron 4 mg tablet,disintegrating 4 mg PO Q8H PRN (Reason: nausea and vomiting) Qty: 10 0RF oxycodone-acetaminophen [Percocet] 5-325 mg tablet 1 tab PO Q6H PRN (Reason: pain) 3 Days Qty: 10 0RF atorvastatin 10 mg tablet 10 mg PO .hs cetirizine 10 mg tablet 10 mg PO .hs albuterol sulfate 90 mcg/actuation HFA aerosol inhaler 2 puff INHALATION Q6H PRN (Reason: shortness of breath or wheezing) clonidine HCl 0.1 mg tablet 0.1 mg PO Q12H Patient Comments: TAKE 1 TABLET BY MOUTH TWICE DAILY hydrochlorothiazide 25 mg tablet 25 mg PO DAILY levofloxacin 500 mg tablet 500 mg PO DAILY pantoprazole [Protonix] 40 mg tablet,delayed release (DR/EC) 40 mg PO DAILY Qty: 90 0RF ondansetron 4 mg tablet,disintegrating 4 mg PO Q8H PRN PRN (Reason: Nausea) Qty: 14 0RF sucralfate [Carafate] 100 mg/mL suspension 10 ml PO BID PRN (Reason: epigastric pain) Qty: 400 0RF ciprofloxacin HCl 500 mg tablet 500 mg PO BID Qty: 14 0RF potassium chloride 40 mEq/15 mL liquid 40 meq PO DAILY 2 Days Qty: 30 0RF Primary Care Provider: Rosaura Rodriguez NP Referrals: Rosaura Rodriguez NP, [employer] [Primary Care Provider] - Disposition Disposition: Home, Self Care
[2023-09-13 17:54] LABS: ALB/GLOB Ratio 1.1 RATIO (0.9-2.4); AST(SGOT) 13 U/L (15-37); Alanine Aminotransfer ALT/SGPT 63 U/L (13-56); Albumin, Serum 3.9 g/dL (3.2-5.0); Alkaline Phosphatase 101 U/L (45-117); Anion Gap 6 (5-15); BUN 13 mg/dL (7-18); BUN/Creat Ratio 17.2 RATIO (10-20); Chloride 104 mmol/L (98-107); Creatinine, Serum 0.76 mg/dL (0.55-1.02); EST Glomerular Filtration Rate 92 mL/min (>60); Est Glom Filt Rate - Afr Amer 112 mL/min (>60); Estimated Creatinine Clearance 100.47 ml/min; Globulin 3.5 g/dL (2.2-4.2); Glucose 94 mg/dL (74-106); Potassium 2.5 mmol/L (3.5-5.1); Protein, Total 7.4 g/dL (6.4-8.2); Sodium Level 139 mmol/L (136-145)
[2023-09-13 17:57] LABS: Magnesium 2.1 mg/dL (1.6-2.6)
[2023-09-13 18:30] LABS: Mucous, Urine 0 SEEN /hpf (<or=2+)
[2023-09-13 18:48] LABS: Color, Urine Yellow (Yellow); Glucose, Dipstick Normal (Normal); Ketone-Dipstick Negative (Negative); Leukocyte Esterase-Dipstick 500 /ul (Negative); Nitrite-Dipstick Negative (Negative); Occult Blood-Urine 150 /ul (Negative); Protein-Dipstick 30 mg/dl (Negative); Urine Bilirubin Dipstick Negative (Negative); Urine Clarity Clear (Clear); Urine Urobilinogen Normal (Normal)
[2023-09-13 19:00] VITALS: BP 153/97; PULSE 67; RESP 16; TEMP 36.4; O2SAT 100
[2023-09-13 19:05] LABS: Red Blood Cells-Urine 5-10 SEEN /hpf (0-5); White Blood Cells 10-25 SEEN /hpf (0-5)
[2023-09-13 19:06] LABS: Bacteria 1+ /hpf (None Seen); Squamous Epithelial Cells - UA 5-10 SEEN /hpf (5-10)
[2023-09-13] MEDS: proMETHazine 25 MG/ML Syringe 12.5 MG IM (19:50)
[2023-09-13 19:55] VITALS: BP 151/84; PULSE 65; RESP 18; O2SAT 100
[2023-09-13] MEDS: Potassium Chloride Oral Soln 20 MEQ/15 ML UDC 40 MEQ PO (20:23)
[2023-09-13 21:48] VITALS: BP 164/90; PULSE 71; RESP 14; O2SAT 99
== END 2023-09-13 22:46 | disposition home or self-care (01) ==
PROVIDERS: Emergency Provider Student in an Organized Health Care Education/Training Program; PCP Nurse Practitioner Family; Visit Provider Student in an Organized Health Care Education/Training Program
DX: R11.2 Nausea with vomiting, unspecified (principal); I10 Essential (primary) hypertension; F17.210 Nicotine dependence, cigarettes, uncomplicated; F32.A Depression, unspecified; K21.9 Gastro-esophageal reflux disease without esophagitis; Z90.49 Acquired absence of other specified parts of digestive tract; R10.9 Unspecified abdominal pain
CPT/HCPCS: 80053; 81001; 83735; 85025; 87086; 87088; 96361; 96372; 96374; 96375; 96376; 99283; A4216

== ENCOUNTER → 2024-01-12 | Outpatient (CLI) | payer MEDICAID, SELFPAY ==
[2024-01-12 16:24] LABS: Erythrocyte Sedimentation Rate 2 mm/hr (0-30)
[2024-01-12 16:27] LABS: Absolute Lymphocyte Count 2.61 X10^3/uL (0.83-4.51); Absolute Neutrophil Count 3.9 X10^3/uL (2.0-7.7); Basophil# 0.04 X10^3/uL; Basophil% 0.6 % (0-1); Eosinophil# 0.28 X10^3/uL; Eosinophils% 3.9 % (0-5); Hemoglobin 11.4 g/dL (12.0-15.0); Lymphocyte # 2.61 X10^3/ul (0.83-4.51); Lymphocyte % 36.1 % (19-41); Mean Corp Hgb Conc 33.5 g/dL (32-36); Mean Corpuscular Hgb 31.9 pg (27.0-32.0); Mean Corpuscular Volume 95.2 fL (81-99); Mean Platelet Vol. 9.1 fl (6.2-12.0); Monocyte# 0.36 X10^3/uL; NRBC Flagged by Analyzer 0 % (0-5); Neutrophil # 3.91 X10^3/uL (2.7-7.7); Neutrophil % 54.1 % (47-70); Platelet Count 286 K/mm3 (150-450); RBC Distribution Width CV 12.7 % (11.6-14.6); RBC Distribution Width SD 44.3 fl (35.1-43.9); Red Blood Count 3.57 M/mm3 (4.2-5.4); White Blood Count 7.2 K/mm3 (4.4-11.0)
[2024-01-12 16:28] LABS: PTHIN 66.7 pg/mL (18.4-80.1)
[2024-01-12 16:30] LABS: Vitamin B12 780 pg/mL (211-911)
[2024-01-12 17:07] LABS: Amphetamine Urine VISTA POSITIVE (<1000 ng/mL); Barbiturate Urine VISTA NEGATIVE (< 200 ng/mL); Benzodiazepine Urine VISTA NEGATIVE (< 200 ng/mL); Cocaine Urine VISTA NEGATIVE (< 300 ng/mL); Ecstacy Urine VISTA NEGATIVE (< 500 ng/mL); Methadone Urine VISTA NEGATIVE (< 300 ng/mL); PCP Urine VISTA NEGATIVE (< 25 ng/mL); THC Urine VISTA NEGATIVE (< 50 ng/mL); Vista UDS pH Range 6
[2024-01-12 17:15] LABS: ALB/GLOB Ratio 1.2 RATIO (0.9-2.4); AST(SGOT) 15 U/L (15-37); Alanine Aminotransfer ALT/SGPT 29 U/L (13-56); Albumin, Serum 3.5 g/dL (3.2-5.0); Alkaline Phosphatase 76 U/L (45-117); Anion Gap 6 (5-15); BUN 11 mg/dL (7-18); BUN/Creat Ratio 14.5 RATIO (10-20); CRP < 2.90 mg/L (0.0-3.0); Calcium,Total 8.5 mg/dL (8.5-10.1); Chloride 102 mmol/L (98-107); Creatinine, Serum 0.76 mg/dL (0.55-1.02); EST Glomerular Filtration Rate 92 mL/min (>60); Est Glom Filt Rate - Afr Amer 111 mL/min (>60); Glucose 87 mg/dL (74-106); Potassium 3.3 mmol/L (3.5-5.1); Protein, Total 6.5 g/dL (6.4-8.2); Sodium Level 141 mmol/L (136-145); T4 Free Direct 0.89 ng/dL (0.76-1.46); Thyroid Stim Hormone (TSH) 0.71 uIU/mL (0.358-3.74)
[2024-01-16 12:09] LABS: Anti-Centromere B Ab <0.2 AI (0.0-0.9); Anti-Chromatin <0.2 AI (0.0-0.9); Anti-Jo <0.2 AI (0.0-0.9); Anti-Scleroderma-70 AB <0.2 AI (0.0-0.9); Anti-dsDNA Ab 1 IU/mL (0-9); RNP Ab <0.2 AI (0.0-0.9); SJOGREN'S Anti-SS-A test < 0.2 AI (0.0-0.9); SJOGREN'S Anti-SS-B test < 0.2 AI (0.0-0.9); Smith Ab <0.2 AI (0.0-0.9)
[2024-01-18 18:08] LABS: Albumin 3.6 g/dL (2.9-4.4); Alpha-1-Globulins 0.2 g/dL (0.0-0.4); Alpha-2-Globulins 0.6 g/dL (0.4-1.0); Chromogranin A 51.3 ng/mL (0.0-101.8); Gamma Globulin 0.8 g/dL (0.4-1.8); Gastrin, Serum 50 pg/mL (0-115); IgG, Quant 833 mg/dL (586-1602); Immunoglobulin A 123 mg/dL (87-352); Immunoglobulin G, Subclass 1 401 mg/dL (248-810); Immunoglobulin G, Subclass 2 344 mg/dL (130-555); Immunoglobulin G, Subclass 3 74 mg/dL (15-102); Immunoglobulin G, Subclass 4 1 mg/dL (2-96); Immunoglobulin M 115 mg/dL (26-217); PROEL- TOTAL PROTEIN 6.1 g/dL (6.0-8.5)
== END | disposition home or self-care (01) ==
LOC: LAB 15:05
PROVIDERS: PCP Nurse Practitioner Family; Referring Provider Internal Medicine Gastroenterology; Visit Provider Internal Medicine Gastroenterology
DX: K90.0 Celiac disease (principal)
CPT/HCPCS: 36415; 80053; 80307; 82607; 82746; 82784; 82787; 82941; 83970; 84165; 84439; 84443; 84481; 85025; 85652; 86140; 86225; 86235; 86316; 86334

== ENCOUNTER → 2024-03-21 | Outpatient (CLI) | payer MEDICAID, SELFPAY ==
--- NOTE | 2024-03-21 10:20 | NM_ITS ---
CLINICAL: 34-year-old female with history of chronic nausea and abdominal pain. SEMI-SOLID PHASE 99m Tc SULFUR COLLOID GASTRIC EMPTYING STUDY COMPARISON: None available FINDINGS: The patient was administered 1.0 mCi of 99m Tc sulfur colloid mixed with oatmeal and consumed per os. Image acquisitions in the anterior-posterior projections were obtained for 60 minutes. There is prompt visualization of the stomach. There is no gastroesophageal reflux identified. First order kinetics are maintained throughout the duration of the acquisitions. The T ? linear fit was extrapolated to be 71.01 minutes, (Normal: 12-56 minutes). NM/Gastric Emptying Study IMPRESSION: 1. ABNORMAL 99m Tc sulfur colloid semi-solid phase (oatmeal) gastric emptying imaging examination. A. There is delayed semi-solid phase gastric emptying compared to normal controls with maintained first order kinetics throughout all components of the examination. (Magaly et al, J Nucl Med Tech 38: 186, 2010). Electronically Signed: Andrew Lawrence DO at 9:28 EDT ,
== END | disposition home or self-care (01) ==
PROVIDERS: PCP Nurse Practitioner Family; Referring Provider Internal Medicine Gastroenterology; Visit Provider Internal Medicine Gastroenterology
DX: R11.2 Nausea with vomiting, unspecified (principal); R10.9 Unspecified abdominal pain
CPT/HCPCS: 78264; A9541

== ENCOUNTER 2024-04-26 21:55 | Emergency (ER) | payer SELFPAY ==
[2024-04-26 21:56] VITALS: BP 147/117; PULSE 95; RESP 16; TEMP 36.8; O2SAT 97; BMI 22.7
[2024-04-26 22:36] LABS: Bacteria 0 SEEN /hpf (None Seen); Mucous, Urine 0 SEEN /hpf (<or=2+); Red Blood Cells-Urine 0 SEEN /hpf (0-5)
[2024-04-26] MEDS: Morphine 4 MG/ML Syringe IV (22:36)
[2024-04-26] MEDS: Ondansetron 4 MG/2 ML Vial IV (22:36)
[2024-04-26] MEDS: 0.9% Normal Saline (1000mL) 1,000 ML 999 ML IV (22:36)
[2024-04-26 22:38] LABS: Absolute Lymphocyte Count 2.34 X10^3/uL (0.83-4.51); Absolute Neutrophil Count 4.9 X10^3/uL (2.0-7.7); Basophil# 0.06 X10^3/uL; Basophil% 0.8 % (0-1); Eosinophil# 0.17 X10^3/uL; Eosinophils% 2.2 % (0-5); Hematocrit 33.9 % (37-47); Hemoglobin 11.5 g/dL (12.0-15.0); Lymphocyte # 2.34 X10^3/ul (0.83-4.51); Lymphocyte % 29.6 % (19-41); Mean Corp Hgb Conc 33.9 g/dL (32-36); Mean Corpuscular Hgb 31.7 pg (27.0-32.0); Mean Corpuscular Volume 93.4 fL (81-99); Mean Platelet Vol. 8.8 fl (6.2-12.0); Monocyte# 0.44 X10^3/uL; Monocyte% 5.6 % (0-10); NRBC Flagged by Analyzer 0 % (0-5); Neutrophil # 4.87 X10^3/uL (2.7-7.7); Neutrophil % 61.5 % (47-70); Platelet Count 298 K/mm3 (150-450); RBC Distribution Width CV 12.4 % (11.6-14.6); RBC Distribution Width SD 42.6 fl (35.1-43.9); Red Blood Count 3.63 M/mm3 (4.2-5.4); White Blood Count 7.9 K/mm3 (4.4-11.0)
[2024-04-26 22:40] LABS: Color, Urine Yellow (Yellow); Glucose, Dipstick Normal (Normal); Ketone-Dipstick Negative (Negative); Leukocyte Esterase-Dipstick 25 /ul (Negative); Nitrite-Dipstick Negative (Negative); Occult Blood-Urine 250 /ul (Negative); Protein-Dipstick 30 mg/dl (Negative); Specific Gravity, Urine 1.005 (1.002-1.030); Urine Bilirubin Dipstick Negative (Negative); Urine Clarity Clear (Clear); Urine Urobilinogen Normal (Normal)
[2024-04-26 22:44] LABS: Internal QC Validated? YES +Cl - CLEAR BKGD; Pregnancy, Urine Negative Negative
[2024-04-26 22:51] LABS: Squamous Epithelial Cells - UA 5-10 SEEN /hpf (5-10); White Blood Cells 0-5 SEEN /hpf (0-5)
[2024-04-26 23:04] LABS: Lactic Acid 0.8 mmol/L (0.4-1.9)
[2024-04-26 23:23] LABS: Anion Gap 9 (5-15); BUN 14 mg/dL (7-18); BUN/Creat Ratio 20.6 RATIO (10-20); CRP < 2.90 mg/L (0.0-3.0); Calcium,Total 8.8 mg/dL (8.5-10.1); Chloride 108 mmol/L (98-107); Creatinine, Serum 0.68 mg/dL (0.55-1.02); EST Glomerular Filtration Rate 104 mL/min (>60); Est Glom Filt Rate - Afr Amer 126 mL/min (>60); Estimated Creatinine Clearance 111.22 ml/min; Glucose 106 mg/dL (74-106); Potassium 3.4 mmol/L (3.5-5.1); Sodium Level 141 mmol/L (136-145)
--- NOTE | 2024-04-27 00:13 | EDS_ITS ---
HPI History of Present Illness Chief Complaint: Complaint Informant: patient and spouse/S.O. Narrative Narrative: Patient is a 34-year-old female with past medical history of hypertension and reported recurrent kidney infections. She states that for the past 3 to 4 days she has had back/flank pain bilaterally with discomfort with urination. She states that she has been nauseated without vomiting. She denies any vaginal bleeding or discharge or concern for STD or . She states this feels similar to her previous kidney infections and with concern that she may need antibiotics presents for evaluation [facility] Medical History Wears partial dentures Anemia Gastric reflux History of edema History of echocardiogram History of stress test Lupus Gross hematuria Flank pain Gross hematuria Depression Back pain Migraine headache Injury of head and neck Shortness of breath on exertion Hypertension Smoker Home Medications ?Medication ?Instructions ?Recorded ?Last Taken ?Type losartan 100 mg tablet 100 mg PO QHS 11/04/21 06/08/23 History sertraline 150 mg capsule 150 mg PO QHS 12/07/21 06/08/23 History phenazopyridine 200 mg tablet 200 mg PO TID PRN PRN Bladder 12/08/21 06/09/23 Rx (Pyridium) Spasms 7 days #30 tabs ondansetron 4 mg disintegrating 4 mg PO Q8H PRN nausea and 01/25/22 06/08/23 Rx tablet vomiting #10 tabs oxycodone-acetaminophen 5 mg-325 1 tab PO Q6H PRN pain 3 days #10 07/21/22 06/09/23 Rx mg tablet (Percocet) tabs albuterol sulfate 90 mcg/actuation 2 puff inhalation Q6H PRN 06/09/23 Unknown History aerosol inhaler shortness of breath or wheezing atorvastatin 10 mg tablet 10 mg PO .hs 06/09/23 06/08/23 History cetirizine 10 mg tablet 10 mg PO .hs 06/09/23 06/09/23 History clonidine HCl 0.1 mg tablet 0.1 mg PO Q12H 06/09/23 Unknown History hydrochlorothiazide 25 mg tablet 25 mg PO DAILY 06/09/23 06/09/23 History pantoprazole 40 mg tablet,delayed 40 mg PO DAILY #90 tabs 07/02/23 Unknown Rx release (Protonix) levofloxacin 500 mg tablet 500 mg PO DAILY 07/05/23 Unknown History ciprofloxacin HCl 500 mg tablet 500 mg PO BID #14 TABLETS 09/12/23 Unknown Rx ondansetron 4 mg disintegrating 4 mg PO Q8H PRN PRN Nausea #14 tabs 09/12/23 Unknown Rx tablet potassium chloride 40 mEq/15 mL 40 meq (15 mL) PO DAILY 2 days #30 09/12/23 Unknown Rx oral liquid mL sucralfate 100 mg/mL oral 10 ml PO BID PRN epigastric pain 09/12/23 Unknown Rx suspension (Carafate) #400 mL potassium chloride 40 mEq/15 mL 40 meq (15 mL) PO DAILY 2 days #30 09/13/23 Unknown Rx oral liquid mL promethazine 25 mg tablet 25 mg PO TID PRN nausea and 09/13/23 Unknown Rx vomiting #14 tabs scopolamine base 1 mg over 3 days 1 patch transdermal Q3D PRN for 02/28/24 Unknown Rx transdermal patch nausea/vomiting #10 patches ondansetron 4 mg disintegrating 4 mg PO TID PRN nausea and 04/27/24 Unknown Rx tablet vomiting #21 tabs oxycodone-acetaminophen 5 mg-325 1 tab PO Q6H PRN pain 3 days #12 04/27/24 Unknown Rx mg tablet (Percocet) tabs Allergy/AdvReac Type Severity Reaction Status Date / Time Penicillins Allergy Hives Verified 04/26/24 21:57 hydrocodone (From [place]) AdvReac HEADACHE Verified 04/26/24 21:57 ketorolac (From Toradol) AdvReac Hives Verified 04/26/24 21:57 sulfamethoxazole (From AdvReac Vomiting Verified 04/26/24 21:57 Bactrim) tramadol AdvReac Vomiting Verified 04/26/24 21:57 trimethoprim (From Bactrim) AdvReac Vomiting Verified 04/26/24 21:57 Family History Other Cancer Diabetes Surgical History History of History of cholecystectomy History of decompression of ulnar nerve History of esophagogastroduodenoscopy (EGD) Hx of cystoscopy Hx of tubal ligation Social History household members: other Smoking Status: Current every day smoker tobacco type: cigarettes substance use type: does not use ROS ROS ED Constitutional Constitutional ED: Denies chills or fever(s) ENT ENT ED: Denies sore throat Cardiovascular Cardiovascular: Denies chest pain Respiratory/Chest Respiratory/Chest: Denies cough or dyspnea Gastrointestinal Gastrointestinal: Reports abdominal pain and nausea; Denies diarrhea or vomiting Genitourinary Genitourinary ED: Reports dysuria and urinary frequency Musculoskeletal Musculoskeletal: Reports back pain Integumentary Denies rash Neurologic Neurologic: Denies headache(s) Hematologic/Lymphatic Hematologic/Lymphatic: Denies easy bleeding or easy bruising EXAM Physical Exam Const Vital Signs: 04/26/24 21:56 04/27/24 00:22 Temperature 98.2 F 97.9 F Temperature Source Oral Pulse Rate 95 72 Respiratory Rate 16 18 Blood Pressure 147/117 H 122/72 H Blood Pressure Mean 127 88 Pulse Ox 97 97 Oxygen Delivery Method Room Air Positive well nourished and well developed General Appearance ED: well developed; Negative for pallor HEENT HEENT Narrative: Normocephalic atraumatic Eyes PERRL and EOMs intact bilaterally General Eye ED: Negative for scleral icterus Neck supple Resp normal respiratory effort and clear to auscultation bilaterally Cardio regular rate and regular rhythm Rate: other Other Details: Heart is regular rate and rhythm without murmurs rubs or gallops Radial and carotid pulses are equal and symmetric GI normal to inspection, nondistended, normoactive bowel sounds, non-tender, non- distended and no masses GI Narrative: Soft nontender nondistended with normal active bowel sounds no voluntary guarding or rigidity or pulsatile mass No organomegaly noted to suggest acute urinary retention Auscultation: normoactive bowel sounds Palpation: soft Back/Spine Back/Spine Narrative: Patient has bilateral lower back pain with palpation No overlying soft tissue changes to suggest trauma or infection Extremity normal to inspection Neuro oriented x3, CN's II-XII intact bilaterally and no sensory deficits noted Sensorium / Orientation: alert Motor Exam: strength 5/5 throughout Psych mental status grossly normal Skin no rashes or lesions noted and no wounds General Skin Exam: Negative for jaundice or pallor MDM MDM MDM Narrative Medical decision making narrative: Patient arrived to the ER with hypertension but otherwise stable vitals. She reported concern for potential kidney infection and states she has a history of this. Donor diagnosis is for UTI versus pyelonephritis versus interstitial cystitis versus acute kidney injury. Basic labs were obtained and showed a normal white count normal kidney function and no elevation to the lactate or CRP. Urine sample also shows blood without any bacteria. Her history of recurrent infections but negative workup at this time would most likely indicate interstitial cystitis. This can be evaluated as an outpatient by urology as the patient does not have DIONI or signs of septicemia. As the patient's urine does not show bacteria I will not place her on antibiotics but will be sent for culture to ensure there is no true infection. However at this time with overall negative workup she can be discharged and follow-up on an outpatient basis History & Record Review Discussion w/independent historian: Patient and Significant other Lab Data Attestation: I reviewed the patient's lab results. Labs: Laboratory Results - last 24 hr 04/26/24 22:30 WBC 7.9 RBC 3.63 L Hgb 11.5 L Hct 33.9 L MCV 93.4 MCH 31.7 MCHC 33.9 RDW Std Deviation 42.6 RDW Coeff of Tere 12.4 Plt Count 298 MPV 8.8 Immature Gran % (Auto) 0.300 Neut % (Auto) 61.5 Lymph % (Auto) 29.6 [place] % (Auto) 5.6 Eos % (Auto) 2.2 Baso % (Auto) 0.8 Absolute Neuts (auto) 4.9 Absolute Lymphs (auto) 2.34 Nucleated RBC % 0 Sodium 141 Potassium 3.4 L Chloride 108 H Carbon Dioxide 24.0 Anion Gap 9 BUN 14 Creatinine 0.68 Estim Creat Clear Calc 111.22 Est GFR (MDRD) Af Amer 126 Est GFR (MDRD) Non-Af 104 BUN/Creatinine Ratio 20.6 H Glucose 106 Lactic Acid 0.8 Calcium 8.8 C-React Prot Ext Range < 2.90 Urine Color Yellow Urine Clarity Clear Urine pH 7.0 Ur Specific [place] 1.005 Urine Protein 30 H Urine Glucose (UA) Normal Urine Ketones Negative Urine Occult Blood 250 H Urine Nitrite Negative Urine Bilirubin Negative Urine Urobilinogen Normal Ur Leukocyte Esterase 25 H Urine RBC 0 SEEN Urine WBC 0-5 SEEN Ur Squamous Epith Cells 5-10 SEEN Urine Bacteria 0 SEEN Urine Mucus 0 SEEN Urine Test Negative Discharge Plan Triage Chief Complaint: Complaint ED Provider: Bradley Yepez Dx/Rx/DC Orders Clinical Impression: Dysuria, Hypertension Instructions: Dysuria, What Is Interstitial Cystitis Prescriptions: New oxycodone-acetaminophen [Percocet] 5-325 mg tablet 1 tab PO Q6H PRN (Reason: pain) 3 Days Qty: 12 0RF ondansetron 4 mg tablet,disintegrating 4 mg PO TID PRN (Reason: nausea and vomiting) Qty: 21 0RF No Action losartan 100 mg tablet 100 mg PO QHS sertraline 150 mg Capsule 150 mg PO QHS phenazopyridine [Pyridium] 200 MG tablet 200 mg PO TID PRN PRN (Reason: Bladder Spasms) 7 Days Qty: 30 0RF ondansetron 4 mg tablet,disintegrating 4 mg PO Q8H PRN (Reason: nausea and vomiting) Qty: 10 0RF oxycodone-acetaminophen [Percocet] 5-325 mg tablet 1 tab PO Q6H PRN (Reason: pain) 3 Days Qty: 10 0RF atorvastatin 10 mg tablet 10 mg PO .hs cetirizine 10 mg tablet 10 mg PO .hs albuterol sulfate 90 mcg/actuation HFA aerosol inhaler 2 puff INHALATION Q6H PRN (Reason: shortness of breath or wheezing) clonidine HCl 0.1 mg tablet 0.1 mg PO Q12H Patient Comments: TAKE 1 TABLET BY MOUTH TWICE DAILY hydrochlorothiazide 25 mg tablet 25 mg PO DAILY levofloxacin 500 mg tablet 500 mg PO DAILY pantoprazole [Protonix] 40 mg tablet,delayed release (DR/EC) 40 mg PO DAILY Qty: 90 0RF ondansetron 4 mg tablet,disintegrating 4 mg PO Q8H PRN PRN (Reason: Nausea) Qty: 14 0RF sucralfate [Carafate] 100 mg/mL suspension 10 ml PO BID PRN (Reason: epigastric pain) Qty: 400 0RF ciprofloxacin HCl 500 mg tablet 500 mg PO BID Qty: 14 0RF potassium chloride 40 mEq/15 mL liquid 40 meq PO DAILY 2 Days Qty: 30 0RF promethazine 25 mg tablet 25 mg PO TID PRN (Reason: nausea and vomiting) Qty: 14 0RF potassium chloride 40 mEq/15 mL liquid 40 meq PO DAILY 2 Days Qty: 30 0RF scopolamine base 1 mg over 3 days patch 3 day 1 patch transdermal Q3D PRN (Reason: for nausea/vomiting) Qty: 10 0RF Primary Care Provider: Rosaura Rodriguez NP Referrals: Dianne Matthews MD [Med Staff - Active Staff] - Rosaura Rodriguez NP, [employer] [Primary Care Provider] - Activity Restrictions/Additional Instructions: Your urine sample did not show any sign of bacteria/infection tonight. It will be sent for culture however to ensure there is no secondary infection. Your history and exam is most consistent with interstitial cystitis. Follow-up with urology for repeat evaluation and return to the ER should you have any further concerns Print Language: Togolese Disposition Disposition: Home, Self Care Discharge Date/Time: 04/27/24 00:23
[2024-04-27 00:22] VITALS: BP 122/72; PULSE 72; RESP 18; TEMP 36.6; O2SAT 97
== END 2024-04-27 00:23 | disposition home or self-care (01) ==
PROVIDERS: Emergency Provider Emergency Medicine; PCP Nurse Practitioner Family; Visit Provider Emergency Medicine
DX: R30.0 Dysuria (principal); I10 Essential (primary) hypertension; F17.210 Nicotine dependence, cigarettes, uncomplicated; Z79.899 Other long term (current) drug therapy; Z90.49 Acquired absence of other specified parts of digestive tract; Z98.51 Tubal ligation status
CPT/HCPCS: 80048; 81001; 81025; 83605; 85025; 86140; 87086; 87088; 96361; 96374; 96375; 99283; J7030; A4216; J2405